=== PATIENT | female | born 1965 | race Caucasian/White ===

== ENCOUNTER 2016-09-25 20:58 | Inpatient (IN) | payer OTHER ==
[~2016-09-25] VITALS: Ht 162.6 cm; Wt 115.2 kg
[2016-09-25 22:25] VITALS: BP 201/87; PULSE 125; TEMP 36.8; O2SAT 96; BMI 48.1
[2016-09-25] MEDS ORDERED: ALUMINUM/MAGNESIUM/SIMETH (MAALOX MAX) 30 ML UDC PO PRN (23:30)
[2016-09-25] MEDS ORDERED: MAGNESIUM HYDROXIDE SUSP 30 ML UDC PO PRN (23:30)
[2016-09-25] MEDS ORDERED: POLYETHYLENE (MIRALAX) 17 GM PACK PO PRN (23:30)
[2016-09-25] MEDS ORDERED: MoRPHine SULFATE 2 MG/ML CARP IV PRN (23:30)
[2016-09-25] MEDS ORDERED: NITROGLYCERIN 0.4 MG SL PER TAB CHARGE SL PRN (23:30)
[2016-09-25 23:59] VITALS: O2SAT 95
[2016-09-26] VITALS (12 sets, daily range): BP systolic 145–183; BP diastolic 72–91; PULSE 67–111; TEMP 36.8–37.4; O2SAT 89–100
[2016-09-26] MEDS ORDERED: GLUCOSE 40% GEL 15 GM TUBE PO PRN (00:30)
[2016-09-26] MEDS ORDERED: DEXTROSE 50% 50 ML SYR IV PRN (00:30)
[2016-09-26] MEDS ORDERED: GLUCAGON FOR INJ 1 MG VIAL SQ PRN (00:30)
[2016-09-26] MEDS ORDERED: GLUCOSE 10 TABS/TUBE PO PRN (00:30)
[2016-09-26 00:46] LABS: ARTERIAL BLD GAS O2 SATURATION 90.1 % (90-95); ARTERIAL BLOOD GAS BASE EXCESS -8.6 mEq/L (-9-1.8); ARTERIAL BLOOD GAS HCO3 17 mmol/L (19-24); ARTERIAL BLOOD GAS PO2 68 mm/Hg (80-95); ARTERIAL BLOOD GAS pH 7.31 (7.35-7.45)
[2016-09-26 00:49] LABS: ALLEN TEST POS (POS); O2 ADMINISTRATION 9 L
--- NOTE | 2016-09-26 00:50 | History and Physical ---
History & Physical Date & Time of Service: Sep 26, 2016 at 00:23 Chief Complaint: Chf, Renal Failure Primary Care Physician: No Doctor, Assigned History of Present Illness Source: patient 51 y/o F Hx Morbid obesity, CVA, IDDM, CKD. Recently admitted to [facility] for Influ and PNM. She returned to [facility] today with moderate respiratory distress and received a preliminary diagnosis of CHF. She was noted in addition to have worsening renal function and an elevated K. The pt was therefore transferred to [facility] for further evaluation. At the time of arrival she describes SOB and was requiring an NRB to maintain an adequate saturation. She Denies CP, a productive cough, N/V, dysuria or fevers. 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 2) Type 2 DM 3) CKD - diagnosed 08/28 - does not know stage or baseline creatinine 4) Morbid obesity 5) States she likely has RENETTA but has not yet been evaluated Family History Both parents are alive - mother with HTN, DM - father healthy Social History Quit smoking 10 years prior Smoking Status: Former Smoker Allergies Coded Allergies: Latex1 -Allergic Contact Dermititis (Verified Adverse Reaction, Mild, RASH , 09/25/16) Review of Systems Constitutional: No chills, No fever, No sweats Eyes: No eye pain, No worsening of vision ENT: No hearing loss, No nasal symptoms, No unusual epistaxis Respiratory: + dyspnea at rest, + dyspnea on exertion, + shortness of breath, No cough, No sputum, No wheezing Cardiovascular: + orthopnea, No chest pain, No edema Abdomen: No nausea, No pain, No vomiting Musculoskeletal: No joint pain, No muscle pain Genitourinary - Female: No dysuria, No urinary frequency, No urinary urgency Neurologic: No memory loss, No paralysis, No weakness Psychiatric: No depression symptoms Endocrine: No fatigue Hematologic / Lymphatic: No abnormal bleeding/bruising Integumentary: No rash Allergic / Immunologic: No environmental allergies Physical Exam Vital Signs Date Time Temp Pulse Resp B/P Pulse Ox O2 Delivery O2 Flow Rate FiO2 09/25/16 22:25 36.8 125 25 201/87 96 Venturi Mask 14.0 55 General Appearance: + pertinent finding (PLeasent overweight middle aged female - breathing is clearly labored) Head: normocephalic, atraumatic Eyes: normal inspection, PERRL, EOMI ENT: normal ENT inspection, hearing grossly normal, + pertinent finding (Exam limited by habitus) Neck: supple, no adenopathy, thyroid normal, no JVD Respiratory/Chest: chest non-tender, + pertinent finding (No air entry at bases - possible crackles L - no wheezing) Cardiovascular: regular rate, rhythm, no edema, no gallop, + pertinent finding (faint heart sounds) Abdomen/GI: normal bowel sounds, non tender, soft Back: normal inspection, no CVA tenderness, no muscle spasm, normal range of motion Extremities/Musculoskelatal: normal inspection, no calf tenderness, normal capillary refill, no pedal edema, normal range of motion 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 Recently admitted to [facility] for Influ and PNM. She returned to [facility] today with moderate respiratory distress and received a preliminary diagnosis of CHF. She was noted in addition to have worsening renal function and an elevated K. The pt was therefore transferred to [facility] for further evaluation. At the time of arrival she describes SOB and was requiring an NRB to maintain an adequate saturation. She Denies CP, a productive cough, N/V, dysuria or fevers. 1) Respiratory distress - likely new onset CHF - awaiting CT result as her habitus precludes accurate volume assessment. She will receive BID Lasix - measure Is/Os - 02 protocol, echo and cardiology consult. R/O acute precipitating event with serial troponins. She receives a daily B jorge. 2) Acute on chronic RF - we will need a baseline from her PCP - cannot receive IVF due to likelihood of CHF. She has a high K and a low bicarb which will be trended - if function worsens nephrology should be involved. She does have a [employer]scre[employer] Worker in [place] presently. 3) DM - sliding scale provided 4) Hx TIA - cont Plavix and Lipitor. 5) HTN - Norvasc, Metoprolol, Lasix. 6) Hyperkalemia - treating with IV Lasix - will trend BMP Full code - Heparin prophylaxis Total time for this admit including review of labs, meds, EKG, CT - discussion with pt and ER attending at [facility] - 42 min Level of Care Telemetry Advanced Directives Existing Living Will: No Existing Power of Supervisor Delivery Department: No Resuscitation Status FULL RESUSCITATION VTE Prophylaxis VTE Risk Assessment Done? Y/N: Yes Risk Level: Moderate Given or contraindicated: Unfractionated heparin SQ
[2016-09-26 01:17] LABS: BUN/CREATININE RATIO 19.7 (10-20); CALCIUM 8.3 mg/dl (8.5-10.1); CREATININE 2.4 mg/dl (0.60-1.20); POTASSIUM 5.4 mmol/L (3.5-5.1)
[2016-09-26] MEDS: INSULIN ASPART 100 UNITS/ML 3 ML PEN SC SCH ×4 (01:35→16:09)
[2016-09-26] MEDS: NITROGLYCERIN OINT 2% 1GM PACKET EXT SCH ×4 (01:41→17:53)
[2016-09-26 03:46] LABS: HEMATOCRIT 26.1 % (37-47); MEAN CELL VOLUME 88.8 fL (80-100); MEAN CORPUSCULAR HEMOGLOBIN 29.3 pg (25-34); PLATELET COUNT 265 K/uL (130-400); RED BLOOD COUNT 2.94 M/uL (4.2-5.4); WHITE BLOOD COUNT 10.37 K/uL (4.8-10.8)
[2016-09-26] MEDS: HEPARIN 25,000 UNIT/500ML D5W 500 ML IV PRN ×2 (03:54→19:43)
[2016-09-26 03:56] LABS: PARTIAL THROMBOPLASTIN RATIO 1.1
[2016-09-26 04:12] LABS: BUN/CREATININE RATIO 21.1 (10-20); CALCIUM 8.1 mg/dl (8.5-10.1); CREATININE 2.3 mg/dl (0.60-1.20); MAGNESIUM 2.2 mg/dl (1.8-2.4); POTASSIUM 5.2 mmol/L (3.5-5.1)
[2016-09-26 04:18] LABS: PHOSPHORUS 4.4 mg/dl (2.5-4.9)
[2016-09-26] MEDS ORDERED: HEPARIN SOD 5000 UNIT/0.5 ML CARP SQ SCH (06:00)
--- NOTE | 2016-09-26 06:15 | DIAGNOSTIC IMAGING REPORT ---
CHEST CT WITHOUT CONTRAST CT DOSE: 1180.84 mGy.cm HISTORY: Dyspnea CHF vs PNM TECHNIQUE: Multiaxial CT images of the chest were performed without contrast. COMPARISON: None. FINDINGS: Bilateral pleural effusions. Components of congestive heart failure. Moderate cardiac enlargement. Patchy parenchymal slightly nodular-type upper lobe infiltrative change. Increased pulmonary vasculature. IMPRESSION: Congestive failure versus pulmonary edema. 2. Bilateral pleural effusions. 3. Patchy somewhat nodular upper lobe infiltrates bilaterally. Electronically signed by: Beto Evans M.D. 09/26/2016 6:14 AM Dictated Date/Time: 09/26/2016 6:13 AM
[2016-09-26] MEDS ORDERED: FUROSEMIDE 40 MG/4 ML VIAL ONE (08:22)
[2016-09-26] MEDS ORDERED: NURSING VERBAL MED ORDER ONE (08:30)
[2016-09-26] MEDS: METOPROLOL TARTRATE 25 MG TAB PO SCH ×2 (08:36→20:16)
[2016-09-26] MEDS: AMLODIPINE BESYLATE 5 MG TAB PO SCH (08:40)
[2016-09-26] MEDS: CITALOPRAM 20 MG TAB PO SCH (08:41)
[2016-09-26] MEDS: CLOPIDOGREL BISULFATE 75 MG TAB PO SCH (08:41)
[2016-09-26] MEDS ORDERED: ALBUTEROL 0.083% NEBU SOLN 3 ML VIAL INH PRN (08:45)
--- NOTE | 2016-09-26 08:46 | Progress Note ---
Subjective Date of Service: Sep 26, 2016. Subjective Pt evaluation today including: conversation w/ patient, physical exam, lab review, review of studies, review of inpatient medication list Called to bedside for worsening SOB. On arrival, patient was sitting up, almost at tripod positioning with NRB Given lasix 40mg this morning and another lasix 40mg IV given stat. Patient placed on bipap and given morphine 2mg with significant improvement She is now able to tolerate laying back and breathing is more comfortable with improvement in ability to converse. No chest pain, no abd pain. LE swelling has been ongoing for a few days now, both legs. Review of Systems All Other Systems: Reviewed and Negative Medications Acetaminophen (Tylenol Tab) 650 mg Q4H PRN PO; Start 09/25/16 at 23:30; Stop 10/25/16 at 23:29 Al Hydrox/Mg Hydrox/Simethicone (Maalox Max Susp) 15 ml Q4H PRN PO; Start 09/25 at 23:30; Stop 10/25/16 at 23:29 Albuterol Sulfate 2.5 mg 2.5 mg Q3H PRN INH; Start 09/26/16 at 08:45; Stop at 08:44 Albuterol/ Ipratropium (Duoneb) 3 ml QIDR INH; Start 09/26/16 at 12:00; Stop at 11:59 Amlodipine Besylate (Norvasc Tab) 10 mg QAM PO Last administered on 09/26/16t 08 :40; Admin Dose 10 MG; Start 09/26/16 at 09:00; Stop 10/26/16 at 08:59 Atorvastatin Calcium (Lipitor Tab) 40 mg HS PO; Start 09/26/16 at 21:00; Stop at 20:59 Bumetanide 2 mg/ Syringe 8 ml @ 4 mls/min BID@0800,1500 IV; Start 09/26/16 at 15 :00; Stop 10/26/16 at 14:59 Citalopram Hydrobromide (celeXA TAB) 20 mg QAM PO Last administered on t 08:41; Admin Dose 20 MG; Start 09/26/16 at 09:00; Stop 10/26/16 at 08:59 Clopidogrel Bisulfate (plAVix TAB) 75 mg QAM PO Last administered on 09/26/16 08:41; Admin Dose 75 MG; Start 09/26/16 at 09:00; Stop 10/26/16 at 08:59 Dextrose (Dextrose 50% 50ML Syringe) 25-50ML OF 50% DW IV FOR... UD PRN IV; Start 09/26/16 at 00:30; Stop 10/26/16 at 00:29 Glucagon 1 mg 1 mg UD PRN SQ; Start 09/26/16 at 00:30; Stop 10/26/16 at 00:29 Glucose (Glucose 40% Gel) 15-30 GRAMS 15 GRAMS... UD PRN PO; Start 09/26/16 at 00:30; Stop 10/26/16 at 00:29 Glucose (Glucose Chew Tab) 4-8 Tablets 4 Tabl... UD PRN PO; Start 09/26/16 at 00:30; Stop 10/26/16 at 00:29 Heparin Sodium/ Dextrose (Heparin 25,000 Unit/500ml D5W) 500 ml @ 30 mls/hr [id number] PRN IV Last administered on 09/26/16 03:54; Admin Dose 30 MLS/HR; Start 09/26/16 at 03:15; Stop 10/26/16 at 03:14 Insulin Aspart (novoLOG ASPART) SLIDING SCALE G... Q6 SC Last administered on 09/26/16 01:35; Admin Dose 1 UNITS; Start 09/26/16 at 00:45; Stop 10/26/16 at 00:44 Magnesium Hydroxide (Milk Of Magnesia Susp) 30 ml Q12H PRN PO; Start 09/25/16 at 23:30; Stop 10/25/16 at 23:29 Metoprolol Tartrate (Lopressor Tab) 25 mg BID PO Last administered on 09/26/16 08:36; Admin Dose 25 MG; Start 09/26/16 at 09:00; Stop 10/26/16 at 08:59 Morphine Sulfate (MoRPHine SULFATE INJ) 2 mg Q30M PRN IV Last administered on 08:34; Admin Dose 2 MG; Start 09/25/16 at 23:30; Stop 10/09/16 at 23:29 Nitroglycerin (Nitroglycerin 2% Oint) 1 inch Q6 EXT Last administered on t 06:14; Admin Dose 1 INCH; Start 09/26/16 at 00:45; Stop 10/26/16 at 00:44 Nitroglycerin (Nitrostat Tab) 0.4 mg UD PRN SL; Start 09/25/16 at 23:30; Stop 10/25/16 at 23:29 Ondansetron HCl (Zofran Inj) 4 mg Q6H PRN IV; Start 09/25/16 at 23:30; Stop at 23:29 Piperacillin Sod/ Tazobactam Sod 3.375 gm/Dextrose 115 ml @ 28.75 mls/ hr Q8H IV; Start 09/26/16 at 16:00; Stop 10/03/16 at 15:59 Piperacillin Sod/ Tazobactam Sod 1 ea 1 ea UD PRN N/A; Start 09/26/16 at 10:30 ; Stop 10/26/16 at 10:29 Piperacillin Sod/ Tazobactam Sod/ Dextrose (Zosyn Iv/D5 100ml) 120 ml @ 200 mls /hr 1030 ONCE IV; Start 09/26/16 at 10:30; Stop 09/26/16 at 11:05 Polyethylene (Miralax Powder Packet) 17 gm DAILY PRN PO; Start 09/25/16 at 23: 30; Stop 10/25/16 at 23:29 Tramadol HCl (Ultram Tab) 50 mg Q4H PRN PO; Start 09/25/16 at 23:30; Stop 10/25 at 23:29 Vancomycin HCl (Consult) 1 ea UD PRN N/A; Start 09/26/16 at 10:30; Stop at 10:29 Vancomycin HCl/ Sodium Chloride (Vancomycin Inj/ Nss 500ml) 556 ml @ 200 mls/ hr TODAY@1100 ONCE IV; Start 09/26/16 at 11:00; Stop 09/26/16 at 13:46 Objective Vital Signs Date Time Temp Pulse Resp B/P Pulse Ox O2 Delivery O2 Flow Rate FiO2 09/26/16 08:11 36.8 99 24 183/85 89 09/26/16 04:00 Venturi Mask 9.0 35 09/26/16 03:42 36.9 84 22 180/91 95 Mask 09/25/16 23:59 95 Venturi Mask 9.0 09/25/16 23:59 Venturi Mask 9.0 35 09/25/16 22:25 36.8 125 25 201/87 96 Venturi Mask 14.0 55 Physical Exam Comments: initially, she was in respiratory distress with increased WOB after the intervention above, she remains with increased work of breathing but improved since arrival, and she is now tolerating sitting back with bipap s1 s2 rrr, no murmurs appreciated coarse breath sound with rales and diminished lung sounds abd obese, soft nt +BS 2+ LE edema bilaterally AOx3 and is a good historian Laboratory Results Last 24 Hours Test 09/26/16 00:24 09/26/16 01:06 09/26/16 03:40 09/26/16 06:01 Sodium Level 145 mmol/L 145 mmol/L Potassium Level 5.4 mmol/L 5.2 mmol/L Chloride Level 118 mmol/L 117 mmol/L Carbon Dioxide Level 18 mmol/L 20 mmol/L Anion Gap 9.0 mmol/L 8.0 mmol/L Blood Urea Nitrogen 47 mg/dl 49 mg/dl Creatinine 2.40 mg/dl 2.30 mg/dl Est Creatinine Clear Calc Drug Dose 35.8 ml/min 37.3 ml/min Estimated GFR () 25.8 27.2 Estimated GFR (Non- 22.3 23.5 BUN/Creatinine Ratio 19.7 21.1 Random Glucose 201 mg/dl 167 mg/dl Calcium Level 8.3 mg/dl 8.1 mg/dl Troponin I 5.080 ng/ml 7.740 ng/ml Bedside Glucose 183 mg/dl 146 mg/dl White Blood Count 10.37 K/uL Red Blood Count 2.94 M/uL Hemoglobin 8.6 g/dL Hematocrit 26.1 % Mean Corpuscular Volume 88.8 fL Mean Corpuscular Hemoglobin 29.3 pg Mean Corpuscular Hemoglobin Concent 33.0 g/dl RDW Standard Deviation 46.2 fL RDW Coefficient of Variation 14.3 % Platelet Count 265 K/uL Mean Platelet Volume 10.0 fL Activated Partial Thromboplast Time 29.0 SECONDS Partial Thromboplastin Ratio 1.1 Phosphorus Level 4.4 mg/dl Magnesium Level 2.2 mg/dl Hepatitis C Antibody Screen NEG Interpretation Summary * Name: TONNY RODRIGUEZ Study Date: 09/26/2016 09:48 AM BP: 180/91 mmHg * [id number] HR: 84 * : 1965 (M/d/yyyy) Gender: Female Height: 64 in * Age: 51 yrs Ethnicity: [place] Weight: 279 lb * Ordering Physician: Kevon Rodriguez * Performed By: Bel Hayward * * Reason For Study: CHF * BSA: 2.3 m2 * -- Conclusions -- * 1. Normal LV size, moderate concentric LVH. * 2. Normal LV systolic function. LVEF 60-65%. Severe apical hypokinesis. * 3. RV not well visualized. Function grossly normal. * 4. Mild mitral regurgitation. * 5. Grade II diastolic dysfunction * 6. Elevated RA pressure (Est 15 mmHg). * 7. Moderate left pleural effusion. * 8. No prior studies for comparison. Procedure Details * A complete two-dimensional transthoracic echocardiogram was performed (2D, M-mode, Doppler and color flow Doppler). * The study was technically difficult. * There were technical limitations due to patient'spoor positioning * A contrast injection of Definity was performed to improve assessment of LV function. * Contrast was injected into an intravenous site in the left arm. * One vial of Definity ultrasound contrast was diluted in normal saline to a total volume of 10 ml. A total of '2' ml of solution was administered during imaging. * Lot # [id number] of Definity utilized for procedure. * Expiration date 07/29. * The attending nurse who injected the contrast agent was DOMI DEE RN. Left Ventricle * The left ventricle is grossly normal size. * There is moderate concentric left ventricular hypertrophy. * Ejection Fraction = 60-65%. * There is severe apical wall hypokinesis. Right Ventricle * The right ventricle is not well visualized. * The right ventricular systolic function is normal as assessed by tricuspid annular plane systolic excursion (TAPSE) (normal >1.5 cm). CHEST ONE VIEW PORTABLE CLINICAL HISTORY: reps distress dyspnea COMPARISON STUDY: CT chest dated 09/25/2016 FINDINGS: Findings of congestive failure versus mild pulmonary edema IMPRESSION: Congestive failure versus mild pulmonary edema. CHEST CT WITHOUT CONTRAST CT DOSE: 1180.84 mGy.cm HISTORY: Dyspnea CHF vs PNM TECHNIQUE: Multiaxial CT images of the chest were performed without contrast. COMPARISON: None. FINDINGS: Bilateral pleural effusions. Components of congestive heart failure. Moderate cardiac enlargement. Patchy parenchymal slightly nodular-type upper lobe infiltrative change. Increased pulmonary vasculature. IMPRESSION: Congestive failure versus pulmonary edema. 2. Bilateral pleural effusions. 3. Patchy somewhat nodular upper lobe infiltrates bilaterally. ABDOMEN AND PELVIS CT WITHOUT CONTRAST CT DOSE: 2126.92 mGy.cm HISTORY: Pain severe abd pain TECHNIQUE: Multiaxial CT images of the abdomen and pelvis were performed without contrast. COMPARISON STUDY: None. FINDINGS: Bilateral pleural effusions. Basilar atelectatic change. Configuration of the liver is unremarkable. Gallbladder is negative for distention. Bilateral nonobstructing nephrocalcinosis/renal vascular calcifications. Trace body wall anasarca. Nonobstructive bowel pattern. Normal appendix. Bladder is midline. No significant free fluid within the pelvic cul-de-sac. No significant abdominal pelvic or inguinal richard change. IMPRESSION: 1. No acute process of the abdomen or pelvis. Normal appendix 2. Bilateral pleural effusions with bibasilar atelectatic change. 3. Mild body wall anasarca. Assessment and Plan 1. Acute decompensated diastolic CHF - HFpEF of 60%, GII diastolic dysfunction - improved with increased dose of lasix, likely just not adequate dosage for eGFR - cont diuresing her and bipap with increase WOB - cardio consulted, appreciate recs - give her another dose of bumex 2mg in the afternoon and cont bumex 2mg IV BID - keep her 1-1.5L fluid negative as long as BP remains stable 2. NSTEMI - troponin consistent with NSTEMI, EKG without MAYTE - will trend troponin - cont heparin gtt - CT abd w/o con negative for e/o bleed, unable to obtain w/ IV contrast with her renal function - echo as above, cardio recs noted 3. BECKIE on CKD - unclear baseline and stage of renal disease - probably renal congestion with CHF with an element of cardiorenal - she has been off any RAAS blockade - obtain renal US to evaluate renal parenchyma - will require increased dose of diuretics for now - will cont to diurese her symptomatically regardless of renal function at this time - would avoid non-emergent contrast studies at this time unless LHC becomes urgent/emergent, then we'll have to weigh risks/benefits 4. Patchy upper lobe infiltrates - will cont on vanco/zosyn - recently finished azithro outpatient and recent hospitalization - cover for HCAP 5. Hyperkalemia - from renal failure - should improve with diuresis 6. HTN - elevated at the moment, likely stress and volume mediated - will cont to diurese for now and monitor - cont metoprolol 7. Back pain - CT negative for any pathologies - unable to obtain contrast study - will monitor
[2016-09-26] MEDS ORDERED: FUROSEMIDE INJ 40 MG in SYRINGE 0 ML IV SCH (09:00)
--- NOTE | 2016-09-26 09:30 | DIAGNOSTIC IMAGING REPORT ---
CHEST ONE VIEW PORTABLE CLINICAL HISTORY: reps distress dyspnea COMPARISON STUDY: CT chest dated 09/25/2016 FINDINGS: Findings of congestive failure versus mild pulmonary edema IMPRESSION: Congestive failure versus mild pulmonary edema. Electronically signed by: Beto Evans M.D. 09/26/2016 9:29 AM Dictated Date/Time: 09/26/2016 9:00 AM
[2016-09-26] MEDS ORDERED: VANCOMYCIN 1GM/270ML NSS IV STA (09:50)
[2016-09-26] MEDS ORDERED: PERFLUTREN LIPID MICROSPHERE (DEFINITY) IV ONE (10:12)
[2016-09-26] MEDS ORDERED: VANCOMYCIN CONSULT ACTIVE PRN (10:30)
[2016-09-26] MEDS ORDERED: PIPERACILL/TAZOBAC CONSULT ACTIVE PRN (10:30)
[2016-09-26] MEDS ORDERED: PIPERACILL/TAZOBAC IV 4.5 GM in DEXTROSE 5% 100ML 100 ML IV ONE (10:30)
[2016-09-26 10:56] LABS: PARTIAL THROMBOPLASTIN RATIO 1.4
[2016-09-26] MEDS ORDERED: VANCOMYCIN INJ 2,800 MG in SODIUM CHLORIDE 0.9% 500ML 500 ML IV ONE (11:00)
--- NOTE | 2016-09-26 11:00 | Pharmacy Progress Note ---
Pharmacy Antibiotic Consult Date of Service: Sep 26, 2016. Pharmacy Dosing Scope Pharmacy is consulted to initiate vancomycin IV dosing therapy, order appropriate labs and adjust drug dose/frequency. Subjective The patient is a 51 year old female admitted on Sep 25, 2016 at 22:34. Objective Height (Feet): 5 Height (Inches): 4.00 Weight (Kilograms): 126.600 Lab Results (24hrs): Laboratory Tests Test 09/26/16 00:24 09/26/16 03:40 BUN/Creatinine Ratio 19.7 21.1 Blood Urea Nitrogen 47 mg/dl 49 mg/dl Creatinine 2.40 mg/dl 2.30 mg/dl White Blood Count 10.37 K/uL Assessment & Plan Assessment * 51 yo F w ? HAP vs CHF. Recent hospitalization. On Zosyn, vancomycin. Ordered nasal MRSA - pending. Patient is tachycardic with O2 sat currently 89% on venturimask. WBC and temperature wnl. * Hx CKD w unknown baseline SCr - currently elevated to 2.3 mg/dL. Will add-on SCr with labs ordered this evening to help determine trend. * Will give vancomycin 22 mg/kg IV x1. This will be max dose - cannot give more 2nd obesity. * Will obtain random level this PM to determine if more vancomycin is needed. * May be able to discontinue vancomycin if MRSA nasal swab is negative. * Patient is at risk for further nephrotoxicity with vancomycin, especially in combination with Zosyn Plan * Vancomycin 2800 mg IV x1 @ 1100 * Random vancomycin level today @ 1900 * Nasal MRSA swab - suggest d/c vancomycin if negative Pharmacy will continue to follow and will adjust dose/frequency as necessary. Thank you
[2016-09-26] MEDS: ALBUT/IPRATROP 3MG/0.5MG NEB 3 ML VIAL INH SCH ×3 (11:08→19:15)
--- NOTE | 2016-09-26 11:26 | ECHOCARDIOGRAM REPORT ---
*NOTICE TO RECEIVING REPUBLICAN AGENCY This information is strictly Confidential and protected under [place] law. [place] law prohibits you from making any further disclosure of this information unless further disclosure is expressly permitted by the written consent of the person to whom it pertains or is authorized by law. A general authorization for the release of medical or other information is not sufficient for this purpose. Hospital accepts no responsibility if the information is made available to any other person, INCLUDING THE PATIENT. Interpretation Summary * Name: TONNY RODRIGUEZ Study Date: 09/26/2016 09:48 AM BP: 180/91 mmHg * Patient Location: C.2T\S\E222\S\1 HR: 84 * : 1965 (M/d/yyyy) Gender: Female Height: 64 in * Age: 51 yrs Ethnicity: CA Weight: 279 lb * Ordering Physician: Kevon Rodriguez * Performed By: Bel Hayward * * Reason For Study: CHF * BSA: 2.3 m2 * -- Conclusions -- * 1. Normal LV size, moderate concentric LVH. * 2. Normal LV systolic function. LVEF 60-65%. Severe apical hypokinesis. * 3. RV not well visualized. Function grossly normal. * 4. Mild mitral regurgitation. * 5. Grade II diastolic dysfunction * 6. Elevated RA pressure (Est 15 mmHg). * 7. Moderate left pleural effusion. * 8. No prior studies for comparison. Procedure Details * A complete two-dimensional transthoracic echocardiogram was performed (2D, M-mode, Doppler and color flow Doppler). * The study was technically difficult. * There were technical limitations due to patient'spoor positioning * A contrast injection of Definity was performed to improve assessment of LV function. * Contrast was injected into an intravenous site in the left arm. * One vial of Definity ultrasound contrast was diluted in normal saline to a total volume of 10 ml. A total of '2' ml of solution was administered during imaging. * Lot # [id number] of Definity utilized for procedure. * Expiration date 07/29. * The attending nurse who injected the contrast agent was DOMI DEE RN. Left Ventricle * The left ventricle is grossly normal size. * There is moderate concentric left ventricular hypertrophy. * Ejection Fraction = 60-65%. * There is severe apical wall hypokinesis. Right Ventricle * The right ventricle is not well visualized. * The right ventricular systolic function is normal as assessed by tricuspid annular plane systolic excursion (TAPSE) (normal >1.5 cm). Atria * The left atrium is moderately dilated. * Right atrium not well visualized. * No ASD detected; PFO is not assessed. Mitral Valve * The mitral valve is grossly normal. * No significant mitral valve stenosis. * There is mild mitral regurgitation. Tricuspid Valve * The tricuspid valve is not well visualized. * Significant tricuspid regurgitation is absent. Aortic Valve * The aortic valve opens well. * The aortic valve is trileaflet. * No hemodynamically significant valvular aortic stenosis. * There is no significant aortic regurgitation. Pulmonic Valve * The pulmonary valve is not well seen, but the Doppler examination is normal without significant regurgitation or stenosis. Great Vessels * The aortic root and proximal ascending aorta are normal sized. Pericardium/Pleural * There is no pericardial effusion. * Moderate size left pleural effusion. Great Vessels * Dilated inferior vena cava with reduced collapsability with sniff indicates an elevated right atrial pressure of 15 mmHg Left Ventricular Diastolic Function * Diastolic dysfunction, Grade II, consistent with elevated left atrial pressure. MMode 2D Measurements and Calculations IVSd 1.6 cm IVSs 1.9 cm LVIDd 4.9 cm LVIDs 3.1 cm LVPWd 1.4 cm LVPWs 2.1 cm IVS/LVPW 1.1 FS 37.1 % EDV(Teich) 114.2 ml ESV(Teich) 37.9 ml EF(Teich) 66.9 % EDV(cubed) 119.6 ml ESV(cubed) 29.7 ml EF(cubed) 75.1 % % IVS thick 23.9 % % LVPW thick 52.6 % LV mass(C)d 304.8 grams LV mass(C)dI 135.2 grams/m\S\2 LV mass(C)s 276.7 grams LV mass(C)sI 122.8 grams/m\S\2 SV(Teich) 76.4 ml SI(Teich) 33.9 ml/m\S\2 SV(cubed) 89.8 ml SI(cubed) 39.9 ml/m\S\2 ACS 1.2 cm asc Aorta Diam 2.7 cm LVOT diam 2.0 cm LVOT area 3.0 cm\S\2 LVAd ap4 42.8 cm\S\2 LVLd ap4 9.3 cm EDV(MOD-sp4) 159.7 ml EDV(sp4-el) 166.1 ml LVAs ap4 23.9 cm\S\2 LVLs ap4 8.9 cm ESV(MOD-sp4) 52.5 ml ESV(sp4-el) 54.4 ml EF(MOD-sp4) 67.1 % EF(sp4-el) 67.3 % LVAd ap2 39.3 cm\S\2 LVLd ap2 9.2 cm EDV(MOD-sp2) 137.5 ml EDV(sp2-el) 143.5 ml LVAs ap2 21.6 cm\S\2 LVLs ap2 8.1 cm ESV(MOD-sp2) 47.7 ml ESV(sp2-el) 48.8 ml EF(MOD-sp2) 65.3 % EF(sp2-el) 66.0 % LVLd %diff -1.98 % EDV(MOD-bp) 149.4 ml LVLs %diff -9.19 % ESV(MOD-bp) 51.7 ml EF(MOD-bp) 65.4 % SV(MOD-sp4) 107.2 ml SI(MOD-sp4) 47.6 ml/m\S\2 SV(MOD-sp2) 89.8 ml SI(MOD-sp2) 39.8 ml/m\S\2 SV(MOD-bp) 97.7 ml SI(MOD-bp) 43.3 ml/m\S\2 SV(sp4-el) 111.7 ml SI(sp4-el) 49.6 ml/m\S\2 SV(sp2-el) 94.7 ml SI(sp2-el) 42.0 ml/m\S\2 Doppler Measurements and Calculations MV E max brinda 140.9 cm/sec MV A max brinda 112.2 cm/sec MV E/A 1.3 MV P1/2t max brinda 151.8 cm/sec MV P1/2t 106.8 msec MVA(P1/2t) 2.1 cm\S\2 MV dec slope 416.5 cm/sec\S\2 MV dec time 0.22 sec Ao V2 max 152.1 cm/sec Ao max PG 9.2 mmHg Ao max PG (full) 6.3 mmHg EARNESTINE(V,A) 1.7 cm\S\2 EARNESTINE(V,D) 1.7 cm\S\2 LV V1 max PG 3.0 mmHg LV V1 max 86.1 cm/sec MR max brinda 423.2 cm/sec MR max PG 71.6 mmHg PA V2 max 109.5 cm/sec PA max PG 4.8 mmHg PI end-d brinda 91.8 cm/sec
[2016-09-26] MEDS ORDERED: HEPARIN IV BOLUS 7,000 UNIT in SYRINGE 0 ML IV ONE (12:00)
[2016-09-26 13:46] LABS: HEMATOCRIT 27.3 % (37-47)
--- NOTE | 2016-09-26 14:21 | CARDIOLOGY CONSULTATION ---
DATE OF CONSULTATION: 09/26/2016 DATE OF CONSULTATION: 09/26/2016. CONSULTATION REQUESTED BY: Dr. Rodriguez. REASON FOR CONSULTATION: Elevated troponin. HISTORY OF PRESENT ILLNESS: Ms. Gutierrez is a 51-year-old woman with a history of hypertension, type 2 diabetes on insulin, chronic renal insufficiency (stage III, baseline creatinine of approximately 2.0), prior right CVA, anemia who was admitted in the setting of progressive shortness of breath, with congestive heart failure, in the setting of elevated troponin. Cardiology consulted for further management. The patient with no real significant prior cardiac history. Denies any prior history of cardiac procedures or surgeries. 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 The patient states that approximately 1 month ago developed some shortness of breath which was attributed to a pneumonia. She was treated briefly with antibiotics with mild improvement; however, continued to have shortness of breath. Since that time symptoms have been gradually progressed and been associated with lower extremity edema, orthopnea. The day of presentation, the patient states that she went out for a large lunch with lots of salt, went to sleep and woke up acutely short of breath. She presented initially to [facility] where was hypoxic with mildly elevated troponin and was transferred to [facility] for further management. Upon presentation here, she was hypoxic initially requiring a Venturi mask and this morning had to be placed on BiPAP and given an extra dose of Lasix. Thus far, she is negative 700 mL of fluid out, and notes that her breathing is significantly improved. During all this she denies any chest pain. Denies any palpitations. Her initial EKG showed no ST changes. Her initial troponin was 5.1, which trended up to 7.7 this morning. She was also noted to have an elevated creatinine of approximately 2.4 and low hemoglobin of 8.6. She was started on heparin infusion, continued on Plavix and a nitropatch was added. PAST MEDICAL HISTORY: 1. Type 2 diabetes on insulin. 2. Chronic renal insufficiency, baseline creatinine around 2.0 to 2.2. 3. Anemia. Baseline last hemoglobin around 10. 4. Hyperlipidemia. 5. Prior CVA in 2014, right yoav acute infarct, no significant residual defects. 6. Hyperlipidemia. 7. Peripheral artery disease status post prior LEVELER HELPER with questionable stenting to her right leg somewhere. 8. Suspected obstructive sleep apnea. CURRENT MEDICATIONS: Include Tylenol, albuterol, ipratropium nebs, amlodipine 10, atorvastatin 40, citalopram, Plavix 75 mg, heparin infusion, insulin aspart, metoprolol 25 mg b.i.d., 1 inch nitro paste, Zofran, Zosyn and vancomycin. ALLERGIES: LATEX ALLERGY. FAMILY HISTORY: Mother had diabetes and cardiac disease in her 70s. No history of premature coronary artery disease. SOCIAL HISTORY: The patient smoked more than 10 years ago. Denies significant alcohol use. Denies illicit drug use. 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 REVIEW OF SYSTEMS: Unable to obtain due to respiratory distress. PHYSICAL EXAMINATION: VITAL SIGNS: Temperature 36.9, pulse 72, blood pressure 145/72. She is satting 95% on BiPAP with FIO2 of 30. GENERAL: The patient appears in mild distress, but appears comfortable. HEAD, EYES, EARS, NOSE, AND THROAT: Her sclerae are anicteric. Oropharynx is clear. Mucous membranes are moist. NECK: Supple. No lymphadenopathy. JVD is unable to be assessed. LUNGS: She has decreased breath sounds at her bases bilaterally, left greater than right. CARDIAC EXAMINATION: She is regular rate and rhythm with no appreciable murmurs, rubs or gallops. ABDOMEN: Soft, obese, but nontender. EXTREMITIES: Warm. She has 1+ lower extremity edema to her shins bilaterally. She has diminished distal pulses. She has a 2+ right radial pulse. SKIN: Shows no rashes or lesions. NEUROLOGIC: Grossly nonfocal. PSYCHIATRIC: She is alert and oriented x3. Mood and affect is appropriate. LABORATORY DATA: Sodium 145, potassium 5.4, BUN 47, creatinine of 2.4, bicarb 18. White blood cell count 10.4, hemoglobin 8.6, platelets of 265. Initial blood gas 7.31/36/68/17. INR was 1.1. EKG showed normal sinus rhythm and a ventricular rate of [address] scan of her chest showed pulmonary edema with bilateral pleural effusions. Telemetry reviewed showed sinus rhythm, sinus tachycardia with no complex arrhythmias. Echocardiogram completed today showed preserved LV function with an EF of approximately 60-65%. There was apical hypokinesis. No other regional wall motion abnormalities. She had moderate LVH, grade 2 diastolic dysfunction consistent with elevated left atrial pressure and an elevated estimated right atrial pressure. IMPRESSION AND PLAN: 1. Acute diastolic heart failure. 2. Qqt-KE-bslggps elevation myocardial infarction. 3. Acute on chronic renal failure. 4. Anemia. 5. Type 2 diabetes on insulin. 6. Hypertension. 7. Peripheral artery disease. 8. Hyperlipidemia. Patient here with progressive worsening shortness of breath requiring initial BiPAP therapy, found to be in acute heart failure, now improving with IV diuretics and topical nitrates. She continues to have significant congestion on exam. Going forward, I agree with continued IV diuresis. Would continue with 40 IV b.i.d. and continue topical nitrates. If blood pressure remains elevated, would consider adding IV nitroglycerin drip. In regards to NSTEMI, patient is chest pain free, has remained hemodyanmically and electrically stable with overall preserved LV function. In that setting with patient's chronic renal insufficiency would hold off on urgent cardiac catheterization at this time. Would continue heart failure management as above and will consider a cardiac cath at some point to further define anatomy and risk stratify. In the interim though would continue on heparin for 48 hours. Continue Plavix. Would add aspirin and continue on statin and beta jorge. If hemoglobin less than 8 would transfuse. Will continue to follow while patient is in the hospital. Thank you for allowing us to participate in the care of this patient. Please contact with any questions. AKASH
--- NOTE | 2016-09-26 14:36 | DIAGNOSTIC IMAGING REPORT ---
ABDOMEN AND PELVIS CT WITHOUT CONTRAST CT DOSE: 2126.92 mGy.cm HISTORY: Pain severe abd pain TECHNIQUE: Multiaxial CT images of the abdomen and pelvis were performed without contrast. COMPARISON STUDY: None. FINDINGS: Bilateral pleural effusions. Basilar atelectatic change. Configuration of the liver is unremarkable. Gallbladder is negative for distention. Bilateral nonobstructing nephrocalcinosis/renal vascular calcifications. Trace body wall anasarca. Nonobstructive bowel pattern. Normal appendix. Bladder is midline. No significant free fluid within the pelvic cul-de-sac. No significant abdominal pelvic or inguinal richard change. IMPRESSION: 1. No acute process of the abdomen or pelvis. Normal appendix 2. Bilateral pleural effusions with bibasilar atelectatic change. 3. Mild body wall anasarca. Electronically signed by: Beto Evans M.D. 09/26/2016 2:35 PM Dictated Date/Time: 09/26/2016 2:32 PM
[2016-09-26] MEDS: BUMETANIDE IV 2 MG in SYRINGE 0 ML IV SCH (15:57)
[2016-09-26] MEDS: PIPERACILL/TAZOBAC IV 3.375 GM in DEXTROSE 5% 100ML 100 ML IV SCH (16:03)
[2016-09-26] MEDS ORDERED: BUMETANIDE IV 2 MG in SYRINGE 0 ML IV ONE (17:00)
[2016-09-26 20:08] LABS: CREATININE 2.6 mg/dl (0.60-1.20)
[2016-09-26] MEDS: ATORVASTATIN 40 MG TAB PO SCH (20:15)
[2016-09-26 20:21] LABS: PARTIAL THROMBOPLASTIN RATIO 2.4
[2016-09-26 21:26] LABS: HEMATOCRIT 24.7 % (37-47)
[2016-09-27] VITALS (12 sets, daily range): BP systolic 154–179; BP diastolic 75–82; PULSE 67–88; TEMP 36.6–36.9; O2SAT 94–100
[2016-09-27] MEDS: NITROGLYCERIN OINT 2% 1GM PACKET EXT SCH ×5 (00:56→23:40)
[2016-09-27] MEDS: PIPERACILL/TAZOBAC IV 3.375 GM in DEXTROSE 5% 100ML 100 ML IV SCH ×4 (01:00→23:39)
[2016-09-27] MEDS: INSULIN ASPART 100 UNITS/ML 3 ML PEN SC SCH ×5 (05:58→20:36)
[2016-09-27] MEDS: ACETAMINOPHEN 325 MG TAB PO PRN (06:01)
--- NOTE | 2016-09-27 06:04 | DIAGNOSTIC IMAGING REPORT ---
BILATERAL LOWER EXTREMITY VENOUS DOPPLER HISTORY: Pain. Edema. eval for dv COMPARISON STUDY: None. FINDINGS: There is normal compressibility, flow, and augmentation within the bilateral lower extremity deep venous systems. IMPRESSION: No DVT within the right or left lower extremity. Electronically signed by: Beto Evans M.D. 09/27/2016 6:03 AM Dictated Date/Time: 09/27/2016 6:02 AM
--- NOTE | 2016-09-27 06:10 | DIAGNOSTIC IMAGING REPORT ---
RENAL ULTRASOUND HISTORY: Renal insufficiency eval for ck. COMPARISON: None. FINDINGS: Right kidney: Maximum dimension 11.7 cm. No evidence for hydronephrosis. Several nonobstructing calcifications. Normal corticomedullary differentiation and cortical thickness. Left kidney: Maximum dimension 11.2 cm. No evidence for hydronephrosis. Normal corticomedullary differentiation and cortical thickness. Bladder: No bladder wall thickening. The bilateral ureteral jets were identified. IMPRESSION: Several right renal nonobstructing calcifications. Otherwise negative study Electronically signed by: Beto Evans M.D. 09/27/2016 6:08 AM Dictated Date/Time: 09/27/2016 6:07 AM
[2016-09-27 06:54] LABS: BASO % 0.8 %; BASO ABS # 0.07 K/uL (0-0.2); EOS % 4.1 %; HEMATOCRIT 24.5 % (37-47); IG% 0.2 %; LYMPH % 20.4 %; LYMPH ABS # 1.75 K/uL (1.2-3.4); MEAN CELL VOLUME 88.1 fL (80-100); MEAN CORPUSCULAR HEMOGLOBIN 29.1 pg (25-34); MEAN CORPUSCULAR HGB CONC 33.1 g/dl (32-36); MEAN PLATELET VOLUME 10.7 fL (7.4-10.4); MONO % 9.2 %; NEUT % 65.3 %; PLATELET COUNT 231 K/uL (130-400); RED BLOOD COUNT 2.78 M/uL (4.2-5.4); WHITE BLOOD COUNT 8.59 K/uL (4.8-10.8)
[2016-09-27] MEDS: ALBUT/IPRATROP 3MG/0.5MG NEB 3 ML VIAL INH SCH ×4 (07:07→20:25)
[2016-09-27 07:11] LABS: PARTIAL THROMBOPLASTIN RATIO 2.6
[2016-09-27] MEDS ORDERED: NURSING VERBAL MED ORDER ONE ×2 (07:15→16:15)
[2016-09-27 07:26] LABS: CALCIUM 8.2 mg/dl (8.5-10.1); CREATININE 2.4 mg/dl (0.60-1.20); MAGNESIUM 1.8 mg/dl (1.8-2.4); POTASSIUM 4.7 mmol/L (3.5-5.1)
[2016-09-27 07:29] LABS: ALB/GLOB RATIO 0.7 (0.9-2)
[2016-09-27 07:47] LABS: COMPLETE YES; HYPERSEGMENTED POLYS 1+
[2016-09-27] MEDS: AMLODIPINE BESYLATE 5 MG TAB PO SCH (09:07)
[2016-09-27] MEDS: METOPROLOL TARTRATE 25 MG TAB PO SCH ×2 (09:07→20:46)
[2016-09-27] MEDS: CITALOPRAM 20 MG TAB PO SCH (09:07)
[2016-09-27] MEDS: CLOPIDOGREL BISULFATE 75 MG TAB PO SCH (09:07)
[2016-09-27] MEDS: BUMETANIDE IV 2 MG in SYRINGE 0 ML IV SCH ×2 (09:08→16:15)
--- NOTE | 2016-09-27 11:46 | Cardiology Follow-Up ---
Subjective Subjective Date of Service: Sep 27, 2016. Pt evaluation today including: conversation w/ patient, physical exam, chart review, lab review, review of studies, review of inpatient medication list Additional Details: Patient feeling better this AM. Denies chest pain. Breathing more comfortably. no events on telemetry Review of Systems Constitutional: No fever Respiratory: + shortness of breath, No cough Cardiac: No chest pain Abdomen: No nausea, No pain Heme: No abnormal bleeding/bruising Skin: No rash Objective Vital Signs Last Vital Signs Documentation Date Time Temp Pulse Resp B/P Pulse Ox O2 Delivery O2 Flow Rate FiO2 09/27/16 07:27 36.6 75 22 172/82 94 Nasal Cannula 3.0 09/26/16 15:31 30 Physical Exam: General Appearance: no apparent distress, + obese Respiratory/Chest: + decreased breath sounds (at bases bilaterally) Cardiovascular: regular rate, rhythm, + systolic murmur (2/6 systolic ejection murmur) Abdomen: non tender, soft Extremities: no calf tenderness, + pertinent finding (1+ Lower extremity edema to shins - improved from yesterday) Neurologic/Psychiatric: alert, normal mood/affect Skin: warm/dry, no rash Assessment and Plan 1. Acute diastolic heart failure -- well-perfused, diuresing well, improving congestion 2. NSTEMI - troponin peaked, chest pain free, preserved LV function with apical wall motion abnormality 3. Acute on CKD - SCr stable near recent baseline 4. Type 2 diabetes -- on insulin 5. Anemia -- gradually trending down 6. HTN -- BP still elevated on current regimen -- Continue IV Bumex 2 mg BID today -- Continue Plavix. Add aspirin 81 mg daily -- Increase metoprolol to 50 mg BID. Continue amlodipine, nitropatch. If BP still poorly controlled controlled consider switching metoprolol to carvedilol or adding additional agent (possibly hydralazine). -- Continue current statin -- No need for urgent cardiac catheterization. Plan for at some point when stable from a heart failure standpoint. Medications: Current Inpatient Medications Medications (Trade) Dose Ordered Sig/Elizabet Route Start Time Stop Time Status Last Admin Dose Admin Acetaminophen (Tylenol Tab) 650 mg Q4H PRN PO 09/25/16 23:30 10/25/16 23:29 09/27/16 06:01 650 MG Al Hydrox/Mg Hydrox/Simethicone (Maalox Max Susp) 15 ml Q4H PRN PO 09/25/16 23:30 10/25/16 23:29 Magnesium Hydroxide (Milk Of Magnesia Susp) 30 ml Q12H PRN PO 09/25/16 23:30 10/25/16 23:29 Ondansetron HCl (Zofran Inj) 4 mg Q6H PRN IV 09/25/16 23:30 10/25/16 23:29 Nitroglycerin (Nitrostat Tab) 0.4 mg UD PRN SL 09/25/16 23:30 10/25/16 23:29 Nitroglycerin (Nitroglycerin 2% Oint) 1 inch Q6 EXT 09/26/16 00:45 10/26/16 00:44 09/27/16 05:52 1 INCH Morphine Sulfate (MoRPHine SULFATE INJ) 2 mg Q30M PRN IV 09/25/16 23:30 10/09/16 23:29 09/26/16 08:34 2 MG Polyethylene (Miralax Powder Packet) 17 gm DAILY PRN PO 09/25/16 23:30 10/25/16 23:29 Citalopram Hydrobromide (celeXA TAB) 20 mg QAM PO 09/26/16 09:00 10/26/16 08:59 09/27/16 09:07 20 MG Metoprolol Tartrate (Lopressor Tab) 25 mg BID PO 09/26/16 09:00 10/26/16 08:59 09/27/16 09:07 25 MG Atorvastatin Calcium (Lipitor Tab) 40 mg HS PO 09/26/16 21:00 10/26/16 20:59 09/26/16 20:15 40 MG Clopidogrel Bisulfate (plAVix TAB) 75 mg QAM PO 09/26/16 09:00 10/26/16 08:59 09/27/16 09:07 75 MG Amlodipine Besylate (Norvasc Tab) 10 mg QAM PO 09/26/16 09:00 10/26/16 08:59 09/27/16 09:07 10 MG Insulin Aspart (novoLOG ASPART) SLIDING SCALE G... Q6 SC 09/26/16 00:45 10/26/16 00:44 09/27/16 05:58 1 UNITS Tramadol HCl (Ultram Tab) 50 mg Q4H PRN PO 09/25/16 23:30 10/25/16 23:29 Glucose (Glucose 40% Gel) 15-30 GRAMS 15 GRAMS... UD PRN PO 09/26/16 00:30 10/26/16 00:29 Glucose (Glucose Chew Tab) 4-8 Tablets 4 Tabl... UD PRN PO 09/26/16 00:30 10/26/16 00:29 Dextrose (Dextrose 50% 50ML Syringe) 25-50ML OF 50% DW IV FOR... UD PRN IV 09/26/16 00:30 10/26/16 00:29 Glucagon 1 mg 1 mg UD PRN SQ 09/26/16 00:30 10/26/16 00:29 Heparin Sodium/ Dextrose (Heparin 25,000 Unit/500ml D5W) 500 ml @ 37 mls/hr [id number] PRN IV 09/26/16 03:15 10/26/16 03:14 09/26/16 19:43 37 MLS/HR Albuterol/ Ipratropium (Duoneb) 3 ml QIDR INH 09/26/16 12:00 10/26/16 11:59 09/27/16 07:07 3 ML Albuterol Sulfate 2.5 mg 2.5 mg Q3H PRN INH 09/26/16 08:45 10/26/16 08:44 Bumetanide 2 mg/ Syringe 8 ml @ 4 mls/min BID@0800,1500 IV 09/26/16 15:00 10/26/16 14:59 09/27/16 09:08 4 MLS/MIN Piperacillin Sod/ Tazobactam Sod/ Dextrose (Zosyn Iv/D5 100ml) 115 ml @ 28.75 mls/ hr Q8H IV 09/26/16 16:00 10/03/16 15:59 09/27/16 09:11 28.75 MLS/HR Vancomycin HCl (Consult) 1 ea UD PRN N/A 09/26/16 10:30 10/26/16 10:29 Piperacillin Sod/ Tazobactam Sod (Consult) 1 ea UD PRN N/A 09/26/16 10:30 10/26/16 10:29 Lab Results: 09/27/16 06:32 Red Blood Count 2.78, Mean Corpuscular Volume 88.1, Mean Corpuscular Hemoglobin 29.1, Mean Corpuscular Hemoglobin Concent 33.1, Mean Platelet Volume 10.7, Neutrophils (%) (Auto) 65.3, Lymphocytes (%) (Auto) 20.4, Monocytes (%) (Auto) 9.2, Eosinophils (%) (Auto) 4.1, Basophils (%) (Auto) 0.8, Neutrophils # (Auto) 5.61, Lymphocytes # (Auto) 1.75, Monocytes # (Auto) 0.79, Eosinophils # (Auto) 0.35, Basophils # (Auto) 0.07 09/27/16 06:32 Test 09/26/16 23:00 09/27/16 05:53 09/27/16 06:32 Troponin I 3.800 ng/ml (0-0.045) Bedside Glucose 185 mg/dl (70-90) White Blood Count 8.59 K/uL (4.8-10.8) Red Blood Count 2.78 M/uL (4.2-5.4) Hemoglobin 8.1 g/dL (12.0-16.0) Hematocrit 24.5 % (37-47) Mean Corpuscular Volume 88.1 fL (80-100) Mean Corpuscular Hemoglobin 29.1 pg (25-34) Mean Corpuscular Hemoglobin Concent 33.1 g/dl (32-36) Platelet Count 231 K/uL (130-400) Mean Platelet Volume 10.7 fL (7.4-10.4) Neutrophils (%) (Auto) 65.3 % Lymphocytes (%) (Auto) 20.4 % Monocytes (%) (Auto) 9.2 % Eosinophils (%) (Auto) 4.1 % Basophils (%) (Auto) 0.8 % Neutrophils # (Auto) 5.61 K/uL (1.4-6.5) Lymphocytes # (Auto) 1.75 K/uL (1.2-3.4) Monocytes # (Auto) 0.79 K/uL (0.11-0.59) Eosinophils # (Auto) 0.35 K/uL (0-0.5) Basophils # (Auto) 0.07 K/uL (0-0.2) RDW Standard Deviation 46.0 fL (36.4-46.3) RDW Coefficient of Variation 14.3 % (11.5-14.5) Immature Granulocyte % (Auto) 0.2 % Immature Granulocyte # (Auto) 0.02 K/uL (0.00-0.02) Hypersegmented Polys 1+ Activated Partial Thromboplast Time 66.7 SECONDS (21.0-31.0) Partial Thromboplastin Ratio 2.6 Anion Gap 9.0 mmol/L (3-11) Est Creatinine Clear Calc Drug Dose 35.5 ml/min Estimated GFR () 25.8 Estimated GFR (Non- 22.3 BUN/Creatinine Ratio 17.0 (10-20) Calcium Level 8.2 mg/dl (8.5-10.1) Magnesium Level 1.8 mg/dl (1.8-2.4) Total Bilirubin 0.5 mg/dl (0.2-1) Aspartate Amino Transf (AST/SGOT) 18 U/L (15-37) Alanine Aminotransferase (ALT/SGPT) 21 U/L (12-78) Alkaline Phosphatase 69 U/L (45-117) Total Protein 6.0 gm/dl (6.4-8.2) Albumin 2.4 gm/dl (3.4-5.0) Globulin 3.6 gm/dl (2.5-4.0) Albumin/Globulin Ratio 0.7 (0.9-2) Random Vancomycin Level 21.9 mcg/ml Date/Time Source Procedure Growth Status 09/26/16 22:54 Nasal MRSA DNA Surveillance Screen - Final Specimen Positive for MRSA by DNA Probe Complete
[2016-09-27] MEDS: HEPARIN 25,000 UNIT/500ML D5W 500 ML IV PRN ×2 (12:00→22:47)
--- NOTE | 2016-09-27 12:48 | Progress Note ---
Subjective Date of Service: Sep 27, 2016. Subjective Pt evaluation today including: conversation w/ patient, physical exam, lab review, review of studies, review of inpatient medication list Feeling much better today. Has been off and tolerating being off bipap. Breathing more comfortable and Le swelling improved. TOlerating diet. No chest pain. No n/v/d/c, no urinary symptoms. Review of Systems All Other Systems: Reviewed and Negative Medications Acetaminophen (Tylenol Tab) 650 mg Q4H PRN PO Last administered on 09/27/16 06:01; Admin Dose 650 MG; Start 09/25/16 at 23:30; Stop 10/25/16 at 23:29 Al Hydrox/Mg Hydrox/Simethicone (Maalox Max Susp) 15 ml Q4H PRN PO; Start 09/25 at 23:30; Stop 10/25/16 at 23:29 Albuterol Sulfate 2.5 mg 2.5 mg Q3H PRN INH; Start 09/26/16 at 08:45; Stop at 08:44 Albuterol/ Ipratropium (Duoneb) 3 ml QIDR INH Last administered on 09/27/16 11: 07; Admin Dose 3 ML; Start 09/26/16 at 12:00; Stop 10/26/16 at 11:59 Amlodipine Besylate (Norvasc Tab) 10 mg QAM PO Last administered on 09/27/16 09 :07; Admin Dose 10 MG; Start 09/26/16 at 09:00; Stop 10/26/16 at 08:59 Atorvastatin Calcium (Lipitor Tab) 40 mg HS PO Last administered on 09/26/16 20 :15; Admin Dose 40 MG; Start 09/26/16 at 21:00; Stop 10/26/16 at 20:59 Bumetanide 2 mg/ Syringe 8 ml @ 4 mls/min BID@0800,1500 IV Last administered on 09/27/16 09:08; Admin Dose 4 MLS/MIN; Start 09/26/16 at 15:00; Stop 10/26/16 at 14:59 Citalopram Hydrobromide (celeXA TAB) 20 mg QAM PO Last administered on 09:07; Admin Dose 20 MG; Start 09/26/16 at 09:00; Stop 10/26/16 at 08:59 Clopidogrel Bisulfate (plAVix TAB) 75 mg QAM PO Last administered on 09/27/16 09:07; Admin Dose 75 MG; Start 09/26/16 at 09:00; Stop 10/26/16 at 08:59 Dextrose (Dextrose 50% 50ML Syringe) 25-50ML OF 50% DW IV FOR... UD PRN IV; Start 09/26/16 at 00:30; Stop 10/26/16 at 00:29 Glucagon 1 mg 1 mg UD PRN SQ; Start 09/26/16 at 00:30; Stop 10/26/16 at 00:29 Glucose (Glucose 40% Gel) 15-30 GRAMS 15 GRAMS... UD PRN PO; Start 09/26/16 at 00:30; Stop 10/26/16 at 00:29 Glucose (Glucose Chew Tab) 4-8 Tablets 4 Tabl... UD PRN PO; Start 09/26/16 at 00:30; Stop 10/26/16 at 00:29 Heparin Sodium/ Dextrose (Heparin 25,000 Unit/500ml D5W) 500 ml @ 37 mls/hr [id number] PRN IV Last administered on 09/27/16 12:00; Admin Dose 37 MLS/HR; Start 09/26/16 at 03:15; Stop 10/26/16 at 03:14 Insulin Aspart (novoLOG ASPART) SLIDING SCALE G... Q6 SC Last administered on 09/27/16 12:52; Admin Dose 3 UNITS; Start 09/26/16 at 00:45; Stop 10/26/16 at 00:44 Magnesium Hydroxide (Milk Of Magnesia Susp) 30 ml Q12H PRN PO; Start 09/25/16 at 23:30; Stop 10/25/16 at 23:29 Metoprolol Tartrate (Lopressor Tab) 25 mg BID PO Last administered on 09/27/16 09:07; Admin Dose 25 MG; Start 09/26/16 at 09:00; Stop 10/26/16 at 08:59 Morphine Sulfate (MoRPHine SULFATE INJ) 2 mg Q30M PRN IV Last administered on 08:34; Admin Dose 2 MG; Start 09/25/16 at 23:30; Stop 10/09/16 at 23:29 Nitroglycerin (Nitroglycerin 2% Oint) 1 inch Q6 EXT Last administered on 12:00; Admin Dose 1 INCH; Start 09/26/16 at 00:45; Stop 10/26/16 at 00:44 Nitroglycerin (Nitrostat Tab) 0.4 mg UD PRN SL; Start 09/25/16 at 23:30; Stop 10/25/16 at 23:29 Ondansetron HCl (Zofran Inj) 4 mg Q6H PRN IV; Start 09/25/16 at 23:30; Stop at 23:29 Piperacillin Sod/ Tazobactam Sod (Consult) 1 ea UD PRN N/A; Start 09/26/16 at 10:30; Stop 10/26/16 at 10:29 Piperacillin Sod/ Tazobactam Sod/ Dextrose (Zosyn Iv/D5 100ml) 115 ml @ 28.75 mls/ hr Q8H IV Last administered on 09/27/16 09:11; Admin Dose 28.75 MLS/HR; Start 09/26/16 at 16:00; Stop 10/03/16 at 15:59 Polyethylene (Miralax Powder Packet) 17 gm DAILY PRN PO; Start 09/25/16 at 23: 30; Stop 10/25/16 at 23:29 Tramadol HCl (Ultram Tab) 50 mg Q4H PRN PO; Start 09/25/16 at 23:30; Stop 10/25 at 23:29 Vancomycin HCl (Consult) 1 ea UD PRN N/A; Start 09/26/16 at 10:30; Stop at 10:29 Objective Vital Signs Date Time Temp Pulse Resp B/P Pulse Ox O2 Delivery O2 Flow Rate FiO2 09/27/16 12:05 36.8 79 20 171/75 99 Nasal Cannula 2.0 09/27/16 11:07 74 18 100 Nasal Cannula 3.0 09/27/16 07:27 36.6 75 22 172/82 94 Nasal Cannula 3.0 09/27/16 07:09 84 18 95 Nasal Cannula 3.0 09/27/16 04:01 36.8 79 22 154/78 96 Nasal Cannula 4.0 09/27/16 04:00 Nasal Cannula 3.0 09/27/16 00:00 36.9 70 22 174/78 96 Nasal Cannula 4.0 09/26/16 23:59 95 Nasal Cannula 3.0 09/26/16 23:59 Nasal Cannula 3.0 09/26/16 20:00 Nasal Cannula 3.0 09/26/16 19:15 86 18 98 Nasal Cannula 5.0 09/26/16 16:30 Nasal Cannula 4.0 09/26/16 15:31 81 95 30 09/26/16 15:28 81 22 95 BiPAP/CPAP 30 09/26/16 15:24 37.3 83 22 153/73 94 BiPAP 09/26/16 13:22 37.4 84 151/77 98 Physical Exam Comments: nad, aox3 eomi, perrl, anicteric s1 s2 rrr, no murmurs appreciated bibasilar crackles, no wheezing, no rhonchi abd soft nt/nd +BS 2+ LE edema Laboratory Results Last 24 Hours Test 09/26/16 13:42 09/26/16 16:03 09/26/16 16:45 09/26/16 19:10 Hemoglobin 8.9 g/dL Hematocrit 27.3 % Bedside Glucose 209 mg/dl Troponin I 5.530 ng/ml Activated Partial Thromboplast Time 63.6 SECONDS Partial Thromboplastin Ratio 2.4 Creatinine 2.60 mg/dl Est Creatinine Clear Calc Drug Dose 33.0 ml/min Estimated GFR () 23.5 Estimated GFR (Non- 20.2 Random Vancomycin Level 30.7 mcg/ml Test 09/26/16 20:07 09/26/16 21:00 09/26/16 23:00 09/27/16 01:00 Bedside Glucose 238 mg/dl 150 mg/dl Hemoglobin 8.1 g/dL Hematocrit 24.7 % Troponin I 3.800 ng/ml Test 09/27/16 05:53 09/27/16 06:32 09/27/16 11:33 Bedside Glucose 185 mg/dl 274 mg/dl White Blood Count 8.59 K/uL Red Blood Count 2.78 M/uL Hemoglobin 8.1 g/dL Hematocrit 24.5 % Mean Corpuscular Volume 88.1 fL Mean Corpuscular Hemoglobin 29.1 pg Mean Corpuscular Hemoglobin Concent 33.1 g/dl Platelet Count 231 K/uL Mean Platelet Volume 10.7 fL Neutrophils (%) (Auto) 65.3 % Lymphocytes (%) (Auto) 20.4 % Monocytes (%) (Auto) 9.2 % Eosinophils (%) (Auto) 4.1 % Basophils (%) (Auto) 0.8 % Neutrophils # (Auto) 5.61 K/uL Lymphocytes # (Auto) 1.75 K/uL Monocytes # (Auto) 0.79 K/uL Eosinophils # (Auto) 0.35 K/uL Basophils # (Auto) 0.07 K/uL RDW Standard Deviation 46.0 fL RDW Coefficient of Variation 14.3 % Immature Granulocyte % (Auto) 0.2 % Immature Granulocyte # (Auto) 0.02 K/uL Hypersegmented Polys 1+ Activated Partial Thromboplast Time 66.7 SECONDS Partial Thromboplastin Ratio 2.6 Sodium Level 141 mmol/L Potassium Level 4.7 mmol/L Chloride Level 111 mmol/L Carbon Dioxide Level 21 mmol/L Anion Gap 9.0 mmol/L Blood Urea Nitrogen 41 mg/dl Creatinine 2.40 mg/dl Est Creatinine Clear Calc Drug Dose 35.5 ml/min Estimated GFR () 25.8 Estimated GFR (Non- 22.3 BUN/Creatinine Ratio 17.0 Random Glucose 183 mg/dl Calcium Level 8.2 mg/dl Magnesium Level 1.8 mg/dl Total Bilirubin 0.5 mg/dl Aspartate Amino Transf (AST/SGOT) 18 U/L Alanine Aminotransferase (ALT/SGPT) 21 U/L Alkaline Phosphatase 69 U/L Total Protein 6.0 gm/dl Albumin 2.4 gm/dl Globulin 3.6 gm/dl Albumin/Globulin Ratio 0.7 Random Vancomycin Level 21.9 mcg/ml RENAL ULTRASOUND HISTORY: Renal insufficiency eval for ck. COMPARISON: None. FINDINGS: Right kidney: Maximum dimension 11.7 cm. No evidence for hydronephrosis. Several nonobstructing calcifications. Normal corticomedullary differentiation and cortical thickness. Left kidney: Maximum dimension 11.2 cm. No evidence for hydronephrosis. Normal corticomedullary differentiation and cortical thickness. Bladder: No bladder wall thickening. The bilateral ureteral jets were identified. IMPRESSION: Several right renal nonobstructing calcifications. Otherwise negative study Assessment and Plan 1. Acute decompensated diastolic CHF - HFpEF of 60%, GII diastolic dysfunction - improved with increased dose of lasix, likely just not adequate dosage for eGFR - cont diuresing her and bipap with increase WOB - cardio consulted, appreciate recs - cont bumex 2mg IV BID - keep her 1-1.5L fluid negative as long as BP remains stable 2. NSTEMI - troponin consistent with NSTEMI, EKG without MAYTE - troponins trending down - cont heparin gtt - CT abd w/o con negative for e/o bleed, unable to obtain w/ IV contrast with her renal function - will have to optimize her volume status if cath is warranted - with her underlying CKD, she is at increased risk of MARSHAL 3. BECKIE on CKD - unclear baseline and stage of renal disease - probably renal congestion with CHF with an element of cardiorenal - she has been off any RAAS blockade since her last admission at [facility] - renal US as above, though size appears normal, could be large due to diabetes nephropathy despite having underlying CKD - will require increased dose of diuretics for now - will cont to diurese her symptomatically regardless of renal function at this time - would avoid non-emergent contrast studies at this time unless LHC becomes urgent/emergent, then we'll have to weigh risks/benefits as she is at an increased risk for MARSHAL 4. Patchy upper lobe infiltrates - will cont on vanco/zosyn - recently finished azithro outpatient and recent hospitalization - cover for HCAP 5. Hyperkalemia - from renal failure - resolved with diuresis, will monitor especially with aggressive diuresis 6. HTN - elevated at the moment, likely stress and volume mediated - will cont to diurese for now and monitor - cont metoprolol 7. Back pain - CT negative for any pathologies - unable to obtain contrast study - will monitor
--- NOTE | 2016-09-27 15:41 | Pharmacy Progress Note ---
Pharmacy Antibiotic Prog Note Date of Service: Sep 27, 2016. Subjective: This patient currently received a one-time loading dose Vancomycin 2800 mg (~22 mg/kg) on 09/26 at noon. The patient is currently on day # 2 of Vancomycin/Zosyn IV therapy. Objective: Height (Feet): 5 Height (Inches): 4.00 Weight (Kilograms): 125.400 Levels: Item Value Date Time Random Vancomycin Level 21.9 mcg/ml 09/27/16 0632 Random Vancomycin Level 30.7 mcg/ml 09/26/16 1910 Lab Results (24hrs): Laboratory Tests Test 09/26/16 19:10 09/27/16 06:32 Creatinine 2.60 mg/dl 2.40 mg/dl BUN/Creatinine Ratio 17.0 Blood Urea Nitrogen 41 mg/dl White Blood Count 8.59 K/uL Red Blood Count 2.78 M/uL Hemoglobin 8.1 g/dL Hematocrit 24.5 % Mean Corpuscular Volume 88.1 fL Mean Corpuscular Hemoglobin 29.1 pg Mean Corpuscular Hemoglobin Concent 33.1 g/dl Platelet Count 231 K/uL Mean Platelet Volume 10.7 fL Neutrophils (%) (Auto) 65.3 % Lymphocytes (%) (Auto) 20.4 % Monocytes (%) (Auto) 9.2 % Eosinophils (%) (Auto) 4.1 % Basophils (%) (Auto) 0.8 % Neutrophils # (Auto) 5.61 K/uL Lymphocytes # (Auto) 1.75 K/uL Monocytes # (Auto) 0.79 K/uL Eosinophils # (Auto) 0.35 K/uL Basophils # (Auto) 0.07 K/uL Micro Results: Item Value Date Time MRSA DNA Surveillance Screen - Final Complete 09/26/16 2254 Nasal Specimen Positive for MRSA by DNA Probe Recent Pertinent Medications: Item Value Date Time Vancomycin HCl 556 ml @ 200 mls/hr 09/26/16 1100 2800 mg/Sodium TODAY@1100 ONCE/IV 09/26/16 1154 Chloride Piperacillin Sod/ 120 ml @ 200 mls/hr 09/26/16 1030 Tazobactam Sod 1030 ONCE/IV 09/26/16 1118 4.5 gm/Dextrose Piperacillin Sod/ 115 ml @ 28.75 mls/hr 09/26/16 1600 Tazobactam Sod Q8H/IV 09/27/16 0911 3.375 gm/Dextrose Assessment & Plan: [age] yo female patient empirically treated with IV Vancomycin/Zosyn for possible HCAP vs. CHF. Today, nasal swab positive for MRSA. Patient with history of CKD with uncertain baseline SCr. Patients concurrently receiving Zosyn/Vancomycin may be more susceptible to nephrotoxicity. Patient with morbid obesity thus will used a conservative maintenance dose of ~12 mg/kg, consistent with requirements for BMI > 35 kg/m2. This patient had two serial Vancomycin drugs levels following the initial loading dose on 09/26 at approximately noon. Calculated clearance using these two levels projects a Vancomycin half-life of 23 hours thus will use a widened dosing interval to minimize nephrotoxicity. Continue Vancomycin at 1600 mg IV (12.7 mg/kg) every 30 hours. Goal peak level estimate: between 30 - 40 mcg/mL. Goal trough level estimate: between 15 - 20 mcg/mL.(higher trough range to ensure pulmonary penetration) Vancomycin pre- steady-state trough level has been ordered for: 09/28/16 at 2330 hours just prior to the midnight dose to verify expected clearance. Pharmacy will continue to follow and will adjust dose/frequency as necessary. Thank you
[2016-09-27] MEDS ORDERED: VANCOMYCIN INJ 1,600 MG in SODIUM CHLORIDE 0.9% 500ML 500 ML IV SCH (18:00)
[2016-09-27] MEDS: ATORVASTATIN 40 MG TAB PO SCH (20:46)
[2016-09-28] VITALS (11 sets, daily range): BP systolic 152–193; BP diastolic 61–95; PULSE 76–106; TEMP 36.4–36.9; O2SAT 93–98
[2016-09-28] MEDS: NITROGLYCERIN OINT 2% 1GM PACKET EXT SCH (05:46)
[2016-09-28] MEDS: ALBUT/IPRATROP 3MG/0.5MG NEB 3 ML VIAL INH SCH ×5 (07:37→20:00)
[2016-09-28 07:52] LABS: BASO % 1.2 %; EOS % 5.5 %; HEMATOCRIT 26.8 % (37-47); IG% 0.1 %; LYMPH % 19.5 %; LYMPH ABS # 1.58 K/uL (1.2-3.4); MEAN CELL VOLUME 87.6 fL (80-100); MEAN CORPUSCULAR HEMOGLOBIN 28.8 pg (25-34); MEAN CORPUSCULAR HGB CONC 32.8 g/dl (32-36); MEAN PLATELET VOLUME 10.4 fL (7.4-10.4); MONO % 10.8 %; NEUT % 62.9 %; PLATELET COUNT 219 K/uL (130-400); RED BLOOD COUNT 3.06 M/uL (4.2-5.4); WHITE BLOOD COUNT 8.12 K/uL (4.8-10.8)
[2016-09-28 08:10] LABS: PARTIAL THROMBOPLASTIN RATIO 2.1
[2016-09-28 08:17] LABS: BUN/CREATININE RATIO 15.7 (10-20); CALCIUM 8.6 mg/dl (8.5-10.1); CREATININE 2.4 mg/dl (0.60-1.20); MAGNESIUM 1.9 mg/dl (1.8-2.4); POTASSIUM 4.6 mmol/L (3.5-5.1)
[2016-09-28] MEDS: BUMETANIDE IV 2 MG in SYRINGE 0 ML IV SCH ×2 (08:28→15:27)
[2016-09-28] MEDS: AMLODIPINE BESYLATE 5 MG TAB PO SCH (08:29)
[2016-09-28] MEDS: METOPROLOL TARTRATE 25 MG TAB PO SCH (08:29)
[2016-09-28] MEDS: CITALOPRAM 20 MG TAB PO SCH (08:29)
[2016-09-28] MEDS: CLOPIDOGREL BISULFATE 75 MG TAB PO SCH (08:30)
[2016-09-28] MEDS: INSULIN ASPART 100 UNITS/ML 3 ML PEN SC SCH ×4 (08:38→20:55)
[2016-09-28] MEDS: PIPERACILL/TAZOBAC IV 3.375 GM in DEXTROSE 5% 100ML 100 ML IV SCH ×2 (08:39→15:48)
[2016-09-28 10:26] LABS: COMPLETE YES
[2016-09-28] MEDS ORDERED: METOPROLOL TARTRATE 25 MG TAB PO ONE (11:10)
--- NOTE | 2016-09-28 16:09 | Progress Note ---
Subjective Date of Service: Sep 28, 2016. Subjective Pt feels fairly short of breath, no chest pain, non productive cough Review of Systems Constitutional: + fatigue, + weakness, No chills, No fever Respiratory: + cough, + dyspnea on exertion, + shortness of breath Cardiac: + edema, No chest pain Abdomen: No diarrhea, No nausea, No pain, No vomiting Female : No dysuria, No urinary frequency Psychiatric: No anhedonism, No depression symptoms Objective Vital Signs Date Time Temp Pulse Resp B/P Pulse Ox O2 Delivery O2 Flow Rate FiO2 09/28/16 07:37 90 14 98 Nasal Cannula 2.0 09/28/16 04:00 Nasal Cannula 2.0 09/28/16 04:00 36.5 76 20 156/76 94 Nasal Cannula 4.0 09/27/16 23:59 Nasal Cannula 2.0 09/27/16 23:45 36.9 67 19 179/77 97 Nasal Cannula 2.0 09/27/16 23:28 98 Nasal Cannula 2.0 09/27/16 20:25 88 18 98 Nasal Cannula 2.0 09/27/16 20:00 Nasal Cannula 2.0 09/27/16 19:29 36.8 77 18 160/79 95 Nasal Cannula 2.0 09/27/16 16:05 Nasal Cannula 3.0 09/27/16 15:48 76 18 97 Nasal Cannula 2.0 09/27/16 15:36 36.9 73 16 171/79 96 2.0 09/27/16 12:05 36.8 79 20 171/75 99 Nasal Cannula 2.0 09/27/16 12:05 Nasal Cannula 3.0 09/27/16 11:07 74 18 100 Nasal Cannula 3.0 09/27/16 08:30 Nasal Cannula 3.0 Physical Exam General Appearance: + moderate distress, + obese Neck: supple, trachea midline Respiratory/Chest: + decreased breath sounds, + accessory muscle use, + rhonchi Cardiovascular: regular rate, rhythm, + systolic murmur Abdomen: normal bowel sounds, non tender, soft Extremities: + pedal edema, + swelling Neurologic/Psychiatric: alert, oriented x 3 Laboratory Results Last 24 Hours Test 09/27/16 11:33 09/27/16 16:10 09/27/16 19:53 09/28/16 04:44 Bedside Glucose 274 mg/dl 251 mg/dl 227 mg/dl Test 09/28/16 06:51 Bedside Glucose 213 mg/dl Assessment and Plan Acute decompensated diastolic CHF, cont diuresing her and bipap - cardio consulted, bumex 2mg IV BID NSTEMI troponins trending down 48 hours of heparin gtt, no plans of intervention with renal failure, once stable may consider a stress given risk factors and apical changes seen on echo Acute respiratory failure, may also be at play, poor air movement on exam, escalate inhalers BECKIE on CKD element of cardiorenal renal US size appears normal, could be large due to diabetes nephropathy, will have renal eval given elevation of Cr Pneumonia, concern for gram negative or mrsa, Patchy upper lobe infiltrates zosyn recently finished azithro outpatient and recent hospitalization Hyperkalemia secondary renal failure HTN metoprolol Back pain CT negative for any pathologies
--- NOTE | 2016-09-28 17:07 | Nephrology Consultation ---
Nephrology Consultation Date & Providers Date of Consultation: Sep 28, 2016. Primary Care Provider: Haider Cochran M.D. Referring Provider: Reason for Consultation BECKIE/CKD History of Present Illness Ms. Tootie Gutierrez is a very pleasant 51-year-old female with obesity, hypertension, type II DM, history of CVA and CKD III. She was admitted to [facility] on September 26 with severe acute hypoxic respiratory failure attributed to acute on chronic diastolic CHF. Tootie was admitted to [facility] in August with pneumonia. This was complicated by acute on chronic renal failure. Dr. Rodriguez briefly discussed the potential need for renal replacement therapy during that admission. Tootie states that after stopping her GIOVANNI and providing supportive care, renal function did improve close to prior baseline. She was discharged home but dyspnea never dramatically improved. Activity tolerance remained limited. She experienced increasing shortness of breath. CXR consistent with acute pulmonary edema and pulmonary vascular congestion. Transthoracic echocardiogram notable for normal LV size and systolic function with type 2 diastolic dysfunction. There was no significant valvular heart disease. RAP elevated at 15. Tootie has responded well to diuretics. Renal ultrasound reveals normal sized kidneys. There is no evidence of hydronephrosis. Several non obstructing calcifications can be seen bilaterally. Past Medical/Surgical History Medical: 1. Type 2 diabetes mellitus. Diagnosis approximately 8 years ago. Associated neuropathy and retinopathy. On insulin. 2. Chronic renal insufficiency, baseline creatinine around 2.0 [address] Follows with Dr. Rodriguez in [place], [place]. 3. Anemia. 4. Hyperlipidemia. 5. Prior CVA in 2014, right yoav acute infarct, no significant residual defects. 6. Hyperlipidemia. 7. Peripheral artery disease status post prior [employer]IGNER with questionable stenting to her right leg somewhere. 8. Suspected obstructive sleep apnea. 9. Obesity. Allergies Coded Allergies: Latex1 -Allergic Contact Dermititis (Verified Adverse Reaction, Mild, RASH , 09/25/16) Inpatient Medications Current Inpatient Medications Medications (Trade) Dose Ordered Sig/Elizabet Route Start Time Stop Time Status Last Admin Dose Admin Acetaminophen (Tylenol Tab) 650 mg Q4H PRN PO 09/25/16 23:30 10/25/16 23:29 09/27/16 06:01 650 MG Al Hydrox/Mg Hydrox/Simethicone (Maalox Max Susp) 15 ml Q4H PRN PO 09/25/16 23:30 10/25/16 23:29 Magnesium Hydroxide (Milk Of Magnesia Susp) 30 ml Q12H PRN PO 09/25/16 23:30 10/25/16 23:29 Ondansetron HCl (Zofran Inj) 4 mg Q6H PRN IV 09/25/16 23:30 10/25/16 23:29 Nitroglycerin (Nitrostat Tab) 0.4 mg UD PRN SL 09/25/16 23:30 10/25/16 23:29 Morphine Sulfate (MoRPHine SULFATE INJ) 2 mg Q30M PRN IV 09/25/16 23:30 10/09/16 23:29 09/26/16 08:34 2 MG Polyethylene (Miralax Powder Packet) 17 gm DAILY PRN PO 09/25/16 23:30 10/25/16 23:29 Citalopram Hydrobromide (celeXA TAB) 20 mg QAM PO 09/26/16 09:00 10/26/16 08:59 09/28/16 08:29 20 MG Atorvastatin Calcium (Lipitor Tab) 40 mg HS PO 09/26/16 21:00 10/26/16 20:59 09/27/16 20:46 40 MG Clopidogrel Bisulfate (plAVix TAB) 75 mg QAM PO 09/26/16 09:00 10/26/16 08:59 09/28/16 08:30 75 MG Amlodipine Besylate (Norvasc Tab) 10 mg QAM PO 09/26/16 09:00 10/26/16 08:59 09/28/16 08:29 10 MG Tramadol HCl (Ultram Tab) 50 mg Q4H PRN PO 09/25/16 23:30 10/25/16 23:29 Glucose (Glucose 40% Gel) 15-30 GRAMS 15 GRAMS... UD PRN PO 09/26/16 00:30 10/26/16 00:29 Glucose (Glucose Chew Tab) 4-8 Tablets 4 Tabl... UD PRN PO 09/26/16 00:30 10/26/16 00:29 Dextrose (Dextrose 50% 50ML Syringe) 25-50ML OF 50% DW IV FOR... UD PRN IV 09/26/16 00:30 10/26/16 00:29 Glucagon 1 mg 1 mg UD PRN SQ 09/26/16 00:30 10/26/16 00:29 Bumetanide 2 mg/ Syringe 8 ml @ 4 mls/min BID@0800,1500 IV 09/26/16 15:00 10/26/16 14:59 09/28/16 15:27 4 MLS/MIN Piperacillin Sod/ Tazobactam Sod/ Dextrose (Zosyn Iv/D5 100ml) 115 ml @ 28.75 mls/ hr Q8H IV 09/26/16 16:00 10/03/16 15:59 09/28/16 15:48 28.75 MLS/HR Piperacillin Sod/ Tazobactam Sod (Consult) 1 ea UD PRN N/A 09/26/16 10:30 10/26/16 10:29 Insulin Aspart (novoLOG ASPART) SLIDING SCALE G... ACHS SC 09/27/16 17:00 10/27/16 16:59 09/28/16 12:10 4 UNITS Albuterol/ Ipratropium (Duoneb) 3 ml QIDR INH 09/28/16 12:00 10/28/16 11:59 09/28/16 15:22 3 ML Albuterol/ Ipratropium (Duoneb) 3 ml Q2H PRN INH 09/28/16 11:15 10/28/16 11:14 Metoprolol Tartrate (Lopressor Tab) 50 mg BID PO 09/28/16 21:00 10/28/16 20:59 Hydralazine HCl (HydrALAZINE INJ) 10 mg Q4H PRN IV 09/28/16 15:15 10/28/16 15:14 Arformoterol Tartrate (Brovana 15MCG/ 2ML Neb Soln) 15 mcg BIDR INH 09/28/16 20:00 10/28/16 19:59 Social History Smoking Status: Former Smoker Review of Systems A complete review of systems was performed. Pertinent positives are noted above. All other systems are negative. Physical Exam Date Time Temp Pulse Resp B/P Pulse Ox O2 Delivery O2 Flow Rate FiO2 09/28/16 15:51 36.9 106 18 152/61 98 09/28/16 15:22 85 14 94 Nasal Cannula 2.0 09/28/16 12:42 36.8 98 18 171/84 94 Room Air 09/28/16 12:00 Nasal Cannula 2.0 09/28/16 11:17 87 14 98 Nasal Cannula 2.0 09/28/16 10:00 177/90 193/95 09/28/16 08:00 Nasal Cannula 2.0 09/28/16 08:00 36.4 76 20 177/91 95 Room Air 09/28/16 07:37 90 14 98 Nasal Cannula 2.0 09/28/16 04:00 Nasal Cannula 2.0 09/28/16 04:00 36.5 76 20 156/76 94 Nasal Cannula 4.0 09/27/16 23:59 Nasal Cannula 2.0 09/27/16 23:45 36.9 67 19 179/77 97 Nasal Cannula 2.0 09/27/16 23:28 98 Nasal Cannula 2.0 09/27/16 20:25 88 18 98 Nasal Cannula 2.0 09/27/16 20:00 Nasal Cannula 2.0 09/27/16 19:29 36.8 77 18 160/79 95 Nasal Cannula 2.0 General Appearance: no apparent distress, + obese Head: normocephalic, atraumatic Eyes: normal inspection, sclerae normal ENT: normal ENT inspection, pharynx normal Neck: supple, + pertinent finding (thick, >10 cm JVP) Respiratory/Chest: + decreased breath sounds, + rales (bibasilar) Cardiovascular: regular rate, rhythm, no gallop, no murmur Abdomen/GI: non tender, soft Back: normal inspection, no CVA tenderness Extremities/Musculoskelatal: normal inspection, + pedal edema Neurologic/Psych: alert, oriented x 3 Skin: normal color Laboratory Results Last 24 Hours Test 09/27/16 19:53 09/28/16 06:51 09/28/16 07:42 09/28/16 12:03 Bedside Glucose 227 mg/dl 213 mg/dl 299 mg/dl White Blood Count 8.12 K/uL Red Blood Count 3.06 M/uL Hemoglobin 8.8 g/dL Hematocrit 26.8 % Mean Corpuscular Volume 87.6 fL Mean Corpuscular Hemoglobin 28.8 pg Mean Corpuscular Hemoglobin Concent 32.8 g/dl Platelet Count 219 K/uL Mean Platelet Volume 10.4 fL Neutrophils (%) (Auto) 62.9 % Lymphocytes (%) (Auto) 19.5 % Monocytes (%) (Auto) 10.8 % Eosinophils (%) (Auto) 5.5 % Basophils (%) (Auto) 1.2 % Neutrophils # (Auto) 5.10 K/uL Lymphocytes # (Auto) 1.58 K/uL Monocytes # (Auto) 0.88 K/uL Eosinophils # (Auto) 0.45 K/uL Basophils # (Auto) 0.10 K/uL RDW Standard Deviation 45.1 fL RDW Coefficient of Variation 14.2 % Immature Granulocyte % (Auto) 0.1 % Immature Granulocyte # (Auto) 0.01 K/uL Red Blood Cell Morphology Unremarkable Activated Partial Thromboplast Time 55.4 SECONDS Partial Thromboplastin Ratio 2.1 Sodium Level 140 mmol/L Potassium Level 4.6 mmol/L Chloride Level 110 mmol/L Carbon Dioxide Level 20 mmol/L Anion Gap 10.0 mmol/L Blood Urea Nitrogen 38 mg/dl Creatinine 2.40 mg/dl Est Creatinine Clear Calc Drug Dose 35.5 ml/min Estimated GFR () 25.8 Estimated GFR (Non- 22.3 BUN/Creatinine Ratio 15.7 Random Glucose 207 mg/dl Calcium Level 8.6 mg/dl Magnesium Level 1.9 mg/dl Test 09/28/16 16:06 09/28/16 16:08 Bedside Glucose 178 mg/dl Impression (1) Chronic kidney disease, stage III (moderate) (2) Acute on chronic diastolic CHF (congestive heart failure) Mrs. Tootie Gutierrez is a 51-year-old female with CKD III (baseline creatinine ~2.0 mg/dL) attributed to diabetic nephropathy, obesity and hypertensive nephrosclerosis. She was admitted with acute hypoxic respiratory failure in the setting of hypervolemia related to acute on chronic diastolic CHF. She was recently treated for pneumonia. Clinically, she has been improving. Overall, renal function stable. No acute findings on renal US. Creatinine now 2.4 mg/dL. Metabolic profile otherwise acceptable. Medications appropriately dosed for renal function. Records from primary public health engineer (Dr. Rodriguez) requested today. Recommendations 1. Urine studies ordered for today 2. Continue diuresis. Bumex 2 mg BID 3. Medications appropriate for renal function, continue to hold GIOVANNI/ARB. Avoid iodinated contrast at the present time. 4. Document I/O's 5. Repeat metabolic profile tomorrow AM 6. Sodium restrict diet to 2 grams daily and maintain 2 liter daily fluid restriction
[2016-09-28] MEDS: ARFORMOTEROL TART 15MCG/2ML VIAL INH SCH (20:09)
[2016-09-28] MEDS: METOPROLOL TARTRATE 50 MG TAB PO SCH (20:17)
[2016-09-28] MEDS: ATORVASTATIN 40 MG TAB PO SCH (20:17)
[2016-09-28] MEDS ORDERED: METOPROLOL TARTRATE 25 MG TAB PO SCH (21:00)
[2016-09-28 21:17] LABS: URINE APPEARANCE CLEAR (CLEAR); URINE BILIRUBIN NEG (NEG); URINE COLOR YELLOW; URINE NITRITE NEG (NEG); URINE SPECIFIC GRAVITY 1.015 (1.000-1.030); UROBILINOGEN NEG (NEG)
[2016-09-28 21:18] LABS: MANUAL MICROSCOPIC REQUIRED? NO; REVIEW REQ? NO
[2016-09-28 21:36] LABS: URINE PROTIEN/CREAT RATIO 7.5 (0-0.2); URINE TOTAL PROTEIN 403.6 mg/dl (0-11.9)
[2016-09-28] MEDS ORDERED: VANCOMYCIN TROUGH SCH (23:30)
[2016-09-29] VITALS (17 sets, daily range): BP systolic 164–181; BP diastolic 70–85; PULSE 62–88; TEMP 36.4–36.9; O2SAT 92–98
[2016-09-29] MEDS ORDERED: VANCOMYCIN INJ 1,600 MG in SODIUM CHLORIDE 0.9% 250ML 250 ML IV SCH ×2
[2016-09-29] MEDS: ALBUT/IPRATROP 3MG/0.5MG NEB 3 ML VIAL INH SCH ×4 (07:14→19:36)
[2016-09-29] MEDS: ARFORMOTEROL TART 15MCG/2ML VIAL INH SCH ×2 (07:17→19:36)
[2016-09-29 07:42] LABS: MEAN CELL VOLUME 87.7 fL (80-100); MEAN CORPUSCULAR HEMOGLOBIN 29.1 pg (25-34); MEAN CORPUSCULAR HGB CONC 33.2 g/dl (32-36); MEAN PLATELET VOLUME 10.1 fL (7.4-10.4); PLATELET COUNT 234 K/uL (130-400); RED BLOOD COUNT 2.85 M/uL (4.2-5.4); WHITE BLOOD COUNT 8.18 K/uL (4.8-10.8)
[2016-09-29 07:52] LABS: PARTIAL THROMBOPLASTIN RATIO 1.1
[2016-09-29] MEDS: PIPERACILL/TAZOBAC IV 3.375 GM in DEXTROSE 5% 100ML 100 ML IV SCH ×2 (08:00→08:32)
[2016-09-29 08:14] LABS: CREATININE 2.6 mg/dl (0.60-1.20)
[2016-09-29] MEDS: BUMETANIDE IV 2 MG in SYRINGE 0 ML IV SCH ×2 (08:49→15:21)
[2016-09-29] MEDS: CITALOPRAM 20 MG TAB PO SCH (08:50)
[2016-09-29] MEDS: CLOPIDOGREL BISULFATE 75 MG TAB PO SCH (08:50)
[2016-09-29] MEDS: METOPROLOL TARTRATE 50 MG TAB PO SCH ×2 (08:50→20:51)
[2016-09-29] MEDS: AMLODIPINE BESYLATE 5 MG TAB PO SCH (08:51)
[2016-09-29 08:55] LABS: BUN/CREATININE RATIO 15.5 (10-20); CALCIUM 8.3 mg/dl (8.5-10.1); CREATININE 2.6 mg/dl (0.60-1.20); POTASSIUM 4.8 mmol/L (3.5-5.1)
[2016-09-29] MEDS: INSULIN ASPART 100 UNITS/ML 3 ML PEN SC SCH ×4 (08:59→20:56)
[2016-09-29] MEDS ORDERED: METOPROLOL TARTRATE 50 MG TAB PO SCH (09:00)
--- NOTE | 2016-09-29 10:20 | Nephrology Progress Note ---
Nephrology Progress Note Date of Service Sep 29, 2016. Chief Complaint BECKIE/CKD Subjective No acute events overnight. Ambulating in room this morning. Edema improving. Reports some dyspnea and mild chest tightness last night. Symptoms started while patient was sitting in bed. She denied palpitations. Chest tightness lasted almost an hour. Dyspnea lasted slightly longer. She has had similar episodes in the past. She attributes these episodes to stress. Appetite is good. No fevers or chills. Denies headache. Review of Systems A complete review of systems was performed. Pertinent positives are noted above. All other systems are negative. Vital Signs Last 8 Hrs Date Time Temp Pulse Resp B/P Pulse Ox O2 Delivery O2 Flow Rate FiO2 09/29/16 08:00 94 Nasal Cannula 2.0 09/29/16 08:00 96 Nasal Cannula 2.0 09/29/16 07:17 88 16 96 Nasal Cannula 2.0 09/29/16 07:01 36.9 73 20 171/80 95 Nasal Cannula 2.0 Humidified Oxygen 09/29/16 04:02 36.8 71 20 168/82 95 Nasal Cannula 2.0 09/29/16 04:00 92 Nasal Cannula 2.0 I & O 24-Hour Column 09/29/16 07:59 Intake Total 1698 ml Output Total 3550 ml Balance -1852 ml Last Recorded Weight Weight (Kilograms): 124.600 Physical Exam General Appearance: WD/WN, no apparent distress Head: normocephalic, atraumatic Eyes: normal inspection, sclerae normal ENT: normal ENT inspection, pharynx normal Neck: supple Respiratory/Chest: lungs clear, no respiratory distress, no accessory muscle use, + decreased breath sounds Cardiovascular: regular rate, rhythm, no gallop, no murmur Back: no CVA tenderness Abdomen/GI: non tender, soft Extremities/Musculoskelatal: normal inspection, + pedal edema (generalized edema) Neurologic/Psych: alert, oriented x 3 Laboratory Results Past 24 Hours 09/29/16 07:25 09/29/16 07:25 Test 09/28/16 12:03 09/28/16 16:06 09/28/16 19:49 09/28/16 21:05 Bedside Glucose 299 mg/dl (70-90) 178 mg/dl (70-90) 204 mg/dl (70-90) Urine Color YELLOW Urine Appearance CLEAR (CLEAR) Urine pH 6.0 (4.5-7.5) Urine Specific [place] 1.015 (1.000-1.030) Urine Protein 3+ (NEG) Urine Glucose (UA) 2+ (NEG) Urine Ketones NEG (NEG) Urine Occult Blood 1+ (NEG) Urine Nitrite NEG (NEG) Urine Bilirubin NEG (NEG) Urine Urobilinogen NEG (NEG) Urine Leukocyte Esterase NEG (NEG) Urine WBC (Auto) 1-5 /hpf (0-5) Urine RBC (Auto) 0-4 /hpf (0-4) Urine Hyaline Casts (Auto) 1-5 /lpf (0-5) Urine Epithelial Cells (Auto) 10-20 /lpf (0-5) Urine Bacteria (Auto) NEG (NEG) Urine Random Creatinine 54.0 mg/dl Urine Random Total Protein 403.6 mg/dl (0-11.9) Urine Random Sodium 75 mEq/L Urine Protein/Creatinine Ratio 7.5 (0-0.2) Test 09/29/16 07:02 09/29/16 07:25 Bedside Glucose 204 mg/dl (70-90) Red Blood Count 2.85 M/uL (4.2-5.4) Mean Corpuscular Volume 87.7 fL (80-100) Mean Corpuscular Hemoglobin 29.1 pg (25-34) Mean Corpuscular Hemoglobin Concent 33.2 g/dl (32-36) RDW Standard Deviation 45.5 fL (36.4-46.3) RDW Coefficient of Variation 14.0 % (11.5-14.5) Mean Platelet Volume 10.1 fL (7.4-10.4) Activated Partial Thromboplast Time 29.1 SECONDS (21.0-31.0) Partial Thromboplastin Ratio 1.1 Anion Gap 9.0 mmol/L (3-11) Est Creatinine Clear Calc Drug Dose 32.7 ml/min Estimated GFR () 23.5 Estimated GFR (Non- 20.2 BUN/Creatinine Ratio 15.5 (10-20) Calcium Level 8.3 mg/dl (8.5-10.1) Allergies Coded Allergies: Latex1 -Allergic Contact Dermititis (Verified Adverse Reaction, Mild, RASH , 09/25/16) Medications Current Inpatient Medications Medications (Trade) Dose Ordered Sig/Elizabet Route Start Time Stop Time Status Last Admin Dose Admin Acetaminophen (Tylenol Tab) 650 mg Q4H PRN PO 09/25/16 23:30 10/25/16 23:29 09/27/16 06:01 650 MG Al Hydrox/Mg Hydrox/Simethicone (Maalox Max Susp) 15 ml Q4H PRN PO 09/25/16 23:30 10/25/16 23:29 Magnesium Hydroxide (Milk Of Magnesia Susp) 30 ml Q12H PRN PO 09/25/16 23:30 10/25/16 23:29 Ondansetron HCl (Zofran Inj) 4 mg Q6H PRN IV 09/25/16 23:30 10/25/16 23:29 Nitroglycerin (Nitrostat Tab) 0.4 mg UD PRN SL 09/25/16 23:30 10/25/16 23:29 Morphine Sulfate (MoRPHine SULFATE INJ) 2 mg Q30M PRN IV 09/25/16 23:30 10/09/16 23:29 09/26/16 08:34 2 MG Polyethylene (Miralax Powder Packet) 17 gm DAILY PRN PO 09/25/16 23:30 10/25/16 23:29 Citalopram Hydrobromide (celeXA TAB) 20 mg QAM PO 09/26/16 09:00 10/26/16 08:59 09/29/16 08:50 20 MG Atorvastatin Calcium (Lipitor Tab) 40 mg HS PO 09/26/16 21:00 10/26/16 20:59 09/28/16 20:17 40 MG Clopidogrel Bisulfate (plAVix TAB) 75 mg QAM PO 09/26/16 09:00 10/26/16 08:59 09/29/16 08:50 75 MG Amlodipine Besylate (Norvasc Tab) 10 mg QAM PO 09/26/16 09:00 10/26/16 08:59 09/29/16 08:51 10 MG Tramadol HCl (Ultram Tab) 50 mg Q4H PRN PO 09/25/16 23:30 10/25/16 23:29 Glucose (Glucose 40% Gel) 15-30 GRAMS 15 GRAMS... UD PRN PO 09/26/16 00:30 10/26/16 00:29 Glucose (Glucose Chew Tab) 4-8 Tablets 4 Tabl... UD PRN PO 09/26/16 00:30 10/26/16 00:29 Dextrose (Dextrose 50% 50ML Syringe) 25-50ML OF 50% DW IV FOR... UD PRN IV 09/26/16 00:30 10/26/16 00:29 Glucagon 1 mg 1 mg UD PRN SQ 09/26/16 00:30 10/26/16 00:29 Bumetanide 2 mg/ Syringe 8 ml @ 4 mls/min BID@0800,1500 IV 09/26/16 15:00 10/26/16 14:59 09/29/16 08:49 4 MLS/MIN Piperacillin Sod/ Tazobactam Sod/ Dextrose (Zosyn Iv/D5 100ml) 115 ml @ 28.75 mls/ hr Q8H IV 09/26/16 16:00 10/03/16 15:59 09/29/16 08:00 28.75 MLS/HR Piperacillin Sod/ Tazobactam Sod (Consult) 1 ea UD PRN N/A 09/26/16 10:30 10/26/16 10:29 Insulin Aspart (novoLOG ASPART) SLIDING SCALE G... ACHS SC 09/27/16 17:00 10/27/16 16:59 09/29/16 08:59 2 UNITS Albuterol/ Ipratropium (Duoneb) 3 ml QIDR INH 09/28/16 12:00 10/28/16 11:59 09/28/16 15:22 3 ML Albuterol/ Ipratropium (Duoneb) 3 ml Q2H PRN INH 09/28/16 11:15 10/28/16 11:14 Metoprolol Tartrate (Lopressor Tab) 50 mg BID PO 09/28/16 21:00 10/28/16 20:59 09/29/16 08:50 50 MG Hydralazine HCl (HydrALAZINE INJ) 10 mg Q4H PRN IV 09/28/16 15:15 10/28/16 15:14 Arformoterol Tartrate (Brovana 15MCG/ 2ML Neb Soln) 15 mcg BIDR INH 09/28/16 20:00 10/28/16 19:59 09/29/16 07:17 15 MCG Impression (1) Chronic kidney disease, stage III (moderate) (2) Acute on chronic diastolic CHF (congestive heart failure) Mrs. Tootie Gutierrez is a 51-year-old female with CKD III (baseline creatinine ~2.0 mg/dL) attributed to diabetic nephropathy, obesity and hypertensive nephrosclerosis. She has evidence of nephrosis with nephrotic range proteinuria on random sample collected during possible BECKIE (UPCR 7.5). She was admitted with acute hypoxic respiratory failure in the setting of hypervolemia related to acute on chronic diastolic CHF. She was recently treated for pneumonia. Clinically, she has been improving. Overall, renal function stable (Cr 2.4-2.6 mg/dL). No acute findings on renal US. Metabolic profile otherwise acceptable. Medications appropriately dosed for renal function. Records from primary knitting machine tender (Dr. Rodriguez) requested. Recommendations -- Continue Bumex 2 mg BID to encourage net negative fluid balance ~2 L/d -- Medications appropriate for renal function, continue to hold GIOVANNI/ARB. Avoid iodinated contrast at the present time. -- Document I/O's -- Repeat metabolic profile tomorrow AM -- Sodium restrict diet to 2 grams daily and maintain 2 liter daily fluid restriction -- For anemia check iron studies with AM labs -- For hypertension increase metoprolol to 75 mg twice daily. Alternative consideration would be switching to carvedilol 25 mg twice daily.
[2016-09-29] MEDS: HydrALAZINE HCL 20 MG/ML VIAL IV PRN (11:58)
--- NOTE | 2016-09-29 15:20 | Progress Note ---
Subjective Date of Service: Sep 29, 2016. Subjective this pt has marked dyspnea on exertion, concern that dyspnea is exertional angina. discussion of diagnostic LHC with cardiology and renal Review of Systems Constitutional: No chills, No fatigue, No fever, No weakness Respiratory: + dyspnea on exertion, + shortness of breath, No cough, No sputum Cardiac: + edema, No chest pain Abdomen: No diarrhea, No nausea, No pain, No vomiting Female : No dysuria, No urinary frequency Objective Vital Signs Date Time Temp Pulse Resp B/P Pulse Ox O2 Delivery O2 Flow Rate FiO2 09/29/16 07:17 88 16 96 Nasal Cannula 2.0 09/29/16 07:01 36.9 73 20 171/80 95 Nasal Cannula 2.0 Humidified Oxygen 09/29/16 04:02 36.8 71 20 168/82 95 Nasal Cannula 2.0 09/29/16 04:00 92 Nasal Cannula 2.0 09/29/16 00:00 94 Nasal Cannula 2.0 09/28/16 23:39 36.9 76 22 162/77 93 Nasal Cannula 2.0 09/28/16 20:18 88 16 94 Room Air 09/28/16 20:00 Room Air 09/28/16 19:26 36.6 79 18 160/79 94 09/28/16 16:00 Nasal Cannula 2.0 09/28/16 15:51 36.9 106 18 152/61 98 09/28/16 15:22 85 14 94 Nasal Cannula 2.0 09/28/16 12:42 36.8 98 18 171/84 94 Room Air 09/28/16 12:00 Nasal Cannula 2.0 09/28/16 11:17 87 14 98 Nasal Cannula 2.0 09/28/16 10:00 177/90 193/95 Physical Exam General Appearance: WD/WN, + mild distress Neck: supple, no JVD Respiratory/Chest: chest non-tender, + decreased breath sounds, + accessory muscle use Cardiovascular: regular rate, rhythm, no murmur Abdomen: normal bowel sounds, non tender, soft Extremities: no pedal edema, no calf tenderness Neurologic/Psychiatric: alert, oriented x 3 Laboratory Results Last 24 Hours Test 09/28/16 12:03 09/28/16 16:06 09/28/16 19:49 09/28/16 21:05 Bedside Glucose 299 mg/dl 178 mg/dl 204 mg/dl Urine Color YELLOW Urine Appearance CLEAR Urine pH 6.0 Urine Specific [place] 1.015 Urine Protein 3+ Urine Glucose (UA) 2+ Urine Ketones NEG Urine Occult Blood 1+ Urine Nitrite NEG Urine Bilirubin NEG Urine Urobilinogen NEG Urine Leukocyte Esterase NEG Urine WBC (Auto) 1-5 /hpf Urine RBC (Auto) 0-4 /hpf Urine Hyaline Casts (Auto) 1-5 /lpf Urine Epithelial Cells (Auto) 10-20 /lpf Urine Bacteria (Auto) NEG Urine Random Creatinine 54.0 mg/dl Urine Random Total Protein 403.6 mg/dl Urine Random Sodium 75 mEq/L Urine Protein/Creatinine Ratio 7.5 Test 09/29/16 07:02 09/29/16 07:25 09/29/16 07:57 Bedside Glucose 204 mg/dl White Blood Count 8.18 K/uL Red Blood Count 2.85 M/uL Hemoglobin 8.3 g/dL Hematocrit 25.0 % Mean Corpuscular Volume 87.7 fL Mean Corpuscular Hemoglobin 29.1 pg Mean Corpuscular Hemoglobin Concent 33.2 g/dl RDW Standard Deviation 45.5 fL RDW Coefficient of Variation 14.0 % Platelet Count 234 K/uL Mean Platelet Volume 10.1 fL Activated Partial Thromboplast Time 29.1 SECONDS Partial Thromboplastin Ratio 1.1 Creatinine 2.60 mg/dl Est Creatinine Clear Calc Drug Dose 32.7 ml/min Estimated GFR () 23.5 Estimated GFR (Non- 20.2 Assessment and Plan 51 F admitted with acute diastolic heart failure, element of acute respiratory failure with possibly and chronic component and renal failure looking to be chronc renal failure stage 4 Acute decompensated diastolic CHF, cont diuresing , bumex 2mg IV BID, pursue negative fluid balance, despite have good success, still fairly mayer NSTEMI, continues without chest pain even with exertion, 48 hours of heparin gtt , given risk factors and apical changes seen on echo may pursue diagnostic left heart cath this week Acute respiratory failure, perhaps undiagnosed chronic disease, improved air movement on exam with addition of long acting b agonist, still mayer BECKIE on CKD diabetes nephropathy, DR Pemberton is concerned this maybe her baseline from summation of pre existing renal disease risk factors Pneumonia, concern for gram negative or mrsa, Patchy upper lobe infiltrates zosyn concern for mrsa and gram negatives given recent hospitalizations Back pain CT negative for any pathologies
[2016-09-29] MEDS: PIPERACILL/TAZOBAC IV 4.5 GM in DEXTROSE 5% 100ML IV SCH (15:41)
--- NOTE | 2016-09-29 18:41 | Cardiology Follow-Up ---
Subjective Subjective Date of Service: Sep 29, 2016. Pt evaluation today including: conversation w/ patient, physical exam, chart review, lab review, review of studies, conversation w/ loan consultant, review of inpatient medication list Additional Details: Still with intermittent shortness of breath at night and with walking around her room. Denies any chest pain. No palpitations. No events on telemetry Review of Systems Constitutional: No chills, No fatigue, No fever, No weakness Respiratory: + dyspnea on exertion, + shortness of breath, No cough, No sputum Cardiac: + edema, No chest pain Abdomen: No diarrhea, No nausea, No pain, No vomiting Female : No dysuria, No urinary frequency Psychiatric: No anhedonism, No depression symptoms Heme: No abnormal bleeding/bruising Skin: No rash Objective Vital Signs Last Vital Signs Documentation Date Time Temp Pulse Resp B/P Pulse Ox O2 Delivery O2 Flow Rate FiO2 09/29/16 16:13 95 Nasal Cannula 2.0 09/29/16 15:50 36.8 85 22 181/70 09/26/16 15:31 30 Physical Exam: General Appearance: WD/WN, no apparent distress Neck: supple, + JVD (8-9) Respiratory/Chest: chest non-tender, + decreased breath sounds (at bases bilaterally), + accessory muscle use Cardiovascular: regular rate, rhythm, + systolic murmur (2/6 systolic ejection murmur) Abdomen: normal bowel sounds, non tender, soft Extremities: no pedal edema, no calf tenderness Neurologic/Psychiatric: alert, oriented x 3 Skin: warm/dry, no rash Assessment and Plan 1. Acute diastolic heart failure -- well-perfused, diuresing well, still with some residual congestion on exam 2. NSTEMI - troponin peaked, chest pain free, preserved LV function with apical wall motion abnormality 3. Acute on CKD - SCr near recent baseline, mildly up today 4. Type 2 diabetes -- on insulin 5. Anemia -- stable 6. HTN -- BP still elevated on current regimen Still with some congestion on exam today. Still with limiting dyspnea on exertion and occasional night time dyspnea - ? PND Recommend continued diuresis and improved blood pressure control -- Agree continued IV diuresis with Bumex 2mg BID -- Increase antihypertensive regimen -- agree with renal recommendation to switch to carvedilol 25mg BID -- Continue Plavix. Add aspirin 81 mg daily. Continue current statin -- Suspicion CAD in patient is high in the setting of significant risk factors, troponin elevation and wall motion abnormality on echo. In the setting of persistent dyspnea on exertion would favor cardiac cath for risk stratification over pharmacologic stress if possible from a kidney standpoint. Would plan for diagnostic cath only with limited contrast (goal < 40cc). If intervention were needed would plan to do at a later date in a staged fashion. Will discuss further with nephrology. Medications: Current Inpatient Medications Medications (Trade) Dose Ordered Sig/Elizabet Route Start Time Stop Time Status Last Admin Dose Admin Acetaminophen (Tylenol Tab) 650 mg Q4H PRN PO 09/25/16 23:30 10/25/16 23:29 09/27/16 06:01 650 MG Al Hydrox/Mg Hydrox/Simethicone (Maalox Max Susp) 15 ml Q4H PRN PO 09/25/16 23:30 10/25/16 23:29 Magnesium Hydroxide (Milk Of Magnesia Susp) 30 ml Q12H PRN PO 09/25/16 23:30 10/25/16 23:29 Ondansetron HCl (Zofran Inj) 4 mg Q6H PRN IV 09/25/16 23:30 10/25/16 23:29 Nitroglycerin (Nitrostat Tab) 0.4 mg UD PRN SL 09/25/16 23:30 10/25/16 23:29 Morphine Sulfate (MoRPHine SULFATE INJ) 2 mg Q30M PRN IV 09/25/16 23:30 10/09/16 23:29 09/26/16 08:34 2 MG Polyethylene (Miralax Powder Packet) 17 gm DAILY PRN PO 09/25/16 23:30 10/25/16 23:29 Citalopram Hydrobromide (celeXA TAB) 20 mg QAM PO 09/26/16 09:00 10/26/16 08:59 09/29/16 08:50 20 MG Atorvastatin Calcium (Lipitor Tab) 40 mg HS PO 09/26/16 21:00 10/26/16 20:59 09/28/16 20:17 40 MG Clopidogrel Bisulfate (plAVix TAB) 75 mg QAM PO 09/26/16 09:00 10/26/16 08:59 09/29/16 08:50 75 MG Amlodipine Besylate (Norvasc Tab) 10 mg QAM PO 09/26/16 09:00 10/26/16 08:59 09/29/16 08:51 10 MG Tramadol HCl (Ultram Tab) 50 mg Q4H PRN PO 09/25/16 23:30 10/25/16 23:29 Glucose (Glucose 40% Gel) 15-30 GRAMS 15 GRAMS... UD PRN PO 09/26/16 00:30 10/26/16 00:29 Glucose (Glucose Chew Tab) 4-8 Tablets 4 Tabl... UD PRN PO 09/26/16 00:30 10/26/16 00:29 Dextrose (Dextrose 50% 50ML Syringe) 25-50ML OF 50% DW IV FOR... UD PRN IV 09/26/16 00:30 10/26/16 00:29 Glucagon 1 mg 1 mg UD PRN SQ 09/26/16 00:30 10/26/16 00:29 Bumetanide/Syringe (Bumex IV/ Syringe) 8 ml @ 4 mls/min BID@0800,1500 IV 09/26/16 15:00 10/26/16 14:59 09/29/16 15:21 4 MLS/MIN Piperacillin Sod/ Tazobactam Sod (Consult) 1 ea UD PRN N/A 09/26/16 10:30 10/26/16 10:29 Insulin Aspart (novoLOG ASPART) SLIDING SCALE G... ACHS SC 09/27/16 17:00 10/27/16 16:59 09/29/16 12:32 2 UNITS Albuterol/ Ipratropium (Duoneb) 3 ml QIDR INH 09/28/16 12:00 10/28/16 11:59 09/29/16 15:43 3 ML Albuterol/ Ipratropium (Duoneb) 3 ml Q2H PRN INH 09/28/16 11:15 10/28/16 11:14 Metoprolol Tartrate (Lopressor Tab) 50 mg BID PO 09/28/16 21:00 10/28/16 20:59 09/29/16 08:50 50 MG Hydralazine HCl (HydrALAZINE INJ) 10 mg Q4H PRN IV 09/28/16 15:15 10/28/16 15:14 09/29/16 11:58 10 MG Arformoterol Tartrate 15 mcg 15 mcg BIDR INH 09/28/16 20:00 10/28/16 19:59 09/29/16 07:17 15 MCG Piperacillin Sod/ Tazobactam Sod/ Dextrose (Zosyn Iv/D5 100ml) 120 ml @ 30 mls/hr Q8H IV 09/29/16 16:00 10/03/16 15:59 09/29/16 15:41 30 MLS/HR Lab Results: 09/29/16 07:25 09/29/16 07:25 Test 09/28/16 21:05 09/29/16 07:25 09/29/16 16:03 Urine Color YELLOW Urine Appearance CLEAR (CLEAR) Urine pH 6.0 (4.5-7.5) Urine Specific [place] 1.015 (1.000-1.030) Urine Protein 3+ (NEG) Urine Glucose (UA) 2+ (NEG) Urine Ketones NEG (NEG) Urine Occult Blood 1+ (NEG) Urine Nitrite NEG (NEG) Urine Bilirubin NEG (NEG) Urine Urobilinogen NEG (NEG) Urine Leukocyte Esterase NEG (NEG) Urine WBC (Auto) 1-5 /hpf (0-5) Urine RBC (Auto) 0-4 /hpf (0-4) Urine Hyaline Casts (Auto) 1-5 /lpf (0-5) Urine Epithelial Cells (Auto) 10-20 /lpf (0-5) Urine Bacteria (Auto) NEG (NEG) Urine Random Creatinine 54.0 mg/dl Urine Random Total Protein 403.6 mg/dl (0-11.9) Urine Random Sodium 75 mEq/L Urine Protein/Creatinine Ratio 7.5 (0-0.2) Red Blood Count 2.85 M/uL (4.2-5.4) Mean Corpuscular Volume 87.7 fL (80-100) Mean Corpuscular Hemoglobin 29.1 pg (25-34) Mean Corpuscular Hemoglobin Concent 33.2 g/dl (32-36) RDW Standard Deviation 45.5 fL (36.4-46.3) RDW Coefficient of Variation 14.0 % (11.5-14.5) Mean Platelet Volume 10.1 fL (7.4-10.4) Activated Partial Thromboplast Time 29.1 SECONDS (21.0-31.0) Partial Thromboplastin Ratio 1.1 Anion Gap 9.0 mmol/L (3-11) Est Creatinine Clear Calc Drug Dose 32.7 ml/min Estimated GFR () 23.5 Estimated GFR (Non- 20.2 BUN/Creatinine Ratio 15.5 (10-20) Calcium Level 8.3 mg/dl (8.5-10.1) Bedside Glucose 230 mg/dl (70-90)
[2016-09-29] MEDS: ATORVASTATIN 40 MG TAB PO SCH (20:51)
[2016-09-30] VITALS (16 sets, daily range): BP systolic 153–186; BP diastolic 61–83; PULSE 65–81; TEMP 36.6–37; O2SAT 92–98
[2016-09-30] MEDS: PIPERACILL/TAZOBAC IV 4.5 GM in DEXTROSE 5% 100ML IV SCH ×3 (01:47→16:05)
[2016-09-30] MEDS: ARFORMOTEROL TART 15MCG/2ML VIAL INH SCH ×2 (06:47→20:27)
[2016-09-30 07:18] LABS: PARTIAL THROMBOPLASTIN RATIO 1.1
[2016-09-30 07:36] LABS: BUN/CREATININE RATIO 15.6 (10-20); CALCIUM 8.2 mg/dl (8.5-10.1); CREATININE 2.7 mg/dl (0.60-1.20); POTASSIUM 4.7 mmol/L (3.5-5.1)
[2016-09-30 07:37] LABS: PHOSPHORUS 4.9 mg/dl (2.5-4.9)
[2016-09-30] MEDS: ALBUT/IPRATROP 3MG/0.5MG NEB 3 ML VIAL INH SCH ×4 (07:49→20:00)
[2016-09-30 08:56] LABS: FERRITIN 58.8 ng/ml (8.0-388.0)
[2016-09-30] MEDS: CITALOPRAM 20 MG TAB PO SCH (09:56)
[2016-09-30] MEDS: CLOPIDOGREL BISULFATE 75 MG TAB PO SCH (09:57)
[2016-09-30] MEDS: AMLODIPINE BESYLATE 5 MG TAB PO SCH (09:57)
[2016-09-30] MEDS: METOPROLOL TARTRATE 50 MG TAB PO SCH (09:58)
[2016-09-30] MEDS: BUMETANIDE IV 2 MG in SYRINGE 0 ML IV SCH ×2 (10:03→15:59)
[2016-09-30] MEDS: INSULIN ASPART 100 UNITS/ML 3 ML PEN SC SCH ×4 (10:03→20:55)
--- NOTE | 2016-09-30 10:14 | Nephrology Progress Note ---
Nephrology Progress Note Date of Service Sep 30, 2016. Chief Complaint BECKIE/CKD Subjective No acute events overnight. Overall feels well this morning. Edema continues to improve. Activity tolerance improving. Appetite good. Voiding urine without difficulty. Review of Systems A complete review of systems was performed. Pertinent positives are noted above. All other systems are negative. Vital Signs Last 8 Hrs Date Time Temp Pulse Resp B/P Pulse Ox O2 Delivery O2 Flow Rate FiO2 09/30/16 09:22 72 157/61 09/30/16 08:00 36.7 72 22 154/75 98 Nasal Cannula 2.0 81 153/83 09/30/16 06:47 68 16 98 Nasal Cannula 2.0 09/30/16 04:00 92 Nasal Cannula 2.0 09/30/16 03:55 36.6 70 20 165/81 92 Nasal Cannula 2.0 I & O 24-Hour Column 09/30/16 08:00 Intake Total 1352 ml Output Total 2150 ml Balance -798 ml Last Recorded Weight Weight (Kilograms): 123.900 Physical Exam General Appearance: no apparent distress, + obese Head: normocephalic, atraumatic Eyes: normal inspection, sclerae normal ENT: normal ENT inspection, pharynx normal Neck: supple, no JVD, + pertinent finding (thick, unable to appreciate JVP) Respiratory/Chest: lungs clear, no respiratory distress, no accessory muscle use, + rales (few basilar rales) Cardiovascular: regular rate, rhythm, no gallop, no murmur Abdomen/GI: non tender, soft Extremities/Musculoskelatal: normal inspection, + pedal edema (generalized edema improving) Neurologic/Psych: alert, oriented x 3 Laboratory Results Past 24 Hours 09/30/16 06:42 Test 09/29/16 11:42 09/29/16 16:03 09/29/16 20:29 09/30/16 06:42 Bedside Glucose 235 mg/dl (70-90) 230 mg/dl (70-90) 223 mg/dl (70-90) Activated Partial Thromboplast Time 29.2 SECONDS (21.0-31.0) Partial Thromboplastin Ratio 1.1 Anion Gap 8.0 mmol/L (3-11) Est Creatinine Clear Calc Drug Dose 31.3 ml/min Estimated GFR () 22.4 Estimated GFR (Non- 19.3 BUN/Creatinine Ratio 15.6 (10-20) Calcium Level 8.2 mg/dl (8.5-10.1) Phosphorus Level 4.9 mg/dl (2.5-4.9) Iron Level 41 mcg/dl (35-150) Total Iron Binding Capacity 275 mcg/dl (250-450) Transferrin 215 mg/dl (200-360) Transferrin % Saturation 14 % (15-50) Ferritin 58.8 ng/ml (8.0-388.0) Albumin 2.5 gm/dl (3.4-5.0) Test 09/30/16 06:49 Bedside Glucose 213 mg/dl (70-90) Allergies Coded Allergies: Latex1 -Allergic Contact Dermititis (Verified Adverse Reaction, Mild, RASH , 09/25/16) Medications Current Inpatient Medications Medications (Trade) Dose Ordered Sig/Elizabet Route Start Time Stop Time Status Last Admin Dose Admin Acetaminophen (Tylenol Tab) 650 mg Q4H PRN PO 09/25/16 23:30 10/25/16 23:29 09/27/16 06:01 650 MG Al Hydrox/Mg Hydrox/Simethicone (Maalox Max Susp) 15 ml Q4H PRN PO 09/25/16 23:30 10/25/16 23:29 Magnesium Hydroxide (Milk Of Magnesia Susp) 30 ml Q12H PRN PO 09/25/16 23:30 10/25/16 23:29 Ondansetron HCl (Zofran Inj) 4 mg Q6H PRN IV 09/25/16 23:30 10/25/16 23:29 Nitroglycerin (Nitrostat Tab) 0.4 mg UD PRN SL 09/25/16 23:30 10/25/16 23:29 Morphine Sulfate (MoRPHine SULFATE INJ) 2 mg Q30M PRN IV 09/25/16 23:30 10/09/16 23:29 09/26/16 08:34 2 MG Polyethylene (Miralax Powder Packet) 17 gm DAILY PRN PO 09/25/16 23:30 10/25/16 23:29 Citalopram Hydrobromide (celeXA TAB) 20 mg QAM PO 09/26/16 09:00 10/26/16 08:59 09/30/16 09:56 20 MG Atorvastatin Calcium (Lipitor Tab) 40 mg HS PO 09/26/16 21:00 10/26/16 20:59 09/29/16 20:51 40 MG Clopidogrel Bisulfate (plAVix TAB) 75 mg QAM PO 09/26/16 09:00 10/26/16 08:59 09/30/16 09:57 75 MG Amlodipine Besylate (Norvasc Tab) 10 mg QAM PO 09/26/16 09:00 10/26/16 08:59 09/30/16 09:57 10 MG Tramadol HCl (Ultram Tab) 50 mg Q4H PRN PO 09/25/16 23:30 10/25/16 23:29 Glucose (Glucose 40% Gel) 15-30 GRAMS 15 GRAMS... UD PRN PO 09/26/16 00:30 10/26/16 00:29 Glucose (Glucose Chew Tab) 4-8 Tablets 4 Tabl... UD PRN PO 09/26/16 00:30 10/26/16 00:29 Dextrose (Dextrose 50% 50ML Syringe) 25-50ML OF 50% DW IV FOR... UD PRN IV 09/26/16 00:30 10/26/16 00:29 Glucagon 1 mg 1 mg UD PRN SQ 09/26/16 00:30 10/26/16 00:29 Bumetanide/Syringe (Bumex IV/ Syringe) 8 ml @ 4 mls/min BID@0800,1500 IV 09/26/16 15:00 10/26/16 14:59 09/30/16 10:03 4 MLS/MIN Piperacillin Sod/ Tazobactam Sod (Consult) 1 ea UD PRN N/A 09/26/16 10:30 10/26/16 10:29 Insulin Aspart (novoLOG ASPART) SLIDING SCALE G... ACHS SC 09/27/16 17:00 10/27/16 16:59 09/30/16 10:03 2 UNITS Albuterol/ Ipratropium (Duoneb) 3 ml QIDR INH 09/28/16 12:00 10/28/16 11:59 09/29/16 15:43 3 ML Albuterol/ Ipratropium (Duoneb) 3 ml Q2H PRN INH 09/28/16 11:15 10/28/16 11:14 Metoprolol Tartrate (Lopressor Tab) 50 mg BID PO 09/28/16 21:00 10/28/16 20:59 09/30/16 09:58 50 MG Hydralazine HCl (HydrALAZINE INJ) 10 mg Q4H PRN IV 09/28/16 15:15 10/28/16 15:14 09/29/16 11:58 10 MG Arformoterol Tartrate 15 mcg 15 mcg BIDR INH 09/28/16 20:00 10/28/16 19:59 09/30/16 06:47 15 MCG Piperacillin Sod/ Tazobactam Sod/ Dextrose (Zosyn Iv/D5 100ml) 120 ml @ 30 mls/hr Q8H IV 09/29/16 16:00 10/03/16 15:59 09/30/16 10:04 30 MLS/HR Impression (1) Chronic kidney disease, stage III (moderate) (2) Acute on chronic diastolic CHF (congestive heart failure) Mrs. Tootie Gutierrez is a 51-year-old female with CKD III (baseline creatinine ~2.0 mg/dL) attributed to diabetic nephropathy, obesity and hypertensive nephrosclerosis. She has evidence of nephrosis with nephrotic range proteinuria on random sample collected during possible BECKIE (UPCR 7.5). She was admitted with acute hypoxic respiratory failure in the setting of hypervolemia related to acute on chronic diastolic CHF. She was recently treated for pneumonia. Clinically, she has been improving. Overall, renal function stable (Cr 2.4-2.6 mg/dL). No acute findings on renal US. Metabolic profile otherwise acceptable. Medications appropriately dosed for renal function. Records from primary steam cleaning machine operator (Dr. Rodriguez) requested. Recommendations -- Continue Bumex to encourage net negative fluid balance goal ~ 1 L/d -- Medications appropriate for renal function, continue to hold GIOVANNI/ARB. Avoid iodinated contrast at the present time. Request that cardiac cath be delayed while creatinine rising. -- Document I/O's -- Repeat metabolic profile tomorrow AM -- Sodium restrict diet to 2 grams daily and maintain 2 liter daily fluid restriction -- For anemia, T sat 14 with ferritin 50 - will start IV iron -- Switch metoprolol to carvedilol today
[2016-09-30] MEDS ORDERED: IRON SUCROSE INJ 200 MG in SODIUM CHLORIDE 0.9% 100ML 100 ML IV SCH (11:00)
[2016-09-30] MEDS ORDERED: NURSING VERBAL MED ORDER ONE (12:15)
--- NOTE | 2016-09-30 18:38 | Progress Note ---
Subjective Date of Service: Sep 30, 2016. Subjective pt has good days and bad days, consideration for cardiac cath is delayed with rise in cr, otherwise no new issues but not improved [place] Review of Systems Constitutional: No chills, No fever Respiratory: + cough, + dyspnea on exertion, + shortness of breath Cardiac: + PND, + edema, No chest pain Abdomen: No diarrhea, No nausea, No pain, No vomiting Psychiatric: + depression symptoms, No anhedonism Objective Vital Signs Date Time Temp Pulse Resp B/P Pulse Ox O2 Delivery O2 Flow Rate FiO2 09/30/16 16:01 68 16 94 Room Air 09/30/16 15:34 36.9 65 18 174/73 93 Room Air 09/30/16 12:00 98 Nasal Cannula 2.0 09/30/16 11:25 68 16 98 Nasal Cannula 1.0 09/30/16 10:48 36.8 70 18 184/78 98 1.0 09/30/16 09:22 72 157/61 09/30/16 08:00 36.7 72 22 154/75 98 Nasal Cannula 2.0 81 153/83 09/30/16 08:00 98 Nasal Cannula 2.0 09/30/16 06:47 68 16 98 Nasal Cannula 2.0 09/30/16 04:00 92 Nasal Cannula 2.0 09/30/16 03:55 36.6 70 20 165/81 92 Nasal Cannula 2.0 09/30/16 00:00 98 Nasal Cannula 2.0 09/30/16 00:00 98 Nasal Cannula 2.0 09/29/16 23:59 36.8 72 20 176/81 98 Nasal Cannula 2.0 09/29/16 20:03 36.9 75 20 164/72 95 Nasal Cannula 2.0 09/29/16 20:00 95 Nasal Cannula 2.0 09/29/16 19:36 62 16 98 Nasal Cannula 2.0 Physical Exam General Appearance: + moderate distress, + obese Neck: supple, no JVD Respiratory/Chest: + respiratory distress, + decreased breath sounds, + accessory muscle use Cardiovascular: regular rate, rhythm, no murmur Abdomen: normal bowel sounds, non tender, soft Extremities: + pedal edema, + swelling Neurologic/Psychiatric: alert, oriented x 3 Laboratory Results Last 24 Hours Test 09/29/16 20:29 09/30/16 06:42 09/30/16 06:49 09/30/16 11:16 Bedside Glucose 223 mg/dl 213 mg/dl 279 mg/dl Activated Partial Thromboplast Time 29.2 SECONDS Partial Thromboplastin Ratio 1.1 Sodium Level 141 mmol/L Potassium Level 4.7 mmol/L Chloride Level 112 mmol/L Carbon Dioxide Level 21 mmol/L Anion Gap 8.0 mmol/L Blood Urea Nitrogen 42 mg/dl Creatinine 2.70 mg/dl Est Creatinine Clear Calc Drug Dose 31.3 ml/min Estimated GFR () 22.4 Estimated GFR (Non- 19.3 BUN/Creatinine Ratio 15.6 Random Glucose 205 mg/dl Calcium Level 8.2 mg/dl Phosphorus Level 4.9 mg/dl Iron Level 41 mcg/dl Total Iron Binding Capacity 275 mcg/dl Transferrin 215 mg/dl Transferrin % Saturation 14 % Ferritin 58.8 ng/ml Albumin 2.5 gm/dl Test 09/30/16 16:12 Bedside Glucose 267 mg/dl Assessment and Plan 51 F admitted with acute diastolic heart failure, element of acute respiratory failure with possibly and chronic component and renal failure looking to be chronic renal failure stage 4 Acute decompensated diastolic CHF, bumex , pursue negative fluid balance, despite have good success, still fairly [place], considering diagnostic cath but renal function is preventing NSTEMI, continues without chest pain but fairly dyspneic on exertion, which is not her norm, given risk factors and apical changes seen on echo may pursue diagnostic left heart cath this week if we can help renal function improve Acute respiratory failure, perhaps undiagnosed chronic disease, much better with treating like copd but still [place] BECKIE on CKD diabetes nephropathy, DR Pemberton is concerned this maybe her baseline from summation of pre existing renal disease risk factors Pneumonia, concern for gram negative or mrsa, Patchy upper lobe infiltrates zosyn concern for mrsa and gram negatives given recent hospitalizations, complete 10 [address] course Back pain [address] negative for any pathologies
[2016-09-30] MEDS: CARVEDILOL 25 MG TAB PO SCH (20:21)
[2016-09-30] MEDS: ATORVASTATIN 40 MG TAB PO SCH (20:21)
[2016-10-01] VITALS (12 sets, daily range): BP systolic 161–181; BP diastolic 76–93; PULSE 68–84; TEMP 36.4–37.1; O2SAT 93–98
[2016-10-01] MEDS: PIPERACILL/TAZOBAC IV 4.5 GM in DEXTROSE 5% 100ML IV SCH ×3 (00:25→17:27)
[2016-10-01] MEDS: ALBUT/IPRATROP 3MG/0.5MG NEB 3 ML VIAL INH PRN (03:26)
[2016-10-01 07:07] LABS: PARTIAL THROMBOPLASTIN RATIO 1.2
[2016-10-01] MEDS: ARFORMOTEROL TART 15MCG/2ML VIAL INH SCH ×2 (07:14→19:30)
[2016-10-01 07:28] LABS: BUN/CREATININE RATIO 15.5 (10-20); CALCIUM 8.3 mg/dl (8.5-10.1); CREATININE 2.7 mg/dl (0.60-1.20); PHOSPHORUS 4.5 mg/dl (2.5-4.9); POTASSIUM 4.5 mmol/L (3.5-5.1)
[2016-10-01] MEDS: ALBUT/IPRATROP 3MG/0.5MG NEB 3 ML VIAL INH SCH ×4 (07:57→19:30)
[2016-10-01] MEDS: INSULIN ASPART 100 UNITS/ML 3 ML PEN SC SCH ×4 (08:15→20:29)
[2016-10-01] MEDS: CITALOPRAM 20 MG TAB PO SCH (10:01)
[2016-10-01] MEDS: BUMETANIDE IV 2 MG in SYRINGE 0 ML IV SCH (10:01)
[2016-10-01] MEDS: CARVEDILOL 25 MG TAB PO SCH ×2 (10:02→20:49)
[2016-10-01] MEDS: CLOPIDOGREL BISULFATE 75 MG TAB PO SCH (10:02)
[2016-10-01] MEDS: AMLODIPINE BESYLATE 5 MG TAB PO SCH (10:02)
[2016-10-01] MEDS: ACETAMINOPHEN 325 MG TAB PO PRN (10:04)
[2016-10-01] MEDS ORDERED: REGADENOSON 0.4 MG/5 ML SYR ONE (10:40)
--- NOTE | 2016-10-01 10:44 | Nephrology Progress Note ---
Nephrology Progress Note Date of Service Oct 01, 2016. Chief Complaint BECKIE/CKD Subjective No acute events overnight. No complaints this morning. Denies shortness of breath. Appetite good. Edema continues to improve. Ambulating in room without difficulty. Plan of care discussed with Dr. Lee yesterday and Dr. Robbins this morning. Review of Systems A complete review of systems was performed. Pertinent positives are noted above. All other systems are negative. Vital Signs Last 8 Hrs Date Time Temp Pulse Resp B/P Pulse Ox O2 Delivery O2 Flow Rate FiO2 10/01/16 08:00 Nasal Cannula 10/01/16 07:25 36.4 68 20 162/82 98 Nasal Cannula 2.0 10/01/16 07:14 68 16 98 Nasal Cannula 2.0 10/01/16 04:08 36.7 74 21 161/78 96 Nasal Cannula 2.0 10/01/16 04:00 Room Air 10/01/16 03:26 73 20 93 Nasal Cannula 2.0 I & O 24-Hour Column 10/01/16 08:00 Intake Total 1763 ml Output Total 4700 ml Balance -2937 ml Last Recorded Weight Weight (Kilograms): 123.300 Physical Exam General Appearance: no apparent distress, + obese Head: normocephalic, atraumatic Eyes: normal inspection, sclerae normal ENT: normal ENT inspection, pharynx normal Neck: supple, no JVD Respiratory/Chest: lungs clear, no respiratory distress, no accessory muscle use Cardiovascular: regular rate, rhythm, no gallop, no murmur Abdomen/GI: non tender, soft Extremities/Musculoskelatal: normal inspection, + pedal edema (impoving edema) Neurologic/Psych: alert, oriented x 3 Laboratory Results Past 24 Hours 10/01/16 06:42 Test 09/30/16 11:16 09/30/16 16:12 09/30/16 20:06 10/01/16 06:29 Bedside Glucose 279 mg/dl (70-90) 267 mg/dl (70-90) 225 mg/dl (70-90) 229 mg/dl (70-90) Test 10/01/16 06:42 10/01/16 07:11 Activated Partial Thromboplast Time 30.3 SECONDS (21.0-31.0) Partial Thromboplastin Ratio 1.2 Anion Gap 11.0 mmol/L (3-11) Est Creatinine Clear Calc Drug Dose 31.3 ml/min Estimated GFR () 22.4 Estimated GFR (Non- 19.3 BUN/Creatinine Ratio 15.5 (10-20) Calcium Level 8.3 mg/dl (8.5-10.1) Phosphorus Level 4.5 mg/dl (2.5-4.9) Albumin 2.5 gm/dl (3.4-5.0) Bedside Glucose 215 mg/dl (70-90) Allergies Coded Allergies: Latex1 -Allergic Contact Dermititis (Verified Adverse Reaction, Mild, RASH , 09/25/16) Medications Current Inpatient Medications Medications (Trade) Dose Ordered Sig/Elizabet Route Start Time Stop Time Status Last Admin Dose Admin Acetaminophen (Tylenol Tab) 650 mg Q4H PRN PO 09/25/16 23:30 10/25/16 23:29 10/01/16 10:04 650 MG Al Hydrox/Mg Hydrox/Simethicone (Maalox Max Susp) 15 ml Q4H PRN PO 09/25/16 23:30 10/25/16 23:29 Magnesium Hydroxide (Milk Of Magnesia Susp) 30 ml Q12H PRN PO 09/25/16 23:30 10/25/16 23:29 Ondansetron HCl (Zofran Inj) 4 mg Q6H PRN IV 09/25/16 23:30 10/25/16 23:29 Nitroglycerin (Nitrostat Tab) 0.4 mg UD PRN SL 09/25/16 23:30 10/25/16 23:29 Morphine Sulfate (MoRPHine SULFATE INJ) 2 mg Q30M PRN IV 09/25/16 23:30 10/09/16 23:29 09/26/16 08:34 2 MG Polyethylene (Miralax Powder Packet) 17 gm DAILY PRN PO 09/25/16 23:30 10/25/16 23:29 Citalopram Hydrobromide (celeXA TAB) 20 mg QAM PO 09/26/16 09:00 10/26/16 08:59 10/01/16 10:01 20 MG Atorvastatin Calcium (Lipitor Tab) 40 mg HS PO 09/26/16 21:00 10/26/16 20:59 09/30/16 20:21 40 MG Clopidogrel Bisulfate (plAVix TAB) 75 mg QAM PO 09/26/16 09:00 10/26/16 08:59 10/01/16 10:02 75 MG Amlodipine Besylate (Norvasc Tab) 10 mg QAM PO 09/26/16 09:00 10/26/16 08:59 10/01/16 10:02 10 MG Tramadol HCl (Ultram Tab) 50 mg Q4H PRN PO 09/25/16 23:30 10/25/16 23:29 Glucose (Glucose 40% Gel) 15-30 GRAMS 15 GRAMS... UD PRN PO 09/26/16 00:30 10/26/16 00:29 Glucose (Glucose Chew Tab) 4-8 Tablets 4 Tabl... UD PRN PO 09/26/16 00:30 10/26/16 00:29 Dextrose (Dextrose 50% 50ML Syringe) 25-50ML OF 50% DW IV FOR... UD PRN IV 09/26/16 00:30 10/26/16 00:29 Glucagon (Glucagon Inj) 1 mg UD PRN SQ 09/26/16 00:30 10/26/16 00:29 Piperacillin Sod/ Tazobactam Sod (Consult) 1 ea UD PRN N/A 09/26/16 10:30 10/26/16 10:29 Insulin Aspart (novoLOG ASPART) SLIDING SCALE G... ACHS SC 09/27/16 17:00 10/27/16 16:59 10/01/16 08:15 2 UNITS Albuterol/ Ipratropium (Duoneb) 3 ml QIDR INH 09/28/16 12:00 10/28/16 11:59 09/30/16 16:01 3 ML Albuterol/ Ipratropium (Duoneb) 3 ml Q2H PRN INH 09/28/16 11:15 10/28/16 11:14 10/01/16 03:26 3 ML Hydralazine HCl (HydrALAZINE INJ) 10 mg Q4H PRN IV 09/28/16 15:15 10/28/16 15:14 09/29/16 11:58 10 MG Arformoterol Tartrate 15 mcg 15 mcg BIDR INH 09/28/16 20:00 10/28/16 19:59 10/01/16 07:14 15 MCG Piperacillin Sod/ Tazobactam Sod/ Dextrose (Zosyn Iv/D5 100ml) 120 ml @ 30 mls/hr Q8H IV 09/29/16 16:00 10/03/16 15:59 10/01/16 10:00 30 MLS/HR Carvedilol 25 mg 25 mg BID PO 09/30/16 21:00 10/30/16 20:59 10/01/16 10:02 25 MG Iron Sucrose 200 mg/Sodium Chloride 110 ml @ 420 mls/hr Q24H IV 10/01/16 14:30 10/04/16 14:46 Bumetanide/Syringe (Bumex IV/ Syringe) 8 ml @ 4 mls/min DAILY@0900 IV 10/01/16 09:00 10/31/16 08:59 10/01/16 10:01 4 MLS/MIN Impression (1) Chronic kidney disease, stage III (moderate) (2) Acute on chronic diastolic CHF (congestive heart failure) Mrs. Tootie Gutierrez is a 51-year-old female with CKD III (baseline creatinine ~2.0 mg/dL) attributed to diabetic nephropathy, obesity and hypertensive nephrosclerosis. She has evidence of nephrosis with nephrotic range proteinuria on random sample collected during possible BECKIE (UPCR 7.5). She was admitted with acute hypoxic respiratory failure in the setting of hypervolemia related to acute on chronic diastolic CHF. She was recently treated for pneumonia. Clinically, she has been improving. Overall, renal function stable (Cr 2.4-2.6 mg/dL). No acute findings on renal US. Metabolic profile otherwise acceptable. Medications appropriately dosed for renal function. Records from primary student teacher (Dr. Rodriguez) requested. Recommendations -- Continue Bumex (once daily). Goal to encourage net negative fluid balance goal ~ 1 L/d -- Medications appropriate for renal function, continue to hold GIOVANNI/ARB. Avoid iodinated contrast at the present time. -- Document I/O's -- Repeat metabolic profile tomorrow AM -- Sodium restrict diet to 2 grams daily and maintain 2 liter daily fluid restriction -- Venofer 200 mg daily x 5 days ordered -- Consider starting a standing dose of hydralazine pending cardiac work up for hypertension
--- NOTE | 2016-10-01 11:37 | Cardiology Follow-Up ---
Subjective Subjective Date of Service: Oct 01, 2016. Pt evaluation today including: conversation w/ patient, conversation w/ family , physical exam, chart review, lab review, review of studies, review of inpatient medication list Additional Details: Still with intermittent shortness of breath, hypoxia overnight. No chest pain. No palpitations. No events on telemetry Review of Systems Constitutional: No chills, No fever Respiratory: + dyspnea on exertion, + shortness of breath Cardiac: + PND, + edema, No chest pain Abdomen: No diarrhea, No nausea, No pain, No vomiting Female : No dysuria, No urinary frequency Psychiatric: No anhedonism Heme: No abnormal bleeding/bruising Skin: No rash Objective Vital Signs Last Vital Signs Documentation Date Time Temp Pulse Resp B/P Pulse Ox O2 Delivery O2 Flow Rate FiO2 10/01/16 08:00 Nasal Cannula 10/01/16 07:25 36.4 68 20 162/82 98 2.0 09/26/16 15:31 30 Physical Exam: General Appearance: + moderate distress, + obese Neck: supple, no JVD Respiratory/Chest: + decreased breath sounds, + crackles Cardiovascular: regular rate, rhythm, no murmur Abdomen: normal bowel sounds, non tender, soft Extremities: + pedal edema, + swelling Neurologic/Psychiatric: alert, oriented x 3 Skin: warm/dry, no rash Assessment and Plan 1. Acute diastolic heart failure -- well-perfused, continues to diurese; continues to have episodes of dyspnea. 2. NSTEMI - troponin peaked, chest pain free, preserved LV function with apical wall motion abnormality 3. Acute on CKD - SCr up mildly from recent baseline, stable 4. Type 2 diabetes -- on insulin 5. Anemia -- stable 6. HTN -- BP remains difficult to controll Discussed patient with Dr. Pemberton and due to tenuous renal function will attempt to avoid cardiac catheterization at this time. Will plan to further risk stratify CAD today with pharmacologic SPECT - stress images today --> rest images tomorrow. If no high risk findings will plan to defer cath Agree with continued IV diuresis, now daily Start hydralazine 25 mg TID. Continue coreg, amlodipine. Continue ASA/Plavix, statin. Medications: 10/01/16 06:42 Test 10/01/16 06:42 10/01/16 07:11 Activated Partial Thromboplast Time 30.3 SECONDS (21.0-31.0) Partial Thromboplastin Ratio 1.2 Anion Gap 11.0 mmol/L (3-11) Est Creatinine Clear Calc Drug Dose 31.3 ml/min Estimated GFR () 22.4 Estimated GFR (Non- 19.3 BUN/Creatinine Ratio 15.5 (10-20) Calcium Level 8.3 mg/dl (8.5-10.1) Phosphorus Level 4.5 mg/dl (2.5-4.9) Albumin 2.5 gm/dl (3.4-5.0) Bedside Glucose 215 mg/dl (70-90) Lab Results: Current Inpatient Medications Medications (Trade) Dose Ordered Sig/Elizabet Route Start Time Stop Time Status Last Admin Dose Admin Acetaminophen (Tylenol Tab) 650 mg Q4H PRN PO 09/25/16 23:30 10/25/16 23:29 10/01/16 10:04 650 MG Al Hydrox/Mg Hydrox/Simethicone (Maalox Max Susp) 15 ml Q4H PRN PO 09/25/16 23:30 10/25/16 23:29 Magnesium Hydroxide (Milk Of Magnesia Susp) 30 ml Q12H PRN PO 09/25/16 23:30 10/25/16 23:29 Ondansetron HCl (Zofran Inj) 4 mg Q6H PRN IV 09/25/16 23:30 10/25/16 23:29 Nitroglycerin (Nitrostat Tab) 0.4 mg UD PRN SL 09/25/16 23:30 10/25/16 23:29 Morphine Sulfate (MoRPHine SULFATE INJ) 2 mg Q30M PRN IV 09/25/16 23:30 10/09/16 23:29 09/26/16 08:34 2 MG Polyethylene (Miralax Powder Packet) 17 gm DAILY PRN PO 09/25/16 23:30 10/25/16 23:29 Citalopram Hydrobromide (celeXA TAB) 20 mg QAM PO 09/26/16 09:00 10/26/16 08:59 10/01/16 10:01 20 MG Atorvastatin Calcium (Lipitor Tab) 40 mg HS PO 09/26/16 21:00 10/26/16 20:59 09/30/16 20:21 40 MG Clopidogrel Bisulfate (plAVix TAB) 75 mg QAM PO 09/26/16 09:00 10/26/16 08:59 10/01/16 10:02 75 MG Amlodipine Besylate (Norvasc Tab) 10 mg QAM PO 09/26/16 09:00 10/26/16 08:59 10/01/16 10:02 10 MG Tramadol HCl (Ultram Tab) 50 mg Q4H PRN PO 09/25/16 23:30 10/25/16 23:29 Glucose (Glucose 40% Gel) 15-30 GRAMS 15 GRAMS... UD PRN PO 09/26/16 00:30 10/26/16 00:29 Glucose (Glucose Chew Tab) 4-8 Tablets 4 Tabl... UD PRN PO 09/26/16 00:30 10/26/16 00:29 Dextrose (Dextrose 50% 50ML Syringe) 25-50ML OF 50% DW IV FOR... UD PRN IV 09/26/16 00:30 10/26/16 00:29 Glucagon (Glucagon Inj) 1 mg UD PRN SQ 09/26/16 00:30 10/26/16 00:29 Piperacillin Sod/ Tazobactam Sod (Consult) 1 ea UD PRN N/A 09/26/16 10:30 10/26/16 10:29 Insulin Aspart (novoLOG ASPART) SLIDING SCALE G... ACHS SC 09/27/16 17:00 10/27/16 16:59 10/01/16 08:15 2 UNITS Albuterol/ Ipratropium (Duoneb) 3 ml QIDR INH 09/28/16 12:00 10/28/16 11:59 09/30/16 16:01 3 ML Albuterol/ Ipratropium (Duoneb) 3 ml Q2H PRN INH 09/28/16 11:15 10/28/16 11:14 10/01/16 03:26 3 ML Hydralazine HCl (HydrALAZINE INJ) 10 mg Q4H PRN IV 09/28/16 15:15 10/28/16 15:14 09/29/16 11:58 10 MG Arformoterol Tartrate 15 mcg 15 mcg BIDR INH 09/28/16 20:00 10/28/16 19:59 10/01/16 07:14 15 MCG Piperacillin Sod/ Tazobactam Sod/ Dextrose (Zosyn Iv/D5 100ml) 120 ml @ 30 mls/hr Q8H IV 09/29/16 16:00 10/03/16 15:59 10/01/16 10:00 30 MLS/HR Carvedilol 25 mg 25 mg BID PO 09/30/16 21:00 10/30/16 20:59 10/01/16 10:02 25 MG Iron Sucrose 200 mg/Sodium Chloride 110 ml @ 420 mls/hr Q24H IV 10/01/16 14:30 10/04/16 14:46 Bumetanide/Syringe (Bumex IV/ Syringe) 8 ml @ 4 mls/min DAILY@0900 IV 10/01/16 09:00 10/31/16 08:59 10/01/16 10:01 4 MLS/MIN
--- NOTE | 2016-10-01 16:25 | Progress Note ---
Subjective Date of Service: Oct 01, 2016. Subjective this pt is not feeling better today, did reduce diuretic in hopes of helping renal function, nephrology is concerned about cardiac cath and iv contrast causing more deleterious affect on renal function Review of Systems Constitutional: + fatigue, + weakness, No chills, No fever Respiratory: + cough, + dyspnea on exertion, + shortness of breath, No sputum Cardiac: + edema, No chest pain Abdomen: No diarrhea, No nausea, No pain, No vomiting Female : No dysuria, No urinary frequency Objective Vital Signs Date Time Temp Pulse Resp B/P Pulse Ox O2 Delivery O2 Flow Rate FiO2 10/01/16 15:44 36.7 73 20 170/92 95 Room Air 10/01/16 15:23 74 16 97 Room Air 10/01/16 13:33 Nasal Cannula 10/01/16 12:45 36.8 69 20 181/93 97 Room Air 10/01/16 08:00 Nasal Cannula 10/01/16 07:25 36.4 68 20 162/82 98 Nasal Cannula 2.0 10/01/16 07:14 68 16 98 Nasal Cannula 2.0 10/01/16 04:08 36.7 74 21 161/78 96 Nasal Cannula 2.0 10/01/16 04:00 Room Air 10/01/16 03:26 73 20 93 Nasal Cannula 2.0 09/30/16 23:59 Room Air 09/30/16 23:54 36.9 66 19 156/76 94 Room Air 09/30/16 20:28 74 18 93 Room Air 09/30/16 20:00 95 Room Air 09/30/16 19:52 37.0 73 18 186/79 94 Room Air 09/30/16 16:01 68 16 94 Room Air 09/30/16 16:00 94 Room Air Physical Exam General Appearance: WD/WN, + mild distress Neck: supple, no JVD Respiratory/Chest: + decreased breath sounds, + accessory muscle use, + rhonchi Cardiovascular: regular rate, rhythm, no murmur Abdomen: normal bowel sounds, non tender, soft Extremities: + pedal edema, + swelling Neurologic/Psychiatric: alert, oriented x 3 Laboratory Results Last 24 Hours Test 09/30/16 16:12 09/30/16 20:06 10/01/16 06:29 10/01/16 06:42 Bedside Glucose 267 mg/dl 225 mg/dl 229 mg/dl Activated Partial Thromboplast Time 30.3 SECONDS Partial Thromboplastin Ratio 1.2 Sodium Level 143 mmol/L Potassium Level 4.5 mmol/L Chloride Level 112 mmol/L Carbon Dioxide Level 20 mmol/L Anion Gap 11.0 mmol/L Blood Urea Nitrogen 42 mg/dl Creatinine 2.70 mg/dl Est Creatinine Clear Calc Drug Dose 31.3 ml/min Estimated GFR () 22.4 Estimated GFR (Non- 19.3 BUN/Creatinine Ratio 15.5 Random Glucose 209 mg/dl Calcium Level 8.3 mg/dl Phosphorus Level 4.5 mg/dl Albumin 2.5 gm/dl Test 10/01/16 07:11 10/01/16 12:25 10/01/16 15:42 Bedside Glucose 215 mg/dl 244 mg/dl 251 mg/dl Assessment and Plan 51 F admitted with acute diastolic heart failure, element of acute respiratory failure with possibly and chronic component and renal failure looking to be chronic renal failure stage 4 Acute decompensated diastolic CHF, bumex is reduced , , considering diagnostic cath but renal function is preventing will pursue nuclear imaging first to define NSTEMI, continues without chest pain but fairly dyspneic on exertion, which is not her norm, given risk factors nuclear stress will be performed Acute respiratory failure, perhaps undiagnosed chronic disease, much better with treating like copd BECKIE on CKD diabetes nephropathy, DR Pemberton is concerned this maybe her baseline from summation of pre existing renal disease risk factors, reduced diuretic but did not get to it soon enough 09/30 and she did get two doses, today only one Pneumonia, concern for gram negative or mrsa, Patchy upper lobe infiltrates zosyn concern for mrsa and gram negatives given recent hospitalizations, complete 10 day course Back pain CT negative for any pathologies
[2016-10-01] MEDS: IRON SUCROSE INJ 200 MG in SODIUM CHLORIDE 0.9% 100ML 100 ML IV SCH (16:42)
[2016-10-01] MEDS: ATORVASTATIN 40 MG TAB PO SCH (20:49)
[2016-10-02] VITALS (9 sets, daily range): BP systolic 159–195; BP diastolic 63–96; PULSE 75–94; TEMP 36.5–37.2; O2SAT 90–98
[2016-10-02] MEDS: PIPERACILL/TAZOBAC IV 4.5 GM in DEXTROSE 5% 100ML IV SCH ×4 (00:31→23:18)
[2016-10-02 06:56] LABS: HEMATOCRIT 26.8 % (37-47); MEAN CELL VOLUME 87.6 fL (80-100); MEAN CORPUSCULAR HEMOGLOBIN 29.1 pg (25-34); MEAN CORPUSCULAR HGB CONC 33.2 g/dl (32-36); MEAN PLATELET VOLUME 10.8 fL (7.4-10.4); PLATELET COUNT 261 K/uL (130-400); RED BLOOD COUNT 3.06 M/uL (4.2-5.4); WHITE BLOOD COUNT 8.32 K/uL (4.8-10.8)
[2016-10-02] MEDS: ALBUT/IPRATROP 3MG/0.5MG NEB 3 ML VIAL INH SCH ×4 (07:04→20:32)
[2016-10-02] MEDS: ARFORMOTEROL TART 15MCG/2ML VIAL INH SCH ×2 (07:04→20:35)
[2016-10-02 07:06] LABS: PARTIAL THROMBOPLASTIN RATIO 1.2
[2016-10-02 07:27] LABS: BUN/CREATININE RATIO 16.7 (10-20); CALCIUM 8.6 mg/dl (8.5-10.1); CREATININE 2.7 mg/dl (0.60-1.20); POTASSIUM 4.5 mmol/L (3.5-5.1)
[2016-10-02 07:28] LABS: PHOSPHORUS 4.6 mg/dl (2.5-4.9)
[2016-10-02] MEDS: CLOPIDOGREL BISULFATE 75 MG TAB PO SCH (08:06)
[2016-10-02] MEDS: AMLODIPINE BESYLATE 5 MG TAB PO SCH (08:06)
[2016-10-02] MEDS: CITALOPRAM 20 MG TAB PO SCH (08:06)
[2016-10-02] MEDS: CARVEDILOL 25 MG TAB PO SCH ×2 (08:06→19:53)
[2016-10-02] MEDS: BUMETANIDE IV 2 MG in SYRINGE 0 ML IV SCH ×2 (08:07→17:39)
[2016-10-02] MEDS: INSULIN ASPART 100 UNITS/ML 3 ML PEN SC SCH ×4 (08:14→20:46)
[2016-10-02] MEDS ORDERED: EPOETIN ALFA 10,000 UNITS/ML VIAL SQ ONE (10:00)
--- NOTE | 2016-10-02 10:03 | Nephrology Progress Note ---
Nephrology Progress Note Date of Service Oct 02, 2016. Chief Complaint BECKIE/CKD Subjective No acute events overnight. No complaints this morning. Edema significantly improved. No chest pain. No shortness of breath. Ambulating in room without difficulty. Voiding urine without difficulty. Review of Systems A complete review of systems was performed. Pertinent positives are noted above. All other systems are negative. Vital Signs Last 8 Hrs Date Time Temp Pulse Resp B/P Pulse Ox O2 Delivery O2 Flow Rate FiO2 10/02/16 07:36 36.7 76 16 161/63 95 10/02/16 07:05 92 20 90 Room Air 10/02/16 04:00 Nasal Cannula 2.0 10/02/16 03:30 36.5 77 20 162/73 90 Nasal Cannula 2.0 I & O 24-Hour Column 10/02/16 07:59 Intake Total 1050 ml Output Total 1450 ml Balance -400 ml Last Recorded Weight Weight (Kilograms): 123.000 Physical Exam General Appearance: no apparent distress, + obese Head: normocephalic, atraumatic Eyes: normal inspection, sclerae normal ENT: normal ENT inspection, pharynx normal Neck: supple, no JVD Respiratory/Chest: lungs clear, no respiratory distress, no accessory muscle use Cardiovascular: regular rate, rhythm, no gallop Abdomen/GI: non tender, soft Extremities/Musculoskelatal: normal inspection, + pedal edema (improving generalized edema) Neurologic/Psych: alert, oriented x 3 Laboratory Results Past 24 Hours 10/02/16 06:33 10/02/16 06:33 Test 10/01/16 12:25 10/01/16 15:42 10/01/16 20:15 10/02/16 06:33 Bedside Glucose 244 mg/dl (70-90) 251 mg/dl (70-90) 146 mg/dl (70-90) 170 mg/dl (70-90) Red Blood Count 3.06 M/uL (4.2-5.4) Mean Corpuscular Volume 87.6 fL (80-100) Mean Corpuscular Hemoglobin 29.1 pg (25-34) Mean Corpuscular Hemoglobin Concent 33.2 g/dl (32-36) RDW Standard Deviation 45.1 fL (36.4-46.3) RDW Coefficient of Variation 14.2 % (11.5-14.5) Mean Platelet Volume 10.8 fL (7.4-10.4) Activated Partial Thromboplast Time 32.0 SECONDS (21.0-31.0) Partial Thromboplastin Ratio 1.2 Anion Gap 9.0 mmol/L (3-11) Est Creatinine Clear Calc Drug Dose 31.2 ml/min Estimated GFR () 22.4 Estimated GFR (Non- 19.3 BUN/Creatinine Ratio 16.7 (10-20) Calcium Level 8.6 mg/dl (8.5-10.1) Phosphorus Level 4.6 mg/dl (2.5-4.9) Albumin 2.4 gm/dl (3.4-5.0) Allergies Coded Allergies: Latex1 -Allergic Contact Dermititis (Verified Adverse Reaction, Mild, RASH , 09/25/16) Medications Current Inpatient Medications Medications (Trade) Dose Ordered Sig/Elizabet Route Start Time Stop Time Status Last Admin Dose Admin Acetaminophen (Tylenol Tab) 650 mg Q4H PRN PO 09/25/16 23:30 10/25/16 23:29 10/01/16 10:04 650 MG Al Hydrox/Mg Hydrox/Simethicone (Maalox Max Susp) 15 ml Q4H PRN PO 09/25/16 23:30 10/25/16 23:29 Magnesium Hydroxide (Milk Of Magnesia Susp) 30 ml Q12H PRN PO 09/25/16 23:30 10/25/16 23:29 Ondansetron HCl (Zofran Inj) 4 mg Q6H PRN IV 09/25/16 23:30 10/25/16 23:29 Nitroglycerin (Nitrostat Tab) 0.4 mg UD PRN SL 09/25/16 23:30 10/25/16 23:29 Morphine Sulfate (MoRPHine SULFATE INJ) 2 mg Q30M PRN IV 09/25/16 23:30 10/09/16 23:29 09/26/16 08:34 2 MG Polyethylene (Miralax Powder Packet) 17 gm DAILY PRN PO 09/25/16 23:30 10/25/16 23:29 Citalopram Hydrobromide (celeXA TAB) 20 mg QAM PO 09/26/16 09:00 10/26/16 08:59 10/02/16 08:06 20 MG Atorvastatin Calcium (Lipitor Tab) 40 mg HS PO 09/26/16 21:00 10/26/16 20:59 10/01/16 20:49 40 MG Clopidogrel Bisulfate (plAVix TAB) 75 mg QAM PO 09/26/16 09:00 10/26/16 08:59 10/02/16 08:06 75 MG Amlodipine Besylate (Norvasc Tab) 10 mg QAM PO 09/26/16 09:00 10/26/16 08:59 10/02/16 08:06 10 MG Tramadol HCl (Ultram Tab) 50 mg Q4H PRN PO 09/25/16 23:30 10/25/16 23:29 Glucose (Glucose 40% Gel) 15-30 GRAMS 15 GRAMS... UD PRN PO 09/26/16 00:30 10/26/16 00:29 Glucose (Glucose Chew Tab) 4-8 Tablets 4 Tabl... UD PRN PO 09/26/16 00:30 10/26/16 00:29 Dextrose (Dextrose 50% 50ML Syringe) 25-50ML OF 50% DW IV FOR... UD PRN IV 09/26/16 00:30 10/26/16 00:29 Glucagon (Glucagon Inj) 1 mg UD PRN SQ 09/26/16 00:30 10/26/16 00:29 Piperacillin Sod/ Tazobactam Sod (Consult) 1 ea UD PRN N/A 09/26/16 10:30 10/26/16 10:29 Insulin Aspart (novoLOG ASPART) SLIDING SCALE G... ACHS SC 09/27/16 17:00 10/27/16 23:59 10/02/16 08:14 1 UNITS Albuterol/ Ipratropium (Duoneb) 3 ml QIDR INH 09/28/16 12:00 10/28/16 11:59 10/01/16 19:30 3 ML Albuterol/ Ipratropium (Duoneb) 3 ml Q2H PRN INH 09/28/16 11:15 10/28/16 11:14 10/01/16 03:26 3 ML Hydralazine HCl (HydrALAZINE INJ) 10 mg Q4H PRN IV 09/28/16 15:15 10/28/16 15:14 09/29/16 11:58 10 MG Arformoterol Tartrate 15 mcg 15 mcg BIDR INH 09/28/16 20:00 10/28/16 19:59 10/02/16 07:04 15 MCG Piperacillin Sod/ Tazobactam Sod/ Dextrose (Zosyn Iv/D5 100ml) 120 ml @ 30 mls/hr Q8H IV 09/29/16 16:00 10/03/16 15:59 10/02/16 08:14 30 MLS/HR Carvedilol 25 mg 25 mg BID PO 09/30/16 21:00 10/30/16 20:59 10/02/16 08:06 25 MG Iron Sucrose 200 mg/Sodium Chloride 110 ml @ 420 mls/hr Q24H IV 10/01/16 14:30 10/04/16 14:46 10/01/16 16:42 420 MLS/HR Bumetanide/Syringe (Bumex IV/ Syringe) 8 ml @ 4 mls/min DAILY@0900 IV 10/01/16 09:00 10/31/16 08:59 10/02/16 08:07 4 MLS/MIN Hydralazine HCl (Apresoline Tab) 25 mg BID PO 10/02/16 09:00 11/01/16 08:59 Epoetin Luis (Procrit Inj) 10,000 units 1000 ONCE SQ 10/02/16 10:00 10/02/16 10:01 Impression (1) Chronic kidney disease, stage III (moderate) (2) Acute on chronic diastolic CHF (congestive heart failure) Mrs. Tootie Gutierrez is a 51-year-old female with CKD III (baseline creatinine ~2.0 mg/dL) attributed to diabetic nephropathy, obesity and hypertensive nephrosclerosis. She has evidence of nephrosis with nephrotic range proteinuria. She has superimposed BECKIE. She was admitted with acute hypoxic respiratory failure in the setting of hypervolemia related to acute on chronic diastolic CHF. She was recently treated for pneumonia. Clinically, she has been improving. Overall, renal function stable (Cr 2.4-2.7 mg/dL). Creatinine stable at 2.7 mg/dL for 48 hours. No acute findings on renal US. Metabolic profile otherwise acceptable. Medications appropriately dosed for renal function. Recommendations -- Continue Bumex 2 mg daily. Goal to encourage net negative fluid balance goal ~ 1 L/d -- Medications appropriate for renal function, continue to hold GIOVANNI/ARB. Avoid iodinated contrast at the present time. -- Monitor metabolic profile daily while inpatient and repeat within one week of discharge -- Sodium restrict diet to 2 grams daily and maintain 2 liter daily fluid restriction -- Venofer 200 mg daily x 5 days ordered -- Procrit [id number] today for anemia -- Hydralazine added today for hypertension, low dose 25 mg BID
[2016-10-02] MEDS: IRON SUCROSE INJ 200 MG in SODIUM CHLORIDE 0.9% 100ML 100 ML IV SCH (14:43)
--- NOTE | 2016-10-02 16:05 | Progress Note ---
Subjective Date of Service: Oct 02, 2016. Subjective Pt continues to experience [place],. awaiting results of stress to determine if need to consider Left heart cath, vs medical management renal function remains poor Review of Systems Constitutional: No chills, No fever Respiratory: + cough, + dyspnea on exertion, + shortness of breath, + sputum Cardiac: + edema, No chest pain Abdomen: No diarrhea, No nausea, No pain, No vomiting Musculoskeletal: No joint pain, No muscle pain Psychiatric: + anxiety, + depression symptoms Objective Vital Signs Date Time Temp Pulse Resp B/P Pulse Ox O2 Delivery O2 Flow Rate FiO2 10/02/16 15:25 36.8 75 20 195/96 98 Room Air 10/02/16 15:20 88 20 94 Room Air 10/02/16 12:00 Nasal Cannula 10/02/16 11:35 92 20 92 Room Air 10/02/16 08:00 Nasal Cannula 10/02/16 07:36 36.7 76 16 161/63 95 10/02/16 07:05 92 20 90 Room Air 10/02/16 04:00 Nasal Cannula 2.0 10/02/16 03:30 36.5 77 20 162/73 90 Nasal Cannula 2.0 10/01/16 23:59 Nasal Cannula 2.0 10/01/16 23:20 37.1 72 18 167/82 94 Room Air 10/01/16 20:00 96 Room Air 10/01/16 19:31 37.0 74 18 167/76 96 10/01/16 19:30 84 18 95 Room Air Physical Exam General Appearance: WD/WN, + mild distress Neck: supple, no JVD Respiratory/Chest: no respiratory distress, + decreased breath sounds Cardiovascular: regular rate, rhythm, no murmur Abdomen: normal bowel sounds, non tender, soft Extremities: non-tender, + pedal edema (trace) Neurologic/Psychiatric: alert, oriented x 3 Laboratory Results Last 24 Hours Test 10/01/16 20:15 10/02/16 06:33 10/02/16 11:22 Bedside Glucose 146 mg/dl 170 mg/dl 258 mg/dl White Blood Count 8.32 K/uL Red Blood Count 3.06 M/uL Hemoglobin 8.9 g/dL Hematocrit 26.8 % Mean Corpuscular Volume 87.6 fL Mean Corpuscular Hemoglobin 29.1 pg Mean Corpuscular Hemoglobin Concent 33.2 g/dl RDW Standard Deviation 45.1 fL RDW Coefficient of Variation 14.2 % Platelet Count 261 K/uL Mean Platelet Volume 10.8 fL Activated Partial Thromboplast Time 32.0 SECONDS Partial Thromboplastin Ratio 1.2 Sodium Level 142 mmol/L Potassium Level 4.5 mmol/L Chloride Level 112 mmol/L Carbon Dioxide Level 21 mmol/L Anion Gap 9.0 mmol/L Blood Urea Nitrogen 45 mg/dl Creatinine 2.70 mg/dl Est Creatinine Clear Calc Drug Dose 31.2 ml/min Estimated GFR () 22.4 Estimated GFR (Non- 19.3 BUN/Creatinine Ratio 16.7 Random Glucose 165 mg/dl Calcium Level 8.6 mg/dl Phosphorus Level 4.6 mg/dl Albumin 2.4 gm/dl Assessment and Plan 51 F admitted with acute diastolic heart failure, element of acute respiratory failure with possibly and chronic component and renal failure looking to be chronic renal failure stage 4 Acute decompensated diastolic CHF, bumex is reduced , , considering diagnostic cath but renal function is preventing pending results nuclear stress completed NSTEMI, continues without chest pain but fairly dyspneic on exertion, trying to evaluate if cardiac (ischemic) or pulmonary Acute respiratory failure, perhaps undiagnosed chronic disease, treating like copd BECKIE on CKD diabetes nephropathy, DR Pemberton is concerned this maybe her baseline from summation of pre existing renal disease risk factors, reduced diuretic Cr has remained unchanged and higher than baseline Pneumonia, concern for gram negative or mrsa, Patchy upper lobe infiltrates zosyn concern for mrsa and gram negatives given recent hospitalizations, complete 10 day course Diabetes, have tightened ssi and follow Back pain CT negative for any pathologies
--- NOTE | 2016-10-02 17:11 | CARDIOLOGY PROGRESS NOTE ---
DATE: 10/02/2016 TIME: 1619 p.m. SUBJECTIVE: She denies any type of chest discomfort, syncope, near syncope, or palpitations. She has dyspnea with minimal exertion such as walking to the restroom and washing up. She continues to have edema but states that it has improved. OBJECTIVE: VITAL SIGNS: Temperature 36.8 degrees, heart rate 75 beats per minute, respiration rate 20, blood pressure 195/96 mmHg. She has been consistently hypertensive. Oxygen saturation 98% on room air. I's and O's negative 2.2 liters yesterday. Weight is 123 kg. GENERAL: No acute distress. She is alert. NECK: Thick, but it does appear to be mild JVD. CARDIAC EXAM: No ventricular heave, regular, normal S1, S2, no audible murmurs, rubs or gallops. LUNGS: Clear to auscultation bilaterally without wheezes, rales or rhonchi. ABDOMEN: Soft, nontender, nondistended. Normoactive bowel sounds. EXTREMITIES: 2+ tense bilateral lower extremity edema to the knees. She has 1+ edema above the knees. No cyanosis. PSYCHIATRIC: Affect appears appropriate. MEDICATIONS: Include Plavix 75 mg daily, carvedilol 25 mg p.o. b.i.d., amlodipine 10 mg daily, hydralazine initiated today 25 mg p.o. b.i.d., Zosyn 4.5 mg IV q. 8 hours, insulin sliding scale. Telemetry personally reviewed. No arrhythmia in the past 24 hours. LABORATORY DATA: Sodium 142, potassium 4.5, BUN 45, creatinine 2.7, albumin 2.4. White blood cell count is 8.3, hemoglobin 8.9, platelets 261. PTT is 32. Nuclear myocardial perfusion study was performed today. Images were reviewed. Study suggests multivessel CAD, more specifically LAD and RCA. There is also concern for transient ischemic dilation; however, risk ratio was unable to be calculated. Chart reviewed. Conversations were held with Dr. Pemberton of nephrology and Dr. Robbins of the hospitalist service. ASSESSMENT AND PLAN: 1. Acute diastolic congestive heart failure: She still appears hypervolemic. Agree with diuresis with a goal of at least 1 liter negative in 24 hours. Low sodium diet. Daily weights. Strict I's and O's. 2. Abnormal myocardial perfusion study: This suggests multivessel coronary artery disease. She did have a non-ST elevation myocardial infarction documented during this hospitalization as well as history of peripheral arterial disease. Continue antiplatelet therapy. Continue beta jorge. Optimize blood pressure and changes have been made today to help improve this with the addition of hydralazine. There has been discussion of cardiac catheterization. There are high risk findings on myocardial perfusion study. We had this discussion today and the plan tentatively is to optimize renal function as best as possible, however, she may be at her new baseline, and then consider once again coronary angiography when Dr. Lee returns next week. Certainly if she has angina over the weekend that is not resolved with medical therapy, urgent cardiac catheterization may be needed; however, there is no urgent indication at this time. 3. Non-ST elevation myocardial infarction: No angina. She does have dyspnea with exertion; however, is hypervolemic. Continue antiplatelet therapy and beta jorge. Continue high intensity statin therapy. Plan as above. 4. Chronic kidney disease: Discussed with Dr. Pemberton. It appears as though there is a high likelihood that she will require renal replacement therapy in the near future. Therefore, it may be reasonable to proceed with coronary angiography given her abnormal stress, and non-ST elevation myocardial infarction, and continuous exertional symptoms. She was made aware, however, that she could have worsening renal function with a coronary angiography which may necessitate renal replacement therapy sooner rather than later. Dr. Lee will monitor this upon his return to see the optimal time to perform coronary angiography. 5. Hypertension: Blood pressure not well controlled. Hydralazine was added today. Can titrate to optimize blood pressure as necessary. 6. Disposition: Highly complex medical issues and these were discussed with nephrology and hospitalist service as noted above. I will be away from the hospital for the next [address] Lee will return in 4 days. If there are any questions or concerns over the weekend, please do not hesitate to call the on-call skip hoist engineer from [facility] who can assist in her care. In the meantime, continue diuresis as tolerated and optimization of blood pressure management. On-call interventionalist will be made aware for abnormal stress test and history in case urgent coronary angiography is indicated.
--- NOTE | 2016-10-02 17:14 | MYOCARDIAL PERFUSION SCAN ---
TIME: 1638 p.m. ORDERING UPHOLSTERY MECHANIC: Dr. Aston Lee. PROCEDURES: 1. Myocardial perfusion study performed in multiple views/images. 2. Pharmacologic Lexiscan stress test. INDICATIONS: 1. Non-ST elevation myocardial infarction. 2. Acute diastolic congestive heart failure. 3. Dyspnea with exertion. CONSENT: Informed written consent was obtained. This is a 2-day study. Stress testing was performed on 10/01/2016. Resting images were performed on 10/02/2016. PROCEDURAL DETAILS: For the stress portion of the study, Lexiscan 0.4 mg was intravenously administered over 10-15 seconds, followed by saline flush. This was followed by 22.3 mCi of technetium-99m Cardiolite intravenously at 11:15 a.m. on 10/01/2016. Thirty minutes following the injection, imaging of the heart was performed in multiple projections. For the rest portion of the study, 23.9 mCi of technetium-99m Cardiolite was injected intravenously at 1300 p.m. on 10/02/2016. One hour following the injection, imaging of the heart was performed in the same projections. ELECTROCARDIOGRAM AND VITALS: Resting ECG demonstrated normal sinus rhythm at 73 beats per minute. Nonspecific ST/T wave abnormality. Lexiscan ECG demonstrated no significant ST changes. There was no arrhythmia or significant pause/high grade block. Maximum heart rate was 90 beats per minute. Blood pressure values are not available at the time of this dictation. FINDINGS: Rotating raw imaging demonstrated no significant motion artifact. There was no significant lung uptake. Heart size overall appeared to be normal. Myocardial perfusion demonstrated a moderate sized defect of moderately decreased uptake in the anterior and anterolateral wall from base to apex, which was reversible in rest imaging. There was another moderate sized defect of moderately reduced uptake involving the inferior wall and inferolateral wall from base to distal left ventricle, sparing the apex. This was reversible when compared to rest imaging. The inferoseptum from base to mid left ventricle also had moderately reduced uptake and was reversible in resting imaging. Wall motion was difficult to evaluate on the gated images available. There appeared to be hypokinesis in the anterior wall, anterolateral wall from base to apex as well as the inferior wall from base to distal left ventricle. Ejection fraction was calculated at 55%. Transient ischemic dilation ratio is not available; however, visually there did appear to be transient ischemic dilation. IMPRESSION: 1. Abnormal myocardial perfusion study, suggesting multivessel coronary artery disease with LAD and RCA ischemic territories as noted above. 2. There was no fixed defect to suggest prior infarct. 3. No arrhythmia. 4. Nondiagnostic Lexiscan ECG. 5. Ejection fraction calculated at 55%. 6. Wall motion was difficult to assess with available gated images. Possible hypokinesis involving the ischemic territories as listed above. MTDD
[2016-10-02] MEDS: ATORVASTATIN 40 MG TAB PO SCH (19:53)
[2016-10-02] MEDS: HydrALAZINE HCL 20 MG/ML VIAL IV PRN (23:18)
[2016-10-03] VITALS (8 sets, daily range): BP systolic 159–191; BP diastolic 76–83; PULSE 72–94; TEMP 36.6–37; O2SAT 91–97
[2016-10-03] MEDS: HydrALAZINE HCL 20 MG/ML VIAL IV PRN (03:09)
[2016-10-03 06:23] LABS: PARTIAL THROMBOPLASTIN RATIO 1.3
[2016-10-03 06:31] LABS: BUN/CREATININE RATIO 16.3 (10-20); CREATININE 2.8 mg/dl (0.60-1.20); PHOSPHORUS 4.6 mg/dl (2.5-4.9); POTASSIUM 4.5 mmol/L (3.5-5.1)
--- NOTE | 2016-10-03 07:23 | Progress Note ---
Subjective Date of Service: Oct 03, 2016. Subjective discussed results of stress with pt, understands cath next week, hydralazine added by Dr Pemberton Review of Systems Constitutional: + weakness, No chills, No fever Respiratory: + dyspnea on exertion, + shortness of breath, No cough Cardiac: + PND, No chest pain, No edema Abdomen: No diarrhea, No nausea, No pain, No vomiting Neurologic: + weakness, No balance problems, No memory loss Objective Vital Signs Date Time Temp Pulse Resp B/P Pulse Ox O2 Delivery O2 Flow Rate FiO2 10/03/16 04:00 Nasal Cannula 2.0 10/03/16 03:05 36.8 88 22 174/76 96 Nasal Cannula 2.0 10/03/16 00:01 Nasal Cannula 2.0 10/02/16 22:52 37.2 77 20 184/81 97 Nasal Cannula 2.0 10/02/16 20:35 94 20 95 Room Air 10/02/16 20:00 Nasal Cannula 2.0 10/02/16 19:07 36.8 81 22 159/80 93 Room Air 10/02/16 16:00 Nasal Cannula 10/02/16 15:25 36.8 75 20 195/96 98 Room Air 10/02/16 15:20 88 20 94 Room Air 10/02/16 12:00 Nasal Cannula 10/02/16 11:35 92 20 92 Room Air 10/02/16 08:00 Nasal Cannula 10/02/16 07:36 36.7 76 16 161/63 95 Physical Exam General Appearance: WD/WN, + mild distress Neck: supple, thyroid normal Respiratory/Chest: chest non-tender, lungs clear, normal breath sounds Cardiovascular: regular rate, rhythm, no murmur Abdomen: normal bowel sounds, non tender, soft Extremities: no pedal edema, no calf tenderness Laboratory Results Last 24 Hours Test 10/02/16 11:22 10/02/16 16:13 10/02/16 20:28 10/03/16 05:30 Bedside Glucose 258 mg/dl 222 mg/dl 232 mg/dl Activated Partial Thromboplast Time 32.5 SECONDS Partial Thromboplastin Ratio 1.3 Sodium Level 142 mmol/L Potassium Level 4.5 mmol/L Chloride Level 111 mmol/L Carbon Dioxide Level 21 mmol/L Anion Gap 10.0 mmol/L Blood Urea Nitrogen 46 mg/dl Creatinine 2.80 mg/dl Est Creatinine Clear Calc Drug Dose 30.1 ml/min Estimated GFR () 21.5 Estimated GFR (Non- 18.5 BUN/Creatinine Ratio 16.3 Random Glucose 184 mg/dl Calcium Level 8.0 mg/dl Phosphorus Level 4.6 mg/dl Albumin 2.4 gm/dl Test 10/03/16 06:32 Bedside Glucose 185 mg/dl Assessment and Plan 51 F admitted with acute diastolic heart failure, element of acute respiratory failure with possibly and chronic component and renal failure looking to be chronic renal failure stage 4 Acute decompensated diastolic CHF, bumex is reduced ,,will have diagnostic cath next week with nephrology oversight for potential post procedure renal failure, results of nuclear stress completed 10/02 ar concerning for multivessel cad that can be responsible for her TOLEDO NSTEMI, continues without chest pain but dyspneia on exertion is likely LV dysfunction with demand Acute respiratory failure, perhaps undiagnosed chronic disease, treating like copd, breathing at rest has improved BECKIE on CKD diabetes nephropathy, DR Pemberton is concerned this maybe her baseline from summation of pre existing renal disease risk factors, reduced diuretic Cr has remained higher than baseline Pneumonia, concern for gram negative or mrsa, Patchy upper lobe infiltrates zosyn concern for mrsa and gram negatives given recent hospitalizations, will stop as improved Diabetes, have tightened ssi and follow Back pain CT negative for any pathologies
[2016-10-03] MEDS: ALBUT/IPRATROP 3MG/0.5MG NEB 3 ML VIAL INH SCH ×3 (07:54→19:43)
[2016-10-03] MEDS: ARFORMOTEROL TART 15MCG/2ML VIAL INH SCH ×2 (07:54→19:43)
[2016-10-03] MEDS: CARVEDILOL 25 MG TAB PO SCH ×2 (08:50→20:09)
[2016-10-03] MEDS: CITALOPRAM 20 MG TAB PO SCH (08:50)
[2016-10-03] MEDS: CLOPIDOGREL BISULFATE 75 MG TAB PO SCH (08:50)
[2016-10-03] MEDS: AMLODIPINE BESYLATE 5 MG TAB PO SCH (08:51)
[2016-10-03] MEDS: BUMETANIDE IV 2 MG in SYRINGE 0 ML IV SCH ×2 (08:51→17:41)
[2016-10-03] MEDS: INSULIN ASPART 100 UNITS/ML 3 ML PEN SC SCH ×4 (08:55→21:52)
[2016-10-03] MEDS: PIPERACILL/TAZOBAC IV 4.5 GM in DEXTROSE 5% 100ML IV SCH (08:57)
--- NOTE | 2016-10-03 10:31 | Nephrology Progress Note ---
Nephrology Progress Note Date of Service Oct 03, 2016. Chief Complaint BECKIE/CKD Subjective No acute events overnight. No complaints this morning. Tootie and I had a long conversation this morning regarding the findings of her myocardial perfusion study. I spoke with Dr. Fallon. Tootie expressed understanding of the complicated nature of her kidney and cardiac conditions. Overall, she is pleased that her volume status is improving. She feels well and is ambulating in her room without difficulty. She has not had any chest pain. She expressed knowledge about the advanced nature of her kidney disease. Review of Systems A complete review of systems was performed. Pertinent positives are noted above. All other systems are negative. Vital Signs Last 8 Hrs Date Time Temp Pulse Resp B/P Pulse Ox O2 Delivery O2 Flow Rate FiO2 10/03/16 08:17 36.8 85 16 191/79 97 Nasal Cannula 10/03/16 07:54 88 18 94 Room Air 10/03/16 04:00 Nasal Cannula 2.0 10/03/16 03:05 36.8 88 22 174/76 96 Nasal Cannula 2.0 I & O 24-Hour Column 10/03/16 08:00 Intake Total 1748 ml Output Total 3650 ml Balance -1902 ml Last Recorded Weight Weight (Kilograms): 123.000 Physical Exam General Appearance: no apparent distress, + obese Head: normocephalic, atraumatic Eyes: normal inspection, sclerae normal ENT: normal ENT inspection, pharynx normal Neck: supple Respiratory/Chest: lungs clear, no respiratory distress, no accessory muscle use, + decreased breath sounds Cardiovascular: regular rate, rhythm, no gallop, no murmur Abdomen/GI: non tender, soft Extremities/Musculoskelatal: normal inspection, + pedal edema (improving edema) Neurologic/Psych: alert, oriented x 3 Laboratory Results Past 24 Hours 10/03/16 05:30 Test 10/02/16 11:22 10/02/16 16:13 10/02/16 20:28 10/03/16 05:30 Bedside Glucose 258 mg/dl (70-90) 222 mg/dl (70-90) 232 mg/dl (70-90) Activated Partial Thromboplast Time 32.5 SECONDS (21.0-31.0) Partial Thromboplastin Ratio 1.3 Anion Gap 10.0 mmol/L (3-11) Est Creatinine Clear Calc Drug Dose 30.1 ml/min Estimated GFR () 21.5 Estimated GFR (Non- 18.5 BUN/Creatinine Ratio 16.3 (10-20) Calcium Level 8.0 mg/dl (8.5-10.1) Phosphorus Level 4.6 mg/dl (2.5-4.9) Albumin 2.4 gm/dl (3.4-5.0) Test 10/03/16 06:32 Bedside Glucose 185 mg/dl (70-90) Allergies Coded Allergies: Latex1 -Allergic Contact Dermititis (Verified Adverse Reaction, Mild, RASH , 09/25/16) Medications Current Inpatient Medications Medications (Trade) Dose Ordered Sig/Elizabet Route Start Time Stop Time Status Last Admin Dose Admin Acetaminophen (Tylenol Tab) 650 mg Q4H PRN PO 09/25/16 23:30 10/25/16 23:29 10/01/16 10:04 650 MG Al Hydrox/Mg Hydrox/Simethicone (Maalox Max Susp) 15 ml Q4H PRN PO 09/25/16 23:30 10/25/16 23:29 Magnesium Hydroxide (Milk Of Magnesia Susp) 30 ml Q12H PRN PO 09/25/16 23:30 10/25/16 23:29 Ondansetron HCl (Zofran Inj) 4 mg Q6H PRN IV 09/25/16 23:30 10/25/16 23:29 Nitroglycerin (Nitrostat Tab) 0.4 mg UD PRN SL 09/25/16 23:30 10/25/16 23:29 Morphine Sulfate (MoRPHine SULFATE INJ) 2 mg Q30M PRN IV 09/25/16 23:30 10/09/16 23:29 09/26/16 08:34 2 MG Polyethylene (Miralax Powder Packet) 17 gm DAILY PRN PO 09/25/16 23:30 10/25/16 23:29 Citalopram Hydrobromide (celeXA TAB) 20 mg QAM PO 09/26/16 09:00 10/26/16 08:59 10/03/16 08:50 20 MG Atorvastatin Calcium (Lipitor Tab) 40 mg HS PO 09/26/16 21:00 10/26/16 20:59 10/02/16 19:53 40 MG Clopidogrel Bisulfate (plAVix TAB) 75 mg QAM PO 09/26/16 09:00 10/26/16 08:59 10/03/16 08:50 75 MG Amlodipine Besylate (Norvasc Tab) 10 mg QAM PO 09/26/16 09:00 10/26/16 08:59 10/03/16 08:51 10 MG Tramadol HCl (Ultram Tab) 50 mg Q4H PRN PO 09/25/16 23:30 10/25/16 23:29 Glucose (Glucose 40% Gel) 15-30 GRAMS 15 GRAMS... UD PRN PO 09/26/16 00:30 10/26/16 00:29 Glucose (Glucose Chew Tab) 4-8 Tablets 4 Tabl... UD PRN PO 09/26/16 00:30 10/26/16 00:29 Dextrose (Dextrose 50% 50ML Syringe) 25-50ML OF 50% DW IV FOR... UD PRN IV 09/26/16 00:30 10/26/16 00:29 Glucagon (Glucagon Inj) 1 mg UD PRN SQ 09/26/16 00:30 10/26/16 00:29 Piperacillin Sod/ Tazobactam Sod (Consult) 1 ea UD PRN N/A 09/26/16 10:30 10/26/16 10:29 Insulin Aspart (novoLOG ASPART) SLIDING SCALE G... ACHS SC 09/27/16 17:00 10/27/16 23:59 10/03/16 08:55 2 UNITS Albuterol/ Ipratropium (Duoneb) 3 ml QIDR INH 09/28/16 12:00 10/28/16 11:59 10/02/16 15:57 3 ML Albuterol/ Ipratropium (Duoneb) 3 ml Q2H PRN INH 09/28/16 11:15 10/28/16 11:14 10/01/16 03:26 3 ML Hydralazine HCl (HydrALAZINE INJ) 10 mg Q4H PRN IV 09/28/16 15:15 10/28/16 15:14 10/03/16 03:09 10 MG Arformoterol Tartrate 15 mcg 15 mcg BIDR INH 09/28/16 20:00 10/28/16 19:59 10/02/16 20:35 15 MCG Piperacillin Sod/ Tazobactam Sod/ Dextrose (Zosyn Iv/D5 100ml) 120 ml @ 30 mls/hr Q8H IV 09/29/16 16:00 10/05/16 23:59 10/03/16 08:57 30 MLS/HR Carvedilol 25 mg 25 mg BID PO 09/30/16 21:00 10/30/16 20:59 10/03/16 08:50 25 MG Iron Sucrose 200 mg/Sodium Chloride 110 ml @ 420 mls/hr Q24H IV 10/01/16 14:30 10/04/16 14:46 10/02/16 14:43 420 MLS/HR Bumetanide/Syringe (Bumex IV/ Syringe) 8 ml @ 4 mls/min BID17 IV 10/02/16 17:00 11/01/16 16:59 10/03/16 08:51 4 MLS/MIN Albuterol/ Ipratropium (Combivent Respimat Inh) 1 puffs QID INH 10/03/16 13:00 11/02/16 12:59 Hydralazine HCl (Apresoline Tab) 50 mg BID PO 10/03/16 09:00 11/02/16 08:59 10/03/16 09:52 50 MG Impression (1) Chronic kidney disease, stage III (moderate) (2) Acute on chronic diastolic CHF (congestive heart failure) (3) Acute renal insufficiency (4) Diabetic nephropathy (5) Nephrotic range proteinuria Mrs. Tootie Gutierrez is a 51-year-old female with CKD III (baseline creatinine ~2.0 mg/dL) attributed to diabetic nephropathy, obesity and hypertensive nephrosclerosis. She has evidence of nephrosis with nephrotic range proteinuria. She has superimposed BECKIE. She has a history of recurrent BECKIE. She was admitted with acute hypoxic respiratory failure in the setting of hypervolemia related to acute on chronic diastolic CHF. She has an abnormal myocardial perfusion study concerning for dynamic ischemic changes. She was recently treated for pneumonia. Renal function is unfortunately advanced. Tootie is aware of the advanced nature of her kidney disease. We discussed her cardiac and renal complications in detail today. Volume status is improving with diuretics. GIOVANNI/ARB held due to elevated creatinine. Risk of requiring renal replacement therapy in the next several months is high regardless of whether or not cardiac catheterization is performed. I will discuss with Dr. Rodriguez on Wednesday. No acute findings on renal US. Metabolic profile otherwise acceptable. Medications appropriately dosed for renal function. Recommendations -- Continue Bumex 2 mg daily. Goal to encourage net negative fluid balance goal ~ 1 L/d -- Medications appropriate for renal function, continue to hold GIOVANNI/ARB. -- Monitor metabolic profile daily. -- Sodium restrict diet to 2 grams daily and maintain 2 liter daily fluid restriction. -- Venofer 200 mg daily x 5 days ordered. -- Procrit [id number] 10/02/16 for anemia. -- Hydralazine increased to 50 mg BID this morning.
[2016-10-03] MEDS: IPRATROPIUM BROMIDE/ALBUTEROL respimat INH INH SCH ×3 (12:42→20:09)
[2016-10-03] MEDS: IRON SUCROSE INJ 200 MG in SODIUM CHLORIDE 0.9% 100ML 100 ML IV SCH (13:19)
[2016-10-03] MEDS: ATORVASTATIN 40 MG TAB PO SCH (20:09)
[2016-10-03] MEDS: TRAMADOL HCL 50 MG TAB PO PRN (23:42)
[2016-10-04] VITALS (7 sets, daily range): BP systolic 147–178; BP diastolic 65–84; PULSE 72–82; TEMP 36.6–37.1; O2SAT 92–98
[2016-10-04] MEDS: ARFORMOTEROL TART 15MCG/2ML VIAL INH SCH ×2 (07:01→19:07)
[2016-10-04] MEDS: ALBUT/IPRATROP 3MG/0.5MG NEB 3 ML VIAL INH SCH ×2 (07:01→19:07)
--- NOTE | 2016-10-04 07:25 | Progress Note ---
Subjective Date of Service: Oct 04, 2016. Subjective pt offers no complaints musculoskeletal pain in her right side has improved Review of Systems Constitutional: + fatigue, + weakness, No chills, No fever Respiratory: + dyspnea on exertion, No cough, No shortness of breath, No sputum , No wheezing Cardiac: + PND, No chest pain, No edema Abdomen: No nausea, No pain, No vomiting Psychiatric: + anxiety, + depression symptoms Objective Vital Signs Date Time Temp Pulse Resp B/P Pulse Ox O2 Delivery O2 Flow Rate FiO2 10/04/16 04:00 Room Air 10/04/16 03:08 36.9 79 18 147/72 97 Nasal Cannula 2.0 10/03/16 23:59 Room Air 10/03/16 23:31 36.9 75 20 160/83 96 Room Air 10/03/16 20:14 37.0 81 18 179/80 91 Room Air 10/03/16 20:00 Room Air 10/03/16 19:43 94 20 95 Room Air 10/03/16 16:00 Room Air 10/03/16 15:56 36.8 75 20 175/78 95 Room Air 10/03/16 12:20 36.6 72 18 159/80 97 10/03/16 12:00 Room Air 10/03/16 08:17 36.8 85 16 191/79 97 Nasal Cannula 10/03/16 08:00 Room Air 10/03/16 07:54 88 18 94 Room Air Physical Exam General Appearance: WD/WN, + mild distress Eyes: PERRL, EOMI Respiratory/Chest: chest non-tender, normal breath sounds, + decreased breath sounds Cardiovascular: regular rate, rhythm, no murmur Abdomen: normal bowel sounds, non tender, soft Neurologic/Psychiatric: alert, oriented x 3 Laboratory Results Last 24 Hours Test 10/03/16 11:40 10/03/16 16:18 10/03/16 20:24 10/04/16 06:41 Bedside Glucose 278 mg/dl 200 mg/dl 258 mg/dl 163 mg/dl Assessment and Plan 51 F admitted with acute diastolic heart failure, element of acute respiratory failure with possibly and chronic component and renal failure looking to be chronic renal failure stage 4, continued exertional dyspnea with concern for angina Acute decompensated diastolic CHF, bumex is reduced as Cr has risen 10/04 ,,will have diagnostic cath next week with nephrology oversight for potential post procedure renal failure, results of nuclear stress completed 10/02 ar concerning for multivessel cad that can be responsible for her TOLEDO NSTEMI, continues without chest pain but dyspneia on exertion is likely LV dysfunction with demand Acute respiratory failure, perhaps undiagnosed chronic disease, treating like copd, breathing at rest has improved BECKIE on CKD diabetes nephropathy, DR Pemberton is concerned this maybe her baseline from summation of pre existing renal disease risk factors, reduced diuretic Cr has remained higher than baseline Pneumonia, concern for gram negative or mrsa, Patchy upper lobe infiltrates zosyn concern for mrsa and gram negatives given recent hospitalizations, will stop as improved Diabetes, continues in poor control, will tighten ssi Back pain CT negative for any pathologies
[2016-10-04] MEDS: CARVEDILOL 25 MG TAB PO SCH ×2 (08:42→19:37)
[2016-10-04] MEDS: IPRATROPIUM BROMIDE/ALBUTEROL respimat INH INH SCH ×4 (08:42→19:38)
[2016-10-04] MEDS: BUMETANIDE IV 2 MG in SYRINGE 0 ML IV SCH (08:42)
[2016-10-04] MEDS: CLOPIDOGREL BISULFATE 75 MG TAB PO SCH (08:43)
[2016-10-04] MEDS: AMLODIPINE BESYLATE 5 MG TAB PO SCH (08:43)
[2016-10-04] MEDS: CITALOPRAM 20 MG TAB PO SCH (08:43)
[2016-10-04] MEDS: INSULIN ASPART 100 UNITS/ML 3 ML PEN SC SCH ×4 (08:46→21:11)
[2016-10-04 10:07] LABS: CALCIUM 8.2 mg/dl (8.5-10.1); PHOSPHORUS 5.3 mg/dl (2.5-4.9); POTASSIUM 4.3 mmol/L (3.5-5.1)
--- NOTE | 2016-10-04 10:40 | Nephrology Progress Note ---
Nephrology Progress Note Date of Service Oct 04, 2016. Chief Complaint BECKIE/CKD Subjective No acute events overnight. No complaints this morning. Denies chest pain or palpitations. No shortness of breath. Edema dramatically improved. Overall, Tootie states that she feels well. She expressed that she has come to terms with her cardiac and renal disease. She wishes to move forward with cardiac evaluation citing her desire to preserve her overall health. Review of Systems A complete review of systems was performed. Pertinent positives are noted above. All other systems are negative. Vital Signs Last 8 Hrs Date Time Temp Pulse Resp B/P Pulse Ox O2 Delivery O2 Flow Rate FiO2 10/04/16 08:17 36.6 72 16 178/84 97 Nasal Cannula 10/04/16 08:00 Room Air 10/04/16 04:00 Room Air 10/04/16 03:08 36.9 79 18 147/72 97 Nasal Cannula 2.0 I & O 24-Hour Column 10/04/16 07:59 Intake Total 1310 ml Output Total 1700 ml Balance -390 ml Last Recorded Weight Weight (Kilograms): 123.200 Physical Exam General Appearance: no apparent distress, + obese Head: normocephalic, atraumatic Eyes: normal inspection, sclerae normal ENT: normal ENT inspection, pharynx normal Neck: supple, no JVD Respiratory/Chest: lungs clear, no respiratory distress, no accessory muscle use Cardiovascular: regular rate, rhythm, no gallop, no murmur Abdomen/GI: non tender, soft Extremities/Musculoskelatal: normal inspection, + pedal edema (trace LE edema) Neurologic/Psych: alert, oriented x 3 Laboratory Results Past 24 Hours 10/04/16 09:31 Test 10/03/16 11:40 10/03/16 16:18 10/03/16 20:24 10/04/16 06:41 Bedside Glucose 278 mg/dl (70-90) 200 mg/dl (70-90) 258 mg/dl (70-90) 163 mg/dl (70-90) Test 10/04/16 09:31 Anion Gap 9.0 mmol/L (3-11) Est Creatinine Clear Calc Drug Dose 28.1 ml/min Estimated GFR () 19.7 Estimated GFR (Non- 17.0 BUN/Creatinine Ratio 16.0 (10-20) Calcium Level 8.2 mg/dl (8.5-10.1) Phosphorus Level 5.3 mg/dl (2.5-4.9) Albumin 2.3 gm/dl (3.4-5.0) Allergies Coded Allergies: Latex1 -Allergic Contact Dermititis (Verified Adverse Reaction, Mild, RASH , 09/25/16) Medications Current Inpatient Medications Medications (Trade) Dose Ordered Sig/Elizabet Route Start Time Stop Time Status Last Admin Dose Admin Acetaminophen (Tylenol Tab) 650 mg Q4H PRN PO 09/25/16 23:30 10/25/16 23:29 10/01/16 10:04 650 MG Al Hydrox/Mg Hydrox/Simethicone (Maalox Max Susp) 15 ml Q4H PRN PO 09/25/16 23:30 10/25/16 23:29 Magnesium Hydroxide (Milk Of Magnesia Susp) 30 ml Q12H PRN PO 09/25/16 23:30 10/25/16 23:29 Ondansetron HCl (Zofran Inj) 4 mg Q6H PRN IV 09/25/16 23:30 10/25/16 23:29 Nitroglycerin (Nitrostat Tab) 0.4 mg UD PRN SL 09/25/16 23:30 10/25/16 23:29 Morphine Sulfate (MoRPHine SULFATE INJ) 2 mg Q30M PRN IV 09/25/16 23:30 10/09/16 23:29 09/26/16 08:34 2 MG Polyethylene (Miralax Powder Packet) 17 gm DAILY PRN PO 09/25/16 23:30 10/25/16 23:29 Citalopram Hydrobromide (celeXA TAB) 20 mg QAM PO 09/26/16 09:00 10/26/16 08:59 10/04/16 08:43 20 MG Atorvastatin Calcium (Lipitor Tab) 40 mg HS PO 09/26/16 21:00 10/26/16 20:59 10/03/16 20:09 40 MG Clopidogrel Bisulfate (plAVix TAB) 75 mg QAM PO 09/26/16 09:00 10/26/16 08:59 10/04/16 08:43 75 MG Amlodipine Besylate (Norvasc Tab) 10 mg QAM PO 09/26/16 09:00 10/26/16 08:59 10/04/16 08:43 10 MG Tramadol HCl (Ultram Tab) 50 mg Q4H PRN PO 09/25/16 23:30 10/25/16 23:29 10/03/16 23:42 50 MG Glucose (Glucose 40% Gel) 15-30 GRAMS 15 GRAMS... UD PRN PO 09/26/16 00:30 10/26/16 00:29 Glucose (Glucose Chew Tab) 4-8 Tablets 4 Tabl... UD PRN PO 09/26/16 00:30 10/26/16 00:29 Dextrose (Dextrose 50% 50ML Syringe) 25-50ML OF 50% DW IV FOR... UD PRN IV 09/26/16 00:30 10/26/16 00:29 Glucagon (Glucagon Inj) 1 mg UD PRN SQ 09/26/16 00:30 10/26/16 00:29 Insulin Aspart (novoLOG ASPART) SLIDING SCALE G... ACHS SC 09/27/16 17:00 10/04/16 08:46 8 UNITS Albuterol/ Ipratropium (Duoneb) 3 ml QIDR INH 09/28/16 12:00 10/28/16 11:59 10/02/16 15:57 3 ML Albuterol/ Ipratropium (Duoneb) 3 ml Q2H PRN INH 09/28/16 11:15 10/28/16 11:14 10/01/16 03:26 3 ML Hydralazine HCl (HydrALAZINE INJ) 10 mg Q4H PRN IV 09/28/16 15:15 10/28/16 15:14 10/03/16 03:09 10 MG Arformoterol Tartrate (Brovana 15MCG/ 2ML Neb Soln) 15 mcg BIDR INH 09/28/16 20:00 10/28/16 19:59 10/04/16 07:01 15 MCG Carvedilol 25 mg 25 mg BID PO 09/30/16 21:00 10/30/16 20:59 10/04/16 08:42 25 MG Iron Sucrose 200 mg/Sodium Chloride 110 ml @ 420 mls/hr Q24H IV 10/01/16 14:30 10/04/16 14:46 10/03/16 13:19 420 MLS/HR Bumetanide/Syringe (Bumex IV/ Syringe) 8 ml @ 4 mls/min BID17 IV 10/02/16 17:00 11/01/16 16:59 10/04/16 08:42 4 MLS/MIN Albuterol/ Ipratropium (Combivent Respimat Inh) 1 puffs QID INH 10/03/16 13:00 11/02/16 12:59 10/04/16 08:42 1 PUFFS Hydralazine HCl (Apresoline Tab) 50 mg BID PO 10/03/16 09:00 11/02/16 08:59 10/04/16 08:42 50 MG Impression (1) Chronic kidney disease, stage III (moderate) (2) Acute on chronic diastolic CHF (congestive heart failure) (3) Acute renal insufficiency (4) Diabetic nephropathy (5) Nephrotic range proteinuria Mrs. Tootie Gutierrez is a 51-year-old female with CKD III (baseline creatinine ~2.0 mg/dL) attributed to diabetic nephropathy, obesity and hypertensive nephrosclerosis. She has evidence of nephrosis with nephrotic range proteinuria. She has superimposed BECKIE. She has a history of recurrent BECKIE. She was admitted with acute hypoxic respiratory failure in the setting of hypervolemia related to acute on chronic diastolic CHF and advanced renal disease. She has an abnormal myocardial perfusion study concerning for dynamic ischemic changes. Tootie recently treated for pneumonia. She developed acute renal failure in the setting of pneumonia. Dialysis was considered but fortunately not necessary at that time. She is aware of the advanced and complicated nature of her kidney and cardiac disease. Volume status improved with diuretics. GIOVANNI/ARB held due to elevated creatinine. Risk of requiring renal replacement therapy in the next several months is high regardless of whether or not cardiac catheterization is performed. Dr. Rodriguez in [facility] has been Tootie's primary count team clerk. He had discussed potential role of renal replacement therapy in the past. No acute findings on renal US. Metabolic profile otherwise acceptable. Medications appropriately dosed for renal function. Recommendations -- Hold daily Bumex for now -- Medications appropriate for renal function, continue to hold GIOVANNI/ARB. -- Monitor metabolic profile daily -- Sodium restrict diet to 2 grams daily and maintain 2 liter daily fluid restriction -- Venofer 200 mg daily x 5 days ordered for anemia. Procrit [id number] units given on 10/02/16 -- Hydralazine increased to 100 mg BID this morning
[2016-10-04] MEDS: IRON SUCROSE INJ 200 MG in SODIUM CHLORIDE 0.9% 100ML 100 ML IV SCH (14:38)
[2016-10-04] MEDS: ATORVASTATIN 40 MG TAB PO SCH (19:38)
[2016-10-05] VITALS (8 sets, daily range): BP systolic 148–177; BP diastolic 53–84; PULSE 73–85; TEMP 36.5–37.2; O2SAT 92–96
[2016-10-05] MEDS: ARFORMOTEROL TART 15MCG/2ML VIAL INH SCH ×2 (07:06→20:28)
[2016-10-05] MEDS: ALBUT/IPRATROP 3MG/0.5MG NEB 3 ML VIAL INH SCH (07:06)
[2016-10-05 07:09] LABS: HEMATOCRIT 25.6 % (37-47); MEAN CELL VOLUME 88.3 fL (80-100); MEAN CORPUSCULAR HGB CONC 32.8 g/dl (32-36); MEAN PLATELET VOLUME 10.3 fL (7.4-10.4); PLATELET COUNT 277 K/uL (130-400); WHITE BLOOD COUNT 8.57 K/uL (4.8-10.8)
[2016-10-05 07:44] LABS: BUN/CREATININE RATIO 17.1 (10-20); CALCIUM 8.6 mg/dl (8.5-10.1); POTASSIUM 4.3 mmol/L (3.5-5.1)
[2016-10-05] MEDS: IPRATROPIUM BROMIDE/ALBUTEROL respimat INH INH SCH ×4 (08:45→21:00)
[2016-10-05] MEDS: AMLODIPINE BESYLATE 5 MG TAB PO SCH (08:45)
[2016-10-05] MEDS: CLOPIDOGREL BISULFATE 75 MG TAB PO SCH (08:45)
[2016-10-05] MEDS: BUMETANIDE IV 1 MG in SYRINGE 0 ML IV SCH (08:45)
[2016-10-05] MEDS: CARVEDILOL 25 MG TAB PO SCH ×2 (08:45→19:18)
[2016-10-05] MEDS: CITALOPRAM 20 MG TAB PO SCH (08:45)
[2016-10-05] MEDS: INSULIN ASPART 100 UNITS/ML 3 ML PEN SC SCH ×4 (08:49→21:20)
--- NOTE | 2016-10-05 10:25 | CARDIOLOGY PROGRESS NOTE ---
DATE: 10/05/2016 TIME: 9:12 a.m. SUBJECTIVE: She denies chest pain but continues to have dyspnea with exertion with minimal activity. No significant orthopnea; however, she states that she does wear oxygen at night. She believes that her lower extremity edema has improved. Plan of care was discussed last week with Dr. Pemberton of nephrology. 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 OBJECTIVE: VITAL SIGNS: Temperature 36.7 degrees, heart rate 78 beats per minute, respiration rate 16, blood pressure 175/74 mmHg, blood pressure remains mostly moderately elevated. Oxygen saturation 92% on 4 liters per nasal cannula. I's and O's negative 195 mL yesterday, weight is 121.7 kg. GENERAL: No acute distress. She is alert. NECK: Thick, but no appreciable JVD. CARDIAC EXAM: No ventricular heave. Regular, normal S1, S2. No audible murmurs, rubs or gallops. LUNGS: Decreased breath sounds throughout, but otherwise clear. ABDOMEN: Soft, nontender, nondistended. Normoactive bowel sounds. EXTREMITIES: Trace to 1+ right lower extremity edema, 1+ left lower extremity. Edema has improved compared to 3 days ago. No cyanosis. PSYCHIATRIC: Affect appears appropriate. MEDICATIONS: Include Plavix 75 mg daily, carvedilol 25 mg p.o. b.i.d., Bumex 1 mg IV daily, Lipitor 40 mg at bedtime, amlodipine 10 mg daily, hydralazine 100 mg p.o. b.i.d. LABORATORY DATA: White blood cell count is 8.57, hemoglobin 8.4, platelets 277. Sodium 142, potassium 4.3, BUN 51, creatinine 3 stable from yesterday. Telemetry personally reviewed. No ventricular arrhythmia noted. ASSESSMENT AND PLAN: 1. Acute diastolic congestive heart failure: Volume status has improved. Diuretics have been adjusted over the weekend by nephrology. She still may be mildly hypervolemic, but overall much improved. Continue low sodium diet, daily weights and strict I's and O's. 2. Abnormal myocardial perfusion study: Stress test suggests multivessel coronary artery disease. There have been several discussions regarding coronary angiography timing given her renal issues. Given her high risk findings on stress test and significant symptoms with minimal exertion, coronary angiography may be performed as soon as tomorrow by Dr. Lee, who has been following here predominantly. Discussions are still pending with her outpatient medical device sales. The patient understands the higher potential for dialysis following the procedure. 3. Non-ST elevation myocardial infarction: No angina. Dyspnea with minimal exertion. Continue antiplatelet therapy, beta-jorge, and high intensity statin therapy. 4. Chronic kidney disease: It appears as though renal replacement therapy is likely to occur in the near future from conversations with nephrology. They plan for ongoing discussions with their outpatient medical device sales. 5. Hypertension: Blood pressure is being managed by nephrology. Hydralazine was titrated yesterday. Could also increase to 3 times daily dosing if no further improvement. 6. Disposition: Tentatively keep n.p.o. overnight except for medications for possible coronary angiography tomorrow with Dr. Lee after all involved parties are able to further discuss potential for dialysis and overall risks and benefits.
--- NOTE | 2016-10-05 11:17 | Progress Note ---
Subjective Date of Service: Oct 05, 2016. Subjective Pt evaluation today including: conversation w/ patient, conversation w/ family , physical exam, chart review, lab review, review of studies, conversation w/ actuarial consultant, review of inpatient medication list To the restroom, doing okay, no special complaint, left lower extremity mild swelling and more than right lower extremity which is not new Review of Systems Constitutional: + fatigue, + weakness, No chills, No fever, No problem reported , No sweats, No weight loss Eyes: No diplopia, No discharge, No eye pain, No redness, No worsening of vision ENT: No dental problems, No hearing loss, No nasal symptoms, No sore throat, No tinnitus, No trouble swallowing, No unusual epistaxis Respiratory: No cough, No dyspnea at rest, No dyspnea on exertion, No hemoptysis, No shortness of breath, No sputum, No wheezing Cardiac: + edema, No PND, No chest pain, No claudication, No orthopnea, No palpitations Abdomen: No constipation, No diarrhea, No nausea, No pain, No vomiting Musculoskeletal: No calf pain, No joint pain, No muscle pain, No swelling Female : No abnormal vaginal bleeding, No dysuria, No hematuria, No incontinence, No urinary frequency, No vaginal discharge Neurologic: No balance problems, No memory loss, No numbness/tingling, No paralysis, No vertigo, No weakness Psychiatric: No anhedonism, No anxiety, No depression symptoms, No insomnia, No substance abuse Heme: No abnormal bleeding/bruising, No clotting problems, No night sweats, No swollen lymph nodes Endo: No excessive thirst, No excessive urination, No fatigue Skin: No bleeding, No color change, No itch, No new/changing skin lesions, No rash Objective Vital Signs Date Time Temp Pulse Resp B/P Pulse Ox O2 Delivery O2 Flow Rate FiO2 10/05/16 08:03 36.7 78 16 175/74 92 Nasal Cannula 4.0 10/05/16 08:00 Room Air 10/05/16 07:06 79 20 94 Room Air 10/05/16 04:00 Room Air 10/05/16 03:51 36.9 85 18 148/73 94 Nasal Cannula 2.0 10/04/16 23:59 Room Air 10/04/16 23:15 36.8 72 19 165/84 92 Nasal Cannula 2.0 10/04/16 20:00 Room Air 10/04/16 19:09 78 18 93 Room Air 10/04/16 18:50 37.1 82 18 163/66 93 Room Air 10/04/16 16:00 Room Air 10/04/16 15:09 37.0 75 18 171/65 98 Nasal Cannula 2.0 10/04/16 12:09 36.6 74 18 157/76 96 Nasal Cannula 4.0 10/04/16 12:00 Room Air Physical Exam General Appearance: WD/WN, no apparent distress, + obese Eyes: normal inspection, PERRL, EOMI, sclerae normal ENT: normal ENT inspection, hearing grossly normal, pharynx normal Neck: supple, no adenopathy, thyroid normal, no JVD, no carotid bruits, trachea midline Respiratory/Chest: chest non-tender, normal breath sounds, no respiratory distress, no accessory muscle use, + decreased breath sounds Cardiovascular: regular rate, rhythm, no gallop, no JVD, no murmur, + pertinent finding (trace edema) Abdomen: normal bowel sounds, non tender, soft, no organomegaly, no pulsatile mass Extremities: normal range of motion, non-tender, normal inspection, no pedal edema, no calf tenderness, normal capillary refill, pelvis stable Neurologic/Psychiatric: spray maker II-XII nml as tested, no motor/sensory deficits, alert, normal mood/affect, oriented x 3 Skin: normal color, warm/dry, no rash Lymphatic: no adenopathy Laboratory Results Last 24 Hours Test 10/04/16 11:32 10/04/16 16:14 10/04/16 20:49 10/05/16 06:40 Bedside Glucose 215 mg/dl 175 mg/dl 177 mg/dl White Blood Count 8.57 K/uL Red Blood Count 2.90 M/uL Hemoglobin 8.4 g/dL Hematocrit 25.6 % Mean Corpuscular Volume 88.3 fL Mean Corpuscular Hemoglobin 29.0 pg Mean Corpuscular Hemoglobin Concent 32.8 g/dl RDW Standard Deviation 45.6 fL RDW Coefficient of Variation 14.2 % Platelet Count 277 K/uL Mean Platelet Volume 10.3 fL Sodium Level 142 mmol/L Potassium Level 4.3 mmol/L Chloride Level 111 mmol/L Carbon Dioxide Level 20 mmol/L Anion Gap 11.0 mmol/L Blood Urea Nitrogen 51 mg/dl Creatinine 3.00 mg/dl Est Creatinine Clear Calc Drug Dose 27.9 ml/min Estimated GFR () 19.7 Estimated GFR (Non- 17.0 BUN/Creatinine Ratio 17.1 Random Glucose 149 mg/dl Calcium Level 8.6 mg/dl Test 10/05/16 06:43 Bedside Glucose 156 mg/dl Assessment and Plan 51 F admitted admitted on 09/26/2016 because of acute diastolic heart failure, element of acute respiratory failure with possibly and chronic component and renal failure looking to be chronic renal failure stage 4, continued exertional dyspnea with concern for angina Acute decompensated diastolic CHF, bumex is reduced as Cr has risen 10/04 , has 11.5 L negative since admission which is associated with the 6 kg weight lost Plan to have diagnostic cath next week with nephrology oversight for potential post procedure renal failure, results of nuclear stress completed 10/02 ar concerning for multivessel cad that can be responsible for her [place] NSTEMI, continues without chest pain but dyspneia on exertion is likely LV dysfunction with demand, stable Acute respiratory failure, perhaps undiagnosed chronic disease, treating like copd, breathing at rest has improved, stable BECKIE on CKD diabetes nephropathy, Nephrology is concerned this maybe her baseline from summation of pre existing renal disease risk factors, Diuretic will be adjusted by senior operations analyst Pneumonia, concern for gram negative or mrsa, Patchy upper lobe infiltrates zosyn concern for mrsa and gram negatives given recent hospitalizations, has stop as improved Diabetes, continues in poor control, will tighten ssi Back pain CT negative for any pathologies Hypertension accelerated, recently increased to hydralazine to 100 twice a day, will follow-up GI and DVT prophylaxis ordered Continued [facility] stay due to: multiple IV medications needed Discharge planning: home
[2016-10-05 12:27] LABS: PARTIAL THROMBOPLASTIN RATIO 1.3; PROTHROMBIN TIME (PATIENT) 11.1 SECONDS (9.0-12.0)
--- NOTE | 2016-10-05 13:24 | Nephrology Progress Note ---
Nephrology Progress Note Date of Service Oct 05, 2016. Chief Complaint Follow up evaluation of acute on chronic kidney injury in this patient admitted w/ CHF Subjective Mrs. Gutierrez was seen & examined in the PCU this morning. She was admitted to the hospital w/ CHF. She has responded well to IV diuretic therapy. She has diuresed ~ 10 L since admission. Her weight has dropped from 127 to 121 kg. She is breathing comfortably on O2 at 4 L / min NC. She does become SOB with exertion. The patient was admitted w/ a NSTEMI. Echocardiogram shows diffuse WMA. The patient currently denies angina or palpitations. She reports that she may require cardiac catheterization tomorrow or Wednesday. Mrs. Gutierrez has CKD. Her baseline creatinine has been 2.0. Her renal impairment is due to diabetic nephropathy. Review of Systems Constitutional: No fever Cardiovascular: No chest pain Respiratory: No dyspnea at rest Abdomen: No nausea, No pain, No vomiting Extremities: No leg edema A complete review of systems was performed. Pertinent positives are noted above. All other systems are negative. Vital Signs Last 8 Hrs Date Time Temp Pulse Resp B/P Pulse Ox O2 Delivery O2 Flow Rate FiO2 10/05/16 12:00 Room Air 10/05/16 11:59 36.5 73 16 157/53 95 Nasal Cannula 4.0 10/05/16 08:03 36.7 78 16 175/74 92 Nasal Cannula 4.0 10/05/16 08:00 Room Air 10/05/16 07:06 79 20 94 Room Air I & O 24-Hour Column 10/05/16 08:00 Intake Total 1755 ml Output Total 2350 ml Balance -595 ml Last Recorded Weight Weight (Kilograms): 121.700 Physical Exam General Appearance: no apparent distress Head: normocephalic, atraumatic Eyes: PERRL, EOMI Neck: no adenopathy, no JVD Respiratory/Chest: lungs clear, no respiratory distress Cardiovascular: regular rate, rhythm Abdomen/GI: normal bowel sounds, non tender, soft Extremities/Musculoskelatal: no calf tenderness, no pedal edema Neurologic/Psych: alert, oriented x 3 Laboratory Results Past 24 Hours 10/05/16 06:40 10/05/16 06:40 Test 10/04/16 16:14 10/04/16 20:49 10/05/16 06:40 10/05/16 06:43 Bedside Glucose 175 mg/dl (70-90) 177 mg/dl (70-90) 156 mg/dl (70-90) Red Blood Count 2.90 M/uL (4.2-5.4) Mean Corpuscular Volume 88.3 fL (80-100) Mean Corpuscular Hemoglobin 29.0 pg (25-34) Mean Corpuscular Hemoglobin Concent 32.8 g/dl (32-36) RDW Standard Deviation 45.6 fL (36.4-46.3) RDW Coefficient of Variation 14.2 % (11.5-14.5) Mean Platelet Volume 10.3 fL (7.4-10.4) Anion Gap 11.0 mmol/L (3-11) Est Creatinine Clear Calc Drug Dose 27.9 ml/min Estimated GFR () 19.7 Estimated GFR (Non- 17.0 BUN/Creatinine Ratio 17.1 (10-20) Calcium Level 8.6 mg/dl (8.5-10.1) Test 10/05/16 11:40 10/05/16 12:00 Bedside Glucose 209 mg/dl (70-90) Prothrombin Time 11.1 SECONDS (9.0-12.0) Prothromb Time International Ratio 1.0 (0.9-1.1) Activated Partial Thromboplast Time 32.7 SECONDS (21.0-31.0) Partial Thromboplastin Ratio 1.3 Allergies Coded Allergies: Latex1 -Allergic Contact Dermititis (Verified Adverse Reaction, Mild, RASH , 09/25/16) Medications Current Inpatient Medications Medications (Trade) Dose Ordered Sig/Elizabet Route Start Time Stop Time Status Last Admin Dose Admin Acetaminophen (Tylenol Tab) 650 mg Q4H PRN PO 09/25/16 23:30 10/25/16 23:29 10/01/16 10:04 650 MG Al Hydrox/Mg Hydrox/Simethicone (Maalox Max Susp) 15 ml Q4H PRN PO 09/25/16 23:30 10/25/16 23:29 Magnesium Hydroxide (Milk Of Magnesia Susp) 30 ml Q12H PRN PO 09/25/16 23:30 10/25/16 23:29 Ondansetron HCl (Zofran Inj) 4 mg Q6H PRN IV 09/25/16 23:30 10/25/16 23:29 Nitroglycerin (Nitrostat Tab) 0.4 mg UD PRN SL 09/25/16 23:30 10/25/16 23:29 Morphine Sulfate (MoRPHine SULFATE INJ) 2 mg Q30M PRN IV 09/25/16 23:30 10/09/16 23:29 09/26/16 08:34 2 MG Polyethylene (Miralax Powder Packet) 17 gm DAILY PRN PO 09/25/16 23:30 10/25/16 23:29 Citalopram Hydrobromide (celeXA TAB) 20 mg QAM PO 09/26/16 09:00 10/26/16 08:59 10/05/16 08:45 20 MG Atorvastatin Calcium (Lipitor Tab) 40 mg HS PO 09/26/16 21:00 10/26/16 20:59 10/04/16 19:38 40 MG Clopidogrel Bisulfate (plAVix TAB) 75 mg QAM PO 09/26/16 09:00 10/26/16 08:59 10/05/16 08:45 75 MG Amlodipine Besylate (Norvasc Tab) 10 mg QAM PO 09/26/16 09:00 10/26/16 08:59 10/05/16 08:45 10 MG Tramadol HCl (Ultram Tab) 50 mg Q4H PRN PO 09/25/16 23:30 10/25/16 23:29 10/03/16 23:42 50 MG Glucose (Glucose 40% Gel) 15-30 GRAMS 15 GRAMS... UD PRN PO 09/26/16 00:30 10/26/16 00:29 Glucose (Glucose Chew Tab) 4-8 Tablets 4 Tabl... UD PRN PO 09/26/16 00:30 10/26/16 00:29 Dextrose (Dextrose 50% 50ML Syringe) 25-50ML OF 50% DW IV FOR... UD PRN IV 09/26/16 00:30 10/26/16 00:29 Glucagon (Glucagon Inj) 1 mg UD PRN SQ 09/26/16 00:30 10/26/16 00:29 Insulin Aspart (novoLOG ASPART) SLIDING SCALE G... ACHS SC 09/27/16 17:00 10/05/16 08:49 7 UNITS Albuterol/ Ipratropium (Duoneb) 3 ml QIDR INH 09/28/16 12:00 10/28/16 11:59 10/02/16 15:57 3 ML Albuterol/ Ipratropium (Duoneb) 3 ml Q2H PRN INH 09/28/16 11:15 10/28/16 11:14 10/01/16 03:26 3 ML Hydralazine HCl (HydrALAZINE INJ) 10 mg Q4H PRN IV 09/28/16 15:15 10/28/16 15:14 10/03/16 03:09 10 MG Arformoterol Tartrate (Brovana 15MCG/ 2ML Neb Soln) 15 mcg BIDR INH 09/28/16 20:00 10/28/16 19:59 10/05/16 07:06 15 MCG Carvedilol (Coreg Tab) 25 mg BID PO 09/30/16 21:00 10/30/16 20:59 10/05/16 08:45 25 MG Albuterol/ Ipratropium (Combivent Respimat Inh) 1 puffs QID INH 10/03/16 13:00 11/02/16 12:59 10/05/16 08:45 1 PUFFS Hydralazine HCl 100 mg 100 mg BID PO 10/04/16 21:00 11/03/16 20:59 10/05/16 09:37 100 MG Bumetanide/Syringe (Bumex IV/ Syringe) 4 ml @ 4 mls/min DAILY IV 10/05/16 09:00 11/04/16 08:59 10/05/16 08:45 4 MLS/MIN Heparin Sodium (Porcine) (Heparin Sq 5000 Unit/0.5ml) 5,000 unit Q12 SQ 10/05/16 21:00 11/04/16 20:59 Impression (1) Chronic kidney disease, stage III (moderate) (2) Acute on chronic diastolic CHF (congestive heart failure) (3) Acute renal insufficiency (4) Diabetic nephropathy (5) Nephrotic range proteinuria Mrs. Gutierrez is a 51-year-old female with CKD III (baseline creatinine ~2.0 mg/dL) attributed to diabetic nephropathy, obesity and hypertensive nephrosclerosis. She has evidence of nephrosis with nephrotic range proteinuria. She has superimposed BECKIE. She has a history of recurrent BECKIE. She was admitted with acute hypoxic respiratory failure in the setting of hypervolemia related to acute on chronic diastolic CHF and advanced renal disease. She has an abnormal myocardial perfusion study concerning for dynamic ischemic changes. Mrs. Gutierrez was recently treated for pneumonia. She developed acute renal failure in the setting of pneumonia. Dialysis was considered but fortunately not necessary at that time. She is aware of the advanced and complicated nature of her kidney and cardiac disease. Volume status improved with diuretics. GIOVANNI/ARB held due to elevated creatinine. Risk of requiring renal replacement therapy in the next several months is high regardless of whether or not cardiac catheterization is performed. Dr. Rodriguez in [facility] has been [facility]'s primary mastic floor layer. He had discussed potential role of renal replacement therapy in the past. Recommendations ACUTE KIDNEY INJURY: -- Renal US report from 09/26 reviewed. Kidneys 11.5 cm. No obstruction reported -- Hold daily Bumex for now -- Monitor serial PRP CHRONIC KIDNEY DISEASE: -- Likely related to diabetic nephropathy -- Baseline creatinine had been 2.0 -- Will check serum free light chains, SIEP/UIEP -- Protect left arm for possible dialysis access ANEMIA: -- Patient has completed a 1 g infusion of IV iron. Procrit [id number] units given on 10/02/16 CONGESTIVE HEART FAILURE: -- Hydralazine increased to 100 mg BID -- Cardiology notes reviewed. Patient has reversible ischemia on imaging studies. She will likely require heart catheterization. She has moderate to high risk for contrast induced nephropathy. Will need pre and post hydration with normal saline. Will need close monitoring of kidney function. Patient understands that HD may become necessary. Indications/benefits/risks and alternatives to HD discussed in detail with the patient today. She voiced understanding and is agreeable to starting HD if needed.
[2016-10-05] MEDS: ATORVASTATIN 40 MG TAB PO SCH (19:18)
[2016-10-05] MEDS: HEPARIN SOD 5000 UNIT/0.5 ML CARP SQ SCH (21:30)
[2016-10-06] VITALS (16 sets, daily range): BP systolic 133–175; BP diastolic 62–99; PULSE 75–88; TEMP 36.4–36.8; O2SAT 92–100
[2016-10-06] MEDS: ARFORMOTEROL TART 15MCG/2ML VIAL INH SCH ×2 (07:18→19:15)
[2016-10-06 07:54] LABS: BUN/CREATININE RATIO 17.3 (10-20); CALCIUM 8.7 mg/dl (8.5-10.1); POTASSIUM 4.3 mmol/L (3.5-5.1)
[2016-10-06] MEDS: IPRATROPIUM BROMIDE/ALBUTEROL respimat INH INH SCH ×4 (09:18→20:47)
[2016-10-06] MEDS: BUMETANIDE IV 1 MG in SYRINGE 0 ML IV SCH (09:19)
[2016-10-06] MEDS: CITALOPRAM 20 MG TAB PO SCH (09:20)
--- NOTE | 2016-10-06 09:20 | Nephrology Progress Note ---
Nephrology Progress Note Date of Service Oct 06, 2016. Chief Complaint Follow up evaluation of acute on chronic kidney injury in this patient admitted w/ CHF Subjective Mrs. Gutierrez was seen & examined in the PCU this morning. She was admitted to the hospital w/ CHF. She has responded well to IV diuretic therapy. She has diuresed ~ 11 L since admission. Her weight has dropped from 127 to 121 kg. She is breathing comfortably on O2 at 4 L / min NC. She does become SOB with exertion. The patient was admitted w/ a NSTEMI. Echocardiogram shows diffuse WMA. The patient currently denies angina or palpitations. She reports that she may require cardiac catheterization this afternoon. Mrs. Gutierrez has CKD. Her baseline creatinine has been 2.0. Her renal impairment is due to diabetic nephropathy. Review of Systems Constitutional: No fever Cardiovascular: No chest pain Respiratory: No dyspnea at rest Abdomen: No nausea, No pain, No vomiting Extremities: No leg edema A complete review of systems was performed. Pertinent positives are noted above. All other systems are negative. Vital Signs Last 8 Hrs Date Time Temp Pulse Resp B/P Pulse Ox O2 Delivery O2 Flow Rate FiO2 10/06/16 08:07 36.4 78 18 149/63 97 Nasal Cannula 2.0 10/06/16 08:05 36.6 79 18 149/83 98 Nasal Cannula 4.0 10/06/16 04:00 Room Air 10/06/16 02:55 36.7 87 18 175/77 92 Nasal Cannula 2.0 I & O 24-Hour Column 10/06/16 08:00 Intake Total 1355 ml Output Total 1700 ml Balance -345 ml Last Recorded Weight Weight (Kilograms): 121.700 Physical Exam General Appearance: no apparent distress Head: normocephalic, atraumatic Eyes: PERRL, EOMI Neck: no adenopathy Respiratory/Chest: lungs clear, no respiratory distress Cardiovascular: regular rate, rhythm, no murmur Abdomen/GI: normal bowel sounds, non tender, soft Extremities/Musculoskelatal: no calf tenderness, no pedal edema Neurologic/Psych: alert, oriented x 3 Laboratory Results Past 24 Hours 10/06/16 07:01 Test 10/05/16 11:40 10/05/16 12:00 10/05/16 16:26 10/05/16 20:08 Bedside Glucose 209 mg/dl (70-90) 193 mg/dl (70-90) 189 mg/dl (70-90) Prothrombin Time 11.1 SECONDS (9.0-12.0) Prothromb Time International Ratio 1.0 (0.9-1.1) Activated Partial Thromboplast Time 32.7 SECONDS (21.0-31.0) Partial Thromboplastin Ratio 1.3 Test 10/05/16 22:00 10/06/16 06:41 10/06/16 07:01 Bedside Glucose 168 mg/dl (70-90) Anion Gap 10.0 mmol/L (3-11) Est Creatinine Clear Calc Drug Dose 27.9 ml/min Estimated GFR () 19.7 Estimated GFR (Non- 17.0 BUN/Creatinine Ratio 17.3 (10-20) Calcium Level 8.7 mg/dl (8.5-10.1) Allergies Coded Allergies: Latex1 -Allergic Contact Dermititis (Verified Adverse Reaction, Mild, RASH , 09/25/16) Medications Current Inpatient Medications Medications (Trade) Dose Ordered Sig/Elizabet Route Start Time Stop Time Status Last Admin Dose Admin Acetaminophen (Tylenol Tab) 650 mg Q4H PRN PO 09/25/16 23:30 10/25/16 23:29 10/01/16 10:04 650 MG Al Hydrox/Mg Hydrox/Simethicone (Maalox Max Susp) 15 ml Q4H PRN PO 09/25/16 23:30 10/25/16 23:29 Magnesium Hydroxide (Milk Of Magnesia Susp) 30 ml Q12H PRN PO 09/25/16 23:30 10/25/16 23:29 Ondansetron HCl (Zofran Inj) 4 mg Q6H PRN IV 09/25/16 23:30 10/25/16 23:29 Nitroglycerin (Nitrostat Tab) 0.4 mg UD PRN SL 09/25/16 23:30 10/25/16 23:29 Morphine Sulfate (MoRPHine SULFATE INJ) 2 mg Q30M PRN IV 09/25/16 23:30 10/09/16 23:29 09/26/16 08:34 2 MG Polyethylene (Miralax Powder Packet) 17 gm DAILY PRN PO 09/25/16 23:30 10/25/16 23:29 Citalopram Hydrobromide (celeXA TAB) 20 mg QAM PO 09/26/16 09:00 10/26/16 08:59 10/05/16 08:45 20 MG Atorvastatin Calcium (Lipitor Tab) 40 mg HS PO 09/26/16 21:00 10/26/16 20:59 10/05/16 19:18 40 MG Clopidogrel Bisulfate (plAVix TAB) 75 mg QAM PO 09/26/16 09:00 10/26/16 08:59 10/05/16 08:45 75 MG Amlodipine Besylate (Norvasc Tab) 10 mg QAM PO 09/26/16 09:00 10/26/16 08:59 10/05/16 08:45 10 MG Tramadol HCl (Ultram Tab) 50 mg Q4H PRN PO 09/25/16 23:30 10/25/16 23:29 10/03/16 23:42 50 MG Glucose (Glucose 40% Gel) 15-30 GRAMS 15 GRAMS... UD PRN PO 09/26/16 00:30 10/26/16 00:29 Glucose (Glucose Chew Tab) 4-8 Tablets 4 Tabl... UD PRN PO 09/26/16 00:30 10/26/16 00:29 Dextrose (Dextrose 50% 50ML Syringe) 25-50ML OF 50% DW IV FOR... UD PRN IV 09/26/16 00:30 10/26/16 00:29 Glucagon (Glucagon Inj) 1 mg UD PRN SQ 09/26/16 00:30 10/26/16 00:29 Insulin Aspart (novoLOG ASPART) SLIDING SCALE G... ACHS SC 09/27/16 17:00 10/05/16 21:20 5 UNITS Albuterol/ Ipratropium (Duoneb) 3 ml QIDR INH 09/28/16 12:00 10/28/16 11:59 10/02/16 15:57 3 ML Albuterol/ Ipratropium (Duoneb) 3 ml Q2H PRN INH 09/28/16 11:15 10/28/16 11:14 10/01/16 03:26 3 ML Hydralazine HCl (HydrALAZINE INJ) 10 mg Q4H PRN IV 09/28/16 15:15 10/28/16 15:14 10/03/16 03:09 10 MG Arformoterol Tartrate (Brovana 15MCG/ 2ML Neb Soln) 15 mcg BIDR INH 09/28/16 20:00 10/28/16 19:59 10/05/16 20:28 15 MCG Carvedilol (Coreg Tab) 25 mg BID PO 09/30/16 21:00 10/30/16 20:59 10/05/16 19:18 25 MG Albuterol/ Ipratropium (Combivent Respimat Inh) 1 puffs QID INH 10/03/16 13:00 11/02/16 12:59 10/05/16 21:00 1 PUFFS Hydralazine HCl 100 mg 100 mg BID PO 10/04/16 21:00 11/03/16 20:59 10/05/16 19:17 100 MG Bumetanide/Syringe (Bumex IV/ Syringe) 4 ml @ 4 mls/min DAILY IV 10/05/16 09:00 11/04/16 08:59 10/05/16 08:45 4 MLS/MIN Heparin Sodium (Porcine) (Heparin Sq 5000 Unit/0.5ml) 5,000 unit Q12 SQ 10/05/16 21:00 11/04/16 20:59 10/05/16 21:30 5,000 UNIT Impression (1) Chronic kidney disease, stage III (moderate) (2) Acute on chronic diastolic CHF (congestive heart failure) (3) Acute renal insufficiency (4) Diabetic nephropathy (5) Nephrotic range proteinuria Mrs. Gutierrez is a 51-year-old female with stage III CKD (baseline creatinine ~2.0 mg/dL) attributed to diabetic nephropathy, obesity and hypertensive nephrosclerosis. She has evidence of nephrosis with nephrotic range proteinuria. She has superimposed BECKIE. She has a history of recurrent BECKIE. She was admitted with acute hypoxic respiratory failure in the setting of hypervolemia related to acute on chronic diastolic CHF and advanced renal disease. She has an abnormal myocardial perfusion study concerning for dynamic ischemic changes. Mrs. Gutierrez was recently treated for pneumonia. She developed acute renal failure in the setting of pneumonia. Dialysis was considered but fortunately not necessary at that time. She is aware of the advanced and complicated nature of her kidney and cardiac disease. Volume status improved with diuretics. GIOVANNI/ARB held due to elevated creatinine. Risk of requiring renal replacement therapy in the next several months is high regardless of whether or not cardiac catheterization is performed. Dr. Rodriguez in [facility] has been [facility]'s primary channel opener. He had discussed potential role of renal replacement therapy in the past. Recommendations ACUTE KIDNEY INJURY: -- Serum creatinine has plateaued at 3.0. Patient remains nonoliguric -- Monitor serial PRP CHRONIC KIDNEY DISEASE: -- Likely related to diabetic nephropathy -- Baseline creatinine had been 2.0 -- Will check serum free light chains, SIEP/UIEP -- Protect left arm for possible dialysis access ANEMIA: -- Patient has completed a 1 g infusion of IV iron. Procrit [id number] units given on 10/02/16 CONGESTIVE HEART FAILURE: -- Hydralazine increased to 100 mg BID -- Case discussed w/ Dr. Lee today. Patient has reversible ischemia on imaging studies. She will require heart catheterization. She is at moderate to high risk for contrast induced nephropathy. Recommendations provided for pre and post hydration with normal saline. Will need close monitoring of kidney function. Patient understands that HD may become necessary. Indications /benefits/risks and alternatives to HD were again reviewed with the patient today. She voiced understanding and is agreeable to starting HD if needed.
[2016-10-06] MEDS: CARVEDILOL 25 MG TAB PO SCH ×2 (09:21→20:48)
[2016-10-06] MEDS: AMLODIPINE BESYLATE 5 MG TAB PO SCH (09:22)
[2016-10-06] MEDS: CLOPIDOGREL BISULFATE 75 MG TAB PO SCH (09:23)
[2016-10-06] MEDS: HEPARIN SOD 5000 UNIT/0.5 ML CARP SQ SCH ×2 (09:24→21:15)
[2016-10-06] MEDS: INSULIN ASPART 100 UNITS/ML 3 ML PEN SC SCH ×4 (09:28→21:15)
--- NOTE | 2016-10-06 10:50 | Cardiology Follow-Up ---
Subjective Subjective Date of Service: Oct 06, 2016. Pt evaluation today including: conversation w/ patient, physical exam, chart review, lab review, review of studies, conversation w/ data warehouse consultant, review of inpatient medication list Additional Details: Patient feeling well. No chest pain, palpitations. Still with mild intermittent orthopnea. Tele reviewed -- occasional PVCs Review of Systems Constitutional: + fatigue, No fever Respiratory: + problem reported (orthopnea), + shortness of breath Cardiac: + orthopnea, No chest pain, No palpitations Abdomen: No nausea, No pain Heme: No abnormal bleeding/bruising Endo: + fatigue Skin: No rash Objective Vital Signs Last Vital Signs Documentation Date Time Temp Pulse Resp B/P Pulse Ox O2 Delivery O2 Flow Rate FiO2 10/06/16 10:29 Room Air 10/06/16 08:07 36.4 78 18 149/63 97 2.0 09/26/16 15:31 30 Physical Exam: General Appearance: no apparent distress, + obese Neck: no JVD Respiratory/Chest: chest non-tender, normal breath sounds, + decreased breath sounds Cardiovascular: regular rate, rhythm, no murmur, + pertinent finding (trace edema) Abdomen: non tender, soft Extremities: no calf tenderness, pelvis stable, + pedal edema Neurologic/Psychiatric: alert, normal mood/affect, oriented x 3 Skin: normal color, warm/dry, no rash Assessment and Plan 1. Acute diastolic heart failure -- well-perfused, continues to diureses; still with mild orthopnea 2. NSTEMI - troponin peaked, chest pain free. Stress test with high risk findings and suggestion of multivessel disease 3. Acute on CKD - SCr up from recent baseline, stable 4. Type 2 diabetes -- on insulin 5. Anemia -- stable 6. HTN -- some improvement with addition of hydralazine. Stress test reviewed - high risk findings suggestive of multivessel disease Agree with proceeding with cardiac cath -- plan for this afternoon. Discussed with Dr. Mishra from Nephrology. Will plan on prehydration/ posthydration with normal saline. Will minimize contrast load. If PCI options will consider staged procedure. In interim continue antiplatelet therapy, antihypertensives and statin. Continued [facility] stay due to: multiple IV medications needed Discharge planning: home Medications: Current Inpatient Medications Medications (Trade) Dose Ordered Sig/Elizabet Route Start Time Stop Time Status Last Admin Dose Admin Acetaminophen (Tylenol Tab) 650 mg Q4H PRN PO 09/25/16 23:30 10/25/16 23:29 10/01/16 10:04 650 MG Al Hydrox/Mg Hydrox/Simethicone (Maalox Max Susp) 15 ml Q4H PRN PO 09/25/16 23:30 10/25/16 23:29 Magnesium Hydroxide (Milk Of Magnesia Susp) 30 ml Q12H PRN PO 09/25/16 23:30 10/25/16 23:29 Ondansetron HCl (Zofran Inj) 4 mg Q6H PRN IV 09/25/16 23:30 10/25/16 23:29 Nitroglycerin (Nitrostat Tab) 0.4 mg UD PRN SL 09/25/16 23:30 10/25/16 23:29 Morphine Sulfate (MoRPHine SULFATE INJ) 2 mg Q30M PRN IV 09/25/16 23:30 10/09/16 23:29 09/26/16 08:34 2 MG Polyethylene (Miralax Powder Packet) 17 gm DAILY PRN PO 09/25/16 23:30 10/25/16 23:29 Citalopram Hydrobromide (celeXA TAB) 20 mg QAM PO 09/26/16 09:00 10/26/16 08:59 10/06/16 09:20 20 MG Atorvastatin Calcium (Lipitor Tab) 40 mg HS PO 09/26/16 21:00 10/26/16 20:59 10/05/16 19:18 40 MG Clopidogrel Bisulfate (plAVix TAB) 75 mg QAM PO 09/26/16 09:00 10/26/16 08:59 10/06/16 09:23 75 MG Amlodipine Besylate (Norvasc Tab) 10 mg QAM PO 09/26/16 09:00 10/26/16 08:59 10/06/16 09:22 10 MG Tramadol HCl (Ultram Tab) 50 mg Q4H PRN PO 09/25/16 23:30 10/25/16 23:29 10/03/16 23:42 50 MG Glucose (Glucose 40% Gel) 15-30 GRAMS 15 GRAMS... UD PRN PO 09/26/16 00:30 10/26/16 00:29 Glucose (Glucose Chew Tab) 4-8 Tablets 4 Tabl... UD PRN PO 09/26/16 00:30 10/26/16 00:29 Dextrose (Dextrose 50% 50ML Syringe) 25-50ML OF 50% DW IV FOR... UD PRN IV 09/26/16 00:30 10/26/16 00:29 Glucagon (Glucagon Inj) 1 mg UD PRN SQ 09/26/16 00:30 10/26/16 00:29 Insulin Aspart (novoLOG ASPART) SLIDING SCALE G... ACHS SC 09/27/16 17:00 10/06/16 09:28 1 UNITS Albuterol/ Ipratropium (Duoneb) 3 ml QIDR INH 09/28/16 12:00 10/28/16 11:59 10/02/16 15:57 3 ML Albuterol/ Ipratropium (Duoneb) 3 ml Q2H PRN INH 09/28/16 11:15 10/28/16 11:14 10/01/16 03:26 3 ML Hydralazine HCl (HydrALAZINE INJ) 10 mg Q4H PRN IV 09/28/16 15:15 10/28/16 15:14 10/03/16 03:09 10 MG Arformoterol Tartrate (Brovana 15MCG/ 2ML Neb Soln) 15 mcg BIDR INH 09/28/16 20:00 10/28/16 19:59 10/06/16 07:18 15 MCG Carvedilol (Coreg Tab) 25 mg BID PO 09/30/16 21:00 10/30/16 20:59 10/06/16 09:21 25 MG Albuterol/ Ipratropium (Combivent Respimat Inh) 1 puffs QID INH 10/03/16 13:00 11/02/16 12:59 10/06/16 09:18 1 PUFFS Hydralazine HCl 100 mg 100 mg BID PO 10/04/16 21:00 11/03/16 20:59 10/06/16 09:20 100 MG Bumetanide/Syringe (Bumex IV/ Syringe) 4 ml @ 4 mls/min DAILY IV 10/05/16 09:00 11/04/16 08:59 10/06/16 09:19 4 MLS/MIN Heparin Sodium (Porcine) (Heparin Sq 5000 Unit/0.5ml) 5,000 unit Q12 SQ 10/05/16 21:00 11/04/16 20:59 10/06/16 09:24 5,000 UNIT Lab Results: 10/06/16 07:01 Test 10/05/16 12:00 10/05/16 22:00 10/06/16 06:41 10/06/16 07:01 Prothrombin Time 11.1 SECONDS (9.0-12.0) Prothromb Time International Ratio 1.0 (0.9-1.1) Activated Partial Thromboplast Time 32.7 SECONDS (21.0-31.0) Partial Thromboplastin Ratio 1.3 Bedside Glucose 168 mg/dl (70-90) Anion Gap 10.0 mmol/L (3-11) Est Creatinine Clear Calc Drug Dose 27.9 ml/min Estimated GFR () 19.7 Estimated GFR (Non- 17.0 BUN/Creatinine Ratio 17.3 (10-20) Calcium Level 8.7 mg/dl (8.5-10.1)
[2016-10-06] MEDS ORDERED: SODIUM CHLORIDE 0.9% 1000ML 1,000 ML IV SCH ×2 (11:30→18:45)
--- NOTE | 2016-10-06 13:58 | Progress Note ---
Subjective Date of Service: Oct 06, 2016. Subjective Pt evaluation today including: conversation w/ patient, conversation w/ family , physical exam, chart review, lab review, review of studies, conversation w/ financial planning consultant, review of inpatient medication list Doing well, no complaining, Review of Systems Constitutional: No chills, No fatigue, No fever, No problem reported, No sweats , No weakness, No weight loss Eyes: No diplopia, No discharge, No eye pain, No redness, No worsening of vision ENT: No dental problems, No hearing loss, No nasal symptoms, No sore throat, No tinnitus, No trouble swallowing, No unusual epistaxis Respiratory: No cough, No dyspnea at rest, No dyspnea on exertion, No hemoptysis, No shortness of breath, No sputum, No wheezing Cardiac: No PND, No chest pain, No claudication, No edema, No orthopnea, No palpitations Abdomen: No constipation, No diarrhea, No nausea, No pain, No vomiting Musculoskeletal: No calf pain, No joint pain, No muscle pain, No swelling Female : No abnormal vaginal bleeding, No dysuria, No hematuria, No incontinence, No urinary frequency, No vaginal discharge Neurologic: No balance problems, No memory loss, No numbness/tingling, No paralysis, No vertigo, No weakness Psychiatric: No anhedonism, No anxiety, No depression symptoms, No insomnia, No substance abuse Heme: No abnormal bleeding/bruising, No clotting problems, No night sweats, No swollen lymph nodes Endo: No excessive thirst, No excessive urination, No fatigue Skin: No bleeding, No color change, No itch, No new/changing skin lesions, No rash Objective Vital Signs Date Time Temp Pulse Resp B/P Pulse Ox O2 Delivery O2 Flow Rate FiO2 10/06/16 12:23 36.8 78 18 138/72 92 Nasal Cannula 2.0 10/06/16 12:00 Room Air 10/06/16 11:50 36.6 76 16 144/62 92 Room Air 10/06/16 10:29 Room Air 10/06/16 08:07 36.4 78 18 149/63 97 Nasal Cannula 2.0 10/06/16 08:05 36.6 79 18 149/83 98 Nasal Cannula 4.0 10/06/16 08:00 Room Air 10/06/16 07:22 80 18 100 Nasal Cannula 2.0 10/06/16 04:00 Room Air 10/06/16 02:55 36.7 87 18 175/77 92 Nasal Cannula 2.0 10/05/16 23:59 Room Air 10/05/16 23:18 37.1 78 20 159/79 96 Nasal Cannula 2.0 10/05/16 20:00 Room Air 10/05/16 19:25 80 18 96 Room Air 10/05/16 19:13 37.2 76 18 177/84 94 Room Air 2.0 10/05/16 16:25 36.8 80 18 167/82 96 Room Air 10/05/16 16:00 Room Air Physical Exam General Appearance: WD/WN, no apparent distress, + obese Eyes: normal inspection, PERRL, EOMI, sclerae normal ENT: normal ENT inspection, hearing grossly normal, pharynx normal Neck: supple, no adenopathy, thyroid normal, no JVD, no carotid bruits, trachea midline Respiratory/Chest: chest non-tender, normal breath sounds, no respiratory distress, no accessory muscle use, + decreased breath sounds Cardiovascular: regular rate, rhythm, no edema, no gallop, no JVD, no murmur Abdomen: normal bowel sounds, non tender, soft, no organomegaly, no pulsatile mass Extremities: normal range of motion, non-tender, normal inspection, no pedal edema, no calf tenderness, normal capillary refill, pelvis stable, + swelling ( trace edema) Neurologic/Psychiatric: meal cook II-XII nml as tested, no motor/sensory deficits, alert, normal mood/affect, oriented x 3 Skin: normal color, warm/dry, no rash Lymphatic: no adenopathy Laboratory Results Last 24 Hours Test 10/05/16 16:26 10/05/16 20:08 10/05/16 22:00 10/06/16 06:41 Bedside Glucose 193 mg/dl 189 mg/dl 168 mg/dl Test 10/06/16 07:01 10/06/16 11:24 Sodium Level 141 mmol/L Potassium Level 4.3 mmol/L Chloride Level 111 mmol/L Carbon Dioxide Level 20 mmol/L Anion Gap 10.0 mmol/L Blood Urea Nitrogen 52 mg/dl Creatinine 3.00 mg/dl Est Creatinine Clear Calc Drug Dose 27.9 ml/min Estimated GFR () 19.7 Estimated GFR (Non- 17.0 BUN/Creatinine Ratio 17.3 Random Glucose 174 mg/dl Calcium Level 8.7 mg/dl Bedside Glucose 186 mg/dl Assessment and Plan 51 F admitted admitted on 09/26/2016 because of acute diastolic heart failure, element of acute respiratory failure with possibly and chronic component and renal failure looking to be chronic renal failure stage 4, continued exertional dyspnea with concern for angina Acute decompensated diastolic CHF, stable bumex is reduced as Cr has risen 10/04 , has 11.5 L negative since admission which is associated with the 6 kg weight lost Plan to have diagnostic cath next week with nephrology oversight for potential post procedure renal failure, results of nuclear stress completed 10/02 ar concerning for multivessel cad that can be responsible for her [place] In bedside, with present outpatient patient's parent, discussed the risk and benefits and the best interest of the procedure, patient showed weaning to take on the risk to have left heart cath. NSTEMI, continues without chest pain but dyspneia on exertion is likely LV dysfunction with demand, stable Acute respiratory failure, perhaps undiagnosed chronic disease, treating like copd, breathing at rest has improved, stable BECKIE on CKD and diabetes nephropathy, stable Nephrology is concerned this maybe her baseline from summation of pre existing renal disease risk factors, Diuretic will be adjusted by technical administrator Pneumonia, concern for gram negative or mrsa, Patchy upper lobe infiltrates zosyn concern for mrsa and gram negatives given recent hospitalizations, has stop as improved Diabetes, continues in poor control, will tighten ssi Back pain CT negative for any pathologies Hypertension accelerated, recently increased to hydralazine to 100 twice a day, will follow-up GI and DVT prophylaxis ordered Continued [facility] stay due to: multiple IV medications needed Discharge planning: home
[2016-10-06] MEDS ORDERED: HEPARIN SOD (PORCINE) 1000 UNIT/ML 10 ML VIAL ONE ×2 (14:09→15:57)
[2016-10-06] MEDS ORDERED: FENTANYL CITRATE INJ 50 MCG/1 ML 2 ML VIAL ONE ×3 (14:09→16:53)
[2016-10-06] MEDS ORDERED: NiCARDipine HCL INJ 2.5 MG/ML 10 ML AMP ONE (14:09)
[2016-10-06] MEDS ORDERED: MIDAZOLAM HCL 1 MG/ML 2ML VIAL ONE ×5 (14:09→17:53)
[2016-10-06] MEDS ORDERED: NITROGLYCERIN/D5W 100MCG/ML 20ML SYR ONE (14:10)
--- NOTE | 2016-10-06 14:18 | Procedure Note ---
Pre-Mod Sedation Assessment General Date of Moderate Sedation: Oct 06, 2016. Vital Signs: Vital Signs Past 12 Hours Date Time Temp Pulse Resp B/P Pulse Ox O2 Delivery O2 Flow Rate FiO2 10/06/16 12:23 36.8 78 18 138/72 92 Nasal Cannula 2.0 10/06/16 12:00 Room Air 10/06/16 11:50 36.6 76 16 144/62 92 Room Air 10/06/16 10:29 Room Air 10/06/16 08:07 36.4 78 18 149/63 97 Nasal Cannula 2.0 10/06/16 08:05 36.6 79 18 149/83 98 Nasal Cannula 4.0 10/06/16 08:00 Room Air 10/06/16 07:22 80 18 100 Nasal Cannula 2.0 10/06/16 04:00 Room Air 10/06/16 02:55 36.7 87 18 175/77 92 Nasal Cannula 2.0 Review Cardiovascular: regular rate, rhythm, no murmur Abdomen: normal bowel sounds, non tender, soft Lungs: lungs clear, no respiratory distress Pre-Sedation Airway Assessment Oral Cavity: WNL Able to Visualize Vocal Cords: No Short Thick Neck: Yes Hx of Sleep Apnea: Yes Smoking Status: Former Smoker Mallampati Classification: Class III ASA Classification: Class III Procedure Planning Contraindications-for Mod Sed: None Yes Notes The planned sedation has been discussed with the patient and consent obtained. I have identified the patient, determined the appropriateness of sedation and have assessed the patient immediately prior to the procedure. All medicine(s) and interventions are by my order.
[2016-10-06] MEDS ORDERED: ADENOSINE IV SOLN 3 MG/ML 20 ML VIAL ONE (15:35)
[2016-10-06] MEDS ORDERED: CLOPIDOGREL BISULFATE 300 MG TAB PO ONE (17:36)
[2016-10-06] MEDS ORDERED: ASPIRIN 81 MG CHEW ONE (17:37)
[2016-10-06] MEDS: ONDANSETRON INJ 2 MG/ML 2 ML VIAL IV PRN (17:43)
[2016-10-06] MEDS ORDERED: NITROGLYCERIN OINT 2% 1GM PACKET ONE (17:47)
[2016-10-06] MEDS: TRAMADOL HCL 50 MG TAB PO PRN (18:37)
[2016-10-06] MEDS ORDERED: ACETAMINOPHEN 325 MG TAB PO PRN (18:45)
[2016-10-06] MEDS ORDERED: EPTIFIBATIDE BOLUS / DRIP IV ONE (18:45)
[2016-10-06] MEDS ORDERED: NITROGLYCERIN 0.4 MG SL PER TAB CHARGE SL PRN (18:45)
--- NOTE | 2016-10-06 18:49 | Procedure Note ---
Post-Mod Sedation Assessment General Date of Moderate Sedation Oct 06, 2016. Vital Signs: Vital Signs Past 12 Hours Date Time Temp Pulse Resp B/P Pulse Ox O2 Delivery O2 Flow Rate FiO2 10/06/16 12:23 36.8 78 18 138/72 92 Nasal Cannula 2.0 10/06/16 12:00 Room Air 10/06/16 11:50 36.6 76 16 144/62 92 Room Air 10/06/16 10:29 Room Air 10/06/16 08:07 36.4 78 18 149/63 97 Nasal Cannula 2.0 10/06/16 08:05 36.6 79 18 149/83 98 Nasal Cannula 4.0 10/06/16 08:00 Room Air 10/06/16 07:22 80 18 100 Nasal Cannula 2.0 10/06/16 04:00 Room Air 10/06/16 02:55 36.7 87 18 175/77 92 Nasal Cannula 2.0 Review - Discharge Criteria Vital Signs Stable: Yes Alert/Oriented/Conversant: Yes Returned to Baseline Mental St: Yes Nausea Absent/Minimal: Yes Pain/Discomfort/Absent/Minimal: Yes Normal/Baseline Respirations: Yes Active Bleeding?: No Pt Received D/C Instructions: N/A Prescriptions Given: None Specific Proced. D/C Criteria Distal Pulses Present (Cardiac: Yes Groin site assessed-Card Cath: N/A Voided Prior To Discharge: N/A Discharged Patients Adult Escort/Transportation: Yes
[2016-10-06] MEDS: EPTIFIBATIDE INJ 75 MG PREMIXED IV SCH (19:15)
--- NOTE | 2016-10-06 19:31 | Cardiac Catheterization ---
Procedure Note Procedure Date Oct 06, 2016. Pre-Procedure Diagnosis Acute Coronary Syndrome, Positive Stress Test AUC Score 9 Post-Procedure Diagnosis Severe CAD, Successful PCI Procedure(s) Performed Coronary Angiography, Bare Metal Stent, IVUS, Fractional Flow [facility] Doctor Dr. Lee Qm Nurse(s) Edilberto Estimated Blood Loss 15 Medication(s) Aspirin, Clopidogrel, Fentanyl, Heparin, Integrilin, Nicardipine, Nitroglycerin , Versed, Lidocaine 1% Summary of Findings Indication: NSTEMI/High risk stress test (LAD, RCA distribution ischemia) Access: 6Fr Slender Right Radial Artery Catheters: Obed, 5Fr EBU 3.5 (unable to pass 6Fr EBU 3.5) Findings: LM - Angiographically normal LAD - Diffuse mild-moderate proximal disease, focal "napkin ring" calcified 70% early-mid segment stenosis, 50-60% focal early-distal segment stenosis, diffuse apical disease and wraps around apex. Circumflex - Tortuous proximally. Luminal irregularities. High 1st OM is a small caliber vessel with 80% proximal disease and diffuse distal disease. Distal OMs small with luminal irregularities. RCA - Dominant, small caliber vessel, 40% diffuse proximal to early-mid segment disease, 50-60% diffuse mid segment, 70-80% focal distal segment. Very small R- PDA with 60% focal mid segment disease. 80% ostial stenosis very small PLB IVUS -- LM without significant disease -- Proximal LAD with diffuse noncalcified plaque (up to 60% stenosis) -- Early-Mid LAD with focal heavily calcified stenosis ~70% stenosis iFR -- mid LAD - 0.75 -- High OM1 0.77 After iFR decision made to complete procedure and discuss revascularization options. Post iFR angiography showed early distal LAD complete occlusion (MIRIAM 0 flow) thought secondary to coronary dissection. Initially chest pain free, hemodynamically stable. Decision made to proceed with PCI to re-establish flow -- PCI -- Antithrombotic therapy: Heparin, Integrilin Procedure: Using 5Fr EBU 3.5 guide BMW wire able to be passed into distal vessel Intraluminal position confirmed with injection through OTW balloon. Dissection ballooned with prolonged 2.0 balloon inflations with re- establishment of TIMI1 flow Vessel spasm treated with IC vasodilators Dissection treated again with prolonged 2.5 mm balloon inflation with still MIRIAM 1-2 flow. 2.5 x 26 Integrity BMS stent placed across dissection with re-established TIMI3 flow. Stent post-dilated with 2.5 NC balloon. IC vasodilators administered for spasm 70% focal mid LAD lesion then pre-dilated with 2.5 compliant balloon. 3.0 x 15 Integrity BMS placed across lesion and post-dilated with 3.0 NC balloon Post procedure MIRIAM 3 flow, stents reasonably well expanded. Hazy opacity noted in distal stent thought likely thrombus. No evidence of edge dissection. Started on integrilin infusion. Arterial Closure: TR Band. Sheath removal complicated by severe radial spasm requiring versed, repeated IC nitroglycerin/nicardipine and placement of nitro- patch. Summary: 1. Moderate to severe multivessel coronary artery disease - Diffuse proximal LAD stenosis (up to 60% by IVUS) - 70% focal calcified early-mid LAD - 80% proximal small to moderate OM1 - Diffuse mid RCA (up to 60%), 70-80% distal RCA 2. Flow-limiting stenosis in mid LAD (iFR 0.75), proximal OM1 (iFR 0.77) 3. Distal LAD acute complete occlusion secondary to coronary dissection from iFR wire 4. Successful PCI of early-mid LAD and distal LAD with non-overlapping BMS (3.0 x 15, 2.5 x 26) Recommendations: Return to telemetry for continued monitoring Continue integrilin for 12 hours for residual intracoronary thrombus Loaded with 300 mg Clopidogrel, 324 ASA in laboratory chemist Continue dual-antiplatelet therapy with ASA/Clopidogrel for 1 year Normal saline 200 cc/hr for 2 hrs post procedure --> follow-up renal function to assess for MARSHAL Continue high-dose statins, antihypertensives Consult cardiac Rehab RCA and OM1 vessels are small and diffusely diseased. Will plan to medically manage. Hemodynamics Rest Ao: 141/56/89 Final Ao: 126/62/89 LV: -- Recommendations PCI without planned CABG Specimens None Radiation Exposure (mGy) 7334 (Patient counseled on high radiation exposure) Contrast (mls) 160 Visipaque Fluids (cc crystalloids) 360 NSS Drains None Anesthesia Moderate (start 14:23, End 17:50) Procedural Complication(s) Coronary artery dissection --> treated with BMS Disposition PCU ACC Data Cardiac Status Clinical evaluation leading to the procedure CAD Presntation: Non STEMI, Positive Stress Test Anginal Classification: CCS IV Heart Failure: No, NYHA Class: CCS I Cardiogenic Shock w/in 24Hrs: No Cardiac Arrest w/in 24Hrs: No Imaging studies past 6 months: Yes Stress studies past 6 months: Yes Standard Exercise Stress Test: No Stress Echocardiogram: No Stress Testing w/SPECT MPI: Yes - Positive, Risk/Extent of Ischemia (High) Coronary Anatomy Dominant: Right Left Main (% Stenosis): Normal LAD (% Stenosis): Proximal (60), Mid (70) OM1 (% Stenosis): Proximal (80) RCA (% Stenosis): Proximal (40), Mid (60), Distal (75) R PDA (% Stenosis): Mid (60) R PL2 (% Stenosis): Ostial (90) Diagnostic Physician's Name: Aston Lee MD Status: Elective Closure Device Percutaneous Entry Location: Radial Closure Device: Radial Band Recommendations: PCI without planned CABG Lesion Segment Name: Mid LAD Culprit Artery: Yes Stenosis Prior to Rx (%): 70 Chronic Total Occlusion: No IVUS: Yes FFR: Yes Ratio: less than or equal to 0.75% Pre-Procedure MIRIAM Flow: 3 Previously Treated Lesion: No Lesion Complexity: Non-High/Non-C Lesion Length (mm): 12 Thrombus Present: No Bifurcation Lesion: No Guidewire Across Lesion: Yes Guidewire: Stenosis Post-Procedure (%): 0 Post-Procedure MIRIAM Flow: 3 Device(s) Deployed: Yes Lesion #2 Segment Name: Distal LAD Culprit Artery: No Stenosis Prior to Rx (%): 100 Chronic Total Occlusion: No IVUS: No FFR: No Pre-Procedure MIRIAM Flow: 0 Previously Treated Lesion: No Lesion Complexity: High/C Thrombus Present: Yes Bifurcation Lesion: No Guidewire Across Lesion: Yes Intraprocedure Events Significant Dissection: Yes Perforation: No
[2016-10-06] MEDS: ATORVASTATIN 40 MG TAB PO SCH (20:48)
[2016-10-07] VITALS (11 sets, daily range): BP systolic 123–148; BP diastolic 53–80; PULSE 74–90; TEMP 36.8–37.2; O2SAT 90–95
[2016-10-07] MEDS: TRAMADOL HCL 50 MG TAB PO PRN ×3 (00:46→19:06)
[2016-10-07] MEDS: EPTIFIBATIDE INJ 75 MG PREMIXED IV SCH (01:28)
[2016-10-07] MEDS ORDERED: Integrelin infusion --> STOP ORDER ONE (07:00)
[2016-10-07] MEDS: ARFORMOTEROL TART 15MCG/2ML VIAL INH SCH ×2 (07:16→19:12)
[2016-10-07] MEDS: CITALOPRAM 20 MG TAB PO SCH (08:06)
[2016-10-07] MEDS: AMLODIPINE BESYLATE 5 MG TAB PO SCH (08:07)
[2016-10-07] MEDS: ASPIRIN 81 MG ECTAB PO SCH (08:08)
[2016-10-07] MEDS: CARVEDILOL 25 MG TAB PO SCH ×2 (08:08→20:39)
[2016-10-07] MEDS: IPRATROPIUM BROMIDE/ALBUTEROL respimat INH INH SCH ×4 (08:10→20:40)
[2016-10-07] MEDS: HEPARIN SOD 5000 UNIT/0.5 ML CARP SQ SCH ×2 (08:12→20:43)
[2016-10-07] MEDS: INSULIN ASPART 100 UNITS/ML 3 ML PEN SC SCH ×4 (08:14→20:43)
[2016-10-07] MEDS: BUMETANIDE IV 1 MG in SYRINGE 0 ML IV SCH (08:16)
[2016-10-07] MEDS: CLOPIDOGREL BISULFATE 75 MG TAB PO SCH (08:17)
[2016-10-07 08:42] LABS: BASO % 0.5 %; BASO ABS # 0.06 K/uL (0-0.2); EOS % 1.3 %; HEMATOCRIT 27.6 % (37-47); IG% 0.3 %; LYMPH % 9.2 %; LYMPH ABS # 1.07 K/uL (1.2-3.4); MEAN CELL VOLUME 91.4 fL (80-100); MEAN CORPUSCULAR HEMOGLOBIN 29.5 pg (25-34); MEAN CORPUSCULAR HGB CONC 32.2 g/dl (32-36); MEAN PLATELET VOLUME 10.8 fL (7.4-10.4); MONO % 8.1 %; NEUT % 80.6 %; PLATELET COUNT 340 K/uL (130-400); RED BLOOD COUNT 3.02 M/uL (4.2-5.4); WHITE BLOOD COUNT 11.61 K/uL (4.8-10.8)
[2016-10-07 09:19] LABS: COMPLETE YES
[2016-10-07 09:27] LABS: BUN/CREATININE RATIO 16.1 (10-20); CALCIUM 8.6 mg/dl (8.5-10.1); CREATININE 3.4 mg/dl (0.60-1.20)
--- NOTE | 2016-10-07 12:14 | Nephrology Progress Note ---
Nephrology Progress Note Date of Service Oct 07, 2016. Chief Complaint Follow up evaluation of acute on chronic kidney injury in this patient admitted w/ CHF Subjective Mrs. Gutierrez was seen & examined in the PCU this morning. She was admitted to the hospital w/ CHF. She has responded well to IV diuretic therapy. She has diuresed ~ 12 L since admission. Her weight has dropped from 127 to 121 kg. She is breathing comfortably on O2 at 3 L / min NC. She does become SOB with exertion. The patient was admitted w/ a NSTEMI. She underwent cardiac catheterization . She required PCI w/ BMS x 2. She currently denies angina. Mrs. Gutierrez has CKD. Her baseline creatinine has been 2.0. Her renal impairment is due to diabetic nephropathy. Review of Systems Constitutional: No fever Cardiovascular: No chest pain Respiratory: No dyspnea at rest Abdomen: No nausea, No pain, No vomiting Extremities: + leg edema A complete review of systems was performed. Pertinent positives are noted above. All other systems are negative. Vital Signs Last 8 Hrs Date Time Temp Pulse Resp B/P Pulse Ox O2 Delivery O2 Flow Rate FiO2 10/07/16 11:08 37.0 78 22 123/78 91 Nasal Cannula 3.0 Humidified Oxygen 10/07/16 08:00 93 Nasal Cannula 2.0 Humidified Oxygen 10/07/16 07:55 36.8 89 20 131/63 93 Nasal Cannula 3.0 Humidified Oxygen 10/07/16 07:16 74 18 94 Nasal Cannula 4.0 I & O 24-Hour Column 10/07/16 08:00 Intake Total 1371 ml Output Total 1950 ml Balance -579 ml Last Recorded Weight Weight (Kilograms): 122.100 Physical Exam General Appearance: no apparent distress Head: normocephalic, atraumatic Eyes: PERRL, EOMI Neck: no adenopathy Respiratory/Chest: lungs clear, no respiratory distress Cardiovascular: regular rate, rhythm Abdomen/GI: normal bowel sounds, non tender, soft Extremities/Musculoskelatal: no calf tenderness, + pertinent finding (trace pretibial edema) Neurologic/Psych: alert, oriented x 3 Laboratory Results Past 24 Hours 10/07/16 08:20 Red Blood Count 3.02, Mean Corpuscular Volume 91.4, Mean Corpuscular Hemoglobin 29.5, Mean Corpuscular Hemoglobin Concent 32.2, Mean Platelet Volume 10.8, Neutrophils (%) (Auto) 80.6, Lymphocytes (%) (Auto) 9.2, Monocytes (%) (Auto) 8.1, Eosinophils (%) (Auto) 1.3, Basophils (%) (Auto) 0.5, Neutrophils # (Auto) 9.36, Lymphocytes # (Auto) 1.07, Monocytes # (Auto) 0.94, Eosinophils # (Auto) 0.15, Basophils # (Auto) 0.06 10/07/16 08:20 Test 10/06/16 15:45 10/06/16 16:16 10/06/16 16:40 10/06/16 18:39 Kaolin Activated Coagulation Time 198 SECONDS (94-140) 214 SECONDS (94-140) 219 SECONDS (94-140) Bedside Glucose 189 mg/dl (70-90) Test 10/06/16 20:19 10/07/16 06:41 10/07/16 08:20 10/07/16 11:05 Bedside Glucose 219 mg/dl (70-90) 184 mg/dl (70-90) 273 mg/dl (70-90) White Blood Count 11.61 K/uL (4.8-10.8) Red Blood Count 3.02 M/uL (4.2-5.4) Hemoglobin 8.9 g/dL (12.0-16.0) Hematocrit 27.6 % (37-47) Mean Corpuscular Volume 91.4 fL (80-100) Mean Corpuscular Hemoglobin 29.5 pg (25-34) Mean Corpuscular Hemoglobin Concent 32.2 g/dl (32-36) Platelet Count 340 K/uL (130-400) Mean Platelet Volume 10.8 fL (7.4-10.4) Neutrophils (%) (Auto) 80.6 % Lymphocytes (%) (Auto) 9.2 % Monocytes (%) (Auto) 8.1 % Eosinophils (%) (Auto) 1.3 % Basophils (%) (Auto) 0.5 % Neutrophils # (Auto) 9.36 K/uL (1.4-6.5) Lymphocytes # (Auto) 1.07 K/uL (1.2-3.4) Monocytes # (Auto) 0.94 K/uL (0.11-0.59) Eosinophils # (Auto) 0.15 K/uL (0-0.5) Basophils # (Auto) 0.06 K/uL (0-0.2) RDW Standard Deviation 48.8 fL (36.4-46.3) RDW Coefficient of Variation 14.8 % (11.5-14.5) Immature Granulocyte % (Auto) 0.3 % Immature Granulocyte # (Auto) 0.03 K/uL (0.00-0.02) Red Blood Cell Morphology Unremarkable Anion Gap 12.0 mmol/L (3-11) Est Creatinine Clear Calc Drug Dose 24.7 ml/min Estimated GFR () 17.0 Estimated GFR (Non- 14.6 BUN/Creatinine Ratio 16.1 (10-20) Calcium Level 8.6 mg/dl (8.5-10.1) Magnesium Level 2.0 mg/dl (1.8-2.4) Allergies Coded Allergies: Latex1 -Allergic Contact Dermititis (Verified Adverse Reaction, Mild, RASH , 09/25/16) Medications Current Inpatient Medications Medications (Trade) Dose Ordered Sig/Elizabet Route Start Time Stop Time Status Last Admin Dose Admin Acetaminophen (Tylenol Tab) 650 mg Q4H PRN PO 09/25/16 23:30 10/25/16 23:29 10/01/16 10:04 650 MG Al Hydrox/Mg Hydrox/Simethicone (Maalox Max Susp) 15 ml Q4H PRN PO 09/25/16 23:30 10/25/16 23:29 Magnesium Hydroxide (Milk Of Magnesia Susp) 30 ml Q12H PRN PO 09/25/16 23:30 10/25/16 23:29 Ondansetron HCl (Zofran Inj) 4 mg Q6H PRN IV 09/25/16 23:30 10/25/16 23:29 10/06/16 17:43 4 MG Nitroglycerin (Nitrostat Tab) 0.4 mg UD PRN SL 09/25/16 23:30 10/25/16 23:29 Morphine Sulfate (MoRPHine SULFATE INJ) 2 mg Q30M PRN IV 09/25/16 23:30 10/09/16 23:29 09/26/16 08:34 2 MG Polyethylene (Miralax Powder Packet) 17 gm DAILY PRN PO 09/25/16 23:30 10/25/16 23:29 Citalopram Hydrobromide (celeXA TAB) 20 mg QAM PO 09/26/16 09:00 10/26/16 08:59 10/07/16 08:06 20 MG Atorvastatin Calcium (Lipitor Tab) 40 mg HS PO 09/26/16 21:00 10/26/16 20:59 10/06/16 20:48 40 MG Clopidogrel Bisulfate (plAVix TAB) 75 mg QAM PO 09/26/16 09:00 10/26/16 08:59 10/07/16 08:17 75 MG Amlodipine Besylate (Norvasc Tab) 10 mg QAM PO 09/26/16 09:00 10/26/16 08:59 10/07/16 08:07 10 MG Tramadol HCl (Ultram Tab) 50 mg Q4H PRN PO 09/25/16 23:30 10/25/16 23:29 10/07/16 06:42 50 MG Glucose (Glucose 40% Gel) 15-30 GRAMS 15 GRAMS... UD PRN PO 09/26/16 00:30 10/26/16 00:29 Glucose (Glucose Chew Tab) 4-8 Tablets 4 Tabl... UD PRN PO 09/26/16 00:30 10/26/16 00:29 Dextrose (Dextrose 50% 50ML Syringe) 25-50ML OF 50% DW IV FOR... UD PRN IV 09/26/16 00:30 10/26/16 00:29 Glucagon (Glucagon Inj) 1 mg UD PRN SQ 09/26/16 00:30 10/26/16 00:29 Insulin Aspart (novoLOG ASPART) SLIDING SCALE G... ACHS SC 09/27/16 17:00 10/27/16 16:59 10/07/16 11:59 11 UNITS Albuterol/ Ipratropium (Duoneb) 3 ml Q2H PRN INH 09/28/16 11:15 10/28/16 11:14 10/01/16 03:26 3 ML Hydralazine HCl (HydrALAZINE INJ) 10 mg Q4H PRN IV 09/28/16 15:15 10/28/16 15:14 10/03/16 03:09 10 MG Arformoterol Tartrate (Brovana 15MCG/ 2ML Neb Soln) 15 mcg BIDR INH 09/28/16 20:00 10/28/16 19:59 10/07/16 07:16 15 MCG Carvedilol (Coreg Tab) 25 mg BID PO 09/30/16 21:00 10/30/16 20:59 10/07/16 08:08 25 MG Albuterol/ Ipratropium (Combivent Respimat Inh) 1 puffs QID INH 10/03/16 13:00 11/02/16 12:59 10/07/16 12:03 1 PUFFS Hydralazine HCl 100 mg 100 mg BID PO 10/04/16 21:00 11/03/16 20:59 10/07/16 08:07 100 MG Bumetanide/Syringe (Bumex IV/ Syringe) 4 ml @ 4 mls/min DAILY IV 10/05/16 09:00 11/04/16 08:59 10/07/16 08:16 4 MLS/MIN Heparin Sodium (Porcine) (Heparin Sq 5000 Unit/0.5ml) 5,000 unit Q12 SQ 10/05/16 21:00 11/04/16 20:59 10/07/16 08:12 5,000 UNIT Aspirin (Ecotrin Tab) 81 mg QAM PO 10/07/16 09:00 11/06/16 08:59 10/07/16 08:08 81 MG Impression (1) Chronic kidney disease, stage III (moderate) (2) Acute on chronic diastolic CHF (congestive heart failure) (3) Acute renal insufficiency (4) Diabetic nephropathy (5) Nephrotic range proteinuria Mrs. Gutierrez is a 51-year-old female with stage III CKD (baseline creatinine ~2.0 mg/dL) attributed to diabetic nephropathy, obesity and hypertensive nephrosclerosis. She has evidence of nephrosis with nephrotic range proteinuria. She has superimposed BECKIE. She has a history of recurrent BECKIE. She was admitted with acute hypoxic respiratory failure in the setting of hypervolemia related to acute on chronic diastolic CHF and advanced renal disease. She suffered a NSTEMI. She required cardiac catheterization, PCI w/ BMS x 2 10/06/16. Mrs. Gutierrez was recently treated for pneumonia. She developed acute renal failure in the setting of pneumonia. Dialysis was considered but fortunately not necessary at that time. She is aware of the advanced and complicated nature of her kidney and cardiac disease. Volume status improved with diuretics. GIOVANNI/ARB held due to elevated creatinine. Risk of requiring renal replacement therapy in the next several months is high regardless of whether or not cardiac catheterization is performed. Dr. Rodriguez in [facility] has been [facility]'s primary sharepoint developer. He had discussed potential role of renal replacement therapy in the past. Recommendations ACUTE KIDNEY INJURY: -- Serum creatinine has risen to 3.5 this morning. Patient remains nonoliguric. 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 Procrit 33288 units given on 10/02/16 CONGESTIVE HEART FAILURE: -- Hydralazine increased to 100 mg BID -- Cardiac cath report from 10/06/16 reviewed today. Patient required PCI w/ BMX x 2.
[2016-10-07] MEDS ORDERED: SODIUM BICARBONATE 650 MG TAB PO ONE (12:15)
--- NOTE | 2016-10-07 13:08 | Cardiology Follow-Up ---
Subjective Subjective Date of Service: Oct 07, 2016. Pt evaluation today including: conversation w/ patient, physical exam, chart review, lab review, review of studies, review of inpatient medication list Additional Details: Patient feeling well today. No significant chest pain. Shortness of breath stable from last several days. Mild right upper extremity pain. No significant pain at right radial artery access site Telemetry reviewed--no significant events overnight Review of Systems Constitutional: No fever Respiratory: + shortness of breath, No wheezing Cardiac: + edema, No chest pain, No palpitations Abdomen: No nausea, No pain Neurologic: No numbness/tingling, No weakness Heme: No abnormal bleeding/bruising Endo: + fatigue Skin: + problem reported (Mild ecchymosis at proximal aspect of right upper extremity forearm) Objective Vital Signs Last Vital Signs Documentation Date Time Temp Pulse Resp B/P Pulse Ox O2 Delivery O2 Flow Rate FiO2 10/07/16 12:00 93 Nasal Cannula 2.0 Humidified Oxygen 10/07/16 11:08 37.0 78 22 123/78 09/26/16 15:31 30 Physical Exam: General Appearance: no apparent distress, + obese ENT: hearing grossly normal Neck: no JVD Respiratory/Chest: chest non-tender, normal breath sounds, no respiratory distress Cardiovascular: regular rate, rhythm, no murmur, + pertinent finding (Trace pedal edema bilaterally) Abdomen: normal bowel sounds, non tender, soft Extremities: no pedal edema, no calf tenderness, normal capillary refill, + swelling (trace edema), + pertinent finding (No hematoma at right radial access site. Distal sensation, cap refill, radial pulse is intact) Neurologic/Psychiatric: alert, normal mood/affect, oriented x 3 Skin: normal color, warm/dry, no rash Assessment and Plan 1. Acute diastolic heart failure -- well-perfused, volume status improved from admission; continue diuretics per renal 2. NSTEMI/coronary artery disease - postprocedure day 1 status post PCI with bare metal stent x2 to mid and distal LAD; diffuse RCA, OM 1 residual disease 3. Acute on CKD - SCr up to 3.4 today; non oliguric; being followed closely by Nephrology 4. Type 2 diabetes -- on insulin 5. Anemia -- stable 6. HTN -- improved blood pressure control today Overall from a cardiac standpoint patient doing reasonably well following procedure yesterday. No access site complications. Continue dual antiplatelet therapy for at least a year No change to current antihypertensives or statin therapy No plans for additional coronary interventions Diuretics per Nephrology Continued [facility] stay due to: multiple IV medications needed Discharge planning: home Medications: Current Inpatient Medications Medications (Trade) Dose Ordered Sig/Elizabet Route Start Time Stop Time Status Last Admin Dose Admin Acetaminophen (Tylenol Tab) 650 mg Q4H PRN PO 09/25/16 23:30 10/25/16 23:29 10/01/16 10:04 650 MG Al Hydrox/Mg Hydrox/Simethicone (Maalox Max Susp) 15 ml Q4H PRN PO 09/25/16 23:30 10/25/16 23:29 Magnesium Hydroxide (Milk Of Magnesia Susp) 30 ml Q12H PRN PO 09/25/16 23:30 10/25/16 23:29 Ondansetron HCl (Zofran Inj) 4 mg Q6H PRN IV 09/25/16 23:30 10/25/16 23:29 10/06/16 17:43 4 MG Nitroglycerin (Nitrostat Tab) 0.4 mg UD PRN SL 09/25/16 23:30 10/25/16 23:29 Morphine Sulfate (MoRPHine SULFATE INJ) 2 mg Q30M PRN IV 09/25/16 23:30 10/09/16 23:29 09/26/16 08:34 2 MG Polyethylene (Miralax Powder Packet) 17 gm DAILY PRN PO 09/25/16 23:30 10/25/16 23:29 Citalopram Hydrobromide (celeXA TAB) 20 mg QAM PO 09/26/16 09:00 10/26/16 08:59 10/07/16 08:06 20 MG Atorvastatin Calcium (Lipitor Tab) 40 mg HS PO 09/26/16 21:00 10/26/16 20:59 10/06/16 20:48 40 MG Clopidogrel Bisulfate (plAVix TAB) 75 mg QAM PO 09/26/16 09:00 10/26/16 08:59 10/07/16 08:17 75 MG Amlodipine Besylate (Norvasc Tab) 10 mg QAM PO 09/26/16 09:00 10/26/16 08:59 10/07/16 08:07 10 MG Tramadol HCl (Ultram Tab) 50 mg Q4H PRN PO 09/25/16 23:30 10/25/16 23:29 10/07/16 06:42 50 MG Glucose (Glucose 40% Gel) 15-30 GRAMS 15 GRAMS... UD PRN PO 09/26/16 00:30 10/26/16 00:29 Glucose (Glucose Chew Tab) 4-8 Tablets 4 Tabl... UD PRN PO 09/26/16 00:30 10/26/16 00:29 Dextrose (Dextrose 50% 50ML Syringe) 25-50ML OF 50% DW IV FOR... UD PRN IV 09/26/16 00:30 10/26/16 00:29 Glucagon (Glucagon Inj) 1 mg UD PRN SQ 09/26/16 00:30 10/26/16 00:29 Insulin Aspart (novoLOG ASPART) SLIDING SCALE G... ACHS SC 09/27/16 17:00 10/27/16 16:59 10/07/16 11:59 11 UNITS Albuterol/ Ipratropium (Duoneb) 3 ml Q2H PRN INH 09/28/16 11:15 10/28/16 11:14 10/01/16 03:26 3 ML Hydralazine HCl (HydrALAZINE INJ) 10 mg Q4H PRN IV 09/28/16 15:15 10/28/16 15:14 10/03/16 03:09 10 MG Arformoterol Tartrate (Brovana 15MCG/ 2ML Neb Soln) 15 mcg BIDR INH 09/28/16 20:00 10/28/16 19:59 10/07/16 07:16 15 MCG Carvedilol (Coreg Tab) 25 mg BID PO 09/30/16 21:00 10/30/16 20:59 10/07/16 08:08 25 MG Albuterol/ Ipratropium (Combivent Respimat Inh) 1 puffs QID INH 10/03/16 13:00 11/02/16 12:59 10/07/16 12:03 1 PUFFS Hydralazine HCl 100 mg 100 mg BID PO 10/04/16 21:00 11/03/16 20:59 10/07/16 08:07 100 MG Bumetanide/Syringe (Bumex IV/ Syringe) 4 ml @ 4 mls/min DAILY IV 10/05/16 09:00 11/04/16 08:59 10/07/16 08:16 4 MLS/MIN Heparin Sodium (Porcine) (Heparin Sq 5000 Unit/0.5ml) 5,000 unit Q12 SQ 10/05/16 21:00 11/04/16 20:59 10/07/16 08:12 5,000 UNIT Aspirin (Ecotrin Tab) 81 mg QAM PO 10/07/16 09:00 11/06/16 08:59 10/07/16 08:08 81 MG Sodium Bicarbonate (Sodium Bicarbonate Tab) 650 mg NOW PO 10/07/16 12:15 11/06/16 12:14 UNV Lab Results: 10/07/16 08:20 Red Blood Count 3.02, Mean Corpuscular Volume 91.4, Mean Corpuscular Hemoglobin 29.5, Mean Corpuscular Hemoglobin Concent 32.2, Mean Platelet Volume 10.8, Neutrophils (%) (Auto) 80.6, Lymphocytes (%) (Auto) 9.2, Monocytes (%) (Auto) 8.1, Eosinophils (%) (Auto) 1.3, Basophils (%) (Auto) 0.5, Neutrophils # (Auto) 9.36, Lymphocytes # (Auto) 1.07, Monocytes # (Auto) 0.94, Eosinophils # (Auto) 0.15, Basophils # (Auto) 0.06 10/07/16 08:20 Test 10/06/16 16:40 10/07/16 08:20 10/07/16 11:05 Kaolin Activated Coagulation Time 219 SECONDS (94-140) White Blood Count 11.61 K/uL (4.8-10.8) Red Blood Count 3.02 M/uL (4.2-5.4) Hemoglobin 8.9 g/dL (12.0-16.0) Hematocrit 27.6 % (37-47) Mean Corpuscular Volume 91.4 fL (80-100) Mean Corpuscular Hemoglobin 29.5 pg (25-34) Mean Corpuscular Hemoglobin Concent 32.2 g/dl (32-36) Platelet Count 340 K/uL (130-400) Mean Platelet Volume 10.8 fL (7.4-10.4) Neutrophils (%) (Auto) 80.6 % Lymphocytes (%) (Auto) 9.2 % Monocytes (%) (Auto) 8.1 % Eosinophils (%) (Auto) 1.3 % Basophils (%) (Auto) 0.5 % Neutrophils # (Auto) 9.36 K/uL (1.4-6.5) Lymphocytes # (Auto) 1.07 K/uL (1.2-3.4) Monocytes # (Auto) 0.94 K/uL (0.11-0.59) Eosinophils # (Auto) 0.15 K/uL (0-0.5) Basophils # (Auto) 0.06 K/uL (0-0.2) RDW Standard Deviation 48.8 fL (36.4-46.3) RDW Coefficient of Variation 14.8 % (11.5-14.5) Immature Granulocyte % (Auto) 0.3 % Immature Granulocyte # (Auto) 0.03 K/uL (0.00-0.02) Red Blood Cell Morphology Unremarkable Anion Gap 12.0 mmol/L (3-11) Est Creatinine Clear Calc Drug Dose 24.7 ml/min Estimated GFR () 17.0 Estimated GFR (Non- 14.6 BUN/Creatinine Ratio 16.1 (10-20) Calcium Level 8.6 mg/dl (8.5-10.1) Magnesium Level 2.0 mg/dl (1.8-2.4) Bedside Glucose 273 mg/dl (70-90)
[2016-10-07 15:44] LABS: FREE KAPPA 82.8 MG/L (3.3-19.4); FREE LAMBDA 63.6 MG/L (5.7-26.3)
--- NOTE | 2016-10-07 15:45 | Progress Note ---
Subjective Date of Service: Oct 07, 2016. Objective Vital Signs Date Time Temp Pulse Resp B/P Pulse Ox O2 Delivery O2 Flow Rate FiO2 10/07/16 12:00 93 Nasal Cannula 2.0 Humidified Oxygen 10/07/16 11:08 37.0 78 22 123/78 91 Nasal Cannula 3.0 Humidified Oxygen 10/07/16 08:00 93 Nasal Cannula 2.0 Humidified Oxygen 10/07/16 07:55 36.8 89 20 131/63 93 Nasal Cannula 3.0 Humidified Oxygen 10/07/16 07:16 74 18 94 Nasal Cannula 4.0 10/07/16 04:00 Nasal Cannula 2.0 10/07/16 03:57 36.9 77 18 126/77 95 Room Air 10/07/16 00:00 36.9 78 20 147/80 95 Nasal Cannula 4.0 10/06/16 23:59 Nasal Cannula 2.0 10/06/16 20:45 36.7 75 147/85 96 Nasal Cannula 2.0 10/06/16 20:30 75 18 149/82 97 Nasal Cannula 2.0 10/06/16 20:15 76 18 155/84 97 Room Air 10/06/16 20:00 Nasal Cannula 2.0 10/06/16 20:00 86 18 144/80 97 Nasal Cannula 2.0 10/06/16 19:45 36.6 75 18 133/73 96 Nasal Cannula 2.0 10/06/16 19:22 36.5 76 18 167/93 98 Nasal Cannula 4.0 10/06/16 19:15 78 175/98 97 Nasal Cannula 2.0 10/06/16 19:15 79 18 97 Nasal Cannula 4.0 10/06/16 19:00 36.8 80 19 175/99 96 Nasal Cannula 4.0 10/06/16 18:45 85 19 162/79 97 Nasal Cannula 4.0 10/06/16 18:25 88 17 150/86 94 Nasal Cannula 4.0 10/06/16 18:15 Nasal Cannula 4.0 10/06/16 18:05 78 16 140/65 98 Room Air 10/06/16 18:00 80 16 145/70 98 Room Air 10/06/16 17:55 82 16 146/66 98 Room Air 10/06/16 17:50 86 16 156/68 98 Room Air Laboratory Results Last 24 Hours Test 10/06/16 15:45 10/06/16 16:16 10/06/16 16:40 10/06/16 18:39 Kaolin Activated Coagulation Time 198 SECONDS 214 SECONDS 219 SECONDS Bedside Glucose 189 mg/dl Test 10/06/16 20:19 10/07/16 06:41 10/07/16 08:20 10/07/16 11:05 Bedside Glucose 219 mg/dl 184 mg/dl 273 mg/dl White Blood Count 11.61 K/uL Red Blood Count 3.02 M/uL Hemoglobin 8.9 g/dL Hematocrit 27.6 % Mean Corpuscular Volume 91.4 fL Mean Corpuscular Hemoglobin 29.5 pg Mean Corpuscular Hemoglobin Concent 32.2 g/dl Platelet Count 340 K/uL Mean Platelet Volume 10.8 fL Neutrophils (%) (Auto) 80.6 % Lymphocytes (%) (Auto) 9.2 % Monocytes (%) (Auto) 8.1 % Eosinophils (%) (Auto) 1.3 % Basophils (%) (Auto) 0.5 % Neutrophils # (Auto) 9.36 K/uL Lymphocytes # (Auto) 1.07 K/uL Monocytes # (Auto) 0.94 K/uL Eosinophils # (Auto) 0.15 K/uL Basophils # (Auto) 0.06 K/uL RDW Standard Deviation 48.8 fL RDW Coefficient of Variation 14.8 % Immature Granulocyte % (Auto) 0.3 % Immature Granulocyte # (Auto) 0.03 K/uL Red Blood Cell Morphology Unremarkable Sodium Level 138 mmol/L Potassium Level 5.0 mmol/L Chloride Level 108 mmol/L Carbon Dioxide Level 18 mmol/L Anion Gap 12.0 mmol/L Blood Urea Nitrogen 55 mg/dl Creatinine 3.40 mg/dl Est Creatinine Clear Calc Drug Dose 24.7 ml/min Estimated GFR () 17.0 Estimated GFR (Non- 14.6 BUN/Creatinine Ratio 16.1 Random Glucose 207 mg/dl Calcium Level 8.6 mg/dl Magnesium Level 2.0 mg/dl Test 10/07/16 15:15 Assessment and Plan 51 F admitted admitted on 09/26/2016 because of acute diastolic heart failure, and renal failure after recent pneumonia , suffered a NSTEMI. She required cardiac catheterization, PCI w/ BMS x 2 10/06/16. NSTEMI/coronary artery disease - postprocedure day 1 status post PCI with bare metal stent x2 to mid and distal LAD; diffuse RCA, OM 1 residual disease Acute decompensated diastolic CHF, stable Acute respiratory failure, perhaps undiagnosed chronic disease, treating like copd, breathing at rest has improved, stable BECKIE on CKD and diabetes nephropathy, creatinine getting worse after cardiac cath , Nephrology on the case, will continue IV fluid with bicarbonate, monitor renal function Resent Pneumonia, as complete IV antibiotic treatment Diabetes, continues in poor control, continue insulin sliding scale Hypertension accelerated, recently increased to hydralazine to 100 twice a day, will follow-up Discussed with the cardiology nephrology, Continue dual antiplatelet therapy for at least a year No change to current antihypertensives or statin therapy No plans for additional coronary interventions Diuretics per Nephrology Possible home soon if kidney condition stable and outpatient follow-up with cardiology and nephrology, Need to have cardiac rehabilitation, his cousin is with the patient, she reported PCP is Dr. Isauro perdomo, encourage her to follow-up with Dr. perdomo to arrange for the cardiac rehabilitation as outpatient Patient agreed Possible has RENETTA but has not yet been evaluated I encouraged her to follow-up with PCP GI and DVT prophylaxis ordered Continued [facility] stay due to: multiple IV medications needed Discharge planning: home
[2016-10-07] MEDS ORDERED: EPTIFIBATIDE 2 MG/ML 10 ML VIAL IV ONE (16:04)
[2016-10-07] MEDS ORDERED: EPTIFIBATIDE 0.75 MG/ML 75MG VIAL IV ONE (16:04)
[2016-10-07 16:11] LABS: BUN/CREATININE RATIO 14.3 (10-20); CALCIUM 8.3 mg/dl (8.5-10.1); CREATININE 4.1 mg/dl (0.60-1.20); POTASSIUM 4.9 mmol/L (3.5-5.1)
[2016-10-07] MEDS: ATORVASTATIN 40 MG TAB PO SCH (20:39)
[2016-10-07] MEDS: ONDANSETRON INJ 2 MG/ML 2 ML VIAL IV PRN (21:18)
[2016-10-08] VITALS (13 sets, daily range): BP systolic 125–157; BP diastolic 67–93; PULSE 78–96; TEMP 36.6–37.1; O2SAT 91–95; BMI 46.3
[2016-10-08] MEDS: ALBUT/IPRATROP 3MG/0.5MG NEB 3 ML VIAL INH PRN (05:34)
[2016-10-08 06:47] LABS: ALBUMIN % 61.48 %; ALPHA-2-GLOBULIN % 8.92 %; BETA GLOBULIN % 11.98 %; CREATININE UR 129 MG/DL (20-320); GAMMA GLOBULIN % 12.59 %
[2016-10-08] MEDS: IPRATROPIUM BROMIDE/ALBUTEROL respimat INH INH SCH ×4 (07:07→21:07)
[2016-10-08] MEDS: CARVEDILOL 25 MG TAB PO SCH ×2 (07:08→21:09)
[2016-10-08] MEDS: ASPIRIN 81 MG ECTAB PO SCH (07:09)
[2016-10-08] MEDS: CLOPIDOGREL BISULFATE 75 MG TAB PO SCH (07:09)
[2016-10-08] MEDS: CITALOPRAM 20 MG TAB PO SCH (07:09)
[2016-10-08] MEDS: AMLODIPINE BESYLATE 5 MG TAB PO SCH (07:09)
[2016-10-08] MEDS: HEPARIN SOD 5000 UNIT/0.5 ML CARP SQ SCH ×2 (07:13→21:16)
[2016-10-08] MEDS: BUMETANIDE IV 1 MG in SYRINGE 0 ML IV SCH (07:14)
[2016-10-08 07:30] LABS: BASO % 0.3 %; BASO ABS # 0.04 K/uL (0-0.2); EOS % 0.4 %; HEMATOCRIT 26.3 % (37-47); IG% 0.3 %; LYMPH % 6.1 %; LYMPH ABS # 0.81 K/uL (1.2-3.4); MEAN CELL VOLUME 89.8 fL (80-100); MEAN CORPUSCULAR HGB CONC 32.3 g/dl (32-36); MEAN PLATELET VOLUME 10.4 fL (7.4-10.4); MONO % 9.6 %; NEUT % 83.3 %; PLATELET COUNT 291 K/uL (130-400); RED BLOOD COUNT 2.93 M/uL (4.2-5.4); WHITE BLOOD COUNT 13.18 K/uL (4.8-10.8)
[2016-10-08] MEDS: ACETAMINOPHEN 325 MG TAB PO PRN (07:54)
[2016-10-08 08:22] LABS: BUN/CREATININE RATIO 12.1 (10-20); CALCIUM 8.6 mg/dl (8.5-10.1); CREATININE 5.1 mg/dl (0.60-1.20); POTASSIUM 5.3 mmol/L (3.5-5.1)
[2016-10-08] MEDS: ARFORMOTEROL TART 15MCG/2ML VIAL INH SCH ×2 (08:27→19:41)
[2016-10-08] MEDS: INSULIN ASPART 100 UNITS/ML 3 ML PEN SC SCH ×4 (08:27→22:08)
[2016-10-08 08:55] LABS: COMPLETE YES; POLYCHROMASIA 1+
[2016-10-08 09:34] LABS: ESTIMATED AVERAGE GLUCOSE 154 mg/dl; HA1C FLAG Normal (Normal)
[2016-10-08] MEDS ORDERED: SODIUM BICARBONATE 650 MG TAB PO ONE (09:45)
--- NOTE | 2016-10-08 10:40 | DIAGNOSTIC IMAGING REPORT ---
SINGLE VIEW CHEST CLINICAL HISTORY: CHF. FINDINGS: An AP, portable, upright chest radiograph is compared to study dated 09/26/2016 and correlated with chest CT dated 09/25/2016. The examination is degraded by portable technique, large body habitus, and patient rotation. The heart is enlarged. There is pulmonary vascular congestion, similar appearance to 09/26/2016. There are layering pleural effusions and bibasilar consolidation. No pneumothorax is seen. The skeletal structures are osteopenic. The bony thorax is grossly intact. Degenerative change and scoliosis are noted throughout the thoracic spine. IMPRESSION: 1. Cardiomegaly with evidence of congestive failure. 2. There are layering pleural effusions with bibasilar consolidation. This likely represents atelectasis. Clinical correlation will be required. Electronically signed by: Marv Cole M.D. 10/08/2016 10:38 AM Dictated Date/Time: 10/08/2016 10:37 AM
[2016-10-08] MEDS ORDERED: NURSING VERBAL MED ORDER ONE (10:45)
[2016-10-08] MEDS: LORAZEPAM 0.5 MG TAB PO PRN (11:04)
[2016-10-08] MEDS ORDERED: BUMETANIDE IV 1 MG in SYRINGE 0 ML IV ONE (11:15)
--- NOTE | 2016-10-08 14:48 | Surgery Consultation ---
Consultation Date of Service Oct 08, 2016. Chief Complaint ESRD, need permcath History of Present Illness The patient is a 51 year old female with HTN, CAD, admitted with ESRD, seen in consultation today for placement of permcath for HD. Pt admits fatigue, TOLEDO. Denies SHARIF, fever, chills, chest pain, abd pain, N/V, rest pain, claudication, other complaints. Vitals Vital Signs Past 12 Hours Date Time Temp Pulse Resp B/P Pulse Ox O2 Delivery O2 Flow Rate FiO2 10/08/16 12:40 36.6 78 18 136/73 93 Room Air 10/08/16 12:00 93 Nasal Cannula 5.0 Humidified Oxygen 10/08/16 08:28 86 12 94 Nasal Cannula 5.0 10/08/16 08:00 93 Nasal Cannula 5.0 Humidified Oxygen 10/08/16 07:59 36.7 88 18 132/79 94 Room Air 10/08/16 05:34 86 16 94 Nasal Cannula 5.0 10/08/16 04:00 Nasal Cannula Humidified Oxygen 10/08/16 03:59 36.9 88 24 125/75 92 Nasal Cannula 5.0 Allergies Coded Allergies: Latex1 -Allergic Contact Dermititis (Verified Adverse Reaction, Mild, RASH , 09/25/16) Problem List Medical Problems: (1) Acute on chronic diastolic CHF (congestive heart failure) (2) Acute renal insufficiency (3) CHF (congestive heart failure) (4) Chronic kidney disease, stage III (moderate) (5) Diabetic nephropathy (6) Nephrotic range proteinuria (7) Respiratory distress Surgical / Medical History Past Medical/Surgical History: Heart Disease, High Cholesterol, Hypertension, Kidney Disease Family History + HTN Social History Smoking Status: Former Smoker Hx Alcohol Use - Type & Amnt: No Review of Systems Constitutional: + malaise, No chills, No fever Skin: No change in color Eyes: No visual changes ENMT: No sore throat Respiratory: + TOLEDO, + orthopnea, + short of breath, No cough, No hemoptysis Cardiovascular: + edema, No chest pain, No intermittent claudication, No palpitations, No syncope Gastrointestinal: No abdominal pain, No nausea, No vomiting Genitourinary - Female: No dysuria, No hematuria Neurologic: + weakness, No dizziness, No headache, No lethargy Physical Exam Constitutional: General Apperance: well-nourished, well-developed, obese Level of Distress: NAD, acutely ill, chronically ill Psychiatric: Mental Status: active & alert, normal mood, normal affect Orientation: oriented except where noted, to time, to place, to person Memory: recent memory normal, remote memory normal Head: normocephalic, atraumatic Eyes: EOM: dysconjugated ENMT: normal ENT inspection, hearing grossly normal Neck: supple, trachea midline Lungs: Respiratory effort: dyspneic Auscultation: no rhonchi, deminished air movement, decreased breath sounds, wet rales/crackles Cardiovascular: Apical Impulse: not displaced Heart Auscultation: RRR, no rubs, no gallops Peripheral Pulses: Pulses: full and equal, in all extremities except if noted Bruits: none appreciated Carotid Pulse: normal on the left, normal on the right Brachial Pulses: normal on the left, normal on the right Radial Pulse: normal on the left, normal on the right Femoral Pulse: normal on the left, normal on the right Posterior Tibialis Pulse: decreased on the left, decreased on the right Dorsalis Pedis Pulse: decreased on the left, decreased on the right Abdomen: Bowel Sounds: normal Inspection & Palpation: soft, non-distended, no tenderness, guarding & rebound Musculoskeletal: normal strength (5/5 throughout), normal tone Extremities: Upper Right: no cyanosis, no varicosities, edema Upper Left: no cyanosis, no varicosities, no palpable cord, edema Lower Right: no cyanosis, no varicosities, no palpable cord, edema Lower Left: no cyanosis, no varicosities, no palpable cord, edema Neurologic: Cranial Nerves: grossly intact Sensation: grossly intact Assessment and Plan ASSESSMENT and PLAN: ESRD, need permcath for HD Pt for permcath insertion tomorrow AM. procedure, risks, benefits, and alternatives discussed with pt, she expresses understanding and agreement.
--- NOTE | 2016-10-08 15:58 | Progress Note ---
Subjective Date of Service: Oct 08, 2016. Subjective Pt evaluation today including: conversation w/ patient, conversation w/ family , physical exam, chart review, lab review, review of studies, conversation w/ events solutions consultant, review of inpatient medication list Report feeling tired, some wheezing, and difficulty breathing which is improved after breathing treatment Review of Systems Constitutional: + fatigue, No chills, No fever, No problem reported, No sweats , No weakness, No weight loss Eyes: No diplopia, No discharge, No eye pain, No redness, No worsening of vision ENT: No dental problems, No hearing loss, No nasal symptoms, No sore throat, No tinnitus, No trouble swallowing, No unusual epistaxis Respiratory: + cough, + shortness of breath, No dyspnea at rest, No dyspnea on exertion, No hemoptysis, No sputum, No wheezing Cardiac: + edema, No PND, No chest pain, No claudication, No orthopnea, No palpitations Abdomen: No constipation, No diarrhea, No nausea, No pain, No vomiting Musculoskeletal: + swelling, No calf pain, No joint pain, No muscle pain Female : No abnormal vaginal bleeding, No dysuria, No hematuria, No incontinence, No urinary frequency, No vaginal discharge Neurologic: No balance problems, No memory loss, No numbness/tingling, No paralysis, No vertigo, No weakness Psychiatric: No anhedonism, No anxiety, No depression symptoms, No insomnia, No substance abuse Heme: No abnormal bleeding/bruising, No clotting problems, No night sweats, No swollen lymph nodes Endo: + fatigue, No excessive thirst, No excessive urination Skin: No bleeding, No color change, No itch, No new/changing skin lesions, No rash Objective Vital Signs Date Time Temp Pulse Resp B/P Pulse Ox O2 Delivery O2 Flow Rate FiO2 10/08/16 15:04 37.1 83 20 144/67 92 Nasal Cannula 6.0 Humidified Oxygen 10/08/16 12:40 36.6 78 18 136/73 93 Room Air 10/08/16 12:00 93 Nasal Cannula 5.0 Humidified Oxygen 10/08/16 08:28 86 12 94 Nasal Cannula 5.0 10/08/16 08:00 93 Nasal Cannula 5.0 Humidified Oxygen 10/08/16 07:59 36.7 88 18 132/79 94 Room Air 10/08/16 05:34 86 16 94 Nasal Cannula 5.0 10/08/16 04:00 Nasal Cannula Humidified Oxygen 10/08/16 03:59 36.9 88 24 125/75 92 Nasal Cannula 5.0 10/08/16 00:01 Nasal Cannula Humidified Oxygen 10/08/16 00:00 36.9 96 24 157/93 91 Nasal Cannula 5.0 10/07/16 20:00 Nasal Cannula 5.0 Humidified Oxygen 10/07/16 19:12 90 18 92 Nasal Cannula 5.0 10/07/16 18:58 37.2 90 22 148/60 93 Nasal Cannula 5.0 Humidified Oxygen 10/07/16 16:00 90 Nasal Cannula 4.0 Humidified Oxygen 10/07/16 15:48 37.2 90 18 124/53 90 Nasal Cannula 4.0 Humidified Oxygen Physical Exam General Appearance: WD/WN, no apparent distress, + obese Eyes: normal inspection, PERRL, EOMI, sclerae normal ENT: normal ENT inspection, hearing grossly normal, pharynx normal Neck: supple, no adenopathy, thyroid normal, no JVD, no carotid bruits, trachea midline Respiratory/Chest: chest non-tender, normal breath sounds, no respiratory distress, no accessory muscle use, + decreased breath sounds Cardiovascular: regular rate, rhythm, no edema, no gallop, no JVD, no murmur Abdomen: normal bowel sounds, non tender, soft, no organomegaly, no pulsatile mass Extremities: normal range of motion, non-tender, normal inspection, no pedal edema, no calf tenderness, normal capillary refill, pelvis stable Neurologic/Psychiatric: qa architect II-XII nml as tested, no motor/sensory deficits, alert, normal mood/affect, oriented x 3 Skin: normal color, warm/dry, no rash Lymphatic: no adenopathy Laboratory Results Last 24 Hours Test 10/07/16 16:10 10/07/16 19:58 10/08/16 06:46 10/08/16 07:18 Bedside Glucose 227 mg/dl 217 mg/dl 239 mg/dl White Blood Count 13.18 K/uL Red Blood Count 2.93 M/uL Hemoglobin 8.5 g/dL Hematocrit 26.3 % Mean Corpuscular Volume 89.8 fL Mean Corpuscular Hemoglobin 29.0 pg Mean Corpuscular Hemoglobin Concent 32.3 g/dl Platelet Count 291 K/uL Mean Platelet Volume 10.4 fL Neutrophils (%) (Auto) 83.3 % Lymphocytes (%) (Auto) 6.1 % Monocytes (%) (Auto) 9.6 % Eosinophils (%) (Auto) 0.4 % Basophils (%) (Auto) 0.3 % Neutrophils # (Auto) 10.98 K/uL Lymphocytes # (Auto) 0.81 K/uL Monocytes # (Auto) 1.26 K/uL Eosinophils # (Auto) 0.05 K/uL Basophils # (Auto) 0.04 K/uL RDW Standard Deviation 47.9 fL RDW Coefficient of Variation 14.6 % Immature Granulocyte % (Auto) 0.3 % Immature Granulocyte # (Auto) 0.04 K/uL Nucleated RBC Absolute Count (auto) 0.02 K/uL Nucleated Red Blood Cells % 0.1 % Polychromasia 1+ Sodium Level 135 mmol/L Potassium Level 5.3 mmol/L Chloride Level 105 mmol/L Carbon Dioxide Level 18 mmol/L Anion Gap 12.0 mmol/L Blood Urea Nitrogen 63 mg/dl Creatinine 5.10 mg/dl Est Creatinine Clear Calc Drug Dose 16.5 ml/min Estimated GFR () 10.4 Estimated GFR (Non- 9.0 BUN/Creatinine Ratio 12.1 Random Glucose 229 mg/dl Estimated Average Glucose 154 mg/dl Hemoglobin A1c 7.0 % Calcium Level 8.6 mg/dl Magnesium Level 2.0 mg/dl Test 10/08/16 11:18 Bedside Glucose 247 mg/dl Assessment and Plan 51 F admitted admitted on 09/26/2016 because of acute diastolic heart failure, and renal failure after recent pneumonia , suffered a NSTEMI. She required cardiac catheterization, PCI w/ BMS x 2 10/06/16, now development acute on chronic kidney failure possible need to dialysis NSTEMI/coronary artery disease postprocedure day 2 status post PCI with bare metal stent x2 to mid and distal LAD; diffuse RCA, OM 1 residual disease Continue treatment with statin, diabetic control and blood pressure control Acute decompensated diastolic CHF, plus possible fluid overload after cardiac cath want to avoid worsening renal function with IV fluid however if fluid retention become an issue affect resp function, may need to be on dialysis sooner Acute respiratory failure, improved after treating like copd, no possible has combined with fluid overload and diastolic CHf, please the above BECKIE on CKD and diabetes nephropathy, creatinine continue getting worse after cardiac cath, Nephrology on the case, continue Bumex, Resent Pneumonia, as complete IV antibiotic treatment Diabetes, continues in poor control, continue insulin sliding scale, A1c around 7 Was on oral diabetic medication at home, for now renal function is unstable, possible need for dialysis, I would start Lantus for now, has an range of diabetic education Hypertension accelerated, recently increased to hydralazine to 100 twice a day, plus amlodipine Discussed with the cardiology nephrology, Continue dual antiplatelet therapy for at least a year No change to current antihypertensives or statin therapy No plans for additional coronary interventions Discussed with nephrology with worsening renal function today, plan to place of dialysis catheter Need to have cardiac rehabilitation, his cousin is with the patient, she reported PCP is Dr. Isauro perdomo, encourage her to follow-up with Dr. perdomo to arrange for the cardiac rehabilitation as outpatient Patient agreed Possible has RENETTA but has not yet been evaluated I encouraged her to follow-up with PCP GI and DVT prophylaxis ordered Continued [facility] stay due to: multiple IV medications needed Discharge planning: home
--- NOTE | 2016-10-08 16:43 | Nephrology Progress Note ---
Nephrology Progress Note Date of Service Oct 08, 2016. Chief Complaint Follow up evaluation of acute on chronic kidney injury in this patient admitted w/ CHF Subjective Mrs. Gutierrez was seen & examined in the PCU this morning. She was admitted w/ a NSTEMI. She underwent cardiac catheterization 10/06/16. She required PCI w/ BMS x 2. She currently denies angina. The patient has CKD. Her baseline creatinine has been 2.0. Her renal impairment is due to diabetic nephropathy. Kidney function has been declining since IV contrast administration. Patient c/ o dyspnea this morning. Review of Systems Constitutional: No fever Cardiovascular: No chest pain Respiratory: + dyspnea at rest Abdomen: No nausea, No pain, No vomiting Extremities: + leg edema A complete review of systems was performed. Pertinent positives are noted above. All other systems are negative. Vital Signs Last 8 Hrs Date Time Temp Pulse Resp B/P Pulse Ox O2 Delivery O2 Flow Rate FiO2 10/08/16 15:04 37.1 83 20 144/67 92 Nasal Cannula 6.0 Humidified Oxygen 10/08/16 12:40 36.6 78 18 136/73 93 Room Air 10/08/16 12:00 93 Nasal Cannula 5.0 Humidified Oxygen I & O 24-Hour Column 10/08/16 08:00 Intake Total 1110 ml Output Total 1075 ml Balance 35 ml Last Recorded Weight Weight (Kilograms): 122.400 Physical Exam General Appearance: no apparent distress Head: atraumatic Eyes: PERRL, EOMI Neck: no adenopathy Respiratory/Chest: + crackles Cardiovascular: regular rate, rhythm Abdomen/GI: normal bowel sounds, non tender, soft Extremities/Musculoskelatal: + pertinent finding (1+ pretibial pitting edema) Neurologic/Psych: alert, oriented x 3 Laboratory Results Past 24 Hours 10/08/16 07:18 Red Blood Count 2.93, Mean Corpuscular Volume 89.8, Mean Corpuscular Hemoglobin 29.0, Mean Corpuscular Hemoglobin Concent 32.3, Mean Platelet Volume 10.4, Neutrophils (%) (Auto) 83.3, Lymphocytes (%) (Auto) 6.1, Monocytes (%) (Auto) 9.6, Eosinophils (%) (Auto) 0.4, Basophils (%) (Auto) 0.3, Neutrophils # (Auto) 10.98, Lymphocytes # (Auto) 0.81, Monocytes # (Auto) 1.26, Eosinophils # (Auto) 0.05, Basophils # (Auto) 0.04 10/08/16 07:18 Test 10/07/16 19:58 10/08/16 06:46 10/08/16 07:18 10/08/16 11:18 Bedside Glucose 217 mg/dl (70-90) 239 mg/dl (70-90) 247 mg/dl (70-90) White Blood Count 13.18 K/uL (4.8-10.8) Red Blood Count 2.93 M/uL (4.2-5.4) Hemoglobin 8.5 g/dL (12.0-16.0) Hematocrit 26.3 % (37-47) Mean Corpuscular Volume 89.8 fL (80-100) Mean Corpuscular Hemoglobin 29.0 pg (25-34) Mean Corpuscular Hemoglobin Concent 32.3 g/dl (32-36) Platelet Count 291 K/uL (130-400) Mean Platelet Volume 10.4 fL (7.4-10.4) Neutrophils (%) (Auto) 83.3 % Lymphocytes (%) (Auto) 6.1 % Monocytes (%) (Auto) 9.6 % Eosinophils (%) (Auto) 0.4 % Basophils (%) (Auto) 0.3 % Neutrophils # (Auto) 10.98 K/uL (1.4-6.5) Lymphocytes # (Auto) 0.81 K/uL (1.2-3.4) Monocytes # (Auto) 1.26 K/uL (0.11-0.59) Eosinophils # (Auto) 0.05 K/uL (0-0.5) Basophils # (Auto) 0.04 K/uL (0-0.2) RDW Standard Deviation 47.9 fL (36.4-46.3) RDW Coefficient of Variation 14.6 % (11.5-14.5) Immature Granulocyte % (Auto) 0.3 % Immature Granulocyte # (Auto) 0.04 K/uL (0.00-0.02) Nucleated RBC Absolute Count (auto) 0.02 K/uL (0-0) Nucleated Red Blood Cells % 0.1 % Polychromasia 1+ Anion Gap 12.0 mmol/L (3-11) Est Creatinine Clear Calc Drug Dose 16.5 ml/min Estimated GFR () 10.4 Estimated GFR (Non- 9.0 BUN/Creatinine Ratio 12.1 (10-20) Estimated Average Glucose 154 mg/dl Hemoglobin A1c 7.0 % (4.5-5.6) Calcium Level 8.6 mg/dl (8.5-10.1) Magnesium Level 2.0 mg/dl (1.8-2.4) Test 10/08/16 16:01 Bedside Glucose 206 mg/dl (70-90) Allergies Coded Allergies: Latex1 -Allergic Contact Dermititis (Verified Adverse Reaction, Mild, RASH , 09/25/16) Medications Current Inpatient Medications Medications (Trade) Dose Ordered Sig/Elizabet Route Start Time Stop Time Status Last Admin Dose Admin Acetaminophen (Tylenol Tab) 650 mg Q4H PRN PO 09/25/16 23:30 10/25/16 23:29 10/08/16 07:54 650 MG Al Hydrox/Mg Hydrox/Simethicone (Maalox Max Susp) 15 ml Q4H PRN PO 09/25/16 23:30 10/25/16 23:29 Magnesium Hydroxide (Milk Of Magnesia Susp) 30 ml Q12H PRN PO 09/25/16 23:30 10/25/16 23:29 Ondansetron HCl (Zofran Inj) 4 mg Q6H PRN IV 09/25/16 23:30 10/25/16 23:29 10/07/16 21:18 4 MG Nitroglycerin (Nitrostat Tab) 0.4 mg UD PRN SL 09/25/16 23:30 10/25/16 23:29 Morphine Sulfate (MoRPHine SULFATE INJ) 2 mg Q30M PRN IV 09/25/16 23:30 10/09/16 23:29 09/26/16 08:34 2 MG Polyethylene (Miralax Powder Packet) 17 gm DAILY PRN PO 09/25/16 23:30 10/25/16 23:29 Citalopram Hydrobromide (celeXA TAB) 20 mg QAM PO 09/26/16 09:00 10/26/16 08:59 10/08/16 07:09 20 MG Atorvastatin Calcium (Lipitor Tab) 40 mg HS PO 09/26/16 21:00 10/26/16 20:59 10/07/16 20:39 40 MG Clopidogrel Bisulfate (plAVix TAB) 75 mg QAM PO 09/26/16 09:00 10/26/16 08:59 10/08/16 07:09 75 MG Amlodipine Besylate (Norvasc Tab) 10 mg QAM PO 09/26/16 09:00 10/26/16 08:59 10/08/16 07:09 10 MG Tramadol HCl (Ultram Tab) 50 mg Q4H PRN PO 09/25/16 23:30 10/25/16 23:29 10/07/16 19:06 50 MG Glucose (Glucose 40% Gel) 15-30 GRAMS 15 GRAMS... UD PRN PO 09/26/16 00:30 10/26/16 00:29 Glucose (Glucose Chew Tab) 4-8 Tablets 4 Tabl... UD PRN PO 09/26/16 00:30 10/26/16 00:29 Dextrose (Dextrose 50% 50ML Syringe) 25-50ML OF 50% DW IV FOR... UD PRN IV 09/26/16 00:30 10/26/16 00:29 Glucagon (Glucagon Inj) 1 mg UD PRN SQ 09/26/16 00:30 10/26/16 00:29 Insulin Aspart (novoLOG ASPART) SLIDING SCALE G... ACHS SC 09/27/16 17:00 10/27/16 16:59 10/08/16 12:41 4 UNITS Albuterol/ Ipratropium (Duoneb) 3 ml Q2H PRN INH 09/28/16 11:15 10/28/16 11:14 10/08/16 05:34 3 ML Hydralazine HCl (HydrALAZINE INJ) 10 mg Q4H PRN IV 09/28/16 15:15 10/28/16 15:14 10/03/16 03:09 10 MG Arformoterol Tartrate (Brovana 15MCG/ 2ML Neb Soln) 15 mcg BIDR INH 09/28/16 20:00 10/28/16 19:59 10/08/16 08:27 15 MCG Carvedilol (Coreg Tab) 25 mg BID PO 09/30/16 21:00 10/30/16 20:59 10/08/16 07:08 25 MG Albuterol/ Ipratropium (Combivent Respimat Inh) 1 puffs QID INH 10/03/16 13:00 11/02/16 12:59 10/08/16 13:21 1 PUFFS Hydralazine HCl (Apresoline Tab) 100 mg BID PO 10/04/16 21:00 11/03/16 20:59 10/08/16 07:08 100 MG Heparin Sodium (Porcine) (Heparin Sq 5000 Unit/0.5ml) 5,000 unit Q12 SQ 10/05/16 21:00 11/04/16 20:59 10/08/16 07:13 5,000 UNIT Aspirin 81 mg 81 mg QAM PO 10/07/16 09:00 11/06/16 08:59 10/08/16 07:09 81 MG Bumetanide 2 mg/ Syringe 8 ml @ 4 mls/min BID17 IV 10/08/16 17:00 11/07/16 16:59 Cefazolin Sodium (Ancef 3000 Mg/ 65 ml D5W) 65 ml @ 100 mls/hr PREOP IV 10/09/16 06:00 10/09/16 23:59 Lorazepam (Ativan Tab) 0.5 mg Q8H PRN PO 10/08/16 11:00 11/07/16 10:59 10/08/16 11:04 0.5 MG Impression (1) Contrast dye induced nephropathy (2) Chronic kidney disease, stage III (moderate) (3) Acute on chronic diastolic CHF (congestive heart failure) (4) Acute renal insufficiency (5) Diabetic nephropathy (6) Nephrotic range proteinuria Mrs. Gutierrez is a 51-year-old female with stage III CKD (baseline creatinine ~2.0 mg/dL) attributed to diabetic nephropathy, obesity and hypertensive nephrosclerosis. She has evidence of nephrosis with nephrotic range proteinuria. She was admitted with acute hypoxic respiratory failure in the setting of hypervolemia related to acute on chronic diastolic CHF and advanced renal disease. She suffered a NSTEMI. She required cardiac catheterization, PCI w/ BMS x 2 10/06/16. She has developed contrast induced nephropathy Dr. Rodriguez in [facility] has been [facility]'s primary medication reconciliation technician. He had discussed potential role of renal replacement therapy in the past. Recommendations ACUTE KIDNEY INJURY: -- Serum creatinine has risen to 5.1 this morning. Patient is developing volume overload -- Will increase Bumetanide to 2 mg IV BID and provide one dose of Metolazone 5 mg -- Monitor serial PRP -- Indications/Benefits/Risks and Alternatives to [employer] discussed w/ patient today. She voiced understanding. She is agreeable to starting HD -- Will consult Dr. Encinas for IJ THC and AVF placement -- Will request that [facility] set up outpatient HD in [place], [place] CHRONIC KIDNEY DISEASE: -- Likely related to diabetic nephropathy -- Baseline creatinine had been 2.0 -- Immunofixation studies negative for monoclonal protein -- Protect left arm for possible dialysis access ANEMIA: -- Patient has completed a 1 g infusion of IV iron. Procrit 17099 units given on 10/02/16 CONGESTIVE HEART FAILURE: -- Hydralazine increased to 100 mg BID -- Cardiac cath report from 10/06/16 reviewed today. Patient required PCI w/ BMX x 2.
[2016-10-08] MEDS: BUMETANIDE IV 2 MG in SYRINGE 0 ML IV SCH (16:51)
[2016-10-08] MEDS ORDERED: METOLAZONE 5 MG TAB PO ONE (17:00)
[2016-10-08] MEDS: ATORVASTATIN 40 MG TAB PO SCH (21:09)
[2016-10-09] VITALS (23 sets, daily range): BP systolic 120–149; BP diastolic 65–82; PULSE 76–90; TEMP 36.6–37.3; O2SAT 90–96; BMI 46.3
[2016-10-09] MEDS: ONDANSETRON INJ 2 MG/ML 2 ML VIAL IV PRN (00:26)
[2016-10-09] MEDS: ALBUT/IPRATROP 3MG/0.5MG NEB 3 ML VIAL INH PRN (05:25)
[2016-10-09] MEDS ORDERED: CEFAZOLIN 3000 MG/65 ML D5W 65 ML IV SCH (06:00)
[2016-10-09] MEDS: ARFORMOTEROL TART 15MCG/2ML VIAL INH SCH ×2 (06:49→07:30)
[2016-10-09 07:00] LABS: BASO % 0.4 %; BASO ABS # 0.04 K/uL (0-0.2); EOS % 0.4 %; HEMATOCRIT 24.1 % (37-47); IG% 0.4 %; LYMPH % 7.4 %; LYMPH ABS # 0.81 K/uL (1.2-3.4); MEAN CELL VOLUME 90.3 fL (80-100); MEAN CORPUSCULAR HEMOGLOBIN 29.6 pg (25-34); MEAN CORPUSCULAR HGB CONC 32.8 g/dl (32-36); MEAN PLATELET VOLUME 10.8 fL (7.4-10.4); NEUT % 82.4 %; PLATELET COUNT 293 K/uL (130-400); RED BLOOD COUNT 2.67 M/uL (4.2-5.4); WHITE BLOOD COUNT 11.01 K/uL (4.8-10.8)
[2016-10-09] MEDS: IPRATROPIUM BROMIDE/ALBUTEROL respimat INH INH SCH ×4 (07:39→20:37)
[2016-10-09] MEDS: CARVEDILOL 25 MG TAB PO SCH ×2 (07:41→20:39)
[2016-10-09] MEDS: AMLODIPINE BESYLATE 5 MG TAB PO SCH (07:42)
[2016-10-09] MEDS: ASPIRIN 81 MG ECTAB PO SCH (07:43)
[2016-10-09] MEDS: CLOPIDOGREL BISULFATE 75 MG TAB PO SCH (07:43)
[2016-10-09] MEDS: CITALOPRAM 20 MG TAB PO SCH (07:43)
[2016-10-09 07:57] LABS: BUN/CREATININE RATIO 11.9 (10-20); CALCIUM 8.3 mg/dl (8.5-10.1); CREATININE 6.8 mg/dl (0.60-1.20); MAGNESIUM 2.1 mg/dl (1.8-2.4); POTASSIUM 5.4 mmol/L (3.5-5.1)
[2016-10-09 08:00] LABS: COMPLETE YES
[2016-10-09] MEDS: INSULIN ASPART 100 UNITS/ML 3 ML PEN SC SCH ×4 (08:00→20:42)
[2016-10-09] MEDS: BUMETANIDE IV 2 MG in SYRINGE 0 ML IV SCH ×2 (08:08→18:07)
--- NOTE | 2016-10-09 08:31 | Progress Note ---
Progress Note Date of Service Oct 09, 2016. Progress Note Patient for permcath insertion today. I have discussed the risks options and benefits of the procedure with the patient. The patient understands the risks options and benefits and agrees to the procedure. I have examined the patient, reviewed the History & Physical and in the interval since the performance of the History & Physical I have noted the following changes of clinical significance: No changes noted
--- NOTE | 2016-10-09 08:32 | Procedure Note ---
Pre-Mod Sedation Assessment General Date of Moderate Sedation: Oct 09, 2016. Vital Signs: Vital Signs Past 12 Hours Date Time Temp Pulse Resp B/P Pulse Ox O2 Delivery O2 Flow Rate FiO2 10/09/16 07:54 36.6 18 132/82 93 Nasal Cannula 6.0 10/09/16 07:51 37.1 90 20 127/77 94 Nasal Cannula 6.0 10/09/16 06:49 88 20 92 Nasal Cannula 6.0 10/09/16 05:26 79 20 95 Nasal Cannula 6.0 10/09/16 04:20 37.3 88 20 132/82 91 10/09/16 04:00 Nasal Cannula Humidified Oxygen 10/09/16 00:01 Nasal Cannula Humidified Oxygen 10/09/16 00:01 37.0 88 18 136/80 90 Review Cardiovascular: regular rate, rhythm Abdomen: normal bowel sounds, non tender, soft Lungs: + crackles Pre-Sedation Airway Assessment Oral Cavity: WNL Able to Visualize Vocal Cords: No Short Thick Neck: No Hx of Sleep Apnea: No Smoking Status: Former Smoker Mallampati Classification: Class I ASA Classification: Class II Notes The planned sedation has been discussed with the patient and consent obtained. I have identified the patient, determined the appropriateness of sedation and have assessed the patient immediately prior to the procedure. All medicine(s) and interventions are by my order.
[2016-10-09] MEDS ORDERED: HEPARIN SOD (PORCINE) 5000 UNIT/ML 1 ML VIAL ONE (08:46)
[2016-10-09] MEDS ORDERED: MIDAZOLAM HCL 1 MG/ML 2ML VIAL ONE (08:47)
[2016-10-09] MEDS ORDERED: FENTANYL CITRATE INJ 50 MCG/1 ML 2 ML VIAL ONE (08:47)
[2016-10-09 08:50] LABS: HEPATITIS B AB NEG
[2016-10-09] MEDS: HEPARIN SOD 5000 UNIT/0.5 ML CARP SQ SCH ×2 (09:00→20:42)
[2016-10-09] MEDS ORDERED: LIDOCAINE HCL 1% 20 ML VIAL INJ ONE (09:17)
[2016-10-09] MEDS ORDERED: MIDAZOLAM HCL 1 MG/ML 2ML VIAL IV ONE (09:17)
[2016-10-09] MEDS ORDERED: FENTANYL CITRATE INJ 50 MCG/1 ML 2 ML VIAL IV ONE (09:17)
[2016-10-09] MEDS ORDERED: HEPARIN SOD (PORCINE) 5000 UNIT/ML 1 ML VIAL IV ONE (09:28)
--- NOTE | 2016-10-09 09:36 | Procedure Note ---
Post-Moderate Sedation Plan General Date of Moderate Sedation Oct 09, 2016. Vital Signs: Vital Signs Past 12 Hours Date Time Temp Pulse Resp B/P Pulse Ox O2 Delivery O2 Flow Rate FiO2 10/09/16 08:45 37.2 89 22 134/70 91 Nasal Cannula 5 10/09/16 07:54 36.6 18 132/82 93 Nasal Cannula 6.0 10/09/16 07:51 37.1 90 20 127/77 94 Nasal Cannula 6.0 10/09/16 06:49 88 20 92 Nasal Cannula 6.0 10/09/16 05:26 79 20 95 Nasal Cannula 6.0 10/09/16 04:20 37.3 88 20 132/82 91 10/09/16 04:00 Nasal Cannula Humidified Oxygen 10/09/16 00:01 Nasal Cannula Humidified Oxygen 10/09/16 00:01 37.0 88 18 136/80 90 Review - Discharge Plan Post Moderate Sedation Plan: On clinical assessment, the patient appears to have tolerated the conscious sedation without complications. Patient is recovering as anticipated. Patient will continue to be monitored by nursing and may be discharged when conscious sedation discharge criteria are met.
--- NOTE | 2016-10-09 09:37 | [facility] Post Operative Brief Note ---
Immediate Operative Summary Operative Date Oct 09, 2016. Pre-Operative Diagnosis acute renal failure Post-Operative Diagnosis same Procedure(s) Performed Insertion Of Perm Catheter, Right Internal Jugular Approach, Ultrasound Localization Of Right Internal Jugular Vein, Fluoroscopy For Positioning, Moderate Concious Sedation [address] Encinas Disaster Recovery Specialist Surgeon(s) none Estimated Blood Loss 5 ml Findings tip in distal SVC Specimens none Anesthesia Local with conscious sedation Complication(s) None Disposition
[2016-10-09] MEDS ORDERED: EPOETIN ALFA 10,000 UNITS/ML VIAL IV. SCH (10:30)
--- NOTE | 2016-10-09 16:47 | Nephrology Progress Note ---
Nephrology Progress Note Date of Service Oct 09, 2016. Chief Complaint Follow up evaluation of acute on chronic kidney injury in this patient admitted w/ CHF Subjective Late entry: Mrs. Gutierrez was seen & examined in the PCU this morning. She was admitted w/ a NSTEMI. She underwent cardiac catheterization 10/06/16. She required PCI w/ BMS x 2. She currently denies angina. The patient has CKD. Her baseline creatinine has been 2.0. Her renal impairment is due to diabetic nephropathy. Kidney function has been declining since IV contrast administration. Patient c/ o dyspnea this morning. She is scheduled to IJ THC placement and 1st run HD later today Review of Systems Constitutional: No fever Cardiovascular: No chest pain Respiratory: No dyspnea at rest Abdomen: No nausea, No pain, No vomiting Extremities: + leg edema A complete review of systems was performed. Pertinent positives are noted above. All other systems are negative. Vital Signs Last 8 Hrs Date Time Temp Pulse Resp B/P Pulse Ox O2 Delivery O2 Flow Rate FiO2 10/09/16 16:15 80 130/69 10/09/16 16:00 81 128/72 10/09/16 15:45 82 135/71 10/09/16 15:30 78 133/71 10/09/16 15:15 78 134/71 10/09/16 15:00 76 130/72 10/09/16 14:57 77 120/66 10/09/16 14:41 78 124/71 10/09/16 12:16 36.7 89 20 138/80 91 Nasal Cannula 6.0 10/09/16 12:00 Nasal Cannula Humidified Oxygen 10/09/16 08:45 37.2 89 22 134/70 91 Nasal Cannula 5 I & O 24-Hour Column 10/09/16 08:00 Intake Total 550 ml Output Total 675 ml Balance -125 ml Last Recorded Weight Weight (Kilograms): 122.400 Physical Exam General Appearance: + mild distress Head: normocephalic, atraumatic Eyes: PERRL Neck: no adenopathy Respiratory/Chest: + rales (bilaterally) Cardiovascular: regular rate, rhythm Abdomen/GI: normal bowel sounds, non tender, soft Extremities/Musculoskelatal: + swelling (1+ pretibial pitting edema) Neurologic/Psych: alert, oriented x 3 Laboratory Results Past 24 Hours 10/09/16 06:44 Red Blood Count 2.67, Mean Corpuscular Volume 90.3, Mean Corpuscular Hemoglobin 29.6, Mean Corpuscular Hemoglobin Concent 32.8, Mean Platelet Volume 10.8, Neutrophils (%) (Auto) 82.4, Lymphocytes (%) (Auto) 7.4, Monocytes (%) (Auto) 9.0, Eosinophils (%) (Auto) 0.4, Basophils (%) (Auto) 0.4, Neutrophils # (Auto) 9.09, Lymphocytes # (Auto) 0.81, Monocytes # (Auto) 0.99, Eosinophils # (Auto) 0.04, Basophils # (Auto) 0.04 10/09/16 06:44 Test 10/08/16 20:10 10/09/16 06:44 10/09/16 06:47 10/09/16 11:34 Bedside Glucose 231 mg/dl (70-90) 223 mg/dl (70-90) 238 mg/dl (70-90) White Blood Count 11.01 K/uL (4.8-10.8) Red Blood Count 2.67 M/uL (4.2-5.4) Hemoglobin 7.9 g/dL (12.0-16.0) Hematocrit 24.1 % (37-47) Mean Corpuscular Volume 90.3 fL (80-100) Mean Corpuscular Hemoglobin 29.6 pg (25-34) Mean Corpuscular Hemoglobin Concent 32.8 g/dl (32-36) Platelet Count 293 K/uL (130-400) Mean Platelet Volume 10.8 fL (7.4-10.4) Neutrophils (%) (Auto) 82.4 % Lymphocytes (%) (Auto) 7.4 % Monocytes (%) (Auto) 9.0 % Eosinophils (%) (Auto) 0.4 % Basophils (%) (Auto) 0.4 % Neutrophils # (Auto) 9.09 K/uL (1.4-6.5) Lymphocytes # (Auto) 0.81 K/uL (1.2-3.4) Monocytes # (Auto) 0.99 K/uL (0.11-0.59) Eosinophils # (Auto) 0.04 K/uL (0-0.5) Basophils # (Auto) 0.04 K/uL (0-0.2) RDW Standard Deviation 48.9 fL (36.4-46.3) RDW Coefficient of Variation 14.9 % (11.5-14.5) Immature Granulocyte % (Auto) 0.4 % Immature Granulocyte # (Auto) 0.04 K/uL (0.00-0.02) Nucleated RBC Absolute Count (auto) 0.04 K/uL (0-0) Nucleated Red Blood Cells % 0.4 % Red Blood Cell Morphology Unremarkable Anion Gap 13.0 mmol/L (3-11) Est Creatinine Clear Calc Drug Dose 12.4 ml/min Estimated GFR () 7.3 Estimated GFR (Non- 6.3 BUN/Creatinine Ratio 11.9 (10-20) Calcium Level 8.3 mg/dl (8.5-10.1) Magnesium Level 2.1 mg/dl (1.8-2.4) Hepatitis B Surface Antigen NEG (NEG) Hepatitis B Surface Antibody NEG Test 10/09/16 16:21 Bedside Glucose 160 mg/dl (70-90) Allergies Coded Allergies: Latex1 -Allergic Contact Dermititis (Verified Adverse Reaction, Mild, RASH , 09/25/16) Medications Current Inpatient Medications Medications (Trade) Dose Ordered Sig/Elizabet Route Start Time Stop Time Status Last Admin Dose Admin Acetaminophen (Tylenol Tab) 650 mg Q4H PRN PO 09/25/16 23:30 10/25/16 23:29 10/08/16 07:54 650 MG Al Hydrox/Mg Hydrox/Simethicone (Maalox Max Susp) 15 ml Q4H PRN PO 09/25/16 23:30 10/25/16 23:29 10/09/16 07:52 15 ML Magnesium Hydroxide (Milk Of Magnesia Susp) 30 ml Q12H PRN PO 09/25/16 23:30 10/25/16 23:29 Ondansetron HCl (Zofran Inj) 4 mg Q6H PRN IV 09/25/16 23:30 10/25/16 23:29 10/09/16 00:26 4 MG Nitroglycerin (Nitrostat Tab) 0.4 mg UD PRN SL 09/25/16 23:30 10/25/16 23:29 Morphine Sulfate (MoRPHine SULFATE INJ) 2 mg Q30M PRN IV 09/25/16 23:30 10/09/16 23:29 09/26/16 08:34 2 MG Polyethylene (Miralax Powder Packet) 17 gm DAILY PRN PO 09/25/16 23:30 10/25/16 23:29 Citalopram Hydrobromide (celeXA TAB) 20 mg QAM PO 09/26/16 09:00 10/26/16 08:59 10/09/16 07:43 20 MG Atorvastatin Calcium (Lipitor Tab) 40 mg HS PO 09/26/16 21:00 10/26/16 20:59 10/08/16 21:09 40 MG Clopidogrel Bisulfate (plAVix TAB) 75 mg QAM PO 09/26/16 09:00 10/26/16 08:59 10/09/16 07:43 75 MG Amlodipine Besylate (Norvasc Tab) 10 mg QAM PO 09/26/16 09:00 10/26/16 08:59 10/09/16 07:42 10 MG Tramadol HCl (Ultram Tab) 50 mg Q4H PRN PO 09/25/16 23:30 10/25/16 23:29 10/07/16 19:06 50 MG Glucose (Glucose 40% Gel) 15-30 GRAMS 15 GRAMS... UD PRN PO 09/26/16 00:30 10/26/16 00:29 Glucose (Glucose Chew Tab) 4-8 Tablets 4 Tabl... UD PRN PO 09/26/16 00:30 10/26/16 00:29 Dextrose (Dextrose 50% 50ML Syringe) 25-50ML OF 50% DW IV FOR... UD PRN IV 09/26/16 00:30 10/26/16 00:29 Glucagon (Glucagon Inj) 1 mg UD PRN SQ 09/26/16 00:30 10/26/16 00:29 Insulin Aspart (novoLOG ASPART) SLIDING SCALE G... ACHS SC 09/27/16 17:00 10/27/16 16:59 10/09/16 12:00 3 UNITS Albuterol/ Ipratropium (Duoneb) 3 ml Q2H PRN INH 09/28/16 11:15 10/28/16 11:14 10/09/16 05:25 3 ML Hydralazine HCl (HydrALAZINE INJ) 10 mg Q4H PRN IV 09/28/16 15:15 10/28/16 15:14 10/03/16 03:09 10 MG Arformoterol Tartrate (Brovana 15MCG/ 2ML Neb Soln) 15 mcg BIDR INH 09/28/16 20:00 10/28/16 19:59 10/09/16 06:49 15 MCG Carvedilol (Coreg Tab) 25 mg BID PO 09/30/16 21:00 10/30/16 20:59 10/09/16 07:41 25 MG Albuterol/ Ipratropium (Combivent Respimat Inh) 1 puffs QID INH 10/03/16 13:00 11/02/16 12:59 10/09/16 13:00 1 PUFFS Hydralazine HCl (Apresoline Tab) 100 mg BID PO 10/04/16 21:00 11/03/16 20:59 10/09/16 07:42 100 MG Heparin Sodium (Porcine) (Heparin Sq 5000 Unit/0.5ml) 5,000 unit Q12 SQ 10/05/16 21:00 11/04/16 20:59 10/09/16 09:00 5,000 UNIT Aspirin 81 mg 81 mg QAM PO 10/07/16 09:00 11/06/16 08:59 10/09/16 07:43 81 MG Bumetanide 2 mg/ Syringe 8 ml @ 4 mls/min BID17 IV 10/08/16 17:00 11/07/16 16:59 10/09/16 08:08 4 MLS/MIN Cefazolin Sodium (Ancef 3000 Mg/ 65 ml D5W) 65 ml @ 100 mls/hr PREOP IV 10/09/16 06:00 10/09/16 23:59 Lorazepam (Ativan Tab) 0.5 mg Q8H PRN PO 10/08/16 11:00 11/07/16 10:59 10/08/16 11:04 0.5 MG Impression (1) Contrast dye induced nephropathy (2) Chronic kidney disease, stage III (moderate) (3) Acute on chronic diastolic CHF (congestive heart failure) (4) Acute renal insufficiency (5) Diabetic nephropathy (6) Nephrotic range proteinuria Mrs. Gutierrez is a 51-year-old female with stage III CKD (baseline creatinine ~2.0 mg/dL) attributed to diabetic nephropathy, obesity and hypertensive nephrosclerosis. She has evidence of nephrosis with nephrotic range proteinuria. She was admitted with acute hypoxic respiratory failure in the setting of hypervolemia related to acute on chronic diastolic CHF and advanced renal disease. She suffered a NSTEMI. She required cardiac catheterization, PCI w/ BMS x 2 10/06/16. She has developed contrast induced nephropathy Dr. Rodriguez in [facility] has been [facility] primary edger runner. He had discussed potential role of renal replacement therapy in the past. Recommendations ACUTE KIDNEY INJURY: -- Serum creatinine has risen to 6.8 this morning. Patient has developed volume overload. She is scheduled for IJ THC insertion and 1st run HD today -- Monitor serial PRP. Reassess need for additional UF in am -- Will request that [facility] set up outpatient HD in [place], [place]. Attending edger runner = Dr. Barrera CHRONIC KIDNEY DISEASE: -- Likely related to diabetic nephropathy -- Baseline creatinine had been 2.0 -- Immunofixation studies negative for monoclonal protein -- Protect left arm for possible dialysis access ANEMIA: -- Patient has completed a 1 g infusion of IV iron. Procrit 07872 units given on 10/02/16 CONGESTIVE HEART FAILURE: -- Hydralazine increased to 100 mg BID -- Cardiac cath report from 10/06/16 reviewed today. Patient required PCI w/ BMX x 2.
--- NOTE | 2016-10-09 16:53 | Progress Note ---
Subjective Date of Service: Oct 09, 2016. Subjective Pt evaluation today including: conversation w/ patient, conversation w/ family , physical exam, chart review, lab review, review of studies, conversation w/ neuropsychology medical consultant, review of inpatient medication list This morning has perm cath procedure done, has started dialysis, patient mild pale looks tired, no other complaint Review of Systems Constitutional: + fatigue, + weakness, No chills, No fever, No problem reported , No sweats, No weight loss Eyes: No diplopia, No discharge, No eye pain, No redness, No worsening of vision ENT: No dental problems, No hearing loss, No nasal symptoms, No sore throat, No tinnitus, No trouble swallowing, No unusual epistaxis Respiratory: + shortness of breath, No cough, No dyspnea at rest, No dyspnea on exertion, No hemoptysis, No sputum, No wheezing Cardiac: + edema (1-2+), No PND, No chest pain, No claudication, No orthopnea, No palpitations Abdomen: No constipation, No diarrhea, No nausea, No pain, No vomiting Musculoskeletal: No calf pain, No joint pain, No muscle pain, No swelling Female : No abnormal vaginal bleeding, No dysuria, No hematuria, No incontinence, No urinary frequency, No vaginal discharge Neurologic: No balance problems, No memory loss, No numbness/tingling, No paralysis, No vertigo, No weakness Psychiatric: No anhedonism, No anxiety, No depression symptoms, No insomnia, No substance abuse Heme: No abnormal bleeding/bruising, No clotting problems, No night sweats, No swollen lymph nodes Endo: No excessive thirst, No excessive urination, No fatigue Skin: No bleeding, No color change, No itch, No new/changing skin lesions, No rash Objective Vital Signs Date Time Temp Pulse Resp B/P Pulse Ox O2 Delivery O2 Flow Rate FiO2 10/09/16 16:30 80 136/72 10/09/16 16:15 80 130/69 10/09/16 16:00 81 128/72 10/09/16 15:45 82 135/71 10/09/16 15:30 78 133/71 10/09/16 15:15 78 134/71 10/09/16 15:00 76 130/72 10/09/16 14:57 77 120/66 10/09/16 14:41 78 124/71 10/09/16 12:16 36.7 89 20 138/80 91 Nasal Cannula 6.0 10/09/16 12:00 Nasal Cannula Humidified Oxygen 10/09/16 08:45 37.2 89 22 134/70 91 Nasal Cannula 5 10/09/16 08:00 Nasal Cannula Humidified Oxygen 10/09/16 07:54 36.6 18 132/82 93 Nasal Cannula 6.0 10/09/16 07:51 37.1 90 20 127/77 94 Nasal Cannula 6.0 10/09/16 06:49 88 20 92 Nasal Cannula 6.0 10/09/16 05:26 79 20 95 Nasal Cannula 6.0 10/09/16 04:20 37.3 88 20 132/82 91 10/09/16 04:00 Nasal Cannula Humidified Oxygen 10/09/16 00:01 Nasal Cannula Humidified Oxygen 10/09/16 00:01 37.0 88 18 136/80 90 10/08/16 20:00 93 Nasal Cannula 6.0 Humidified Oxygen 10/08/16 19:44 94 16 95 Nasal Cannula 6.0 10/08/16 18:59 36.9 91 22 153/69 92 Nasal Cannula 6.0 Humidified Oxygen Physical Exam General Appearance: WD/WN, no apparent distress, + obese, + pertinent finding ( mild pale) Eyes: normal inspection, PERRL, EOMI, sclerae normal ENT: normal ENT inspection, hearing grossly normal, pharynx normal Neck: supple, no adenopathy, thyroid normal, no JVD, no carotid bruits, trachea midline Respiratory/Chest: chest non-tender, lungs clear, normal breath sounds, no respiratory distress, no accessory muscle use Cardiovascular: regular rate, rhythm, no edema, no gallop, no JVD, no murmur Abdomen: normal bowel sounds, non tender, soft, no organomegaly, no pulsatile mass Extremities: normal range of motion, non-tender, normal inspection, no pedal edema, no calf tenderness, normal capillary refill, pelvis stable Neurologic/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: 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 tested, no motor/sensory deficits, alert, normal mood/affect, oriented x 3 Skin: normal color, warm/dry, no rash Lymphatic: no adenopathy Laboratory Results Last 24 Hours Test 10/08/16 20:10 10/09/16 06:44 3/31/17 06:47 10/09/16 11:34 Bedside Glucose 231 mg/dl 223 mg/dl 238 mg/dl White Blood Count 11.01 K/uL Red Blood Count 2.67 M/uL Hemoglobin 7.9 g/dL Hematocrit 24.1 % Mean Corpuscular Volume 90.3 fL Mean Corpuscular Hemoglobin 29.6 pg Mean Corpuscular Hemoglobin Concent 32.8 g/dl Platelet Count 293 K/uL Mean Platelet Volume 10.8 fL Neutrophils (%) (Auto) 82.4 % Lymphocytes (%) (Auto) 7.4 % Monocytes (%) (Auto) 9.0 % Eosinophils (%) (Auto) 0.4 % Basophils (%) (Auto) 0.4 % Neutrophils # (Auto) 9.09 K/uL Lymphocytes # (Auto) 0.81 K/uL Monocytes # (Auto) 0.99 K/uL Eosinophils # (Auto) 0.04 K/uL Basophils # (Auto) 0.04 K/uL RDW Standard Deviation 48.9 fL RDW Coefficient of Variation 14.9 % Immature Granulocyte % (Auto) 0.4 % Immature Granulocyte # (Auto) 0.04 K/uL Nucleated RBC Absolute Count (auto) 0.04 K/uL Nucleated Red Blood Cells % 0.4 % Red Blood Cell Morphology Unremarkable Sodium Level 134 mmol/L Potassium Level 5.4 mmol/L Chloride Level 104 mmol/L Carbon Dioxide Level 17 mmol/L Anion Gap 13.0 mmol/L Blood Urea Nitrogen 81 mg/dl Creatinine 6.80 mg/dl Est Creatinine Clear Calc Drug Dose 12.4 ml/min Estimated GFR () 7.3 Estimated GFR (Non- 6.3 BUN/Creatinine Ratio 11.9 Random Glucose 199 mg/dl Calcium Level 8.3 mg/dl Magnesium Level 2.1 mg/dl Hepatitis B Surface Antigen NEG Hepatitis B Surface Antibody NEG Test 10/09/16 16:21 Bedside Glucose 160 mg/dl Assessment and Plan 51 F admitted admitted on 09/26/2016 because of acute diastolic heart failure, and renal failure after recent pneumonia , suffered a NSTEMI. She required cardiac catheterization, PCI w/ BMS x 2 10/06/16, now development acute on chronic kidney failure possible need to dialysis, PermCath was placed on 2016 NSTEMI/coronary artery disease, stable postprocedure day 2 status post PCI with bare metal stent x2 to mid and distal LAD; diffuse RCA, OM 1 residual disease Continue treatment with statin, diabetic control and blood pressure control Acute decompensated diastolic CHF, plus possible fluid overload after cardiac cath want to avoid worsening renal function with IV fluid however if fluid retention become an issue affect resp function, need to be on dialysis now Acute respiratory failure, improved after treating like copd, stable BECKIE on CKD and diabetes nephropathy, creatinine continue getting worse after cardiac cath, Nephrology on the case, has been on Bumex, Patient for permcath insertion today. Started dialysis per order from nephrology Resent Pneumonia, as complete IV antibiotic treatment Diabetes, continues in poor control, continue insulin sliding scale, A1c around 7 Was on oral diabetic medication at home, for now renal function is unstable, possible need for dialysis, continue Lantus Patient was on NPH at home, which was recently discontinued , we'll talk to the patient more about this Hypertension accelerated, recently increased to hydralazine to 100 twice a day, plus amlodipine Continue dual antiplatelet therapy for at least a year No change to current antihypertensives or statin therapy No plans for additional coronary interventions Need to have cardiac rehabilitation, PCP is Dr. Isauro perdomo, encourage her to follow-up with Dr. perdomo to arrange for the cardiac rehabilitation as outpatient Patient agreed Possible has RENETTA but has not yet been evaluated I encouraged her to follow-up with PCP GI and DVT prophylaxis ordered Continued [facility] stay due to: multiple IV medications needed Discharge planning: home
[2016-10-09] MEDS: ATORVASTATIN 40 MG TAB PO SCH (20:38)
[2016-10-10] VITALS (22 sets, daily range): BP systolic 126–157; BP diastolic 68–85; PULSE 75–88; TEMP 36.8–37.1; O2SAT 94–97
[2016-10-10 06:31] LABS: HEMATOCRIT 29.6 % (37-47); MEAN CELL VOLUME 88.6 fL (80-100); MEAN CORPUSCULAR HEMOGLOBIN 29.6 pg (25-34); MEAN CORPUSCULAR HGB CONC 33.4 g/dl (32-36); PLATELET COUNT 290 K/uL (130-400); RED BLOOD COUNT 3.34 M/uL (4.2-5.4); WHITE BLOOD COUNT 11.47 K/uL (4.8-10.8)
[2016-10-10 07:13] LABS: BUN/CREATININE RATIO 9.1 (10-20); CALCIUM 8.4 mg/dl (8.5-10.1); CREATININE 6.5 mg/dl (0.60-1.20); POTASSIUM 4.9 mmol/L (3.5-5.1)
[2016-10-10] MEDS: ARFORMOTEROL TART 15MCG/2ML VIAL INH SCH ×2 (08:00→19:51)
[2016-10-10] MEDS: IPRATROPIUM BROMIDE/ALBUTEROL respimat INH INH SCH ×4 (08:06→20:13)
[2016-10-10] MEDS: CARVEDILOL 25 MG TAB PO SCH ×2 (08:06→20:14)
[2016-10-10] MEDS: AMLODIPINE BESYLATE 5 MG TAB PO SCH (08:06)
[2016-10-10] MEDS: ASPIRIN 81 MG ECTAB PO SCH (08:06)
[2016-10-10] MEDS: CITALOPRAM 20 MG TAB PO SCH (08:06)
[2016-10-10] MEDS: CLOPIDOGREL BISULFATE 75 MG TAB PO SCH (08:06)
[2016-10-10] MEDS: BUMETANIDE IV 2 MG in SYRINGE 0 ML IV SCH ×2 (08:11→17:52)
[2016-10-10] MEDS: INSULIN ASPART 100 UNITS/ML 3 ML PEN SC SCH ×4 (08:11→20:19)
[2016-10-10] MEDS: HEPARIN SOD 5000 UNIT/0.5 ML CARP SQ SCH ×2 (08:12→20:18)
--- NOTE | 2016-10-10 11:33 | Cardiology Follow-Up ---
Subjective Subjective Date of Service: Oct 10, 2016. Pt evaluation today including: conversation w/ patient, conversation w/ family , physical exam, chart review, lab review, review of studies, review of inpatient medication list Additional Details: Sleepy this AM. No chest pain. Still intermittently short of breath, somewhat improved from yesterday. telemetry -- no events overnight. Review of Systems Constitutional: + fatigue, + weakness, No chills, No fever Respiratory: + shortness of breath Cardiac: + edema (1+ to shins, improved from yesterday), No chest pain Abdomen: No pain, No vomiting Neurologic: No numbness/tingling, No weakness Heme: No abnormal bleeding/bruising Endo: No fatigue Skin: No rash Objective Vital Signs Last Vital Signs Documentation Date Time Temp Pulse Resp B/P Pulse Ox O2 Delivery O2 Flow Rate FiO2 10/10/16 08:00 88 20 95 Nasal Cannula 6.0 10/10/16 08:00 36.9 157/84 09/26/16 15:31 30 Physical Exam: General Appearance: no apparent distress, + obese ENT: hearing grossly normal, pharynx normal Neck: no JVD Respiratory/Chest: lungs clear, no accessory muscle use, + decreased breath sounds (at bases bilaterally) Cardiovascular: regular rate, rhythm, no murmur Abdomen: normal bowel sounds, non tender, soft Extremities: no pedal edema, no calf tenderness Neurologic/Psychiatric: alert, normal mood/affect, oriented x 3 Skin: normal color, warm/dry Lymphatic: no adenopathy Assessment and Plan 1. Acute on CKD/MARSHAL - dialysis initiated yesterday. respiratory status somewhat improved today. 2. NSTEMI/coronary artery disease - Status post PCI with bare metal stent x2 to mid and distal LAD; diffuse RCA/OM 1 residual disease-medically managed 3. Acute diastolic heart failure -- well-perfused, volume management per renal, HD 4. Type 2 diabetes -- on insulin 5. Anemia -- appropriate response to transfusion yesterday 6. HTN -- reasonably controlled on current regimen Stable from a cardiac standpoint. Now on HD for acute renal failure. No change to current DAPT, statin therapy, beta-jorge No plans for additional coronary interventions Continued [facility] stay due to: multiple IV medications needed Discharge planning: home Medications: Current Inpatient Medications Medications (Trade) Dose Ordered Sig/Elizabet Route Start Time Stop Time Status Last Admin Dose Admin Acetaminophen (Tylenol Tab) 650 mg Q4H PRN PO 09/25/16 23:30 10/25/16 23:29 10/08/16 07:54 650 MG Al Hydrox/Mg Hydrox/Simethicone (Maalox Max Susp) 15 ml Q4H PRN PO 09/25/16 23:30 10/25/16 23:29 10/09/16 07:52 15 ML Magnesium Hydroxide (Milk Of Magnesia Susp) 30 ml Q12H PRN PO 09/25/16 23:30 10/25/16 23:29 Ondansetron HCl (Zofran Inj) 4 mg Q6H PRN IV 09/25/16 23:30 10/25/16 23:29 10/09/16 00:26 4 MG Nitroglycerin (Nitrostat Tab) 0.4 mg UD PRN SL 09/25/16 23:30 10/25/16 23:29 Polyethylene (Miralax Powder Packet) 17 gm DAILY PRN PO 09/25/16 23:30 10/25/16 23:29 Citalopram Hydrobromide (celeXA TAB) 20 mg QAM PO 09/26/16 09:00 10/26/16 08:59 10/10/16 08:06 20 MG Atorvastatin Calcium (Lipitor Tab) 40 mg HS PO 09/26/16 21:00 10/26/16 20:59 10/09/16 20:38 40 MG Clopidogrel Bisulfate (plAVix TAB) 75 mg QAM PO 09/26/16 09:00 10/26/16 08:59 10/10/16 08:06 75 MG Amlodipine Besylate (Norvasc Tab) 10 mg QAM PO 09/26/16 09:00 10/26/16 08:59 10/10/16 08:06 10 MG Tramadol HCl (Ultram Tab) 50 mg Q4H PRN PO 09/25/16 23:30 10/25/16 23:29 10/07/16 19:06 50 MG Glucose (Glucose 40% Gel) 15-30 GRAMS 15 GRAMS... UD PRN PO 09/26/16 00:30 10/26/16 00:29 Glucose (Glucose Chew Tab) 4-8 Tablets 4 Tabl... UD PRN PO 09/26/16 00:30 10/26/16 00:29 Dextrose (Dextrose 50% 50ML Syringe) 25-50ML OF 50% DW IV FOR... UD PRN IV 09/26/16 00:30 10/26/16 00:29 Glucagon (Glucagon Inj) 1 mg UD PRN SQ 09/26/16 00:30 10/26/16 00:29 Insulin Aspart (novoLOG ASPART) SLIDING SCALE G... ACHS SC 09/27/16 17:00 10/27/16 16:59 10/10/16 08:11 5 UNITS Albuterol/ Ipratropium (Duoneb) 3 ml Q2H PRN INH 09/28/16 11:15 10/28/16 11:14 10/09/16 05:25 3 ML Hydralazine HCl (HydrALAZINE INJ) 10 mg Q4H PRN IV 09/28/16 15:15 10/28/16 15:14 10/03/16 03:09 10 MG Arformoterol Tartrate (Brovana 15MCG/ 2ML Neb Soln) 15 mcg BIDR INH 09/28/16 20:00 10/28/16 19:59 10/10/16 08:00 15 MCG Carvedilol (Coreg Tab) 25 mg BID PO 09/30/16 21:00 10/30/16 20:59 10/10/16 08:06 25 MG Albuterol/ Ipratropium (Combivent Respimat Inh) 1 puffs QID INH 10/03/16 13:00 11/02/16 12:59 10/10/16 08:06 1 PUFFS Hydralazine HCl (Apresoline Tab) 100 mg BID PO 10/04/16 21:00 11/03/16 20:59 10/10/16 08:07 100 MG Heparin Sodium (Porcine) (Heparin Sq 5000 Unit/0.5ml) 5,000 unit Q12 SQ 10/05/16 21:00 11/04/16 20:59 10/10/16 08:12 5,000 UNIT Aspirin 81 mg 81 mg QAM PO 10/07/16 09:00 11/06/16 08:59 10/10/16 08:06 81 MG Bumetanide/Syringe (Bumex IV/ Syringe) 8 ml @ 4 mls/min BID17 IV 10/08/16 17:00 11/07/16 16:59 10/10/16 08:11 4 MLS/MIN Lorazepam (Ativan Tab) 0.5 mg Q8H PRN PO 10/08/16 11:00 11/07/16 10:59 10/08/16 11:04 0.5 MG Lab Results: 10/10/16 06:05 10/10/16 06:05 Test 10/10/16 06:05 10/10/16 06:38 Red Blood Count 3.34 M/uL (4.2-5.4) Mean Corpuscular Volume 88.6 fL (80-100) Mean Corpuscular Hemoglobin 29.6 pg (25-34) Mean Corpuscular Hemoglobin Concent 33.4 g/dl (32-36) RDW Standard Deviation 48.9 fL (36.4-46.3) RDW Coefficient of Variation 15.1 % (11.5-14.5) Mean Platelet Volume 11.0 fL (7.4-10.4) Anion Gap 12.0 mmol/L (3-11) Est Creatinine Clear Calc Drug Dose 13.0 ml/min Estimated GFR () 7.7 Estimated GFR (Non- 6.7 BUN/Creatinine Ratio 9.1 (10-20) Calcium Level 8.4 mg/dl (8.5-10.1) Bedside Glucose 192 mg/dl (70-90)
[2016-10-10] MEDS: ONDANSETRON INJ 2 MG/ML 2 ML VIAL IV PRN (12:11)
[2016-10-10] MEDS: TRAMADOL HCL 50 MG TAB PO PRN ×2 (12:12→20:18)
--- NOTE | 2016-10-10 12:29 | Progress Note ---
Subjective Date of Service: Oct 10, 2016. Subjective Pt evaluation today including: conversation w/ patient, conversation w/ family , physical exam, chart review, lab review, review of studies, conversation w/ managing consultant clinical professor, review of inpatient medication list Voiding: no voiding problems Problem List Doing better, sitting up in chair for lunch Review of Systems Constitutional: + fatigue, + weakness, No chills, No fever, No problem reported , No sweats, No weight loss Eyes: No diplopia, No discharge, No eye pain, No redness, No worsening of vision ENT: No dental problems, No hearing loss, No nasal symptoms, No sore throat, No tinnitus, No trouble swallowing, No unusual epistaxis Respiratory: No cough, No dyspnea at rest, No dyspnea on exertion, No hemoptysis, No shortness of breath, No sputum, No wheezing Cardiac: + edema, No PND, No chest pain, No claudication, No orthopnea, No palpitations Abdomen: No constipation, No diarrhea, No nausea, No pain, No vomiting Musculoskeletal: No calf pain, No joint pain, No muscle pain, No swelling Female : No abnormal vaginal bleeding, No dysuria, No hematuria, No incontinence, No urinary frequency, No vaginal discharge Neurologic: No balance problems, No memory loss, No numbness/tingling, No paralysis, No vertigo, No weakness Psychiatric: No anhedonism, No anxiety, No depression symptoms, No insomnia, No substance abuse Heme: No abnormal bleeding/bruising, No clotting problems, No night sweats, No swollen lymph nodes Endo: No excessive thirst, No excessive urination, No fatigue Skin: No bleeding, No color change, No itch, No new/changing skin lesions, No rash Objective Vital Signs Date Time Temp Pulse Resp B/P Pulse Ox O2 Delivery O2 Flow Rate FiO2 10/10/16 12:00 36.8 78 22 154/76 96 Nasal Cannula 2.0 10/10/16 08:00 88 20 95 Nasal Cannula 6.0 10/10/16 08:00 36.9 88 20 157/84 97 Nasal Cannula 5.0 10/10/16 08:00 Nasal Cannula 5.0 Humidified Oxygen 10/10/16 04:23 37.1 83 18 126/79 95 6.0 10/10/16 04:00 Nasal Cannula Humidified Oxygen 10/10/16 00:45 37.1 85 20 134/83 95 6.0 10/10/16 00:01 Nasal Cannula Humidified Oxygen 10/09/16 20:00 Nasal Cannula Humidified Oxygen 10/09/16 19:35 37.2 88 25 139/65 96 Nasal Cannula 7.0 Humidified Oxygen 10/09/16 18:05 36.9 85 149/73 10/09/16 17:30 84 147/74 10/09/16 17:15 81 142/69 10/09/16 17:00 82 143/75 10/09/16 16:45 80 137/79 10/09/16 16:30 80 136/72 10/09/16 16:15 80 130/69 10/09/16 16:00 Nasal Cannula Humidified Oxygen 10/09/16 16:00 81 128/72 10/09/16 15:45 82 135/71 10/09/16 15:30 78 133/71 10/09/16 15:15 78 134/71 10/09/16 15:00 76 130/72 10/09/16 14:57 77 120/66 10/09/16 14:41 78 124/71 10/09/16 14:30 37.2 79 122/65 Physical Exam General Appearance: WD/WN, no apparent distress, + obese, + pertinent finding ( tired looking, color look pink) Eyes: normal inspection, PERRL, EOMI, sclerae normal ENT: normal ENT inspection, hearing grossly normal, pharynx normal Neck: supple, no adenopathy, thyroid normal, no JVD, no carotid bruits, trachea midline Respiratory/Chest: chest non-tender, lungs clear, normal breath sounds, no respiratory distress, no accessory muscle use Cardiovascular: regular rate, rhythm, no edema, no gallop, no JVD, no murmur Abdomen: normal bowel sounds, non tender, soft, no organomegaly, no pulsatile mass Extremities: normal range of motion, non-tender, normal inspection, no pedal edema, no calf tenderness, normal capillary refill, pelvis stable, + swelling (1 + bilateral lower extrimity) Neurologic/Psychiatric: 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 tested, no motor/sensory deficits, alert, normal mood/affect, oriented x 3 Skin: normal color, warm/dry, no rash Lymphatic: no adenopathy Laboratory Results Last 24 Hours Test 10/09/16 16:21 10/09/16 20:20 10/10/16 06:05 10/10/16 06:38 Bedside Glucose 160 mg/dl 162 mg/dl 192 mg/dl White Blood Count 11.47 K/uL Red Blood Count 3.34 M/uL Hemoglobin 9.9 g/dL Hematocrit 29.6 % Mean Corpuscular Volume 88.6 fL Mean Corpuscular Hemoglobin 29.6 pg Mean Corpuscular Hemoglobin Concent 33.4 g/dl RDW Standard Deviation 48.9 fL RDW Coefficient of Variation 15.1 % Platelet Count 290 K/uL Mean Platelet Volume 11.0 fL Sodium Level 135 mmol/L Potassium Level 4.9 mmol/L Chloride Level 103 mmol/L Carbon Dioxide Level 20 mmol/L Anion Gap 12.0 mmol/L Blood Urea Nitrogen 59 mg/dl Creatinine 6.50 mg/dl Est Creatinine Clear Calc Drug Dose 13.0 ml/min Estimated GFR () 7.7 Estimated GFR (Non- 6.7 BUN/Creatinine Ratio 9.1 Random Glucose 177 mg/dl Calcium Level 8.4 mg/dl Test 10/10/16 11:42 Bedside Glucose 201 mg/dl Assessment and Plan 51 F admitted admitted on 09/26/2016 because of acute diastolic heart failure, and renal failure after recent pneumonia , suffered a NSTEMI. She required cardiac catheterization, PCI w/ BMS x 2 10/06/16, now development acute on chronic kidney failure possible need to dialysis, PermCath was placed on 2016 and dialysis has been started NSTEMI/coronary artery disease, stable postprocedure day 2 status post PCI with bare metal stent x2 to mid and distal LAD; diffuse RCA, OM 1 residual disease Continue treatment with statin, diabetic control and blood pressure control , and cont DAPT, Acute decompensated diastolic CHF, plus possible fluid overload after cardiac cath want to avoid worsening renal function with IV fluid Acute respiratory failure, improved after treating like copd, stable BECKIE on CKD and diabetes nephropathy, Nephrology on the case, has been on Bumex, Patient for permcath insertion Started dialysis per order from nephrology from 10/09/2016 Nephrology continue follow-up Will discontinue Joe catheter Resent Pneumonia, as complete IV antibiotic treatment Diabetes, continues in poor control, continue insulin sliding scale, A1c around 7 Was on oral diabetic medication at home, for now renal function is unstable, possible need for dialysis, Patient was on NPH at home, which was recently discontinued , will start NPH Hypertension accelerated, recently increased to hydralazine to 100 twice a day, plus amlodipine Continue dual antiplatelet therapy for at least a year No change to current antihypertensives or statin therapy No plans for additional coronary interventions Need to have cardiac rehabilitation, PCP is Dr. Isauro perdomo, encourage her to follow-up with Dr. perdomo to arrange for the cardiac rehabilitation as outpatient Patient agreed Possible has RENETTA but has not yet been evaluated I encouraged her to follow-up with PCP GI and DVT prophylaxis ordered Continued [facility] stay due to: multiple IV medications needed Discharge planning: home
--- NOTE | 2016-10-10 13:07 | Nephrology Progress Note ---
Nephrology Progress Note Date of Service Oct 10, 2016. Chief Complaint Follow-up for acute kidney injury Subjective Tootie was seen and examined in her room this morning. She has been complaining of some pain in her lower back. Denies shortness of breath or chest pain. Electrolyte, blood pressure and volume status stable. She is due for her 2nd dialysis treatment today, had 1st treatment yesterday, tolerated well. Review of Systems A complete review of systems was performed. Pertinent positives are noted above. All other systems are negative. Vital Signs Last 8 Hrs Date Time Temp Pulse Resp B/P Pulse Ox O2 Delivery O2 Flow Rate FiO2 10/10/16 12:00 36.8 78 22 154/76 96 Nasal Cannula 2.0 10/10/16 12:00 Nasal Cannula 5.0 Humidified Oxygen 10/10/16 08:00 88 20 95 Nasal Cannula 6.0 10/10/16 08:00 36.9 88 20 157/84 97 Nasal Cannula 5.0 10/10/16 08:00 Nasal Cannula 5.0 Humidified Oxygen I & O 24-Hour Column 10/10/16 08:00 Intake Total 1040 ml Output Total 4651 ml Balance -3611 ml Last Recorded Weight Weight (Kilograms): 124.000 Physical Exam GENERAL: Middle-aged female, AAA x 3, pleasant, healthy-appearing, not in any distress. NECK: Supple, no JVD. RESPIRATORY: Normal breathing efforts, no accessory muscle use, bibasilar rales , no wheezes CARDIOVASCULAR: S1, S2 normal, rate rhythm regular. EXTREMITY: No lower extremity edema NEURO: speech fluent. PSYCHIATRY: Normal mood and judgment Laboratory Results Past 24 Hours 10/10/16 06:05 10/10/16 06:05 Test 10/09/16 16:21 10/09/16 20:20 10/10/16 06:05 10/10/16 06:38 Bedside Glucose 160 mg/dl (70-90) 162 mg/dl (70-90) 192 mg/dl (70-90) Red Blood Count 3.34 M/uL (4.2-5.4) Mean Corpuscular Volume 88.6 fL (80-100) Mean Corpuscular Hemoglobin 29.6 pg (25-34) Mean Corpuscular Hemoglobin Concent 33.4 g/dl (32-36) RDW Standard Deviation 48.9 fL (36.4-46.3) RDW Coefficient of Variation 15.1 % (11.5-14.5) Mean Platelet Volume 11.0 fL (7.4-10.4) Anion Gap 12.0 mmol/L (3-11) Est Creatinine Clear Calc Drug Dose 13.0 ml/min Estimated GFR () 7.7 Estimated GFR (Non- 6.7 BUN/Creatinine Ratio 9.1 (10-20) Calcium Level 8.4 mg/dl (8.5-10.1) Test 10/10/16 11:42 Bedside Glucose 201 mg/dl (70-90) Allergies Coded Allergies: Latex1 -Allergic Contact Dermititis (Verified Adverse Reaction, Mild, RASH , 09/25/16) Medications Current Inpatient Medications Medications (Trade) Dose Ordered Sig/Elizabet Route Start Time Stop Time Status Last Admin Dose Admin Acetaminophen (Tylenol Tab) 650 mg Q4H PRN PO 09/25/16 23:30 10/25/16 23:29 10/08/16 07:54 650 MG Al Hydrox/Mg Hydrox/Simethicone (Maalox Max Susp) 15 ml Q4H PRN PO 09/25/16 23:30 10/25/16 23:29 10/09/16 07:52 15 ML Magnesium Hydroxide (Milk Of Magnesia Susp) 30 ml Q12H PRN PO 09/25/16 23:30 10/25/16 23:29 Ondansetron HCl (Zofran Inj) 4 mg Q6H PRN IV 09/25/16 23:30 10/25/16 23:29 10/10/16 12:11 4 MG Nitroglycerin (Nitrostat Tab) 0.4 mg UD PRN SL 09/25/16 23:30 10/25/16 23:29 Polyethylene (Miralax Powder Packet) 17 gm DAILY PRN PO 09/25/16 23:30 10/25/16 23:29 Citalopram Hydrobromide (celeXA TAB) 20 mg QAM PO 09/26/16 09:00 10/26/16 08:59 10/10/16 08:06 20 MG Atorvastatin Calcium (Lipitor Tab) 40 mg HS PO 09/26/16 21:00 10/26/16 20:59 10/09/16 20:38 40 MG Clopidogrel Bisulfate (plAVix TAB) 75 mg QAM PO 09/26/16 09:00 10/26/16 08:59 10/10/16 08:06 75 MG Amlodipine Besylate (Norvasc Tab) 10 mg QAM PO 09/26/16 09:00 10/26/16 08:59 10/10/16 08:06 10 MG Tramadol HCl (Ultram Tab) 50 mg Q4H PRN PO 09/25/16 23:30 10/25/16 23:29 10/10/16 12:12 50 MG Glucose (Glucose 40% Gel) 15-30 GRAMS 15 GRAMS... UD PRN PO 09/26/16 00:30 10/26/16 00:29 Glucose (Glucose Chew Tab) 4-8 Tablets 4 Tabl... UD PRN PO 09/26/16 00:30 10/26/16 00:29 Dextrose (Dextrose 50% 50ML Syringe) 25-50ML OF 50% DW IV FOR... UD PRN IV 09/26/16 00:30 10/26/16 00:29 Glucagon (Glucagon Inj) 1 mg UD PRN SQ 09/26/16 00:30 10/26/16 00:29 Insulin Aspart (novoLOG ASPART) SLIDING SCALE G... ACHS SC 09/27/16 17:00 10/27/16 16:59 10/10/16 12:14 3 UNITS Albuterol/ Ipratropium (Duoneb) 3 ml Q2H PRN INH 09/28/16 11:15 10/28/16 11:14 10/09/16 05:25 3 ML Hydralazine HCl (HydrALAZINE INJ) 10 mg Q4H PRN IV 09/28/16 15:15 10/28/16 15:14 10/03/16 03:09 10 MG Arformoterol Tartrate (Brovana 15MCG/ 2ML Neb Soln) 15 mcg BIDR INH 09/28/16 20:00 10/28/16 19:59 10/10/16 08:00 15 MCG Carvedilol (Coreg Tab) 25 mg BID PO 09/30/16 21:00 10/30/16 20:59 10/10/16 08:06 25 MG Albuterol/ Ipratropium (Combivent Respimat Inh) 1 puffs QID INH 10/03/16 13:00 11/02/16 12:59 10/10/16 12:14 1 PUFFS Hydralazine HCl (Apresoline Tab) 100 mg BID PO 10/04/16 21:00 11/03/16 20:59 10/10/16 08:07 100 MG Heparin Sodium (Porcine) (Heparin Sq 5000 Unit/0.5ml) 5,000 unit Q12 SQ 10/05/16 21:00 11/04/16 20:59 10/10/16 08:12 5,000 UNIT Aspirin 81 mg 81 mg QAM PO 10/07/16 09:00 11/06/16 08:59 10/10/16 08:06 81 MG Bumetanide/Syringe (Bumex IV/ Syringe) 8 ml @ 4 mls/min BID17 IV 10/08/16 17:00 11/07/16 16:59 10/10/16 08:11 4 MLS/MIN Lorazepam (Ativan Tab) 0.5 mg Q8H PRN PO 10/08/16 11:00 11/07/16 10:59 10/08/16 11:04 0.5 MG Insulin Human Isoph/Insulin Regular (novoLIN 70/30 REGULAR) 4 units BIDM SC 10/10/16 16:45 11/09/16 16:44 Impression (1) Contrast dye induced nephropathy (2) Chronic kidney disease, stage III (moderate) (3) Acute on chronic diastolic CHF (congestive heart failure) (4) Acute renal insufficiency (5) Diabetic nephropathy (6) Nephrotic range proteinuria Mrs. Gutierrez is a 51-year-old female with stage III CKD (baseline creatinine ~2.0 mg/dL) attributed to diabetic nephropathy, obesity and hypertensive nephrosclerosis. She has evidence of nephrosis with nephrotic range proteinuria. She was admitted with acute hypoxic respiratory failure in the setting of hypervolemia related to acute on chronic diastolic CHF and advanced renal disease. She suffered a NSTEMI. She required cardiac catheterization, PCI w/ BMS x 2 10/06/16. She has developed contrast induced nephropathy Dr. Rodriguez in [facility] has been [facility]'s primary family medicine physician. He had discussed potential role of renal replacement therapy in the past. Recommendations ACUTE KIDNEY INJURY: --require dialysis for electrolyte abnormality, and worsening kidney function, 1st treatment was yesterday. -- will schedule for 3 hours treatment today, and then over the weekend will monitor and reassess Wednesday morning before going next dialysis. -- continue to monitor for renal recovery -- Will request that [facility] [employer] set up outpatient HD in [place], [place]. Attending family medicine physician = Dr. Barrera CHRONIC KIDNEY DISEASE: -- Likely related to diabetic nephropathy -- Baseline creatinine had been 2.0 -- Protect left arm for possible dialysis access ANEMIA: -- Patient has completed a 1 g infusion of IV iron. Procrit [id number] units given on 10/02/16 CONGESTIVE HEART FAILURE: -- Hydralazine increased to 100 mg BID -- Cardiac cath report from 10/06/16 reviewed today. Patient required PCI w/ BMX x 2.
[2016-10-10] MEDS: INSULIN HUMAN 70% NPH/30% REGULAR SC SCH (17:52)
[2016-10-10] MEDS: ATORVASTATIN 40 MG TAB PO SCH (20:14)
[2016-10-11] VITALS (9 sets, daily range): BP systolic 124–147; BP diastolic 67–86; PULSE 74–83; TEMP 36.7–37.3; O2SAT 91–96
[2016-10-11] MEDS: ARFORMOTEROL TART 15MCG/2ML VIAL INH SCH ×2 (06:55→19:35)
[2016-10-11] MEDS: AMLODIPINE BESYLATE 5 MG TAB PO SCH (07:54)
[2016-10-11] MEDS: CARVEDILOL 25 MG TAB PO SCH ×2 (07:54→21:02)
[2016-10-11] MEDS: CITALOPRAM 20 MG TAB PO SCH (07:54)
[2016-10-11] MEDS: ASPIRIN 81 MG ECTAB PO SCH (07:54)
[2016-10-11] MEDS: IPRATROPIUM BROMIDE/ALBUTEROL respimat INH INH SCH ×4 (07:55→21:00)
[2016-10-11] MEDS: CLOPIDOGREL BISULFATE 75 MG TAB PO SCH (07:56)
[2016-10-11] MEDS: INSULIN HUMAN 70% NPH/30% REGULAR SC SCH ×2 (08:03→17:12)
[2016-10-11] MEDS: INSULIN ASPART 100 UNITS/ML 3 ML PEN SC SCH ×4 (08:03→21:06)
[2016-10-11] MEDS: HEPARIN SOD 5000 UNIT/0.5 ML CARP SQ SCH ×2 (08:04→21:07)
[2016-10-11 08:07] LABS: BUN/CREATININE RATIO 8.5 (10-20); CALCIUM 7.9 mg/dl (8.5-10.1); CREATININE 5.1 mg/dl (0.60-1.20)
[2016-10-11] MEDS: BUMETANIDE IV 2 MG in SYRINGE 0 ML IV SCH ×2 (08:21→17:49)
[2016-10-11] MEDS: TRAMADOL HCL 50 MG TAB PO PRN ×2 (08:21→21:07)
--- NOTE | 2016-10-11 11:34 | Progress Note ---
Subjective Date of Service: Oct 11, 2016. Subjective Pt evaluation today including: conversation w/ patient, physical exam, chart review, lab review, review of studies, conversation w/ computing consultant, review of inpatient medication list Voiding: no voiding problems Feeling tired, no appetite, otherwise doing okay, up and walk with therapist, denied chest pain palpitation, Review of Systems Constitutional: + weakness, No chills, No fatigue, No fever, No problem reported, No sweats, No weight loss Eyes: No diplopia, No discharge, No eye pain, No redness, No worsening of vision ENT: No dental problems, No hearing loss, No nasal symptoms, No sore throat, No tinnitus, No trouble swallowing, No unusual epistaxis Respiratory: No cough, No dyspnea at rest, No dyspnea on exertion, No hemoptysis, No shortness of breath, No sputum, No wheezing Cardiac: No PND, No chest pain, No claudication, No edema, No orthopnea, No palpitations Abdomen: No constipation, No diarrhea, No nausea, No pain, No vomiting Musculoskeletal: No calf pain, No joint pain, No muscle pain, No swelling Female : No abnormal vaginal bleeding, No dysuria, No hematuria, No incontinence, No urinary frequency, No vaginal discharge Neurologic: No balance problems, No memory loss, No numbness/tingling, No paralysis, No vertigo, No weakness Psychiatric: No anhedonism, No anxiety, No depression symptoms, No insomnia, No substance abuse Heme: No abnormal bleeding/bruising, No clotting problems, No night sweats, No swollen lymph nodes Endo: No excessive thirst, No excessive urination, No fatigue Skin: No bleeding, No color change, No itch, No new/changing skin lesions, No rash Objective Vital Signs Date Time Temp Pulse Resp B/P Pulse Ox O2 Delivery O2 Flow Rate FiO2 10/11/16 08:00 Nasal Cannula 2.0 10/11/16 07:42 37.1 80 18 147/81 94 Nasal Cannula 2.0 10/11/16 06:58 77 18 96 Nasal Cannula 2.0 10/11/16 04:38 37.3 80 16 125/72 91 10/11/16 04:00 Nasal Cannula Humidified Oxygen 10/11/16 00:05 37.2 83 16 124/74 92 10/11/16 00:01 Nasal Cannula Humidified Oxygen 10/10/16 20:10 37.0 88 18 151/71 97 Nasal Cannula 5.0 10/10/16 20:00 Nasal Cannula Humidified Oxygen 10/10/16 19:30 82 18 95 Nasal Cannula 6.0 10/10/16 17:59 37.0 84 18 157/74 94 Nasal Cannula 5.0 10/10/16 17:57 37.0 77 152/84 10/10/16 17:57 Nasal Cannula 5.0 Humidified Oxygen 10/10/16 17:30 80 149/77 10/10/16 17:15 84 148/76 10/10/16 17:00 79 147/68 10/10/16 16:45 83 150/73 10/10/16 16:30 81 143/71 10/10/16 16:15 75 140/74 10/10/16 16:00 81 144/85 10/10/16 15:45 80 147/82 10/10/16 15:30 79 138/69 10/10/16 15:15 77 132/68 10/10/16 15:00 79 138/72 10/10/16 14:45 80 143/77 10/10/16 14:30 81 138/72 10/10/16 14:15 37.1 81 142/71 10/10/16 12:00 36.8 78 22 154/76 96 Nasal Cannula 2.0 10/10/16 12:00 Nasal Cannula 5.0 Humidified Oxygen Physical Exam General Appearance: WD/WN, no apparent distress, + obese, + pertinent finding ( pleasant, conversational) Eyes: normal inspection, PERRL, EOMI, sclerae normal ENT: normal ENT inspection, hearing grossly normal, pharynx normal Neck: supple, no adenopathy, thyroid normal, no JVD, no carotid bruits, trachea midline Respiratory/Chest: chest non-tender, normal breath sounds, no respiratory distress, no accessory muscle use, + decreased breath sounds Cardiovascular: regular rate, rhythm, no edema, no gallop, no JVD, no murmur Abdomen: normal bowel sounds, non tender, soft, no organomegaly, no pulsatile mass Extremities: normal range of motion, non-tender, normal inspection, no pedal edema, no calf tenderness, normal capillary refill, pelvis stable 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, no motor/sensory deficits, alert, normal mood/affect, oriented x 3 Skin: normal color, warm/dry, no rash Lymphatic: no adenopathy Laboratory Results Last 24 Hours Test 10/10/16 11:42 10/10/16 17:52 10/10/16 20:07 10/11/16 06:15 Bedside Glucose 201 mg/dl 128 mg/dl 185 mg/dl Sodium Level 135 mmol/L Potassium Level 4.0 mmol/L Chloride Level 101 mmol/L Carbon Dioxide Level 22 mmol/L Anion Gap 12.0 mmol/L Blood Urea Nitrogen 43 mg/dl Creatinine 5.10 mg/dl Est Creatinine Clear Calc Drug Dose 16.4 ml/min Estimated GFR () 10.4 Estimated GFR (Non- 9.0 BUN/Creatinine Ratio 8.5 Random Glucose 150 mg/dl Calcium Level 7.9 mg/dl Test 10/11/16 06:21 Bedside Glucose 175 mg/dl Assessment and Plan 51 F admitted admitted on 09/26/2016 because of acute diastolic heart failure, and renal failure after recent pneumonia , suffered a NSTEMI, which required cardiac catheterization, PCI w/ BMS x 2 , now development acute on chronic kidney failure , PermCath was placed on 2016 and dialysis has had 2 time dialysis yesterday and the day before NSTEMI/coronary artery disease, stable status post PCI with bare metal stent x2 to mid and distal LAD; diffuse RCA, OM 1 residual disease Continue treatment with statin, diabetic control and blood pressure control , and cont DAPT, Acute decompensated diastolic CHF, on Bumex and on dialysis Acute respiratory failure, improved after treating like copd, stable BECKIE on CKD and diabetes nephropathy, Nephrology on the case, has been on Bumex, Patient for permcath insertion Started dialysis per order from nephrology from 10/09/2016 Nephrology continue follow-up Patient still making urine Resent Pneumonia, as complete IV antibiotic treatment Diabetes, continues in poor control, continue insulin sliding scale, A1c around 7 Was on oral diabetic medication at home, for now renal function is unstable, possible need for dialysis, Patient was on NPH at home, which was recently discontinued , started NPH, plus insulin sliding scale Hypertension, stable Need to have cardiac rehabilitation, PCP is Dr. Isauro perdomo, encourage her to follow-up with Dr. perdomo to arrange for the cardiac rehabilitation as outpatient Patient agreed Possible has RENETTA but has not yet been evaluated I encouraged her to follow-up with PCP GI and DVT prophylaxis ordered Continued [facility] stay due to: multiple IV medications needed Discharge planning: home
[2016-10-11] MEDS: DOCUSATE SODIUM 100 MG CAP PO SCH (21:01)
[2016-10-11] MEDS: ATORVASTATIN 40 MG TAB PO SCH (21:02)
[2016-10-11] MEDS: LORAZEPAM 0.5 MG TAB PO PRN (22:46)
[2016-10-12] VITALS (27 sets, daily range): BP systolic 129–168; BP diastolic 64–92; PULSE 75–96; TEMP 36.7–37; O2SAT 92–98; BMI 45.8
[2016-10-12] MEDS ORDERED: NURSING VERBAL MED ORDER ONE ×2 (01:15→10:45)
[2016-10-12] MEDS: OXYCODONE/ACETAMINOPHEN 5-325 TAB PO PRN ×3 (01:25→17:39)
[2016-10-12] MEDS: ARFORMOTEROL TART 15MCG/2ML VIAL INH SCH (07:22)
[2016-10-12 08:15] LABS: CALCIUM 8.2 mg/dl (8.5-10.1); CREATININE 5.8 mg/dl (0.60-1.20); MAGNESIUM 2.4 mg/dl (1.8-2.4)
--- NOTE | 2016-10-12 08:36 | Progress Note ---
Subjective Date of Service: Oct 12, 2016. Subjective Pt evaluation today including: conversation w/ patient, conversation w/ family , physical exam, chart review, lab review, review of studies, review of inpatient medication list Complaining about chest pain from midnight across the middle chest, associated with shallow breathing, this is new for her, she need oxygen, narcotic dependent medicine only minimal help, when I walk in, she still complaining about chest pain 6 out of 10, she looked tired and uncomfortable, Review of Systems Constitutional: No chills, No fatigue, No fever, No problem reported, No sweats , No weakness, No weight loss Eyes: No diplopia, No discharge, No eye pain, No redness, No worsening of vision ENT: No dental problems, No hearing loss, No nasal symptoms, No sore throat, No tinnitus, No trouble swallowing, No unusual epistaxis Respiratory: No cough, No dyspnea at rest, No dyspnea on exertion, No hemoptysis, No shortness of breath, No sputum, No wheezing Cardiac: + chest pain, No PND, No claudication, No edema, No orthopnea, No palpitations Abdomen: No constipation, No diarrhea, No nausea, No pain, No vomiting Musculoskeletal: No calf pain, No joint pain, No muscle pain, No swelling Female : No abnormal vaginal bleeding, No dysuria, No hematuria, No incontinence, No urinary frequency, No vaginal discharge Neurologic: No balance problems, No memory loss, No numbness/tingling, No paralysis, No vertigo, No weakness Psychiatric: No anhedonism, No anxiety, No depression symptoms, No insomnia, No substance abuse Heme: No abnormal bleeding/bruising, No clotting problems, No night sweats, No swollen lymph nodes Endo: No excessive thirst, No excessive urination, No fatigue Skin: No bleeding, No color change, No itch, No new/changing skin lesions, No rash Objective Vital Signs Date Time Temp Pulse Resp B/P Pulse Ox O2 Delivery O2 Flow Rate FiO2 10/12/16 07:58 36.7 87 18 168/92 94 Nasal Cannula 2.0 10/12/16 04:00 Nasal Cannula Humidified Oxygen 10/12/16 03:42 36.8 75 18 129/80 94 Nasal Cannula 2.0 10/12/16 00:01 Nasal Cannula Humidified Oxygen 10/11/16 23:56 36.8 74 18 132/67 94 Nasal Cannula 2.0 10/11/16 20:00 Nasal Cannula Humidified Oxygen 10/11/16 19:35 77 18 96 Nasal Cannula 2.0 10/11/16 19:25 36.8 75 20 140/86 96 Nasal Cannula 2.0 10/11/16 16:00 Nasal Cannula 2.0 10/11/16 15:25 37.1 74 20 139/84 91 Nasal Cannula 2.0 10/11/16 12:00 Nasal Cannula 2.0 10/11/16 11:42 36.7 75 16 129/73 94 2.0 Physical Exam General Appearance: WD/WN, no apparent distress, + obese Eyes: normal inspection, PERRL, EOMI, sclerae normal ENT: normal ENT inspection, hearing grossly normal, pharynx normal Neck: supple, no adenopathy, thyroid normal, no JVD, no carotid bruits, trachea midline Respiratory/Chest: chest non-tender, normal breath sounds, no respiratory distress, no accessory muscle use, + decreased breath sounds, + pertinent finding (right anterior chest wall has dialysis catheter in place,) Cardiovascular: regular rate, rhythm, no edema, no gallop, no JVD, no murmur Abdomen: normal bowel sounds, non tender, soft, no organomegaly, no pulsatile mass Extremities: normal range of motion, non-tender, normal inspection, no pedal edema, no calf tenderness, normal capillary refill, pelvis stable Neurologic/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: 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, no motor/sensory deficits, alert, normal mood/affect, oriented x 3 Skin: normal color, warm/dry, no rash Lymphatic: no adenopathy Laboratory Results Last 24 Hours Test 10/11/16 11:26 10/11/16 16:21 10/11/16 20:42 10/12/16 06:41 Bedside Glucose 195 mg/dl 226 mg/dl 190 mg/dl 184 mg/dl Test 10/12/16 07:17 10/12/16 08:26 Sodium Level 134 mmol/L Potassium Level 4.0 mmol/L Chloride Level 99 mmol/L Carbon Dioxide Level 21 mmol/L Anion Gap 14.0 mmol/L Blood Urea Nitrogen 52 mg/dl Creatinine 5.80 mg/dl Est Creatinine Clear Calc Drug Dose 14.4 ml/min Estimated GFR () 8.9 Estimated GFR (Non- 7.7 BUN/Creatinine Ratio 9.0 Random Glucose 191 mg/dl Calcium Level 8.2 mg/dl Magnesium Level 2.4 mg/dl Assessment and Plan 51 F admitted admitted on 09/26/2016 because of acute diastolic heart failure, and renal failure after recent pneumonia , suffered a NSTEMI, which required cardiac catheterization, PCI w/ BMS x 2 , now development acute on chronic kidney failure , PermCath was placed on 2016 and dialysis has had 2 time dialysis y new chest pain overnight, need to rule out DVT or PE chest pain overnight Differential diagnosis include acute PE, ACS, chest wall pain, GERD, some pain from the new dialysis catheter Because patient has significant risk factors for acute DVT and PE, with morbid obesity, associated with the shadow to breathing, requiring oxygen, this is new for her in recent 2 days after she has left heart cath procedure. Discussed with patient about the need to rule out acute PE of CT chest with contrast, which will cause her worsening renal function, and make her renal function recovery be very less likely, however acute PE may be a life threatening disease, we need to make diagnosis right away, I discussed other options of the diagnosis and treatment such as VQ scan and checking d-dimer, however I feel to the later 2 options were not able to give us appropriate answer, patient understand and agreed, willing to take all the risk, discussed case with english as a second language instructor, she will be supportive for the event and patient will get dialysis today. NSTEMI/coronary artery disease, with new chest pain, cardiac enzyme troponin were ordered, EKG was reviewed no obvious ST-T phase change status post PCI with bare metal stent x2 to mid and distal LAD; diffuse RCA, OM 1 residual disease Continue treatment with statin, diabetic control and blood pressure control , and cont DAPT, Acute decompensated diastolic CHF, on Bumex and on dialysis Acute respiratory failure, improved after treating like copd, stable BECKIE on CKD and diabetes nephropathy, see above Nephrology on the case, has been on Bumex, Patient for permcath insertion Started dialysis per order from nephrology from 10/09/2016 Nephrology continue follow-up Patient still making urine Resent Pneumonia, as complete IV antibiotic treatment Diabetes, continues in poor control, continue insulin sliding scale, A1c around 7 Was on oral diabetic medication at home, for now renal function is unstable, possible need for dialysis, Patient was on NPH at home, which was recently discontinued , started NPH, plus insulin sliding scale Hypertension, stable Need to have cardiac rehabilitation, PCP is Dr. Isauro perdomo, encourage her to follow-up with Dr. perdomo to arrange for the cardiac rehabilitation as outpatient Patient agreed Possible has RENETTA but has not yet been evaluated I encouraged her to follow-up with PCP GI and DVT prophylaxis ordered Continued [facility] stay due to: multiple IV medications needed Discharge planning: home
[2016-10-12] MEDS: CARVEDILOL 25 MG TAB PO SCH ×2 (09:00→19:55)
[2016-10-12] MEDS: AMLODIPINE BESYLATE 5 MG TAB PO SCH (09:00)
[2016-10-12] MEDS: INSULIN ASPART 100 UNITS/ML 3 ML PEN SC SCH ×4 (09:02→21:00)
--- NOTE | 2016-10-12 09:02 | Cardiology Follow-Up ---
Subjective Subjective Date of Service: Oct 12, 2016. Pt evaluation today including: conversation w/ patient, physical exam, chart review, lab review, review of studies, review of inpatient medication list Additional Details: Patient with intermittent pleuritic chest pain overnight into this AM More short of breath today than yesterday. No other new symptoms. ECG reviewed - sinus rhythm, subtle lateral ST abnormality improved from prior ECGs post PCI Tele - no events overnight Review of Systems Constitutional: No fever Respiratory: + shortness of breath, No cough Cardiac: + chest pain Abdomen: No nausea, No pain Neurologic: No numbness/tingling Heme: No abnormal bleeding/bruising Endo: + fatigue Skin: No rash Objective Vital Signs Last Vital Signs Documentation Date Time Temp Pulse Resp B/P Pulse Ox O2 Delivery O2 Flow Rate FiO2 10/12/16 07:58 36.7 87 18 168/92 94 Nasal Cannula 2.0 Physical Exam: General Appearance: no apparent distress, + obese, + pertinent finding ( appears more fatigued, ill today) ENT: pharynx normal Respiratory/Chest: chest non-tender, no respiratory distress, + decreased breath sounds, + pertinent finding (right anterior chest wall has dialysis catheter in place, no surround erythema. minimal tenderness) Cardiovascular: regular rate, rhythm, no murmur Abdomen: non tender, soft Extremities: no calf tenderness, + pertinent finding (1+ edema to shins) Neurologic/Psychiatric: alert, normal mood/affect, oriented x 3, + pertinent finding (appears more fatigued) Skin: normal color, warm/dry, no rash Assessment and Plan 51 F h/o type 2 DM, HTN, PAD and CKD admitted with NSTEMI, acute diastolic heart failure. Hospital course complicated by progressive renal failure and eventual MARSHAL requiring HD following PCI to mid to distal LAD. New pleuritic chest pain this AM -- ECG/telemetry unremarkable --> at this point low suspicion for acute stent thrombosis but will continue to monitor. -- agree with serial cardiac enzymes. Repeat ECG if change in symptoms -- CTA for PE pending -- continue DAPT, statin and beta-jorge -- volume management per renal Continued [facility] stay due to: multiple IV medications needed Discharge planning: home Medications: Current Inpatient Medications Medications (Trade) Dose Ordered Sig/Elizabet Route Start Time Stop Time Status Last Admin Dose Admin Acetaminophen (Tylenol Tab) 650 mg Q4H PRN PO 09/25/16 23:30 10/25/16 23:29 10/08/16 07:54 650 MG Al Hydrox/Mg Hydrox/Simethicone (Maalox Max Susp) 15 ml Q4H PRN PO 09/25/16 23:30 10/25/16 23:29 10/09/16 07:52 15 ML Magnesium Hydroxide (Milk Of Magnesia Susp) 30 ml Q12H PRN PO 09/25/16 23:30 10/25/16 23:29 Ondansetron HCl (Zofran Inj) 4 mg Q6H PRN IV 09/25/16 23:30 10/25/16 23:29 10/10/16 12:11 4 MG Nitroglycerin (Nitrostat Tab) 0.4 mg UD PRN SL 09/25/16 23:30 10/25/16 23:29 Polyethylene (Miralax Powder Packet) 17 gm DAILY PRN PO 09/25/16 23:30 10/25/16 23:29 Citalopram Hydrobromide (celeXA TAB) 20 mg QAM PO 09/26/16 09:00 10/26/16 08:59 10/11/16 07:54 20 MG Atorvastatin Calcium (Lipitor Tab) 40 mg HS PO 09/26/16 21:00 10/26/16 20:59 10/11/16 21:02 40 MG Clopidogrel Bisulfate (plAVix TAB) 75 mg QAM PO 09/26/16 09:00 10/26/16 08:59 10/11/16 07:56 75 MG Amlodipine Besylate (Norvasc Tab) 10 mg QAM PO 09/26/16 09:00 10/26/16 08:59 10/11/16 07:54 10 MG Tramadol HCl (Ultram Tab) 50 mg Q4H PRN PO 09/25/16 23:30 10/25/16 23:29 10/11/16 21:07 50 MG Glucose (Glucose 40% Gel) 15-30 GRAMS 15 GRAMS... UD PRN PO 09/26/16 00:30 10/26/16 00:29 Glucose (Glucose Chew Tab) 4-8 Tablets 4 Tabl... UD PRN PO 09/26/16 00:30 10/26/16 00:29 Dextrose (Dextrose 50% 50ML Syringe) 25-50ML OF 50% DW IV FOR... UD PRN IV 09/26/16 00:30 10/26/16 00:29 Glucagon (Glucagon Inj) 1 mg UD PRN SQ 09/26/16 00:30 10/26/16 00:29 Insulin Aspart (novoLOG ASPART) SLIDING SCALE G... ACHS SC 09/27/16 17:00 10/27/16 16:59 10/11/16 21:06 2 UNITS Albuterol/ Ipratropium (Duoneb) 3 ml Q2H PRN INH 09/28/16 11:15 10/28/16 11:14 10/09/16 05:25 3 ML Hydralazine HCl (HydrALAZINE INJ) 10 mg Q4H PRN IV 09/28/16 15:15 10/28/16 15:14 10/03/16 03:09 10 MG Arformoterol Tartrate (Brovana 15MCG/ 2ML Neb Soln) 15 mcg BIDR INH 09/28/16 20:00 10/28/16 19:59 10/12/16 07:22 15 MCG Carvedilol (Coreg Tab) 25 mg BID PO 09/30/16 21:00 10/30/16 20:59 10/11/16 21:02 25 MG Albuterol/ Ipratropium (Combivent Respimat Inh) 1 puffs QID INH 10/03/16 13:00 11/02/16 12:59 10/11/16 21:00 1 PUFFS Hydralazine HCl (Apresoline Tab) 100 mg BID PO 10/04/16 21:00 11/03/16 20:59 10/11/16 21:01 100 MG Heparin Sodium (Porcine) (Heparin Sq 5000 Unit/0.5ml) 5,000 unit Q12 SQ 10/05/16 21:00 11/04/16 20:59 10/11/16 21:07 5,000 UNIT Aspirin 81 mg 81 mg QAM PO 10/07/16 09:00 11/06/16 08:59 10/11/16 07:54 81 MG Bumetanide/Syringe (Bumex IV/ Syringe) 8 ml @ 4 mls/min BID17 IV 10/08/16 17:00 11/07/16 16:59 10/11/16 17:49 4 MLS/MIN Lorazepam (Ativan Tab) 0.5 mg Q8H PRN PO 10/08/16 11:00 11/07/16 10:59 10/11/16 22:46 0.5 MG Insulin Human Isoph/Insulin Regular (novoLIN 70/30 REGULAR) 4 units BIDM SC 10/10/16 16:45 11/09/16 16:44 10/11/16 17:12 4 UNITS Docusate Sodium (coLACE CAP) 100 mg BID PO 10/11/16 21:00 11/10/16 20:59 10/11/16 21:01 100 MG Oxycodone/ Acetaminophen (Percocet 5-325mg Tab) 1 tab Q4H PRN PO 10/12/16 01:30 10/26/16 01:29 10/12/16 07:20 1 TAB Lab Results: 10/12/16 07:17 Test 10/12/16 06:41 10/12/16 07:17 10/12/16 08:26 10/12/16 08:46 Bedside Glucose 184 mg/dl (70-90) Anion Gap 14.0 mmol/L (3-11) Est Creatinine Clear Calc Drug Dose 14.4 ml/min Estimated GFR () 8.9 Estimated GFR (Non- 7.7 BUN/Creatinine Ratio 9.0 (10-20) Calcium Level 8.2 mg/dl (8.5-10.1) Magnesium Level 2.4 mg/dl (1.8-2.4) Creatine Kinase MB Ratio (0-3.0)
[2016-10-12] MEDS: HEPARIN SOD 5000 UNIT/0.5 ML CARP SQ SCH ×2 (09:03→21:00)
[2016-10-12] MEDS: INSULIN HUMAN 70% NPH/30% REGULAR SC SCH ×2 (09:03→20:00)
[2016-10-12] MEDS: IPRATROPIUM BROMIDE/ALBUTEROL respimat INH INH SCH ×4 (09:04→20:58)
[2016-10-12] MEDS: ASPIRIN 81 MG ECTAB PO SCH (09:06)
[2016-10-12] MEDS: CLOPIDOGREL BISULFATE 75 MG TAB PO SCH (09:06)
[2016-10-12] MEDS: DOCUSATE SODIUM 100 MG CAP PO SCH ×2 (09:06→19:55)
[2016-10-12] MEDS: BUMETANIDE IV 2 MG in SYRINGE 0 ML IV SCH ×2 (09:06→19:54)
[2016-10-12] MEDS: CITALOPRAM 20 MG TAB PO SCH (09:06)
[2016-10-12] MEDS ORDERED: OPTIRAY 320 IV PRN (09:45)
--- NOTE | 2016-10-12 09:46 | DIAGNOSTIC IMAGING REPORT ---
CHEST CTA for PULMONARY ARTERIES CT DOSE: 710.83 mGy.cm HISTORY: Short of breath. TECHNIQUE: Multiaxial CT images of the chest were performed following the intravenous administration of contrast to evaluate the pulmonary arteries. Maximal intensity projection images were also obtained. COMPARISON STUDY: Chest CT 09/25/2016. FINDINGS: Normal caliber thoracic aorta with no evidence for dissection. The heart is mildly enlarged. Moderate to large right and small left pleural effusions have increased in size. The main pulmonary artery is dilated up to 3.8 cm. This is consistent with pulmonary arterial hypertension. The majority of the subsegmental pulmonary arteries are nondiagnostic due to the motion artifact. Otherwise, no filling defects within the remaining pulmonary arteries to suggest pulmonary embolus. Right jugular dual-lumen catheter is noted. No significant mediastinal or hilar lymphadenopathy. The visualized liver and spleen are unremarkable. Near complete consolidation of the right lower lobe with smaller areas of consolidation within the right middle lobe and left lower lobe favor compressive atelectasis from the pleural effusions. No pneumothorax. The central airways are patent. Groundglass densities and interlobular septal thickening have improved. IMPRESSION: 1. No evidence for pulmonary embolus with limitations as described above. 2. Groundglass densities and mild interstitial thickening has improved. This favors improvement in the pulmonary edema. 3. However, the bilateral pleural effusions have increased in size. 4. Additional findings as described above Electronically signed by: Best Saenz M.D. 10/12/2016 9:45 AM Dictated Date/Time: 10/12/2016 9:38 AM
--- NOTE | 2016-10-12 10:29 | DIAGNOSTIC IMAGING REPORT ---
BILATERAL LOWER EXTREMITY VENOUS DOPPLER HISTORY: Leg swelling. to rule out dvt COMPARISON STUDY: None. FINDINGS: There is normal compressibility, flow, and augmentation within the bilateral lower extremity deep venous systems. IMPRESSION: No DVT within the right or left lower extremity. Electronically signed by: Best Saenz M.D. 10/12/2016 10:28 AM Dictated Date/Time: 10/12/2016 10:27 AM
[2016-10-12] MEDS ORDERED: MoRPHine SULFATE 4 MG/ML 1 ML CARP\\VIAL ONE (10:30)
--- NOTE | 2016-10-12 10:32 | Nephrology Progress Note ---
Nephrology Progress Note Date of Service Oct 11, 2016. Chief Complaint Follow-up for acute kidney injury Eliceo Sommers was seen and examined in her room this morning. She has been having shortness of breath and chest tightness since last night. This morning she had a CT chest with IV contrast for evaluation for PE which was negative for PE but has B/L increase size in pleural effusion. She has been oliguric. Last dialysis was on Wednesday but no clear sign of renal recovery yet. Blood pressure stable. Review of Systems A complete review of systems was performed. Pertinent positives are noted above. All other systems are negative. Vital Signs Last 8 Hrs Date Time Temp Pulse Resp B/P Pulse Ox O2 Delivery O2 Flow Rate FiO2 10/11/16 11:42 36.7 75 16 129/73 94 2.0 10/11/16 08:00 Nasal Cannula 2.0 10/11/16 07:42 37.1 80 18 147/81 94 Nasal Cannula 2.0 10/11/16 06:58 77 18 96 Nasal Cannula 2.0 10/11/16 04:38 37.3 80 16 125/72 91 I & O 24-Hour Column 10/11/16 08:00 Intake Total 575 ml Output Total 1500 ml Balance -925 ml Last Recorded Weight Weight (Kilograms): 121.500 Physical Exam GENERAL: Middle-aged female, AAA x 3, pleasant, healthy-appearing, not in any distress. NECK: Supple, no JVD. RESPIRATORY: Normal breathing efforts, no accessory muscle use, bibasilar rales , no wheezes CARDIOVASCULAR: S1, S2 normal, rate rhythm regular. EXTREMITY: Trace bilateral lower extremity edema NEURO: speech fluent. PSYCHIATRY: Normal mood and judgment Laboratory Results Past 24 Hours 10/11/16 06:15 Test 10/10/16 17:52 10/10/16 20:07 10/11/16 06:15 10/11/16 06:21 Bedside Glucose 128 mg/dl (70-90) 185 mg/dl (70-90) 175 mg/dl (70-90) Anion Gap 12.0 mmol/L (3-11) Est Creatinine Clear Calc Drug Dose 16.4 ml/min Estimated GFR () 10.4 Estimated GFR (Non- 9.0 BUN/Creatinine Ratio 8.5 (10-20) Calcium Level 7.9 mg/dl (8.5-10.1) Test 10/11/16 11:26 Bedside Glucose 195 mg/dl (70-90) Allergies Coded Allergies: Latex1 -Allergic Contact Dermititis (Verified Adverse Reaction, Mild, RASH , 09/25/16) Medications Current Inpatient Medications Medications (Trade) Dose Ordered Sig/Elizabet Route Start Time Stop Time Status Last Admin Dose Admin Acetaminophen (Tylenol Tab) 650 mg Q4H PRN PO 09/25/16 23:30 10/25/16 23:29 10/08/16 07:54 650 MG Al Hydrox/Mg Hydrox/Simethicone (Maalox Max Susp) 15 ml Q4H PRN PO 09/25/16 23:30 10/25/16 23:29 10/09/16 07:52 15 ML Magnesium Hydroxide (Milk Of Magnesia Susp) 30 ml Q12H PRN PO 09/25/16 23:30 10/25/16 23:29 Ondansetron HCl (Zofran Inj) 4 mg Q6H PRN IV 09/25/16 23:30 10/25/16 23:29 10/10/16 12:11 4 MG Nitroglycerin (Nitrostat Tab) 0.4 mg UD PRN SL 09/25/16 23:30 10/25/16 23:29 Polyethylene (Miralax Powder Packet) 17 gm DAILY PRN PO 09/25/16 23:30 10/25/16 23:29 Citalopram Hydrobromide (celeXA TAB) 20 mg QAM PO 09/26/16 09:00 10/26/16 08:59 10/11/16 07:54 20 MG Atorvastatin Calcium (Lipitor Tab) 40 mg HS PO 09/26/16 21:00 10/26/16 20:59 10/10/16 20:14 40 MG Clopidogrel Bisulfate (plAVix TAB) 75 mg QAM PO 09/26/16 09:00 10/26/16 08:59 10/11/16 07:56 75 MG Amlodipine Besylate (Norvasc Tab) 10 mg QAM PO 09/26/16 09:00 10/26/16 08:59 10/11/16 07:54 10 MG Tramadol HCl (Ultram Tab) 50 mg Q4H PRN PO 09/25/16 23:30 10/25/16 23:29 10/11/16 08:21 50 MG Glucose (Glucose 40% Gel) 15-30 GRAMS 15 GRAMS... UD PRN PO 09/26/16 00:30 10/26/16 00:29 Glucose (Glucose Chew Tab) 4-8 Tablets 4 Tabl... UD PRN PO 09/26/16 00:30 10/26/16 00:29 Dextrose (Dextrose 50% 50ML Syringe) 25-50ML OF 50% DW IV FOR... UD PRN IV 09/26/16 00:30 10/26/16 00:29 Glucagon (Glucagon Inj) 1 mg UD PRN SQ 09/26/16 00:30 10/26/16 00:29 Insulin Aspart (novoLOG ASPART) SLIDING SCALE G... ACHS SC 09/27/16 17:00 10/27/16 16:59 10/11/16 12:09 5 UNITS Albuterol/ Ipratropium (Duoneb) 3 ml Q2H PRN INH 09/28/16 11:15 10/28/16 11:14 10/09/16 05:25 3 ML Hydralazine HCl (HydrALAZINE INJ) 10 mg Q4H PRN IV 09/28/16 15:15 10/28/16 15:14 10/03/16 03:09 10 MG Arformoterol Tartrate (Brovana 15MCG/ 2ML Neb Soln) 15 mcg BIDR INH 09/28/16 20:00 10/28/16 19:59 10/11/16 06:55 15 MCG Carvedilol (Coreg Tab) 25 mg BID PO 09/30/16 21:00 10/30/16 20:59 10/11/16 07:54 25 MG Albuterol/ Ipratropium (Combivent Respimat Inh) 1 puffs QID INH 10/03/16 13:00 11/02/16 12:59 10/11/16 12:06 1 PUFFS Hydralazine HCl (Apresoline Tab) 100 mg BID PO 10/04/16 21:00 11/03/16 20:59 10/11/16 07:54 100 MG Heparin Sodium (Porcine) (Heparin Sq 5000 Unit/0.5ml) 5,000 unit Q12 SQ 10/05/16 21:00 11/04/16 20:59 10/11/16 08:04 5,000 UNIT Aspirin 81 mg 81 mg QAM PO 10/07/16 09:00 11/06/16 08:59 10/11/16 07:54 81 MG Bumetanide/Syringe (Bumex IV/ Syringe) 8 ml @ 4 mls/min BID17 IV 10/08/16 17:00 11/07/16 16:59 10/11/16 08:21 4 MLS/MIN Lorazepam (Ativan Tab) 0.5 mg Q8H PRN PO 10/08/16 11:00 11/07/16 10:59 10/08/16 11:04 0.5 MG Insulin Human Isoph/Insulin Regular (novoLIN 70/30 REGULAR) 4 units BIDM SC 10/10/16 16:45 11/09/16 16:44 10/11/16 08:03 4 UNITS Docusate Sodium (coLACE CAP) 100 mg BID PO 10/11/16 21:00 11/10/16 20:59 Impression (1) Contrast dye induced nephropathy (2) Chronic kidney disease, stage III (moderate) (3) Acute on chronic diastolic CHF (congestive heart failure) (4) Acute renal insufficiency (5) Diabetic nephropathy (6) Nephrotic range proteinuria Mrs. Gutierrez is a 51-year-old female with stage III CKD (baseline creatinine ~2.0 mg/dL) attributed to diabetic nephropathy, obesity and hypertensive nephrosclerosis. She has evidence of nephrosis with nephrotic range proteinuria. She was admitted with acute hypoxic respiratory failure in the setting of hypervolemia related to acute on chronic diastolic CHF and advanced renal disease. She suffered a NSTEMI. She required cardiac catheterization, PCI w/ BMS x 2 10/06/16. She has developed contrast induced nephropathy Dr. 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 He had discussed potential role of renal replacement therapy in the past. Recommendations ACUTE KIDNEY INJURY: --require dialysis for electrolyte abnormality, and worsening kidney function, had 2nd treatment for 3 hours yesterday tolerated well. -- So far no sign of renal recovery off of dialysis on Wednesday -- will schedule for 4 hours dialysis this afternoon -- continue to monitor for renal recovery however with repeat IV contrast exposure this morning chances for renal recovery is becoming slim. Discussed in detail with pt before CT scan and she verbalized understanding and decided to have the CT with IV contrast -- Social Service to set up outpatient HD in [place]. Attending mixed livestock farm worker = Dr. Barrera CHRONIC KIDNEY DISEASE: -- Likely related to diabetic nephropathy -- Baseline creatinine had been 2.0 -- Protect left arm for possible dialysis access ANEMIA: -- Patient has completed a 1 g infusion of IV iron. Continue on JESU CAD: -- Had Cardiac cath on 10/06/16, required PCI w/ BMX x 2.
[2016-10-12] MEDS ORDERED: MoRPHine SULFATE 4 MG/ML 1 ML CARP\\VIAL IV ONE (10:45)
[2016-10-12] MEDS: MoRPHine SULFATE 4 MG/ML 1 ML CARP\\VIAL IV PRN ×2 (14:57→21:26)
[2016-10-12] MEDS: ATORVASTATIN 40 MG TAB PO SCH (19:55)
[2016-10-13] VITALS (7 sets, daily range): BP systolic 116–155; BP diastolic 73–83; PULSE 73–91; TEMP 36.9–37.1; O2SAT 91–97
[2016-10-13] MEDS: MoRPHine SULFATE 4 MG/ML 1 ML CARP\\VIAL IV PRN (01:12)
[2016-10-13 06:26] LABS: HEMATOCRIT 28.5 % (37-47); MEAN CELL VOLUME 88.8 fL (80-100); MEAN CORPUSCULAR HEMOGLOBIN 28.7 pg (25-34); MEAN CORPUSCULAR HGB CONC 32.3 g/dl (32-36); MEAN PLATELET VOLUME 10.3 fL (7.4-10.4); PLATELET COUNT 292 K/uL (130-400); RED BLOOD COUNT 3.21 M/uL (4.2-5.4); WHITE BLOOD COUNT 9.74 K/uL (4.8-10.8)
[2016-10-13 07:04] LABS: BUN/CREATININE RATIO 6.6 (10-20); CALCIUM 8.2 mg/dl (8.5-10.1); CREATININE 3.5 mg/dl (0.60-1.20); POTASSIUM 3.9 mmol/L (3.5-5.1)
[2016-10-13] MEDS: ARFORMOTEROL TART 15MCG/2ML VIAL INH SCH ×2 (07:10→19:44)
[2016-10-13] MEDS: OXYCODONE/ACETAMINOPHEN 5-325 TAB PO PRN (07:53)
[2016-10-13] MEDS: INSULIN ASPART 100 UNITS/ML 3 ML PEN SC SCH ×4 (07:54→20:23)
[2016-10-13] MEDS: INSULIN HUMAN 70% NPH/30% REGULAR SC SCH ×2 (07:55→17:03)
[2016-10-13] MEDS: HEPARIN SOD 5000 UNIT/0.5 ML CARP SQ SCH ×2 (07:56→20:24)
[2016-10-13] MEDS: IPRATROPIUM BROMIDE/ALBUTEROL respimat INH INH SCH ×4 (07:57→19:49)
[2016-10-13] MEDS: BUMETANIDE IV 2 MG in SYRINGE 0 ML IV SCH ×2 (07:57→17:00)
[2016-10-13] MEDS: AMLODIPINE BESYLATE 5 MG TAB PO SCH (07:58)
[2016-10-13] MEDS: CITALOPRAM 20 MG TAB PO SCH (07:58)
[2016-10-13] MEDS: CLOPIDOGREL BISULFATE 75 MG TAB PO SCH (07:58)
[2016-10-13] MEDS: DOCUSATE SODIUM 100 MG CAP PO SCH ×2 (07:58→19:47)
[2016-10-13] MEDS: ASPIRIN 81 MG ECTAB PO SCH (07:59)
[2016-10-13] MEDS: CARVEDILOL 25 MG TAB PO SCH ×2 (07:59→19:48)
--- NOTE | 2016-10-13 12:01 | Nephrology Progress Note ---
Nephrology Progress Note Date of Service Oct 13, 2016. Chief Complaint Follow-up for acute kidney injury Subjective Tootie was seen and examined in her room this morning. She mentioned that her shortness of breath improved however still occasionally gets short of breath when she takes really deep breath. Yesterday CTA and lower extremity Doppler was negative. She has been making urine minimally, blood pressure stable. Had dialysis yesterday afternoon, currently electrolyte and volume status stable. Review of Systems A complete review of systems was performed. Pertinent positives are noted above. All other systems are negative. Vital Signs Last 8 Hrs Date Time Temp Pulse Resp B/P Pulse Ox O2 Delivery O2 Flow Rate FiO2 10/13/16 11:40 37.1 78 16 133/83 91 Nasal Cannula 10/13/16 08:02 36.9 88 18 155/82 94 Nasal Cannula 10/13/16 08:00 Nasal Cannula 2.0 10/13/16 07:11 91 20 94 Nasal Cannula 2.0 10/13/16 04:00 Nasal Cannula 2.0 I & O 24-Hour Column 10/13/16 07:59 Intake Total 1030 ml Output Total 3200 ml Balance -2170 ml Last Recorded Weight Weight (Kilograms): 120.200 Physical Exam GENERAL: Middle-aged female, AAA x 3, pleasant, healthy-appearing, not in any distress. NECK: Supple, no JVD. RESPIRATORY: Normal breathing efforts, no accessory muscle use, bibasilar rales , no wheezes CARDIOVASCULAR: S1, S2 normal, rate rhythm regular. EXTREMITY: Trace bilateral lower extremity edema NEURO: speech fluent. PSYCHIATRY: Normal mood and judgment Laboratory Results Past 24 Hours 10/13/16 06:12 10/13/16 06:12 Test 10/12/16 14:53 10/12/16 16:35 10/12/16 20:31 10/12/16 20:50 Troponin I 6.780 ng/ml (0-0.045) 6.520 ng/ml (0-0.045) Bedside Glucose 147 mg/dl (70-90) 160 mg/dl (70-90) Test 10/13/16 06:12 10/13/16 06:19 10/13/16 10:51 Red Blood Count 3.21 M/uL (4.2-5.4) Mean Corpuscular Volume 88.8 fL (80-100) Mean Corpuscular Hemoglobin 28.7 pg (25-34) Mean Corpuscular Hemoglobin Concent 32.3 g/dl (32-36) RDW Standard Deviation 46.9 fL (36.4-46.3) RDW Coefficient of Variation 14.4 % (11.5-14.5) Mean Platelet Volume 10.3 fL (7.4-10.4) Anion Gap 11.0 mmol/L (3-11) Est Creatinine Clear Calc Drug Dose 23.8 ml/min Estimated GFR () 16.4 Estimated GFR (Non- 14.1 BUN/Creatinine Ratio 6.6 (10-20) Calcium Level 8.2 mg/dl (8.5-10.1) Bedside Glucose 150 mg/dl (70-90) 196 mg/dl (70-90) Allergies Coded Allergies: Latex1 -Allergic Contact Dermititis (Verified Adverse Reaction, Mild, RASH , 09/25/16) Medications Current Inpatient Medications Medications (Trade) Dose Ordered Sig/Elizabet Route Start Time Stop Time Status Last Admin Dose Admin Acetaminophen (Tylenol Tab) 650 mg Q4H PRN PO 09/25/16 23:30 10/25/16 23:29 10/08/16 07:54 650 MG Al Hydrox/Mg Hydrox/Simethicone (Maalox Max Susp) 15 ml Q4H PRN PO 09/25/16 23:30 10/25/16 23:29 10/09/16 07:52 15 ML Magnesium Hydroxide (Milk Of Magnesia Susp) 30 ml Q12H PRN PO 09/25/16 23:30 10/25/16 23:29 Ondansetron HCl (Zofran Inj) 4 mg Q6H PRN IV 09/25/16 23:30 10/25/16 23:29 10/10/16 12:11 4 MG Nitroglycerin (Nitrostat Tab) 0.4 mg UD PRN SL 09/25/16 23:30 10/25/16 23:29 10/12/16 11:00 0.4 MG Polyethylene (Miralax Powder Packet) 17 gm DAILY PRN PO 09/25/16 23:30 10/25/16 23:29 Citalopram Hydrobromide (celeXA TAB) 20 mg QAM PO 09/26/16 09:00 10/26/16 08:59 10/13/16 07:58 20 MG Atorvastatin Calcium (Lipitor Tab) 40 mg HS PO 09/26/16 21:00 10/26/16 20:59 10/12/16 19:55 40 MG Clopidogrel Bisulfate (plAVix TAB) 75 mg QAM PO 09/26/16 09:00 10/26/16 08:59 10/13/16 07:58 75 MG Amlodipine Besylate (Norvasc Tab) 10 mg QAM PO 09/26/16 09:00 10/26/16 08:59 10/13/16 07:58 10 MG Tramadol HCl (Ultram Tab) 50 mg Q4H PRN PO 09/25/16 23:30 10/25/16 23:29 10/11/16 21:07 50 MG Glucose (Glucose 40% Gel) 15-30 GRAMS 15 GRAMS... UD PRN PO 09/26/16 00:30 10/26/16 00:29 Glucose (Glucose Chew Tab) 4-8 Tablets 4 Tabl... UD PRN PO 09/26/16 00:30 10/26/16 00:29 Dextrose (Dextrose 50% 50ML Syringe) 25-50ML OF 50% DW IV FOR... UD PRN IV 09/26/16 00:30 10/26/16 00:29 Glucagon (Glucagon Inj) 1 mg UD PRN SQ 09/26/16 00:30 10/26/16 00:29 Insulin Aspart (novoLOG ASPART) SLIDING SCALE G... ACHS SC 09/27/16 17:00 10/27/16 16:59 10/13/16 07:54 4 UNITS Albuterol/ Ipratropium (Duoneb) 3 ml Q2H PRN INH 09/28/16 11:15 10/28/16 11:14 10/09/16 05:25 3 ML Hydralazine HCl (HydrALAZINE INJ) 10 mg Q4H PRN IV 09/28/16 15:15 10/28/16 15:14 10/03/16 03:09 10 MG Arformoterol Tartrate (Brovana 15MCG/ 2ML Neb Soln) 15 mcg BIDR INH 09/28/16 20:00 10/28/16 19:59 10/13/16 07:10 15 MCG Carvedilol (Coreg Tab) 25 mg BID PO 09/30/16 21:00 10/30/16 20:59 10/13/16 07:59 25 MG Albuterol/ Ipratropium (Combivent Respimat Inh) 1 puffs QID INH 10/03/16 13:00 11/02/16 12:59 10/13/16 07:57 1 PUFFS Hydralazine HCl (Apresoline Tab) 100 mg BID PO 10/04/16 21:00 11/03/16 20:59 10/13/16 07:58 100 MG Heparin Sodium (Porcine) (Heparin Sq 5000 Unit/0.5ml) 5,000 unit Q12 SQ 10/05/16 21:00 11/04/16 20:59 10/13/16 07:56 5,000 UNIT Aspirin 81 mg 81 mg QAM PO 10/07/16 09:00 11/06/16 08:59 10/13/16 07:59 81 MG Bumetanide/Syringe (Bumex IV/ Syringe) 8 ml @ 4 mls/min BID17 IV 10/08/16 17:00 11/07/16 16:59 10/13/16 07:57 4 MLS/MIN Lorazepam (Ativan Tab) 0.5 mg Q8H PRN PO 10/08/16 11:00 11/07/16 10:59 10/11/16 22:46 0.5 MG Insulin Human Isoph/Insulin Regular (novoLIN 70/30 REGULAR) 4 units BIDM SC 10/10/16 16:45 11/09/16 16:44 10/13/16 07:55 4 UNITS Docusate Sodium (coLACE CAP) 100 mg BID PO 10/11/16 21:00 11/10/16 20:59 10/13/16 07:58 100 MG Oxycodone/ Acetaminophen (Percocet 5-325mg Tab) 1 tab Q4H PRN PO 10/12/16 01:30 10/26/16 01:29 10/13/16 07:53 1 TAB Ioversol (Optiray 320) 125 ml UD PRN IV 10/12/16 09:45 10/16/16 09:44 Morphine Sulfate (MoRPHine SULFATE INJ) 4 mg Q2H PRN IV 10/12/16 10:45 10/26/16 10:44 10/13/16 01:12 4 MG Impression (1) Contrast dye induced nephropathy (2) Chronic kidney disease, stage III (moderate) (3) Acute on chronic diastolic CHF (congestive heart failure) (4) Acute renal insufficiency (5) Diabetic nephropathy (6) Nephrotic range proteinuria Mrs. Gutierrez is a 51-year-old female with stage III CKD (baseline creatinine ~2.0 mg/dL) attributed to diabetic nephropathy, obesity and hypertensive nephrosclerosis. She has evidence of nephrosis with nephrotic range proteinuria. She was admitted with acute hypoxic respiratory failure in the setting of hypervolemia related to acute on chronic diastolic CHF and advanced renal disease. She suffered a NSTEMI. She required cardiac catheterization, PCI w/ BMS x 2 10/06/16. She has developed contrast induced nephropathy Dr. Rodriguez in [facility] has been [facility]'s primary dog beautician. He had discussed potential role of renal replacement therapy in the past. Recommendations ACUTE KIDNEY INJURY: --require dialysis for electrolyte abnormality, and worsening kidney function. continue on intermittent dialysis and watch for recovery for kidney function, plan for dialysis tomorrow for 4 hours. -- So far no sign of renal recovery -- continue to monitor for renal recovery however with repeat IV contrast exposure this morning chances for renal recovery is becoming slim. -- Social Service to set up outpatient HD in [place], [place]. Attending dog beautician = Dr. Barrera CHRONIC KIDNEY DISEASE: -- Likely related to diabetic nephropathy -- Baseline creatinine had been 2.0 -- Protect left arm for possible dialysis access ANEMIA: -- Patient has completed a 1 g infusion of IV iron. Continue on JESU CAD: -- Had Cardiac cath on 10/06/16, required PCI w/ BMX x 2.
--- NOTE | 2016-10-13 16:40 | Progress Note ---
Subjective Date of Service: Oct 13, 2016. Subjective Pt evaluation today including: conversation w/ patient, conversation w/ family , physical exam, chart review, lab review, review of studies, review of inpatient medication list Objective Vital Signs Date Time Temp Pulse Resp B/P Pulse Ox O2 Delivery O2 Flow Rate FiO2 10/13/16 16:00 Nasal Cannula 2.0 10/13/16 15:37 37.0 73 18 131/80 97 Nasal Cannula 3.0 10/13/16 12:00 Nasal Cannula 2.0 10/13/16 11:40 37.1 78 16 133/83 91 Nasal Cannula 10/13/16 08:02 36.9 88 18 155/82 94 Nasal Cannula 10/13/16 08:00 Nasal Cannula 2.0 10/13/16 07:11 91 20 94 Nasal Cannula 2.0 10/13/16 04:00 Nasal Cannula 2.0 10/13/16 00:01 Nasal Cannula 2.0 10/13/16 00:00 36.9 81 18 140/83 94 Nasal Cannula 2.0 10/12/16 20:00 Nasal Cannula 6.0 10/12/16 19:30 36.7 81 146/85 10/12/16 19:00 80 146/64 10/12/16 18:45 81 152/80 10/12/16 18:40 36.9 86 20 143/77 98 Nasal Cannula 5.5 10/12/16 18:30 86 143/77 10/12/16 18:15 86 156/75 10/12/16 18:00 85 156/88 10/12/16 17:45 88 159/87 10/12/16 17:30 87 154/80 10/12/16 17:15 87 165/92 10/12/16 17:00 87 159/83 10/12/16 16:45 86 161/88 Laboratory Results Last 24 Hours Test 10/12/16 20:31 10/12/16 20:50 10/13/16 06:12 10/13/16 06:19 Bedside Glucose 160 mg/dl 150 mg/dl Troponin I 6.520 ng/ml White Blood Count 9.74 K/uL Red Blood Count 3.21 M/uL Hemoglobin 9.2 g/dL Hematocrit 28.5 % Mean Corpuscular Volume 88.8 fL Mean Corpuscular Hemoglobin 28.7 pg Mean Corpuscular Hemoglobin Concent 32.3 g/dl RDW Standard Deviation 46.9 fL RDW Coefficient of Variation 14.4 % Platelet Count 292 K/uL Mean Platelet Volume 10.3 fL Sodium Level 138 mmol/L Potassium Level 3.9 mmol/L Chloride Level 104 mmol/L Carbon Dioxide Level 23 mmol/L Anion Gap 11.0 mmol/L Blood Urea Nitrogen 23 mg/dl Creatinine 3.50 mg/dl Est Creatinine Clear Calc Drug Dose 23.8 ml/min Estimated GFR () 16.4 Estimated GFR (Non- 14.1 BUN/Creatinine Ratio 6.6 Random Glucose 145 mg/dl Calcium Level 8.2 mg/dl Test 10/13/16 10:51 10/13/16 16:20 Bedside Glucose 196 mg/dl 198 mg/dl Assessment and Plan 51 F admitted admitted on 09/26/2016 because of acute diastolic heart failure, and renal failure after recent pneumonia , suffered a NSTEMI, which required cardiac catheterization, PCI w/ BMS x 2 , now development acute on chronic kidney failure , PermCath was placed on 2016 and dialysis has had 2 time dialysis y new chest pain overnight, need to rule out DVT or PE chest pain overnight Differential diagnosis include acute PE, ACS, chest wall pain, GERD, some pain from the new dialysis catheter Because patient has significant risk factors for acute DVT and PE, with morbid obesity, associated with the shadow to breathing, requiring oxygen, this is new for her in recent 2 days after she has left heart cath procedure. Discussed with patient about the need to rule out acute PE of CT chest with contrast, which will cause her worsening renal function, and make her renal function recovery be very less likely, however acute PE may be a life threatening disease, we need to make diagnosis right away, I discussed other options of the diagnosis and treatment such as VQ scan and checking d-dimer, however I feel to the later 2 options were not able to give us appropriate answer, patient understand and agreed, willing to take all the risk, discussed case with porter baggage, she will be supportive for the event and patient will get dialysis today. NSTEMI/coronary artery disease, with new chest pain, cardiac enzyme troponin were ordered, EKG was reviewed no obvious ST-T phase change status post PCI with bare metal stent x2 to mid and distal LAD; diffuse RCA, OM 1 residual disease Continue treatment with statin, diabetic control and blood pressure control , and cont DAPT, Acute decompensated diastolic CHF, on Bumex and on dialysis Acute respiratory failure, improved after treating like copd, stable BECKIE on CKD and diabetes nephropathy, see above Nephrology on the case, has been on Bumex, Patient for permcath insertion Started dialysis per order from nephrology from 10/09/2016 Nephrology continue follow-up Patient still making urine Resent Pneumonia, as complete IV antibiotic treatment Diabetes, continues in poor control, continue insulin sliding scale, A1c around 7 Was on oral diabetic medication at home, for now renal function is unstable, possible need for dialysis, Patient was on NPH at home, which was recently discontinued , started NPH, plus insulin sliding scale Hypertension, stable Need to have cardiac rehabilitation, PCP is Dr. Isauro perdomo, encourage her to follow-up with Dr. perdomo to arrange for the cardiac rehabilitation as outpatient Patient agreed Possible has RENETTA but has not yet been evaluated I encouraged her to follow-up with PCP GI and DVT prophylaxis ordered Continued [facility] stay due to: multiple IV medications needed Discharge planning: home
--- NOTE | 2016-10-13 16:54 | Progress Note ---
Subjective Date of Service: Oct 13, 2016. Subjective Pt evaluation today including: conversation w/ patient, conversation w/ family , physical exam, chart review, lab review, review of studies, conversation w/ service loss control consultant, review of inpatient medication list Feeling tired, not able to out of bed, sitting up in a chair, chest pain but is much better than yesterday, reported no appetite not eating well Review of Systems Constitutional: + fatigue, + weakness, No chills, No fever, No problem reported , No sweats, No weight loss Eyes: No diplopia, No discharge, No eye pain, No redness, No worsening of vision ENT: No dental problems, No hearing loss, No nasal symptoms, No sore throat, No tinnitus, No trouble swallowing, No unusual epistaxis Respiratory: No cough, No dyspnea at rest, No dyspnea on exertion, No hemoptysis, No shortness of breath, No sputum, No wheezing Cardiac: + see HPI, No PND, No chest pain, No claudication, No edema, No orthopnea, No palpitations Abdomen: No constipation, No diarrhea, No nausea, No pain, No vomiting Musculoskeletal: No calf pain, No joint pain, No muscle pain, No swelling Female : No abnormal vaginal bleeding, No dysuria, No hematuria, No incontinence, No urinary frequency, No vaginal discharge Neurologic: No balance problems, No memory loss, No numbness/tingling, No paralysis, No vertigo, No weakness Psychiatric: No anhedonism, No anxiety, No depression symptoms, No insomnia, No substance abuse Heme: No abnormal bleeding/bruising, No clotting problems, No night sweats, No swollen lymph nodes Endo: No excessive thirst, No excessive urination, No fatigue Skin: No bleeding, No color change, No itch, No new/changing skin lesions, No rash Objective Vital Signs Date Time Temp Pulse Resp B/P Pulse Ox O2 Delivery O2 Flow Rate FiO2 10/13/16 16:00 Nasal Cannula 2.0 10/13/16 15:37 37.0 73 18 131/80 97 Nasal Cannula 3.0 10/13/16 12:00 Nasal Cannula 2.0 10/13/16 11:40 37.1 78 16 133/83 91 Nasal Cannula 10/13/16 08:02 36.9 88 18 155/82 94 Nasal Cannula 10/13/16 08:00 Nasal Cannula 2.0 10/13/16 07:11 91 20 94 Nasal Cannula 2.0 10/13/16 04:00 Nasal Cannula 2.0 10/13/16 00:01 Nasal Cannula 2.0 10/13/16 00:00 36.9 81 18 140/83 94 Nasal Cannula 2.0 10/12/16 20:00 Nasal Cannula 6.0 10/12/16 19:30 36.7 81 146/85 10/12/16 19:00 80 146/64 10/12/16 18:45 81 152/80 10/12/16 18:40 36.9 86 20 143/77 98 Nasal Cannula 5.5 10/12/16 18:30 86 143/77 10/12/16 18:15 86 156/75 10/12/16 18:00 85 156/88 10/12/16 17:45 88 159/87 10/12/16 17:30 87 154/80 10/12/16 17:15 87 165/92 10/12/16 17:00 87 159/83 Physical Exam General Appearance: WD/WN, no apparent distress, + obese Eyes: normal inspection, PERRL, EOMI, sclerae normal ENT: normal ENT inspection, hearing grossly normal, pharynx normal Neck: supple, no adenopathy, thyroid normal, no JVD, no carotid bruits, trachea midline Respiratory/Chest: chest non-tender, normal breath sounds, no respiratory distress, no accessory muscle use, + decreased breath sounds Cardiovascular: regular rate, rhythm, no edema, no gallop, no JVD, no murmur Abdomen: normal bowel sounds, non tender, soft, no organomegaly, no pulsatile mass Extremities: normal range of motion, non-tender, normal inspection, no pedal edema, no calf tenderness, normal capillary refill, pelvis stable Neurologic/Psychiatric: sharemilker II-XII nml as tested, no motor/sensory deficits, alert, normal mood/affect, oriented x 3 Skin: normal color, warm/dry, no rash Lymphatic: no adenopathy Laboratory Results Last 24 Hours Test 10/12/16 20:31 10/12/16 20:50 10/13/16 06:12 10/13/16 06:19 Bedside Glucose 160 mg/dl 150 mg/dl Troponin I 6.520 ng/ml White Blood Count 9.74 K/uL Red Blood Count 3.21 M/uL Hemoglobin 9.2 g/dL Hematocrit 28.5 % Mean Corpuscular Volume 88.8 fL Mean Corpuscular Hemoglobin 28.7 pg Mean Corpuscular Hemoglobin Concent 32.3 g/dl RDW Standard Deviation 46.9 fL RDW Coefficient of Variation 14.4 % Platelet Count 292 K/uL Mean Platelet Volume 10.3 fL Sodium Level 138 mmol/L Potassium Level 3.9 mmol/L Chloride Level 104 mmol/L Carbon Dioxide Level 23 mmol/L Anion Gap 11.0 mmol/L Blood Urea Nitrogen 23 mg/dl Creatinine 3.50 mg/dl Est Creatinine Clear Calc Drug Dose 23.8 ml/min Estimated GFR () 16.4 Estimated GFR (Non- 14.1 BUN/Creatinine Ratio 6.6 Random Glucose 145 mg/dl Calcium Level 8.2 mg/dl Test 10/13/16 10:51 10/13/16 16:20 Bedside Glucose 196 mg/dl 198 mg/dl Assessment and Plan 51 F admitted admitted on 09/26/2016 because of acute diastolic heart failure, and renal failure after recent pneumonia , suffered a NSTEMI, which required cardiac catheterization, PCI w/ BMS x 2 , development acute on chronic kidney failure , PermCath was placed on 10/09/2016 and dialysis has had 2 time dialysis new chest pain the night before and yesterday ,has rule out DVT and PE chest pain yesterday and the night before Differential diagnosis include acute PE, ACS, chest wall pain, GERD, some pain from the new dialysis catheter, has rule out DVT and PE Yesterday troponin returned at 7.9. His trends down today, cardiology on the case , feel that troponin most likely represents residual elevation following LAD dissection/complicated other differential diagnosis could be sub-acute stent thrombosis, seem less likely but remains possible, cardiology on the case , repeat cardiac cath if needed NSTEMI/coronary artery disease upon admission status post PCI with bare metal stent x2 to mid and distal LAD; diffuse RCA, OM 1 residual disease Continue treatment with statin, diabetic control and blood pressure control , and cont DAPT, Acute respiratory failure, improved after treating like copd, stable BECKIE on CKD and diabetes nephropathy, now on dialysis has been on Bumex, Patient for permcath insertion Started dialysis per order from nephrology from 10/09/2016 Nephrology continue follow-up Patient still making urine Resent Pneumonia, as complete IV antibiotic treatment Diabetes, continues in poor control, continue insulin sliding scale, A1c around 7 Was on oral diabetic medication at home, for now renal function is unstable, possible need for dialysis, Patient was on NPH at home, which was recently discontinued , started NPH, plus insulin sliding scale Hypertension, stable Need to have cardiac rehabilitation, PCP is Dr. Isauro perdomo, encourage her to follow-up with Dr. perdmoo to arrange for the cardiac rehabilitation as outpatient Patient agreed Possible has RENETTA but has not yet been evaluated I encouraged her to follow-up with PCP PT OT clear patient to go home, I'm taper off oxygen, send her home with oxygen if not able to taper off, possible discharge day 1 or 2 Continued [facility] stay due to: multiple IV medications needed Discharge planning: home
--- NOTE | 2016-10-13 18:11 | Cardiology Follow-Up ---
Subjective Subjective Date of Service: Oct 13, 2016. Pt evaluation today including: conversation w/ patient, physical exam, chart review, lab review, review of studies, review of inpatient medication list Additional Details: Minimal residual chest pain. Pleuritic in nature. Breathing easier today after HD yesterday. No other new complaints. No event on telemetry. Review of Systems Constitutional: + fatigue, + weakness, No fever Eyes: No worsening of vision ENT: No hearing loss Respiratory: + shortness of breath, No cough Cardiac: + chest pain, + edema Abdomen: No nausea, No pain Neurologic: No memory loss Heme: No abnormal bleeding/bruising, No clotting problems, No night sweats, No swollen lymph nodes Endo: No excessive thirst, No excessive urination, No fatigue Skin: No rash Objective Vital Signs Last Vital Signs Documentation Date Time Temp Pulse Resp B/P Pulse Ox O2 Delivery O2 Flow Rate FiO2 10/13/16 16:00 Nasal Cannula 2.0 10/13/16 15:37 37.0 73 18 131/80 97 Physical Exam: General Appearance: no apparent distress, + obese Respiratory/Chest: chest non-tender, normal breath sounds, no respiratory distress, no accessory muscle use, + decreased breath sounds (improved at the base from yesterday) Cardiovascular: regular rate, rhythm, no murmur Abdomen: soft Extremities: no calf tenderness, normal capillary refill, + pedal edema Neurologic/Psychiatric: alert, normal mood/affect, oriented x 3 Skin: normal color, warm/dry, no rash Lymphatic: no adenopathy Assessment and Plan 51 F h/o type 2 DM, HTN, PAD and CKD admitted with NSTEMI, acute diastolic heart failure. Hospital course complicated by progressive renal failure and eventual MARSHAL requiring HD following PCI to mid to distal LAD. Pleuritic chest pain improving today. ECG/telemetry remains unremarkable. Troponin trending down. Still feel recent chest pain unlikely to represent new coronary event and no plans for repeat cath at this time. If mild pain persists tomorrow will consider repeat limited TTE. Continue DAPT, statin, beta-jorge. Continued [facility] stay due to: multiple IV medications needed Discharge planning: home Medications: 10/13/16 06:12 10/13/16 06:12 Test 10/12/16 20:50 10/13/16 06:12 10/13/16 16:20 Troponin I 6.520 ng/ml (0-0.045) Red Blood Count 3.21 M/uL (4.2-5.4) Mean Corpuscular Volume 88.8 fL (80-100) Mean Corpuscular Hemoglobin 28.7 pg (25-34) Mean Corpuscular Hemoglobin Concent 32.3 g/dl (32-36) RDW Standard Deviation 46.9 fL (36.4-46.3) RDW Coefficient of Variation 14.4 % (11.5-14.5) Mean Platelet Volume 10.3 fL (7.4-10.4) Anion Gap 11.0 mmol/L (3-11) Est Creatinine Clear Calc Drug Dose 23.8 ml/min Estimated GFR () 16.4 Estimated GFR (Non- 14.1 BUN/Creatinine Ratio 6.6 (10-20) Calcium Level 8.2 mg/dl (8.5-10.1) Bedside Glucose 198 mg/dl (70-90) Lab Results: Current Inpatient Medications Medications (Trade) Dose Ordered Sig/Elizabet Route Start Time Stop Time Status Last Admin Dose Admin Acetaminophen (Tylenol Tab) 650 mg Q4H PRN PO 09/25/16 23:30 10/25/16 23:29 10/08/16 07:54 650 MG Al Hydrox/Mg Hydrox/Simethicone (Maalox Max Susp) 15 ml Q4H PRN PO 09/25/16 23:30 10/25/16 23:29 10/09/16 07:52 15 ML Magnesium Hydroxide (Milk Of Magnesia Susp) 30 ml Q12H PRN PO 09/25/16 23:30 10/25/16 23:29 Ondansetron HCl (Zofran Inj) 4 mg Q6H PRN IV 09/25/16 23:30 10/25/16 23:29 10/10/16 12:11 4 MG Nitroglycerin (Nitrostat Tab) 0.4 mg UD PRN SL 09/25/16 23:30 10/25/16 23:29 10/12/16 11:00 0.4 MG Polyethylene (Miralax Powder Packet) 17 gm DAILY PRN PO 09/25/16 23:30 10/25/16 23:29 Citalopram Hydrobromide (celeXA TAB) 20 mg QAM PO 09/26/16 09:00 10/26/16 08:59 10/13/16 07:58 20 MG Atorvastatin Calcium (Lipitor Tab) 40 mg HS PO 09/26/16 21:00 10/26/16 20:59 10/12/16 19:55 40 MG Clopidogrel Bisulfate (plAVix TAB) 75 mg QAM PO 09/26/16 09:00 10/26/16 08:59 10/13/16 07:58 75 MG Amlodipine Besylate (Norvasc Tab) 10 mg QAM PO 09/26/16 09:00 10/26/16 08:59 10/13/16 07:58 10 MG Tramadol HCl (Ultram Tab) 50 mg Q4H PRN PO 09/25/16 23:30 10/25/16 23:29 10/11/16 21:07 50 MG Glucose (Glucose 40% Gel) 15-30 GRAMS 15 GRAMS... UD PRN PO 09/26/16 00:30 10/26/16 00:29 Glucose (Glucose Chew Tab) 4-8 Tablets 4 Tabl... UD PRN PO 09/26/16 00:30 10/26/16 00:29 Dextrose (Dextrose 50% 50ML Syringe) 25-50ML OF 50% DW IV FOR... UD PRN IV 09/26/16 00:30 10/26/16 00:29 Glucagon (Glucagon Inj) 1 mg UD PRN SQ 09/26/16 00:30 10/26/16 00:29 Insulin Aspart (novoLOG ASPART) SLIDING SCALE G... ACHS SC 09/27/16 17:00 10/27/16 16:59 10/13/16 17:02 6 UNITS Albuterol/ Ipratropium (Duoneb) 3 ml Q2H PRN INH 09/28/16 11:15 10/28/16 11:14 10/09/16 05:25 3 ML Hydralazine HCl (HydrALAZINE INJ) 10 mg Q4H PRN IV 09/28/16 15:15 10/28/16 15:14 10/03/16 03:09 10 MG Arformoterol Tartrate (Brovana 15MCG/ 2ML Neb Soln) 15 mcg BIDR INH 09/28/16 20:00 10/28/16 19:59 10/13/16 07:10 15 MCG Carvedilol (Coreg Tab) 25 mg BID PO 09/30/16 21:00 10/30/16 20:59 10/13/16 07:59 25 MG Albuterol/ Ipratropium (Combivent Respimat Inh) 1 puffs QID INH 10/03/16 13:00 11/02/16 12:59 10/13/16 17:00 1 PUFFS Hydralazine HCl (Apresoline Tab) 100 mg BID PO 10/04/16 21:00 11/03/16 20:59 10/13/16 07:58 100 MG Heparin Sodium (Porcine) (Heparin Sq 5000 Unit/0.5ml) 5,000 unit Q12 SQ 10/05/16 21:00 11/04/16 20:59 10/13/16 07:56 5,000 UNIT Aspirin 81 mg 81 mg QAM PO 10/07/16 09:00 11/06/16 08:59 10/13/16 07:59 81 MG Bumetanide/Syringe (Bumex IV/ Syringe) 8 ml @ 4 mls/min BID17 IV 10/08/16 17:00 11/07/16 16:59 10/13/16 17:00 4 MLS/MIN Lorazepam (Ativan Tab) 0.5 mg Q8H PRN PO 10/08/16 11:00 11/07/16 10:59 10/11/16 22:46 0.5 MG Insulin Human Isoph/Insulin Regular (novoLIN 70/30 REGULAR) 4 units BIDM SC 10/10/16 16:45 11/09/16 16:44 10/13/16 17:03 4 UNITS Docusate Sodium (coLACE CAP) 100 mg BID PO 10/11/16 21:00 11/10/16 20:59 10/13/16 07:58 100 MG Oxycodone/ Acetaminophen (Percocet 5-325mg Tab) 1 tab Q4H PRN PO 10/12/16 01:30 10/26/16 01:29 10/13/16 07:53 1 TAB Ioversol (Optiray 320) 125 ml UD PRN IV 10/12/16 09:45 10/16/16 09:44 Morphine Sulfate (MoRPHine SULFATE INJ) 4 mg Q2H PRN IV 10/12/16 10:45 10/26/16 10:44 10/13/16 01:12 4 MG
[2016-10-13] MEDS: ATORVASTATIN 40 MG TAB PO SCH (19:47)
[2016-10-13] MEDS: ONDANSETRON INJ 2 MG/ML 2 ML VIAL IV PRN (22:04)
[2016-10-14] VITALS (27 sets, daily range): BP systolic 119–175; BP diastolic 68–87; PULSE 73–93; TEMP 36.6–37.2; O2SAT 94–96; Ht 162.6 cm; Wt 115.2 kg
[2016-10-14 06:14] LABS: BUN/CREATININE RATIO 6.3 (10-20); CALCIUM 8.1 mg/dl (8.5-10.1); CREATININE 4.7 mg/dl (0.60-1.20); PHOSPHORUS 5.3 mg/dl (2.5-4.9); POTASSIUM 3.9 mmol/L (3.5-5.1)
[2016-10-14] MEDS: ARFORMOTEROL TART 15MCG/2ML VIAL INH SCH (07:33)
--- NOTE | 2016-10-14 08:09 | Progress Note ---
Subjective Date of Service: Oct 14, 2016. Subjective Pt evaluation today including: conversation w/ patient, physical exam, chart review Still remains on oxygen. Likely will need home oxygen. No CP or SOB at rest. HD per Renal. Review of Systems Constitutional: + fatigue Respiratory: + dyspnea on exertion Cardiac: No PND, No chest pain, No claudication, No edema, No orthopnea, No palpitations, No problem reported, No see HPI Abdomen: No GI bleeding, No constipation, No diarrhea, No nausea, No pain, No problem reported, No see HPI, No vomiting Objective Vital Signs Date Time Temp Pulse Resp B/P Pulse Ox O2 Delivery O2 Flow Rate FiO2 10/14/16 04:00 Room Air 10/14/16 03:50 36.8 73 16 131/79 96 Nasal Cannula 2.0 10/14/16 00:08 36.8 75 18 119/76 94 Nasal Cannula 2.0 10/14/16 00:01 Room Air 10/13/16 20:00 Room Air 10/13/16 19:47 90 18 96 Nasal Cannula 2.0 10/13/16 18:45 37.0 80 19 116/73 91 Nasal Cannula 2.0 10/13/16 16:00 Nasal Cannula 2.0 10/13/16 15:37 37.0 73 18 131/80 97 Nasal Cannula 3.0 10/13/16 12:00 Nasal Cannula 2.0 10/13/16 11:40 37.1 78 16 133/83 91 Nasal Cannula 10/13/16 08:02 36.9 88 18 155/82 94 Nasal Cannula 10/13/16 08:00 Nasal Cannula 2.0 Physical Exam General Appearance: WD/WN Eyes: normal inspection ENT: normal ENT inspection Neck: supple, no adenopathy, no JVD Respiratory/Chest: chest non-tender, + decreased breath sounds Cardiovascular: regular rate, rhythm, no JVD, no murmur, + pertinent finding ( Trace edema) Abdomen: normal bowel sounds Extremities: + pertinent finding (right chest wall HD catheter) 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, no motor/sensory deficits, oriented x 3 Skin: normal color Laboratory Results Last 24 Hours Test 10/13/16 10:51 10/13/16 16:20 10/13/16 20:01 10/13/16 21:51 Bedside Glucose 196 mg/dl 198 mg/dl 196 mg/dl 173 mg/dl Test 10/14/16 04:43 10/14/16 06:45 Sodium Level 136 mmol/L Potassium Level 3.9 mmol/L Chloride Level 103 mmol/L Carbon Dioxide Level 25 mmol/L Anion Gap 8.0 mmol/L Blood Urea Nitrogen 30 mg/dl Creatinine 4.70 mg/dl Est Creatinine Clear Calc Drug Dose 17.7 ml/min Estimated GFR () 11.5 Estimated GFR (Non- 9.9 BUN/Creatinine Ratio 6.3 Random Glucose 161 mg/dl Calcium Level 8.1 mg/dl Phosphorus Level 5.3 mg/dl Albumin 2.2 gm/dl Bedside Glucose 172 mg/dl Assessment and Plan 51 F admitted admitted on 09/26/2016 because of acute diastolic heart failure, and renal failure after recent pneumonia , suffered a NSTEMI, which required cardiac catheterization, PCI w/ BMS x 2 , development acute on chronic kidney failure , PermCath was placed on 10/09/2016 and dialysis has had 2 time dialysis new chest pain the night before and yesterday ,has rule out DVT and PE chest pain yesterday and the night before Differential diagnosis include acute PE, ACS, chest wall pain, GERD, some pain from the new dialysis catheter, has rule out DVT and PE Yesterday troponin returned at 7.9. His trends down today, cardiology on the case , feel that troponin most likely represents residual elevation following LAD dissection/complicated other differential diagnosis could be sub-acute stent thrombosis, seem less likely but remains possible, cardiology on the case , repeat cardiac cath if needed NSTEMI/coronary artery disease upon admission status post PCI with bare metal stent x2 to mid and distal LAD; diffuse RCA, OM 1 residual disease Continue treatment with statin, diabetic control and blood pressure control , and cont DAPT, Acute respiratory failure, Likely secondary to volume overload secondary to Acute on CKD, B/l Pleural effusions. Improved. BECKIE on CKD and diabetes nephropathy, now on dialysis has been on Bumex, Patient for permcath insertion Started dialysis per order from nephrology from 10/09/2016 Nephrology continue follow-up Follow up with Nephro post dc. Patient still making urine Resent Pneumonia, as complete IV antibiotic treatment Diabetes, continues in poor control, continue insulin sliding scale, A1c around 7 Was on oral diabetic medication at home, for now renal function is unstable Patient was on NPH at home, which was recently discontinued , started NPH, plus insulin sliding scale Hypertension, stable Need to have cardiac rehabilitation, PCP is Dr. Isauro perdomo, encourage her to follow-up with Dr. perdomo to arrange for the cardiac rehabilitation as outpatient Patient agreed Possible has RENETTA but has not yet been evaluated I encouraged her to follow-up with PCP PT OT clear patient to go home, I'm taper off oxygen, send her home with oxygen if not able to taper off, possible discharge day 1 or 2 Continued [facility] stay due to: multiple IV medications needed Discharge planning: home
[2016-10-14] MEDS: BUMETANIDE IV 2 MG in SYRINGE 0 ML IV SCH ×2 (08:13→18:47)
[2016-10-14] MEDS: DOCUSATE SODIUM 100 MG CAP PO SCH ×2 (08:14→20:39)
[2016-10-14] MEDS: CITALOPRAM 20 MG TAB PO SCH (08:14)
[2016-10-14] MEDS: ASPIRIN 81 MG ECTAB PO SCH (08:14)
[2016-10-14] MEDS: CARVEDILOL 25 MG TAB PO SCH ×2 (08:14→20:38)
[2016-10-14] MEDS: AMLODIPINE BESYLATE 5 MG TAB PO SCH (08:14)
[2016-10-14] MEDS: CLOPIDOGREL BISULFATE 75 MG TAB PO SCH (08:14)
[2016-10-14] MEDS: IPRATROPIUM BROMIDE/ALBUTEROL respimat INH INH SCH ×4 (08:15→20:36)
[2016-10-14] MEDS: INSULIN HUMAN 70% NPH/30% REGULAR SC SCH ×2 (08:18→18:48)
[2016-10-14] MEDS: INSULIN ASPART 100 UNITS/ML 3 ML PEN SC SCH ×4 (08:20→18:49)
[2016-10-14] MEDS: HEPARIN SOD 5000 UNIT/0.5 ML CARP SQ SCH ×2 (08:21→20:43)
--- NOTE | 2016-10-14 11:20 | Nephrology Progress Note ---
Nephrology Progress Note Date of Service Oct 14, 2016. Chief Complaint Follow-up for acute kidney injury Subjective Tootie Recent exam in her room this morning. Her shortness of breath improved and overall feeling better. Urine output continues to be low. No clear sign of renal recovery as the creatinine jumped off of dialysis again this morning. Review of Systems A complete review of systems was performed. Pertinent positives are noted above. All other systems are negative. Vital Signs Last 8 Hrs Date Time Temp Pulse Resp B/P Pulse Ox O2 Delivery O2 Flow Rate FiO2 10/14/16 08:00 Nasal Cannula 2.0 10/14/16 07:33 74 18 96 Nasal Cannula 2.0 10/14/16 07:15 36.9 80 20 145/72 94 Nasal Cannula 2.0 10/14/16 04:00 Room Air 10/14/16 03:50 36.8 73 16 131/79 96 Nasal Cannula 2.0 I & O 24-Hour Column 10/14/16 08:00 Intake Total 635 ml Output Total 1100 ml Balance -465 ml Last Recorded Weight Weight (Kilograms): 120.300 Physical Exam GENERAL: Middle-aged female, AAA x 3, pleasant, healthy-appearing, not in any distress. NECK: Supple, no JVD. RESPIRATORY: Normal breathing efforts, no accessory muscle use, bibasilar rales , no wheezes CARDIOVASCULAR: S1, S2 normal, rate rhythm regular. EXTREMITY: Trace bilateral lower extremity edema NEURO: speech fluent. PSYCHIATRY: Normal mood and judgment Laboratory Results Past 24 Hours 10/14/16 04:43 Test 10/13/16 16:20 10/13/16 20:01 10/13/16 21:51 10/14/16 04:43 Bedside Glucose 198 mg/dl (70-90) 196 mg/dl (70-90) 173 mg/dl (70-90) Anion Gap 8.0 mmol/L (3-11) Est Creatinine Clear Calc Drug Dose 17.7 ml/min Estimated GFR () 11.5 Estimated GFR (Non- 9.9 BUN/Creatinine Ratio 6.3 (10-20) Calcium Level 8.1 mg/dl (8.5-10.1) Phosphorus Level 5.3 mg/dl (2.5-4.9) Albumin 2.2 gm/dl (3.4-5.0) Test 10/14/16 06:45 Bedside Glucose 172 mg/dl (70-90) Allergies Coded Allergies: Latex1 -Allergic Contact Dermititis (Verified Adverse Reaction, Mild, RASH , 09/25/16) Medications Current Inpatient Medications Medications (Trade) Dose Ordered Sig/Elizabet Route Start Time Stop Time Status Last Admin Dose Admin Acetaminophen (Tylenol Tab) 650 mg Q4H PRN PO 09/25/16 23:30 10/25/16 23:29 10/08/16 07:54 650 MG Al Hydrox/Mg Hydrox/Simethicone (Maalox Max Susp) 15 ml Q4H PRN PO 09/25/16 23:30 10/25/16 23:29 10/09/16 07:52 15 ML Magnesium Hydroxide (Milk Of Magnesia Susp) 30 ml Q12H PRN PO 09/25/16 23:30 10/25/16 23:29 Ondansetron HCl (Zofran Inj) 4 mg Q6H PRN IV 09/25/16 23:30 10/25/16 23:29 10/13/16 22:04 4 MG Nitroglycerin (Nitrostat Tab) 0.4 mg UD PRN SL 09/25/16 23:30 10/25/16 23:29 10/12/16 11:00 0.4 MG Polyethylene (Miralax Powder Packet) 17 gm DAILY PRN PO 09/25/16 23:30 10/25/16 23:29 Citalopram Hydrobromide (celeXA TAB) 20 mg QAM PO 09/26/16 09:00 10/26/16 08:59 10/14/16 08:14 20 MG Atorvastatin Calcium (Lipitor Tab) 40 mg HS PO 09/26/16 21:00 10/26/16 20:59 10/13/16 19:47 40 MG Clopidogrel Bisulfate (plAVix TAB) 75 mg QAM PO 09/26/16 09:00 10/26/16 08:59 10/14/16 08:14 75 MG Amlodipine Besylate (Norvasc Tab) 10 mg QAM PO 09/26/16 09:00 10/26/16 08:59 10/14/16 08:14 10 MG Tramadol HCl (Ultram Tab) 50 mg Q4H PRN PO 09/25/16 23:30 10/25/16 23:29 10/11/16 21:07 50 MG Glucose (Glucose 40% Gel) 15-30 GRAMS 15 GRAMS... UD PRN PO 09/26/16 00:30 10/26/16 00:29 Glucose (Glucose Chew Tab) 4-8 Tablets 4 Tabl... UD PRN PO 09/26/16 00:30 10/26/16 00:29 Dextrose (Dextrose 50% 50ML Syringe) 25-50ML OF 50% DW IV FOR... UD PRN IV 09/26/16 00:30 10/26/16 00:29 Glucagon (Glucagon Inj) 1 mg UD PRN SQ 09/26/16 00:30 10/26/16 00:29 Insulin Aspart (novoLOG ASPART) SLIDING SCALE G... ACHS SC 09/27/16 17:00 10/27/16 16:59 10/14/16 08:20 5 UNITS Albuterol/ Ipratropium (Duoneb) 3 ml Q2H PRN INH 09/28/16 11:15 10/28/16 11:14 10/09/16 05:25 3 ML Hydralazine HCl (HydrALAZINE INJ) 10 mg Q4H PRN IV 09/28/16 15:15 10/28/16 15:14 10/03/16 03:09 10 MG Arformoterol Tartrate (Brovana 15MCG/ 2ML Neb Soln) 15 mcg BIDR INH 09/28/16 20:00 10/28/16 19:59 10/14/16 07:33 15 MCG Carvedilol (Coreg Tab) 25 mg BID PO 09/30/16 21:00 10/30/16 20:59 10/14/16 08:14 25 MG Albuterol/ Ipratropium (Combivent Respimat Inh) 1 puffs QID INH 10/03/16 13:00 11/02/16 12:59 10/14/16 08:15 1 PUFFS Hydralazine HCl (Apresoline Tab) 100 mg BID PO 10/04/16 21:00 11/03/16 20:59 10/14/16 09:00 100 MG Heparin Sodium (Porcine) (Heparin Sq 5000 Unit/0.5ml) 5,000 unit Q12 SQ 10/05/16 21:00 11/04/16 20:59 10/14/16 08:21 5,000 UNIT Aspirin 81 mg 81 mg QAM PO 10/07/16 09:00 11/06/16 08:59 10/14/16 08:14 81 MG Bumetanide/Syringe (Bumex IV/ Syringe) 8 ml @ 4 mls/min BID17 IV 10/08/16 17:00 11/07/16 16:59 10/14/16 08:13 4 MLS/MIN Lorazepam (Ativan Tab) 0.5 mg Q8H PRN PO 10/08/16 11:00 11/07/16 10:59 10/11/16 22:46 0.5 MG Insulin Human Isoph/Insulin Regular (novoLIN 70/30 REGULAR) 4 units BIDM SC 10/10/16 16:45 11/09/16 16:44 10/14/16 08:18 4 UNITS Docusate Sodium (coLACE CAP) 100 mg BID PO 10/11/16 21:00 11/10/16 20:59 10/14/16 08:14 100 MG Oxycodone/ Acetaminophen (Percocet 5-325mg Tab) 1 tab Q4H PRN PO 10/12/16 01:30 10/26/16 01:29 10/13/16 07:53 1 TAB Ioversol (Optiray 320) 125 ml UD PRN IV 10/12/16 09:45 10/16/16 09:44 Morphine Sulfate (MoRPHine SULFATE INJ) 4 mg Q2H PRN IV 10/12/16 10:45 10/26/16 10:44 10/13/16 01:12 4 MG Impression (1) Contrast dye induced nephropathy (2) Chronic kidney disease, stage III (moderate) (3) Acute on chronic diastolic CHF (congestive heart failure) (4) Acute renal insufficiency (5) Diabetic nephropathy (6) Nephrotic range proteinuria Mrs. Gutierrez is a 51-year-old female with stage III CKD (baseline creatinine ~2.0 mg/dL) attributed to diabetic nephropathy, obesity and hypertensive nephrosclerosis. She has evidence of nephrosis with nephrotic range proteinuria. She was admitted with acute hypoxic respiratory failure in the setting of hypervolemia related to acute on chronic diastolic CHF and advanced renal disease. She suffered a NSTEMI. She required cardiac catheterization, PCI w/ BMS x 2 10/06/16. She has developed contrast induced nephropathy Dr. 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 He had discussed potential role of renal replacement therapy in the past. Recommendations ACUTE KIDNEY INJURY: -- So far no sign of renal recovery --Scheduled for hemodialysis for 4 hours this afternoon and then continue intermittent hemodialysis 3 times a week -- continue to monitor for renal recovery however with repeat IV contrast exposure chances for renal recovery is becoming slim. -- Social Service to set up outpatient HD in [place], [place]. Attending farm demonstrator = Dr. Barrera CHRONIC KIDNEY DISEASE: -- Likely related to diabetic nephropathy -- Baseline creatinine had been 2.0 -- Protect left arm for possible dialysis access ANEMIA: -- Patient has completed a 1 g infusion of IV iron. Continue on JESU CAD: -- Had Cardiac cath on 10/06/16, required PCI w/ BMX x 2.
[2016-10-14] MEDS: OXYCODONE/ACETAMINOPHEN 5-325 TAB PO PRN (20:37)
[2016-10-14] MEDS: ATORVASTATIN 40 MG TAB PO SCH (20:39)
[2016-10-15] VITALS (8 sets, daily range): BP systolic 122–145; BP diastolic 65–79; PULSE 68–78; TEMP 36.8–37; O2SAT 91–100
[2016-10-15] MEDS: ONDANSETRON INJ 2 MG/ML 2 ML VIAL IV PRN (06:33)
[2016-10-15 07:07] LABS: ALB/GLOB RATIO 0.5 (0.9-2); BUN/CREATININE RATIO 4.5 (10-20); CALCIUM 8.1 mg/dl (8.5-10.1); CREATININE 3.6 mg/dl (0.60-1.20); PHOSPHORUS 3.6 mg/dl (2.5-4.9); POTASSIUM 3.9 mmol/L (3.5-5.1)
[2016-10-15 07:15] LABS: BASO % 0.5 %; BASO ABS # 0.04 K/uL (0-0.2); COMPLETE YES; EOS % 3.1 %; HEMATOCRIT 30.7 % (37-47); IG% 0.1 %; LYMPH % 13.7 %; LYMPH ABS # 1.08 K/uL (1.2-3.4); MEAN CELL VOLUME 88.5 fL (80-100); MEAN CORPUSCULAR HEMOGLOBIN 28.8 pg (25-34); MEAN CORPUSCULAR HGB CONC 32.6 g/dl (32-36); MONO % 12.8 %; NEUT % 69.8 %; PLATELET COUNT 368 K/uL (130-400); RED BLOOD COUNT 3.47 M/uL (4.2-5.4); WHITE BLOOD COUNT 7.86 K/uL (4.8-10.8)
[2016-10-15] MEDS: ARFORMOTEROL TART 15MCG/2ML VIAL INH SCH ×2 (07:39→20:01)
[2016-10-15] MEDS: IPRATROPIUM BROMIDE/ALBUTEROL respimat INH INH SCH ×4 (07:57→20:00)
[2016-10-15] MEDS: CITALOPRAM 20 MG TAB PO SCH (07:57)
[2016-10-15] MEDS: DOCUSATE SODIUM 100 MG CAP PO SCH ×2 (07:58→21:49)
[2016-10-15] MEDS: CLOPIDOGREL BISULFATE 75 MG TAB PO SCH (07:58)
[2016-10-15] MEDS: ASPIRIN 81 MG ECTAB PO SCH (07:58)
[2016-10-15] MEDS: AMLODIPINE BESYLATE 5 MG TAB PO SCH (07:59)
[2016-10-15] MEDS: INSULIN HUMAN 70% NPH/30% REGULAR SC SCH ×2 (08:00→17:08)
[2016-10-15] MEDS: CARVEDILOL 25 MG TAB PO SCH ×2 (08:02→21:49)
[2016-10-15] MEDS: INSULIN ASPART 100 UNITS/ML 3 ML PEN SC SCH ×4 (08:02→21:46)
[2016-10-15] MEDS: HEPARIN SOD 5000 UNIT/0.5 ML CARP SQ SCH ×2 (08:56→21:47)
[2016-10-15] MEDS: BUMETANIDE IV 2 MG in SYRINGE 0 ML IV SCH ×2 (08:57→17:10)
--- NOTE | 2016-10-15 12:02 | Nephrology Progress Note ---
Nephrology Progress Note Date of Service Oct 15, 2016. Chief Complaint Follow-up for acute kidney injury Subjective Tootie was seen and examined in her room this morning. She has been overall feeling well, shortness of breath and chest pain resolved. Currently otherwise feeling fine although she noticed she feels tired after dialysis. Blood pressure and volume status stable. Continues to be oliguric. electrolyte stable. Review of Systems A complete review of systems was performed. Pertinent positives are noted above. All other systems are negative. Vital Signs Last 8 Hrs Date Time Temp Pulse Resp B/P Pulse Ox O2 Delivery O2 Flow Rate FiO2 10/15/16 11:42 37.0 68 18 125/76 94 Nasal Cannula 2.0 10/15/16 08:00 Nasal Cannula 1.0 10/15/16 07:47 36.9 74 24 142/79 100 Nasal Cannula 2.0 10/15/16 07:39 72 18 93 Nasal Cannula 1.5 10/15/16 04:40 37.0 78 18 143/75 93 Nasal Cannula 1.0 10/15/16 04:00 Nasal Cannula 1.0 I & O 24-Hour Column 10/15/16 08:00 Intake Total 940 ml Output Total 2400 ml Balance -1460 ml Last Recorded Weight Weight (Kilograms): 119.500 Physical Exam GENERAL: Middle-aged female, AAA x 3, pleasant, healthy-appearing, not in any distress. NECK: Supple, no JVD. RESPIRATORY: Normal breathing efforts, decreased breath sound right base. CARDIOVASCULAR: S1, S2 normal, rate rhythm regular. EXTREMITY: Trace bilateral lower extremity edema NEURO: speech fluent. PSYCHIATRY: Normal mood and judgment Laboratory Results Past 24 Hours 10/15/16 06:05 Red Blood Count 3.47, Mean Corpuscular Volume 88.5, Mean Corpuscular Hemoglobin 28.8, Mean Corpuscular Hemoglobin Concent 32.6, Mean Platelet Volume 11.0, Neutrophils (%) (Auto) 69.8, Lymphocytes (%) (Auto) 13.7, Monocytes (%) (Auto) 12.8, Eosinophils (%) (Auto) 3.1, Basophils (%) (Auto) 0.5, Neutrophils # (Auto ) 5.48, Lymphocytes # (Auto) 1.08, Monocytes # (Auto) 1.01, Eosinophils # (Auto ) 0.24, Basophils # (Auto) 0.04 10/15/16 06:05 Test 10/14/16 16:12 10/14/16 18:44 10/15/16 06:05 10/15/16 06:28 Bedside Glucose 183 mg/dl (70-90) 142 mg/dl (70-90) 172 mg/dl (70-90) White Blood Count 7.86 K/uL (4.8-10.8) Red Blood Count 3.47 M/uL (4.2-5.4) Hemoglobin 10.0 g/dL (12.0-16.0) Hematocrit 30.7 % (37-47) Mean Corpuscular Volume 88.5 fL (80-100) Mean Corpuscular Hemoglobin 28.8 pg (25-34) Mean Corpuscular Hemoglobin Concent 32.6 g/dl (32-36) Platelet Count 368 K/uL (130-400) Mean Platelet Volume 11.0 fL (7.4-10.4) Neutrophils (%) (Auto) 69.8 % Lymphocytes (%) (Auto) 13.7 % Monocytes (%) (Auto) 12.8 % Eosinophils (%) (Auto) 3.1 % Basophils (%) (Auto) 0.5 % Neutrophils # (Auto) 5.48 K/uL (1.4-6.5) Lymphocytes # (Auto) 1.08 K/uL (1.2-3.4) Monocytes # (Auto) 1.01 K/uL (0.11-0.59) Eosinophils # (Auto) 0.24 K/uL (0-0.5) Basophils # (Auto) 0.04 K/uL (0-0.2) RDW Standard Deviation 45.7 fL (36.4-46.3) RDW Coefficient of Variation 14.1 % (11.5-14.5) Immature Granulocyte % (Auto) 0.1 % Immature Granulocyte # (Auto) 0.01 K/uL (0.00-0.02) Anion Gap 8.0 mmol/L (3-11) Est Creatinine Clear Calc Drug Dose 23.0 ml/min Estimated GFR () 15.8 Estimated GFR (Non- 13.7 BUN/Creatinine Ratio 4.5 (10-20) Calcium Level 8.1 mg/dl (8.5-10.1) Phosphorus Level 3.6 mg/dl (2.5-4.9) Total Bilirubin 0.3 mg/dl (0.2-1) Aspartate Amino Transf (AST/SGOT) 14 U/L (15-37) Alanine Aminotransferase (ALT/SGPT) 10 U/L (12-78) Alkaline Phosphatase 67 U/L (45-117) Total Protein 6.6 gm/dl (6.4-8.2) Albumin 2.3 gm/dl (3.4-5.0) Globulin 4.3 gm/dl (2.5-4.0) Albumin/Globulin Ratio 0.5 (0.9-2) Test 10/15/16 11:15 Bedside Glucose 204 mg/dl (70-90) Allergies Coded Allergies: Latex1 -Allergic Contact Dermititis (Verified Adverse Reaction, Mild, RASH , 09/25/16) Medications Current Inpatient Medications Medications (Trade) Dose Ordered Sig/Elizabet Route Start Time Stop Time Status Last Admin Dose Admin Acetaminophen (Tylenol Tab) 650 mg Q4H PRN PO 09/25/16 23:30 10/25/16 23:29 10/08/16 07:54 650 MG Al Hydrox/Mg Hydrox/Simethicone (Maalox Max Susp) 15 ml Q4H PRN PO 09/25/16 23:30 10/25/16 23:29 10/09/16 07:52 15 ML Magnesium Hydroxide (Milk Of Magnesia Susp) 30 ml Q12H PRN PO 09/25/16 23:30 10/25/16 23:29 Ondansetron HCl (Zofran Inj) 4 mg Q6H PRN IV 09/25/16 23:30 10/25/16 23:29 10/15/16 06:33 4 MG Nitroglycerin (Nitrostat Tab) 0.4 mg UD PRN SL 09/25/16 23:30 10/25/16 23:29 10/12/16 11:00 0.4 MG Polyethylene (Miralax Powder Packet) 17 gm DAILY PRN PO 09/25/16 23:30 10/25/16 23:29 Citalopram Hydrobromide (celeXA TAB) 20 mg QAM PO 09/26/16 09:00 10/26/16 08:59 10/15/16 07:57 20 MG Atorvastatin Calcium (Lipitor Tab) 40 mg HS PO 09/26/16 21:00 10/26/16 20:59 10/14/16 20:39 40 MG Clopidogrel Bisulfate (plAVix TAB) 75 mg QAM PO 09/26/16 09:00 10/26/16 08:59 10/15/16 07:58 75 MG Amlodipine Besylate (Norvasc Tab) 10 mg QAM PO 09/26/16 09:00 10/26/16 08:59 10/15/16 07:59 10 MG Tramadol HCl (Ultram Tab) 50 mg Q4H PRN PO 09/25/16 23:30 10/25/16 23:29 10/11/16 21:07 50 MG Glucose (Glucose 40% Gel) 15-30 GRAMS 15 GRAMS... UD PRN PO 09/26/16 00:30 10/26/16 00:29 Glucose (Glucose Chew Tab) 4-8 Tablets 4 Tabl... UD PRN PO 09/26/16 00:30 10/26/16 00:29 Dextrose (Dextrose 50% 50ML Syringe) 25-50ML OF 50% DW IV FOR... UD PRN IV 09/26/16 00:30 10/26/16 00:29 Glucagon (Glucagon Inj) 1 mg UD PRN SQ 09/26/16 00:30 10/26/16 00:29 Insulin Aspart (novoLOG ASPART) SLIDING SCALE G... ACHS SC 09/27/16 17:00 10/27/16 16:59 10/15/16 08:02 8 UNITS Albuterol/ Ipratropium (Duoneb) 3 ml Q2H PRN INH 09/28/16 11:15 10/28/16 11:14 10/09/16 05:25 3 ML Hydralazine HCl (HydrALAZINE INJ) 10 mg Q4H PRN IV 09/28/16 15:15 10/28/16 15:14 10/03/16 03:09 10 MG Arformoterol Tartrate (Brovana 15MCG/ 2ML Neb Soln) 15 mcg BIDR INH 09/28/16 20:00 10/28/16 19:59 10/15/16 07:39 15 MCG Carvedilol (Coreg Tab) 25 mg BID PO 09/30/16 21:00 10/30/16 20:59 10/15/16 08:02 25 MG Albuterol/ Ipratropium (Combivent Respimat Inh) 1 puffs QID INH 10/03/16 13:00 11/02/16 12:59 10/15/16 07:57 1 PUFFS Hydralazine HCl (Apresoline Tab) 100 mg BID PO 10/04/16 21:00 11/03/16 20:59 10/15/16 07:58 100 MG Heparin Sodium (Porcine) (Heparin Sq 5000 Unit/0.5ml) 5,000 unit Q12 SQ 10/05/16 21:00 11/04/16 20:59 10/15/16 08:56 5,000 UNIT Aspirin 81 mg 81 mg QAM PO 10/07/16 09:00 11/06/16 08:59 10/15/16 07:58 81 MG Bumetanide/Syringe (Bumex IV/ Syringe) 8 ml @ 4 mls/min BID17 IV 10/08/16 17:00 11/07/16 16:59 10/15/16 08:57 4 MLS/MIN Lorazepam (Ativan Tab) 0.5 mg Q8H PRN PO 10/08/16 11:00 11/07/16 10:59 10/11/16 22:46 0.5 MG Insulin Human Isoph/Insulin Regular (novoLIN 70/30 REGULAR) 4 units BIDM SC 10/10/16 16:45 11/09/16 16:44 10/15/16 08:00 4 UNITS Docusate Sodium (coLACE CAP) 100 mg BID PO 10/11/16 21:00 11/10/16 20:59 10/15/16 07:58 100 MG Oxycodone/ Acetaminophen (Percocet 5-325mg Tab) 1 tab Q4H PRN PO 10/12/16 01:30 10/26/16 01:29 10/14/16 20:37 1 TAB Ioversol (Optiray 320) 125 ml UD PRN IV 10/12/16 09:45 10/16/16 09:44 Morphine Sulfate (MoRPHine SULFATE INJ) 4 mg Q2H PRN IV 10/12/16 10:45 10/26/16 10:44 10/13/16 01:12 4 MG Epoetin Luis (Procrit Inj) 2,000 units UD PRN IV 10/15/16 08:00 11/14/16 07:59 Miscellaneous Information (Pending Order) 1 ea DAILY@10 N/A 10/15/16 10:00 11/14/16 09:59 10/15/16 10:00 1 EA Impression (1) Contrast dye induced nephropathy (2) Chronic kidney disease, stage III (moderate) (3) Acute on chronic diastolic CHF (congestive heart failure) (4) Acute renal insufficiency (5) Diabetic nephropathy (6) Nephrotic range proteinuria Mrs. Gutierrez is a 51-year-old female with stage III CKD (baseline creatinine ~2.0 mg/dL) attributed to diabetic nephropathy, obesity and hypertensive nephrosclerosis. She has evidence of nephrosis with nephrotic range proteinuria. She was admitted with acute hypoxic respiratory failure in the setting of hypervolemia related to acute on chronic diastolic CHF and advanced renal disease. She suffered a NSTEMI. She required cardiac catheterization, PCI w/ BMS x 2 10/06/16. She has developed contrast induced nephropathy Dr. Rodriguez in [facility] has been [facility]'s primary type bar and segment assembler. He had discussed potential role of renal replacement therapy in the past. Recommendations ACUTE KIDNEY INJURY: -- So far no sign of renal recovery --Scheduled for hemodialysis for 4 hours tomorrow afternoon and then continue intermittent hemodialysis 3 times a week, however, she is okay to be discharged from nephrology standpoint once we have a at outpatient dialysis spot schedule. If she has out patient's spot and her next dialysis at outpatient Wednesday she can still be discharged and okay to skip dialysis tomorrow. -- continue to monitor for renal recovery however with repeat IV contrast exposure chances for renal recovery is becoming slim. -- Social Service [place]. Attending type bar and segment assembler = Dr. Barrera CHRONIC KIDNEY DISEASE: -- Likely related to diabetic nephropathy -- Baseline creatinine had been 2.0 -- Protect left arm for possible dialysis access ANEMIA: -- Patient has completed a 1 g infusion of IV iron. Continue on JESU CAD: -- Had Cardiac cath on 10/06/16, required PCI w/ BMX x 2.
[2016-10-15] MEDS: ATORVASTATIN 40 MG TAB PO SCH (21:49)
[2016-10-16] VITALS (23 sets, daily range): BP systolic 107–154; BP diastolic 62–81; PULSE 68–78; TEMP 36.5–37.2; O2SAT 91–98
[2016-10-16 05:39] LABS: HEMATOCRIT 29.5 % (37-47); MEAN CELL VOLUME 89.1 fL (80-100); MEAN CORPUSCULAR HGB CONC 32.5 g/dl (32-36); MEAN PLATELET VOLUME 10.6 fL (7.4-10.4); PLATELET COUNT 345 K/uL (130-400); RED BLOOD COUNT 3.31 M/uL (4.2-5.4); WHITE BLOOD COUNT 7.65 K/uL (4.8-10.8)
[2016-10-16 06:21] LABS: BUN/CREATININE RATIO 4.7 (10-20); CALCIUM 8.1 mg/dl (8.5-10.1); CREATININE 4.8 mg/dl (0.60-1.20); PHOSPHORUS 4.4 mg/dl (2.5-4.9); POTASSIUM 3.7 mmol/L (3.5-5.1)
[2016-10-16] MEDS: ARFORMOTEROL TART 15MCG/2ML VIAL INH SCH ×2 (07:08→19:20)
--- NOTE | 2016-10-16 07:18 | Progress Note ---
Subjective Date of Service: Oct 15, 2016. Subjective Pt evaluation today including: conversation w/ patient, physical exam, chart review Review of Systems Respiratory: + shortness of breath Cardiac: No PND, No chest pain, No claudication, No edema, No orthopnea, No palpitations, No problem reported, No see HPI Abdomen: No GI bleeding, No constipation, No diarrhea, No nausea, No pain, No problem reported, No see HPI, No vomiting Neurologic: No balance problems, No memory loss, No numbness/tingling, No paralysis, No problem reported, No see HPI, No vertigo, No weakness Objective Vital Signs Date Time Temp Pulse Resp B/P Pulse Ox O2 Delivery O2 Flow Rate FiO2 10/15/16 04:40 37.0 78 18 143/75 93 Nasal Cannula 1.0 10/15/16 04:00 Nasal Cannula 1.0 10/14/16 23:59 Nasal Cannula 1.0 10/14/16 23:36 37.2 79 18 128/69 94 Nasal Cannula 1.0 10/14/16 20:00 Nasal Cannula 1.0 10/14/16 19:37 36.8 93 20 163/82 95 Nasal Cannula 1.0 10/14/16 18:45 36.6 88 170/74 10/14/16 18:15 85 163/76 10/14/16 18:00 85 167/84 10/14/16 17:45 84 156/87 10/14/16 17:30 83 122/85 10/14/16 17:15 84 156/87 10/14/16 17:00 83 167/86 10/14/16 16:45 86 175/86 10/14/16 16:30 86 146/68 10/14/16 16:15 83 169/81 10/14/16 16:00 Nasal Cannula 1.0 10/14/16 16:00 83 154/77 10/14/16 15:46 36.8 85 16 156/83 96 Nasal Cannula 2.0 10/14/16 15:45 83 146/68 10/14/16 15:30 83 145/77 10/14/16 15:15 86 159/83 10/14/16 15:00 85 156/83 10/14/16 14:45 86 161/77 10/14/16 14:29 82 159/78 10/14/16 14:20 36.6 88 169/82 10/14/16 12:00 Nasal Cannula 2.0 10/14/16 12:00 79 10/14/16 10:57 37.0 78 20 129/74 94 Nasal Cannula 2.0 10/14/16 08:00 Nasal Cannula 2.0 Physical Exam General Appearance: WD/WN Eyes: normal inspection ENT: normal ENT inspection Neck: supple, thyroid normal Respiratory/Chest: chest non-tender, lungs clear Cardiovascular: regular rate, rhythm, no JVD, no murmur Abdomen: normal bowel sounds, non tender, soft Extremities: normal range of motion Neurologic/Psychiatric: heat treat puller II-XII nml as tested, oriented x 3 Skin: normal color Laboratory Results Last 24 Hours Test 10/14/16 11:35 10/14/16 16:12 10/14/16 18:44 10/15/16 06:05 Bedside Glucose 237 mg/dl 183 mg/dl 142 mg/dl White Blood Count 7.86 K/uL Red Blood Count 3.47 M/uL Hemoglobin 10.0 g/dL Hematocrit 30.7 % Mean Corpuscular Volume 88.5 fL Mean Corpuscular Hemoglobin 28.8 pg Mean Corpuscular Hemoglobin Concent 32.6 g/dl Platelet Count 368 K/uL Mean Platelet Volume 11.0 fL Neutrophils (%) (Auto) 69.8 % Lymphocytes (%) (Auto) 13.7 % Monocytes (%) (Auto) 12.8 % Eosinophils (%) (Auto) 3.1 % Basophils (%) (Auto) 0.5 % Neutrophils # (Auto) 5.48 K/uL Lymphocytes # (Auto) 1.08 K/uL Monocytes # (Auto) 1.01 K/uL Eosinophils # (Auto) 0.24 K/uL Basophils # (Auto) 0.04 K/uL RDW Standard Deviation 45.7 fL RDW Coefficient of Variation 14.1 % Immature Granulocyte % (Auto) 0.1 % Immature Granulocyte # (Auto) 0.01 K/uL Sodium Level 138 mmol/L Potassium Level 3.9 mmol/L Chloride Level 102 mmol/L Carbon Dioxide Level 28 mmol/L Anion Gap 8.0 mmol/L Blood Urea Nitrogen 16 mg/dl Creatinine 3.60 mg/dl Est Creatinine Clear Calc Drug Dose 23.0 ml/min Estimated GFR () 15.8 Estimated GFR (Non- 13.7 BUN/Creatinine Ratio 4.5 Random Glucose 172 mg/dl Calcium Level 8.1 mg/dl Phosphorus Level 3.6 mg/dl Total Bilirubin 0.3 mg/dl Aspartate Amino Transf (AST/SGOT) 14 U/L Alanine Aminotransferase (ALT/SGPT) 10 U/L Alkaline Phosphatase 67 U/L Total Protein 6.6 gm/dl Albumin 2.3 gm/dl Globulin 4.3 gm/dl Albumin/Globulin Ratio 0.5 Test 10/15/16 06:28 Bedside Glucose 172 mg/dl Assessment and Plan 51 F admitted admitted on 09/26/2016 because of acute diastolic heart failure, and renal failure after recent pneumonia , suffered a NSTEMI, which required cardiac catheterization, PCI w/ BMS x 2 , development acute on chronic kidney failure , PermCath was placed on 10/09/2016 and dialysis has had 2 time dialysis new chest pain the night before and yesterday ,has rule out DVT and PE NSTEMI/coronary artery disease upon admission status post PCI with bare metal stent x2 to mid and distal LAD; diffuse RCA, OM 1 residual disease Continue treatment with statin, diabetic control and blood pressure control , and cont DAPT, Acute respiratory failure, Likely secondary to volume overload secondary to Acute on CKD, B/l Pleural effusions. Improved. BECKIE on CKD and diabetes nephropathy, now on dialysis has been on Bumex, Patient for permcath insertion Started dialysis per order from nephrology from 10/09/2016 Nephrology continue follow-up Follow up with Nephro post dc. Patient still making urine Recent Pneumonia, as complete IV antibiotic treatment Diabetes, continues in poor control, continue insulin sliding scale, A1c around 7 Was on oral diabetic medication at home, for now renal function is unstable Patient was on NPH at home, which was recently discontinued , started NPH, plus insulin sliding scale Hypertension, stable Need to have cardiac rehabilitation, PCP is Dr. Isauro perdomo, encourage her to follow-up with Dr. perdomo to arrange for the cardiac rehabilitation as outpatient Patient agreed Possible has RENETTA but has not yet been evaluated I encouraged her to follow-up with PCP PT/OT kareem. Continued [facility] stay due to: multiple IV medications needed Discharge planning: home
[2016-10-16] MEDS: IPRATROPIUM BROMIDE/ALBUTEROL respimat INH INH SCH ×4 (08:00→20:00)
[2016-10-16] MEDS: CITALOPRAM 20 MG TAB PO SCH (08:16)
[2016-10-16] MEDS: DOCUSATE SODIUM 100 MG CAP PO SCH ×2 (08:16→20:00)
[2016-10-16] MEDS: CLOPIDOGREL BISULFATE 75 MG TAB PO SCH (08:17)
[2016-10-16] MEDS: ASPIRIN 81 MG ECTAB PO SCH (08:17)
[2016-10-16] MEDS: INSULIN ASPART 100 UNITS/ML 3 ML PEN SC SCH ×4 (08:20→21:18)
[2016-10-16] MEDS: HEPARIN SOD 5000 UNIT/0.5 ML CARP SQ SCH ×2 (08:20→21:15)
[2016-10-16] MEDS: INSULIN HUMAN 70% NPH/30% REGULAR SC SCH ×2 (08:21→17:43)
[2016-10-16] MEDS: BUMETANIDE IV 2 MG in SYRINGE 0 ML IV SCH ×2 (09:00→17:38)
[2016-10-16] MEDS: EPOETIN ALFA 2000 UNITS/ML VIAL IV PRN (11:51)
--- NOTE | 2016-10-16 12:00 | Dialysis Progress Note ---
Hemodialysis Note Date of Service Oct 16, 2016. Chief Complaint Follow-up for acute kidney injury Eliceo Sommers was seen and examined during HD this am. Tolerating dialysis well, SOB resolved. BP and volume status stable. Electrolytes acceptable. Review of Systems A complete review of systems was performed. Pertinent positives are noted above. All other systems are negative. Vital Signs Last 8 Hrs Date Time Temp Pulse Resp B/P Pulse Ox O2 Delivery O2 Flow Rate FiO2 10/16/16 11:35 Nasal Cannula 2.0 10/16/16 10:30 70 136/67 10/16/16 10:15 70 136/67 10/16/16 10:00 70 151/71 10/16/16 09:45 73 142/72 10/16/16 09:30 72 130/62 10/16/16 09:15 72 142/72 10/16/16 08:56 37.2 75 136/63 10/16/16 07:45 36.5 73 18 128/67 98 10/16/16 07:09 75 18 91 Nasal Cannula 1.0 I & O 24-Hour Column 10/16/16 08:00 Intake Total 500 ml Output Total 300 ml Balance 200 ml Last Recorded Weight Weight (Kilograms): 120.600 Physical Exam GENERAL: Middle-aged female, AAA x 3, pleasant, healthy-appearing, not in any distress. NECK: Supple, no JVD. RESPIRATORY: Normal breathing efforts, decreased breath sound right base. CARDIOVASCULAR: S1, S2 normal, rate rhythm regular. EXTREMITY: Trace bilateral lower extremity edema NEURO: speech fluent. PSYCHIATRY: Normal mood and judgment Laboratory Results Past 24 Hours 10/16/16 05:05 10/16/16 05:05 Test 10/15/16 14:10 10/15/16 15:54 10/15/16 20:07 10/16/16 05:05 Bedside Glucose 176 mg/dl (70-90) 172 mg/dl (70-90) Red Blood Count 3.31 M/uL (4.2-5.4) Mean Corpuscular Volume 89.1 fL (80-100) Mean Corpuscular Hemoglobin 29.0 pg (25-34) Mean Corpuscular Hemoglobin Concent 32.5 g/dl (32-36) RDW Standard Deviation 45.6 fL (36.4-46.3) RDW Coefficient of Variation 13.9 % (11.5-14.5) Mean Platelet Volume 10.6 fL (7.4-10.4) Anion Gap 10.0 mmol/L (3-11) Est Creatinine Clear Calc Drug Dose 17.2 ml/min Estimated GFR () 11.2 Estimated GFR (Non- 9.6 BUN/Creatinine Ratio 4.7 (10-20) Calcium Level 8.1 mg/dl (8.5-10.1) Phosphorus Level 4.4 mg/dl (2.5-4.9) Albumin 2.2 gm/dl (3.4-5.0) Test 10/16/16 08:09 10/16/16 11:11 Bedside Glucose 197 mg/dl (70-90) 136 mg/dl (70-90) Allergies Coded Allergies: Latex1 -Allergic Contact Dermititis (Verified Adverse Reaction, Mild, RASH , 09/25/16) Medications Current Inpatient Medications Medications (Trade) Dose Ordered Sig/Elizabet Route Start Time Stop Time Status Last Admin Dose Admin Acetaminophen (Tylenol Tab) 650 mg Q4H PRN PO 09/25/16 23:30 10/25/16 23:29 10/08/16 07:54 650 MG Al Hydrox/Mg Hydrox/Simethicone (Maalox Max Susp) 15 ml Q4H PRN PO 09/25/16 23:30 10/25/16 23:29 10/09/16 07:52 15 ML Magnesium Hydroxide (Milk Of Magnesia Susp) 30 ml Q12H PRN PO 09/25/16 23:30 10/25/16 23:29 Ondansetron HCl (Zofran Inj) 4 mg Q6H PRN IV 09/25/16 23:30 10/25/16 23:29 10/15/16 06:33 4 MG Nitroglycerin (Nitrostat Tab) 0.4 mg UD PRN SL 09/25/16 23:30 10/25/16 23:29 10/12/16 11:00 0.4 MG Polyethylene (Miralax Powder Packet) 17 gm DAILY PRN PO 09/25/16 23:30 10/25/16 23:29 Citalopram Hydrobromide (celeXA TAB) 20 mg QAM PO 09/26/16 09:00 10/26/16 08:59 10/16/16 08:16 20 MG Atorvastatin Calcium (Lipitor Tab) 40 mg HS PO 09/26/16 21:00 10/26/16 20:59 10/15/16 21:49 40 MG Clopidogrel Bisulfate (plAVix TAB) 75 mg QAM PO 09/26/16 09:00 10/26/16 08:59 10/16/16 08:17 75 MG Amlodipine Besylate (Norvasc Tab) 10 mg QAM PO 09/26/16 09:00 10/26/16 08:59 10/15/16 07:59 10 MG Tramadol HCl (Ultram Tab) 50 mg Q4H PRN PO 09/25/16 23:30 10/25/16 23:29 10/11/16 21:07 50 MG Glucose (Glucose 40% Gel) 15-30 GRAMS 15 GRAMS... UD PRN PO 09/26/16 00:30 10/26/16 00:29 Glucose (Glucose Chew Tab) 4-8 Tablets 4 Tabl... UD PRN PO 09/26/16 00:30 10/26/16 00:29 Dextrose (Dextrose 50% 50ML Syringe) 25-50ML OF 50% DW IV FOR... UD PRN IV 09/26/16 00:30 10/26/16 00:29 Glucagon (Glucagon Inj) 1 mg UD PRN SQ 09/26/16 00:30 10/26/16 00:29 Insulin Aspart (novoLOG ASPART) SLIDING SCALE G... ACHS SC 09/27/16 17:00 10/27/16 16:59 10/16/16 08:20 6 UNITS Albuterol/ Ipratropium (Duoneb) 3 ml Q2H PRN INH 09/28/16 11:15 10/28/16 11:14 10/09/16 05:25 3 ML Hydralazine HCl (HydrALAZINE INJ) 10 mg Q4H PRN IV 09/28/16 15:15 10/28/16 15:14 10/03/16 03:09 10 MG Arformoterol Tartrate (Brovana 15MCG/ 2ML Neb Soln) 15 mcg BIDR INH 09/28/16 20:00 10/28/16 19:59 10/16/16 07:08 15 MCG Carvedilol (Coreg Tab) 25 mg BID PO 09/30/16 21:00 10/30/16 20:59 10/15/16 21:49 25 MG Albuterol/ Ipratropium (Combivent Respimat Inh) 1 puffs QID INH 10/03/16 13:00 11/02/16 12:59 10/15/16 07:57 1 PUFFS Hydralazine HCl (Apresoline Tab) 100 mg BID PO 10/04/16 21:00 11/03/16 20:59 10/15/16 21:48 100 MG Heparin Sodium (Porcine) (Heparin Sq 5000 Unit/0.5ml) 5,000 unit Q12 SQ 10/05/16 21:00 11/04/16 20:59 10/16/16 08:20 5,000 UNIT Aspirin 81 mg 81 mg QAM PO 10/07/16 09:00 11/06/16 08:59 10/16/16 08:17 81 MG Bumetanide/Syringe (Bumex IV/ Syringe) 8 ml @ 4 mls/min BID17 IV 10/08/16 17:00 11/07/16 16:59 10/15/16 17:10 4 MLS/MIN Lorazepam (Ativan Tab) 0.5 mg Q8H PRN PO 10/08/16 11:00 11/07/16 10:59 10/11/16 22:46 0.5 MG Insulin Human Isoph/Insulin Regular (novoLIN 70/30 REGULAR) 4 units BIDM SC 10/10/16 16:45 11/09/16 16:44 10/16/16 08:21 4 UNITS Docusate Sodium (coLACE CAP) 100 mg BID PO 10/11/16 21:00 11/10/16 20:59 10/16/16 08:16 100 MG Oxycodone/ Acetaminophen (Percocet 5-325mg Tab) 1 tab Q4H PRN PO 10/12/16 01:30 10/26/16 01:29 10/14/16 20:37 1 TAB Morphine Sulfate (MoRPHine SULFATE INJ) 4 mg Q2H PRN IV 10/12/16 10:45 10/26/16 10:44 10/13/16 01:12 4 MG Epoetin Luis (Procrit Inj) 2,000 units UD PRN IV 10/15/16 08:00 11/14/16 07:59 Miscellaneous Information (Pending Order) 1 ea DAILY@10 N/A 10/15/16 10:00 11/14/16 09:59 10/16/16 11:45 1 EA Impression (1) Contrast dye induced nephropathy (2) Chronic kidney disease, stage III (moderate) (3) Acute on chronic diastolic CHF (congestive heart failure) (4) Acute renal insufficiency (5) Diabetic nephropathy (6) Nephrotic range proteinuria Mrs. Gutierrez is a 51-year-old female with stage III CKD (baseline creatinine ~2.0 mg/dL) attributed to diabetic nephropathy, obesity and hypertensive nephrosclerosis. She has evidence of nephrosis with nephrotic range proteinuria. She was admitted with acute hypoxic respiratory failure in the setting of hypervolemia related to acute on chronic diastolic CHF and advanced renal disease. She suffered a NSTEMI. She required cardiac catheterization, PCI w/ BMS x 2 10/06/16. She has developed contrast induced nephropathy. So far no sign of renal recovery and seems to be reaching ESRD. Started on HD 10/09/[address] [facility]. Rodriguez in [facility] has been Tootie's primary physiatrist. He had discussed potential role of renal replacement therapy in the past. Pt is currently waiting on out pt dialysis set up. Will need out pt set up for AVF placement. Recommendations ESRD: --after recent BECKIE with h/o advanced CKD. See she seems to be reaching end- stage renal disease as no sign of renal recovery. Discussed with nurse case manager, currently dialysis unit waiting on insurance approval. Most likely she will stay over the weekend. --currently getting hemodialysis for 4 hours and tolerating well. -- continue to monitor for renal recovery however chances for renal recovery is becoming slim. -- [place] Attending physiatrist = Dr. Barrera. if it eventually renal function does not recover, she will need to setup for AV fistula, can be coordinated by her outpatient physiatrist depending on the status of renal recovery. -- Continue on Nephrocaps daily, epoetin 2000 units IV with each dialysis CHRONIC KIDNEY DISEASE: -- Likely related to diabetic nephropathy -- Baseline creatinine had been 2.0 -- Protect left arm for possible dialysis access ANEMIA: -- Patient has completed a 1 g infusion of IV iron. Continue on JESU CAD: -- Had Cardiac cath on 10/06/16, required PCI w/ BMX x 2.
[2016-10-16] MEDS: CARVEDILOL 25 MG TAB PO SCH ×2 (14:18→21:14)
[2016-10-16] MEDS: AMLODIPINE BESYLATE 5 MG TAB PO SCH (14:18)
[2016-10-16] MEDS: ATORVASTATIN 40 MG TAB PO SCH (21:14)
[2016-10-17 06:47] LABS: BASO % 1.1 %; BASO ABS # 0.08 K/uL (0-0.2); COMPLETE YES; EOS % 4.4 %; HEMATOCRIT 31.9 % (37-47); IG% 0.1 %; LYMPH ABS # 1.52 K/uL (1.2-3.4); MEAN CELL VOLUME 89.4 fL (80-100); MEAN CORPUSCULAR HEMOGLOBIN 28.9 pg (25-34); MEAN CORPUSCULAR HGB CONC 32.3 g/dl (32-36); MEAN PLATELET VOLUME 10.8 fL (7.4-10.4); MONO % 13.2 %; NEUT % 60.2 %; PLATELET COUNT 378 K/uL (130-400); RED BLOOD COUNT 3.57 M/uL (4.2-5.4); WHITE BLOOD COUNT 7.25 K/uL (4.8-10.8)
[2016-10-17 07:06] VITALS: BP 139/64; PULSE 71; TEMP 36.4; O2SAT 94
[2016-10-17 07:19] LABS: BUN/CREATININE RATIO 4.7 (10-20); CALCIUM 8.2 mg/dl (8.5-10.1); CREATININE 3.6 mg/dl (0.60-1.20); POTASSIUM 3.7 mmol/L (3.5-5.1)
[2016-10-17 07:30] LABS: PHOSPHORUS 3.1 mg/dl (2.5-4.9)
[2016-10-17 07:49] VITALS: PULSE 71; O2SAT 96
[2016-10-17] MEDS: ARFORMOTEROL TART 15MCG/2ML VIAL INH SCH ×2 (07:49→19:09)
[2016-10-17] MEDS: IPRATROPIUM BROMIDE/ALBUTEROL respimat INH INH SCH ×5 (07:49→20:00)
[2016-10-17] MEDS: DOCUSATE SODIUM 100 MG CAP PO SCH ×2 (07:50→20:29)
[2016-10-17] MEDS: ASPIRIN 81 MG ECTAB PO SCH (07:50)
[2016-10-17] MEDS: CITALOPRAM 20 MG TAB PO SCH (07:50)
[2016-10-17] MEDS: AMLODIPINE BESYLATE 5 MG TAB PO SCH (07:50)
[2016-10-17] MEDS: CLOPIDOGREL BISULFATE 75 MG TAB PO SCH (07:50)
[2016-10-17] MEDS: BUMETANIDE IV 2 MG in SYRINGE 0 ML IV SCH ×2 (07:51→16:32)
[2016-10-17] MEDS: CARVEDILOL 25 MG TAB PO SCH ×2 (07:51→20:30)
[2016-10-17 08:00] VITALS: O2SAT 94
[2016-10-17] MEDS: INSULIN ASPART 100 UNITS/ML 3 ML PEN SC SCH ×4 (09:43→20:39)
[2016-10-17] MEDS: INSULIN HUMAN 70% NPH/30% REGULAR SC SCH ×2 (09:43→16:35)
[2016-10-17] MEDS: HEPARIN SOD 5000 UNIT/0.5 ML CARP SQ SCH ×2 (09:44→20:39)
--- NOTE | 2016-10-17 10:36 | Cardiology Follow-Up ---
Subjective Subjective Date of Service: Oct 17, 2016. Pt evaluation today including: conversation w/ patient, physical exam, chart review, lab review, review of studies, review of inpatient medication list Additional Details: Feeling better this AM. Still sleepy. No chest pain. Post HD yesterday Review of Systems Constitutional: + fatigue Eyes: No worsening of vision ENT: No hearing loss Respiratory: + shortness of breath Cardiac: No chest pain, No edema Abdomen: No nausea, No pain Neurologic: No memory loss Heme: No abnormal bleeding/bruising Endo: + fatigue Skin: No rash Objective Vital Signs Last Vital Signs Documentation Date Time Temp Pulse Resp B/P Pulse Ox O2 Delivery O2 Flow Rate FiO2 10/17/16 08:00 94 Room Air 10/17/16 07:49 71 18 1.0 10/17/16 07:06 36.4 139/64 Physical Exam: General Appearance: no apparent distress ENT: normal ENT inspection Neck: supple Respiratory/Chest: chest non-tender, lungs clear Cardiovascular: regular rate, rhythm, no JVD, no murmur Abdomen: normal bowel sounds, non tender, soft Extremities: normal range of motion Neurologic/Psychiatric: interventional physiatrist II-XII nml as tested, oriented x 3 Skin: normal color Lymphatic: no adenopathy Assessment and Plan 51 F h/o type 2 DM, HTN, PAD and CKD admitted with NSTEMI, acute diastolic heart failure. Hospital course complicated by progressive renal failure and eventual MARSHAL requiring HD following PCI to mid to distal LAD. - Patient now chest pain free and dyspnea has significantly improved. - From a cardiac standpoint Ok for discharge when other medical issues stable - Follow-up with me in 2-3 weeks. - Continue ASA/Clopidogrel, statin and antihypertensive regimen. Continued [facility] stay due to: multiple IV medications needed Discharge planning: home Medications: Current Inpatient Medications Medications (Trade) Dose Ordered Sig/Elizabet Route Start Time Stop Time Status Last Admin Dose Admin Acetaminophen (Tylenol Tab) 650 mg Q4H PRN PO 09/25/16 23:30 10/25/16 23:29 10/08/16 07:54 650 MG Al Hydrox/Mg Hydrox/Simethicone (Maalox Max Susp) 15 ml Q4H PRN PO 09/25/16 23:30 10/25/16 23:29 10/09/16 07:52 15 ML Magnesium Hydroxide (Milk Of Magnesia Susp) 30 ml Q12H PRN PO 09/25/16 23:30 10/25/16 23:29 Ondansetron HCl (Zofran Inj) 4 mg Q6H PRN IV 09/25/16 23:30 10/25/16 23:29 10/15/16 06:33 4 MG Nitroglycerin (Nitrostat Tab) 0.4 mg UD PRN SL 09/25/16 23:30 10/25/16 23:29 10/12/16 11:00 0.4 MG Polyethylene (Miralax Powder Packet) 17 gm DAILY PRN PO 09/25/16 23:30 10/25/16 23:29 Citalopram Hydrobromide (celeXA TAB) 20 mg QAM PO 09/26/16 09:00 10/26/16 08:59 10/17/16 07:50 20 MG Atorvastatin Calcium (Lipitor Tab) 40 mg HS PO 09/26/16 21:00 10/26/16 20:59 10/16/16 21:14 40 MG Clopidogrel Bisulfate (plAVix TAB) 75 mg QAM PO 09/26/16 09:00 10/26/16 08:59 10/17/16 07:50 75 MG Amlodipine Besylate (Norvasc Tab) 10 mg QAM PO 09/26/16 09:00 10/26/16 08:59 10/17/16 07:50 10 MG Tramadol HCl (Ultram Tab) 50 mg Q4H PRN PO 09/25/16 23:30 10/25/16 23:29 10/11/16 21:07 50 MG Glucose (Glucose 40% Gel) 15-30 GRAMS 15 GRAMS... UD PRN PO 09/26/16 00:30 10/26/16 00:29 Glucose (Glucose Chew Tab) 4-8 Tablets 4 Tabl... UD PRN PO 09/26/16 00:30 10/26/16 00:29 Dextrose (Dextrose 50% 50ML Syringe) 25-50ML OF 50% DW IV FOR... UD PRN IV 09/26/16 00:30 10/26/16 00:29 Glucagon (Glucagon Inj) 1 mg UD PRN SQ 09/26/16 00:30 10/26/16 00:29 Insulin Aspart (novoLOG ASPART) SLIDING SCALE G... ACHS SC 09/27/16 17:00 10/27/16 16:59 10/17/16 09:43 7 UNITS Albuterol/ Ipratropium (Duoneb) 3 ml Q2H PRN INH 09/28/16 11:15 10/28/16 11:14 10/09/16 05:25 3 ML Hydralazine HCl (HydrALAZINE INJ) 10 mg Q4H PRN IV 09/28/16 15:15 10/28/16 15:14 10/03/16 03:09 10 MG Arformoterol Tartrate (Brovana 15MCG/ 2ML Neb Soln) 15 mcg BIDR INH 09/28/16 20:00 10/28/16 19:59 10/17/16 07:49 15 MCG Carvedilol (Coreg Tab) 25 mg BID PO 09/30/16 21:00 10/30/16 20:59 10/17/16 07:51 25 MG Albuterol/ Ipratropium (Combivent Respimat Inh) 1 puffs QID INH 10/03/16 13:00 11/02/16 12:59 10/15/16 07:57 1 PUFFS Hydralazine HCl (Apresoline Tab) 100 mg BID PO 10/04/16 21:00 11/03/16 20:59 10/17/16 07:51 100 MG Heparin Sodium (Porcine) (Heparin Sq 5000 Unit/0.5ml) 5,000 unit Q12 SQ 10/05/16 21:00 11/04/16 20:59 10/17/16 09:44 5,000 UNIT Aspirin 81 mg 81 mg QAM PO 10/07/16 09:00 11/06/16 08:59 10/17/16 07:50 81 MG Bumetanide/Syringe (Bumex IV/ Syringe) 8 ml @ 4 mls/min BID17 IV 10/08/16 17:00 11/07/16 16:59 10/17/16 07:51 4 MLS/MIN Lorazepam (Ativan Tab) 0.5 mg Q8H PRN PO 10/08/16 11:00 11/07/16 10:59 10/11/16 22:46 0.5 MG Insulin Human Isoph/Insulin Regular (novoLIN 70/30 REGULAR) 4 units BIDM SC 10/10/16 16:45 11/09/16 16:44 10/17/16 09:43 4 UNITS Docusate Sodium (coLACE CAP) 100 mg BID PO 10/11/16 21:00 11/10/16 20:59 10/17/16 07:50 100 MG Oxycodone/ Acetaminophen (Percocet 5-325mg Tab) 1 tab Q4H PRN PO 10/12/16 01:30 10/26/16 01:29 10/14/16 20:37 1 TAB Morphine Sulfate (MoRPHine SULFATE INJ) 4 mg Q2H PRN IV 10/12/16 10:45 10/26/16 10:44 10/13/16 01:12 4 MG Epoetin Luis (Procrit Inj) 2,000 units UD PRN IV 10/15/16 08:00 11/14/16 07:59 10/16/16 11:51 2,000 UNITS Miscellaneous Information (Pending Order) 1 ea DAILY@10 N/A 10/15/16 10:00 11/14/16 09:59 10/16/16 11:45 1 EA Lab Results: 10/17/16 05:56 Red Blood Count 3.57, Mean Corpuscular Volume 89.4, Mean Corpuscular Hemoglobin 28.9, Mean Corpuscular Hemoglobin Concent 32.3, Mean Platelet Volume 10.8, Neutrophils (%) (Auto) 60.2, Lymphocytes (%) (Auto) 21.0, Monocytes (%) (Auto) 13.2, Eosinophils (%) (Auto) 4.4, Basophils (%) (Auto) 1.1, Neutrophils # (Auto ) 4.36, Lymphocytes # (Auto) 1.52, Monocytes # (Auto) 0.96, Eosinophils # (Auto ) 0.32, Basophils # (Auto) 0.08 10/17/16 05:56 Test 10/17/16 05:56 10/17/16 07:44 White Blood Count 7.25 K/uL (4.8-10.8) Red Blood Count 3.57 M/uL (4.2-5.4) Hemoglobin 10.3 g/dL (12.0-16.0) Hematocrit 31.9 % (37-47) Mean Corpuscular Volume 89.4 fL (80-100) Mean Corpuscular Hemoglobin 28.9 pg (25-34) Mean Corpuscular Hemoglobin Concent 32.3 g/dl (32-36) Platelet Count 378 K/uL (130-400) Mean Platelet Volume 10.8 fL (7.4-10.4) Neutrophils (%) (Auto) 60.2 % Lymphocytes (%) (Auto) 21.0 % Monocytes (%) (Auto) 13.2 % Eosinophils (%) (Auto) 4.4 % Basophils (%) (Auto) 1.1 % Neutrophils # (Auto) 4.36 K/uL (1.4-6.5) Lymphocytes # (Auto) 1.52 K/uL (1.2-3.4) Monocytes # (Auto) 0.96 K/uL (0.11-0.59) Eosinophils # (Auto) 0.32 K/uL (0-0.5) Basophils # (Auto) 0.08 K/uL (0-0.2) RDW Standard Deviation 45.4 fL (36.4-46.3) RDW Coefficient of Variation 13.8 % (11.5-14.5) Immature Granulocyte % (Auto) 0.1 % Immature Granulocyte # (Auto) 0.01 K/uL (0.00-0.02) Anion Gap 9.0 mmol/L (3-11) Est Creatinine Clear Calc Drug Dose 22.6 ml/min Estimated GFR () 15.8 Estimated GFR (Non- 13.7 BUN/Creatinine Ratio 4.7 (10-20) Calcium Level 8.2 mg/dl (8.5-10.1) Phosphorus Level 3.1 mg/dl (2.5-4.9) Albumin 2.3 gm/dl (3.4-5.0) Bedside Glucose 192 mg/dl (70-90)
--- NOTE | 2016-10-17 14:35 | Nephrology Progress Note ---
Nephrology Progress Note Date of Service Oct 17, 2016. Chief Complaint BECKIE/CKD Subjective No acute events overnight. Tolerated HD yesterday, UF 2.9 kg. No complications with dialysis. Tootie feels well. She hopes to be discharged from the hospital soon. She continues to make urine. She has been ambulating in her room. She denies significant TOLEDO or chest pain. Orthopnea has dramatically improved since I last saw Tootie in the hospital. Review of Systems A complete review of systems was performed. Pertinent positives are noted above. All other systems are negative. Vital Signs Last 8 Hrs Date Time Temp Pulse Resp B/P Pulse Ox O2 Delivery O2 Flow Rate FiO2 10/17/16 08:00 94 Room Air 10/17/16 07:49 71 18 96 Nasal Cannula 1.0 10/17/16 07:06 36.4 71 20 139/64 94 I & O 24-Hour Column 10/17/16 08:00 Intake Total 875 ml Output Total 2935 ml Balance -2060 ml Last Recorded Weight Weight (Kilograms): 116.300 Physical Exam General Appearance: no apparent distress, + obese Head: normocephalic, atraumatic Eyes: normal inspection, sclerae normal ENT: normal ENT inspection, pharynx normal Neck: supple, no JVD Respiratory/Chest: lungs clear, no respiratory distress, no accessory muscle use Cardiovascular: regular rate, rhythm, no gallop Abdomen/GI: non tender, soft Extremities/Musculoskelatal: normal inspection, + pedal edema Neurologic/Psych: alert, oriented x 3 Laboratory Results Past 24 Hours 10/17/16 05:56 Red Blood Count 3.57, Mean Corpuscular Volume 89.4, Mean Corpuscular Hemoglobin 28.9, Mean Corpuscular Hemoglobin Concent 32.3, Mean Platelet Volume 10.8, Neutrophils (%) (Auto) 60.2, Lymphocytes (%) (Auto) 21.0, Monocytes (%) (Auto) 13.2, Eosinophils (%) (Auto) 4.4, Basophils (%) (Auto) 1.1, Neutrophils # (Auto ) 4.36, Lymphocytes # (Auto) 1.52, Monocytes # (Auto) 0.96, Eosinophils # (Auto ) 0.32, Basophils # (Auto) 0.08 10/17/16 05:56 Test 10/16/16 16:07 10/16/16 20:57 10/17/16 05:56 10/17/16 07:44 Bedside Glucose 225 mg/dl (70-90) 167 mg/dl (70-90) 192 mg/dl (70-90) White Blood Count 7.25 K/uL (4.8-10.8) Red Blood Count 3.57 M/uL (4.2-5.4) Hemoglobin 10.3 g/dL (12.0-16.0) Hematocrit 31.9 % (37-47) Mean Corpuscular Volume 89.4 fL (80-100) Mean Corpuscular Hemoglobin 28.9 pg (25-34) Mean Corpuscular Hemoglobin Concent 32.3 g/dl (32-36) Platelet Count 378 K/uL (130-400) Mean Platelet Volume 10.8 fL (7.4-10.4) Neutrophils (%) (Auto) 60.2 % Lymphocytes (%) (Auto) 21.0 % Monocytes (%) (Auto) 13.2 % Eosinophils (%) (Auto) 4.4 % Basophils (%) (Auto) 1.1 % Neutrophils # (Auto) 4.36 K/uL (1.4-6.5) Lymphocytes # (Auto) 1.52 K/uL (1.2-3.4) Monocytes # (Auto) 0.96 K/uL (0.11-0.59) Eosinophils # (Auto) 0.32 K/uL (0-0.5) Basophils # (Auto) 0.08 K/uL (0-0.2) RDW Standard Deviation 45.4 fL (36.4-46.3) RDW Coefficient of Variation 13.8 % (11.5-14.5) Immature Granulocyte % (Auto) 0.1 % Immature Granulocyte # (Auto) 0.01 K/uL (0.00-0.02) Anion Gap 9.0 mmol/L (3-11) Est Creatinine Clear Calc Drug Dose 22.6 ml/min Estimated GFR () 15.8 Estimated GFR (Non- 13.7 BUN/Creatinine Ratio 4.7 (10-20) Calcium Level 8.2 mg/dl (8.5-10.1) Phosphorus Level 3.1 mg/dl (2.5-4.9) Albumin 2.3 gm/dl (3.4-5.0) Test 10/17/16 11:42 Bedside Glucose 238 mg/dl (70-90) Allergies Coded Allergies: Latex1 -Allergic Contact Dermititis (Verified Adverse Reaction, Mild, RASH , 09/25/16) Medications Current Inpatient Medications Medications (Trade) Dose Ordered Sig/Elizabet Route Start Time Stop Time Status Last Admin Dose Admin Acetaminophen (Tylenol Tab) 650 mg Q4H PRN PO 09/25/16 23:30 10/25/16 23:29 10/08/16 07:54 650 MG Al Hydrox/Mg Hydrox/Simethicone (Maalox Max Susp) 15 ml Q4H PRN PO 09/25/16 23:30 10/25/16 23:29 10/09/16 07:52 15 ML Magnesium Hydroxide (Milk Of Magnesia Susp) 30 ml Q12H PRN PO 09/25/16 23:30 10/25/16 23:29 Ondansetron HCl (Zofran Inj) 4 mg Q6H PRN IV 09/25/16 23:30 10/25/16 23:29 10/15/16 06:33 4 MG Nitroglycerin (Nitrostat Tab) 0.4 mg UD PRN SL 09/25/16 23:30 10/25/16 23:29 10/12/16 11:00 0.4 MG Polyethylene (Miralax Powder Packet) 17 gm DAILY PRN PO 09/25/16 23:30 10/25/16 23:29 Citalopram Hydrobromide (celeXA TAB) 20 mg QAM PO 09/26/16 09:00 10/26/16 08:59 10/17/16 07:50 20 MG Atorvastatin Calcium (Lipitor Tab) 40 mg HS PO 09/26/16 21:00 10/26/16 20:59 10/16/16 21:14 40 MG Clopidogrel Bisulfate (plAVix TAB) 75 mg QAM PO 09/26/16 09:00 10/26/16 08:59 10/17/16 07:50 75 MG Amlodipine Besylate (Norvasc Tab) 10 mg QAM PO 09/26/16 09:00 10/26/16 08:59 10/17/16 07:50 10 MG Tramadol HCl (Ultram Tab) 50 mg Q4H PRN PO 09/25/16 23:30 10/25/16 23:29 10/11/16 21:07 50 MG Glucose (Glucose 40% Gel) 15-30 GRAMS 15 GRAMS... UD PRN PO 09/26/16 00:30 10/26/16 00:29 Glucose (Glucose Chew Tab) 4-8 Tablets 4 Tabl... UD PRN PO 09/26/16 00:30 10/26/16 00:29 Dextrose (Dextrose 50% 50ML Syringe) 25-50ML OF 50% DW IV FOR... UD PRN IV 09/26/16 00:30 10/26/16 00:29 Glucagon (Glucagon Inj) 1 mg UD PRN SQ 09/26/16 00:30 10/26/16 00:29 Insulin Aspart (novoLOG ASPART) SLIDING SCALE G... ACHS SC 09/27/16 17:00 10/27/16 16:59 10/17/16 12:48 8 UNITS Albuterol/ Ipratropium (Duoneb) 3 ml Q2H PRN INH 09/28/16 11:15 10/28/16 11:14 10/09/16 05:25 3 ML Hydralazine HCl (HydrALAZINE INJ) 10 mg Q4H PRN IV 09/28/16 15:15 10/28/16 15:14 10/03/16 03:09 10 MG Arformoterol Tartrate (Brovana 15MCG/ 2ML Neb Soln) 15 mcg BIDR INH 09/28/16 20:00 10/28/16 19:59 10/17/16 07:49 15 MCG Carvedilol (Coreg Tab) 25 mg BID PO 09/30/16 21:00 10/30/16 20:59 10/17/16 07:51 25 MG Albuterol/ Ipratropium (Combivent Respimat Inh) 1 puffs QID INH 10/03/16 13:00 11/02/16 12:59 10/15/16 07:57 1 PUFFS Hydralazine HCl (Apresoline Tab) 100 mg BID PO 10/04/16 21:00 11/03/16 20:59 10/17/16 07:51 100 MG Heparin Sodium (Porcine) (Heparin Sq 5000 Unit/0.5ml) 5,000 unit Q12 SQ 10/05/16 21:00 11/04/16 20:59 10/17/16 09:44 5,000 UNIT Aspirin 81 mg 81 mg QAM PO 10/07/16 09:00 11/06/16 08:59 10/17/16 07:50 81 MG Bumetanide/Syringe (Bumex IV/ Syringe) 8 ml @ 4 mls/min BID17 IV 10/08/16 17:00 11/07/16 16:59 10/17/16 07:51 4 MLS/MIN Lorazepam (Ativan Tab) 0.5 mg Q8H PRN PO 10/08/16 11:00 11/07/16 10:59 10/11/16 22:46 0.5 MG Insulin Human Isoph/Insulin Regular (novoLIN 70/30 REGULAR) 4 units BIDM SC 10/10/16 16:45 11/09/16 16:44 10/17/16 09:43 4 UNITS Docusate Sodium (coLACE CAP) 100 mg BID PO 10/11/16 21:00 11/10/16 20:59 10/17/16 07:50 100 MG Oxycodone/ Acetaminophen (Percocet 5-325mg Tab) 1 tab Q4H PRN PO 10/12/16 01:30 10/26/16 01:29 10/14/16 20:37 1 TAB Morphine Sulfate (MoRPHine SULFATE INJ) 4 mg Q2H PRN IV 10/12/16 10:45 10/26/16 10:44 10/13/16 01:12 4 MG Epoetin Luis (Procrit Inj) 2,000 units UD PRN IV 10/15/16 08:00 11/14/16 07:59 10/16/16 11:51 2,000 UNITS Miscellaneous Information (Pending Order) 1 ea DAILY@10 N/A 10/15/16 10:00 11/14/16 09:59 10/16/16 11:45 1 EA Impression (1) Contrast dye induced nephropathy (2) Chronic kidney disease, stage III (moderate) (3) Acute on chronic diastolic CHF (congestive heart failure) (4) Acute renal insufficiency (5) Diabetic nephropathy (6) Nephrotic range proteinuria Mrs. Gutierrez is a 51-year-old female with stage III CKD (baseline creatinine ~2.0 mg/dL) attributed to diabetic nephropathy, obesity and hypertensive nephrosclerosis. She has nephrotic range proteinuria. This is consistent with baseline advanced renal impairment. Imaging has documented nephrocalcinosis and renal vascular calcifications. She was admitted with acute hypoxic respiratory failure in the setting of hypervolemia related to acute on chronic diastolic CHF and advanced renal disease. She suffered a NSTEMI. She required cardiac catheterization, PCI w/ BMS x 2 was performed on 10/06/16. She developed BECKIE following the procedure consistent contrast induced nephropathy. There has been no evidence of renal recovery. Given her baseline advanced CKD, despite initial hopes for some recovery, the potential to come off hemodialysis is not expected. Tootie is aware of this. She started on HD 10/09/16 via Rt IJ TDC. She has been tolerating hemodialysis well. Dr. Rodriguez in [facility] has been Tootie's primary doctor of audiology. He had discussed potential role of renal replacement therapy in the past. AVF placement has been discussed with Sarah Mishra and Seema during the hospitalization due to the expectation of continued need for hemodialysis access. Recommendations ESRD: -- Social work working of placement for outpatient hemodialysis under the care of Dr. Barrera. -- HD MWF -- AVF placement to be coordinated as an outpatient; protect L arm -- Renal diet ANEMIA: -- Patient has completed a 1 g infusion of IV iron -- PRBC transfusion on 10/09/16 -- Epogen QHD -- Repeat iron panel CAD: -- Cardiac cath on 10/06/16, required PCI w/ BMX x 2 -- Cardiology note and expectations for outpatient follow up reviewed today
[2016-10-17 16:40] VITALS: BP 158/85; PULSE 76; TEMP 37; O2SAT 92
--- NOTE | 2016-10-17 17:10 | Progress Note ---
Subjective Date of Service: Oct 17, 2016. Subjective Pt evaluation today including: conversation w/ patient, physical exam, chart review, lab review, review of studies, review of inpatient medication list Pain: denies any pain Voiding: no voiding problems, no incontinence Patient is seen and examined by me. Patient denies chest pain, shortness of breath, dizziness, palpitation or loss of consciousness. Patient is pending insurance approval for her dialysis place. Patient denies abdominal pain and urinary symptoms. Patient denies blurry vision and headache. Patient would like to get a dietitian referral. Review of Systems All Other Systems: Reviewed and Negative Objective Vital Signs Date Time Temp Pulse Resp B/P Pulse Ox O2 Delivery O2 Flow Rate FiO2 10/17/16 16:40 37.0 76 18 158/85 92 Room Air 10/17/16 08:00 94 Room Air 10/17/16 07:49 71 18 96 Nasal Cannula 1.0 10/17/16 07:06 36.4 71 20 139/64 94 10/17/16 00:00 Room Air 2.0 Nasal Cannula 10/16/16 23:14 36.8 74 18 107/70 94 Nasal Cannula 1.0 10/16/16 19:50 Room Air 2.0 Nasal Cannula 10/16/16 19:20 68 18 98 Nasal Cannula 1.0 Physical Exam General Appearance: WD/WN, no apparent distress Eyes: EOMI Neck: supple, no adenopathy Respiratory/Chest: chest non-tender, normal breath sounds, no respiratory distress Cardiovascular: regular rate, rhythm, no murmur Abdomen: normal bowel sounds, non tender, soft Extremities: normal range of motion Neurologic/Psychiatric: no motor/sensory deficits, alert, normal mood/affect, oriented x 3 Skin: no rash Laboratory Results Last 24 Hours Test 10/16/16 20:57 10/17/16 05:56 10/17/16 07:44 10/17/16 11:42 Bedside Glucose 167 mg/dl 192 mg/dl 238 mg/dl White Blood Count 7.25 K/uL Red Blood Count 3.57 M/uL Hemoglobin 10.3 g/dL Hematocrit 31.9 % Mean Corpuscular Volume 89.4 fL Mean Corpuscular Hemoglobin 28.9 pg Mean Corpuscular Hemoglobin Concent 32.3 g/dl Platelet Count 378 K/uL Mean Platelet Volume 10.8 fL Neutrophils (%) (Auto) 60.2 % Lymphocytes (%) (Auto) 21.0 % Monocytes (%) (Auto) 13.2 % Eosinophils (%) (Auto) 4.4 % Basophils (%) (Auto) 1.1 % Neutrophils # (Auto) 4.36 K/uL Lymphocytes # (Auto) 1.52 K/uL Monocytes # (Auto) 0.96 K/uL Eosinophils # (Auto) 0.32 K/uL Basophils # (Auto) 0.08 K/uL RDW Standard Deviation 45.4 fL RDW Coefficient of Variation 13.8 % Immature Granulocyte % (Auto) 0.1 % Immature Granulocyte # (Auto) 0.01 K/uL Sodium Level 137 mmol/L Potassium Level 3.7 mmol/L Chloride Level 102 mmol/L Carbon Dioxide Level 26 mmol/L Anion Gap 9.0 mmol/L Blood Urea Nitrogen 17 mg/dl Creatinine 3.60 mg/dl Est Creatinine Clear Calc Drug Dose 22.6 ml/min Estimated GFR () 15.8 Estimated GFR (Non- 13.7 BUN/Creatinine Ratio 4.7 Random Glucose 209 mg/dl Calcium Level 8.2 mg/dl Phosphorus Level 3.1 mg/dl Albumin 2.3 gm/dl Test 10/17/16 16:52 Bedside Glucose 188 mg/dl Assessment and Plan 51 F admitted admitted on 09/26/2016 because of acute diastolic heart failure, and renal failure after recent pneumonia , suffered a NSTEMI, which required cardiac catheterization, PCI w/ BMS x 2 , development acute on chronic kidney failure , PermCath was placed on 10/09/2016 and dialysis has had 2 time dialysis new chest pain the night before and yesterday ,has rule out DVT and PE NSTEMI/coronary artery disease status post PCI with bare metal stent x2 to mid and distal LAD; diffuse RCA, OM 1 residual disease Continue treatment with statin, diabetic control and blood pressure control , and cont DAPT, Acute respiratory failure Resolved, Likely secondary to volume overload secondary to Acute on CKD, B/l Pleural effusions. Improved. ESRD on dialysis Social work working of placement for outpatient hemodialysis under the care of Dr. Barrera. HD MWF AVF placement to be coordinated as an outpatient; protect L arm Renal diet S/P Pneumonia, as complete IV antibiotic treatment Diabetes, continues in poor control, continue insulin sliding scale, A1c around 7 Was on oral diabetic medication at home, for now renal function is unstable Patient was on NPH at home, which was recently discontinued , started NPH, plus insulin sliding scale Hypertension, stable Need to have cardiac rehabilitation, PCP is Dr. Isauro perdomo, encourage her to follow-up with Dr. perdomo to arrange for the cardiac rehabilitation as outpatient Patient agreed Possible has RENETTA but has not yet been evaluated I encouraged her to follow-up with PCP PT/OT Continued [facility] stay due to: multiple IV medications needed Discharge planning: home
[2016-10-17 19:09] VITALS: PULSE 67; O2SAT 97
[2016-10-17] MEDS: ATORVASTATIN 40 MG TAB PO SCH (20:32)
[2016-10-17 23:34] VITALS: BP 160/72; PULSE 82; TEMP 37.1; O2SAT 91
[2016-10-18 07:00] VITALS: BP 151/75; PULSE 66; TEMP 36.7; O2SAT 95
[2016-10-18] MEDS: ARFORMOTEROL TART 15MCG/2ML VIAL INH SCH ×2 (07:30→20:11)
[2016-10-18 07:31] VITALS: PULSE 70; O2SAT 95
[2016-10-18] MEDS: IPRATROPIUM BROMIDE/ALBUTEROL respimat INH INH SCH ×5 (08:00→20:43)
[2016-10-18] MEDS: ASPIRIN 81 MG ECTAB PO SCH (08:13)
[2016-10-18] MEDS: DOCUSATE SODIUM 100 MG CAP PO SCH ×2 (08:13→20:43)
[2016-10-18] MEDS: AMLODIPINE BESYLATE 5 MG TAB PO SCH (08:13)
[2016-10-18] MEDS: CITALOPRAM 20 MG TAB PO SCH (08:13)
[2016-10-18] MEDS: CLOPIDOGREL BISULFATE 75 MG TAB PO SCH (08:13)
[2016-10-18] MEDS: CARVEDILOL 25 MG TAB PO SCH ×2 (08:14→20:42)
[2016-10-18] MEDS: INSULIN ASPART 100 UNITS/ML 3 ML PEN SC SCH ×4 (08:22→20:39)
[2016-10-18] MEDS: HEPARIN SOD 5000 UNIT/0.5 ML CARP SQ SCH ×2 (08:22→20:40)
[2016-10-18] MEDS: INSULIN HUMAN 70% NPH/30% REGULAR SC SCH ×2 (08:22→17:40)
[2016-10-18] MEDS: BUMETANIDE IV 2 MG in SYRINGE 0 ML IV SCH ×2 (08:26→17:35)
--- NOTE | 2016-10-18 12:33 | Nephrology Progress Note ---
Nephrology Progress Note Date of Service Oct 18, 2016. Chief Complaint BECKIE/CKD Subjective No acute events overnight. No complaints this morning. Denies shortness of breath. Appetite good. Ambulating in room without difficulty. Hopeful to get home within the next couple of days. Review of Systems A complete review of systems was performed. Pertinent positives are noted above. All other systems are negative. Vital Signs Last 8 Hrs Date Time Temp Pulse Resp B/P Pulse Ox O2 Delivery O2 Flow Rate FiO2 10/18/16 08:00 Room Air 10/18/16 07:31 70 18 95 Room Air 10/18/16 07:00 36.7 66 20 151/75 95 Nasal Cannula 1.0 I & O 24-Hour Column 10/18/16 08:00 Intake Total 520 ml Output Total 1150 ml Balance -630 ml Last Recorded Weight Weight (Kilograms): 115.900 Physical Exam General Appearance: WD/WN, no apparent distress Head: normocephalic, atraumatic Eyes: normal inspection, sclerae normal ENT: normal ENT inspection, pharynx normal Neck: supple, no JVD, + pertinent finding ([facility]) Respiratory/Chest: lungs clear, no respiratory distress, no accessory muscle use Cardiovascular: regular rate, rhythm, no gallop, no murmur Abdomen/GI: non tender, soft Extremities/Musculoskelatal: normal inspection, no pedal edema Neurologic/Psych: alert, oriented x 3 Laboratory Results Past 24 Hours Test 10/17/16 16:52 10/17/16 20:00 10/18/16 07:55 10/18/16 11:39 Bedside Glucose 188 mg/dl (70-90) 184 mg/dl (70-90) 197 mg/dl (70-90) 260 mg/dl (70-90) Allergies Coded Allergies: Latex1 -Allergic Contact Dermititis (Verified Adverse Reaction, Mild, RASH , 09/25/16) Medications Current Inpatient Medications Medications (Trade) Dose Ordered Sig/Elizabet Route Start Time Stop Time Status Last Admin Dose Admin Acetaminophen (Tylenol Tab) 650 mg Q4H PRN PO 09/25/16 23:30 10/25/16 23:29 10/08/16 07:54 650 MG Al Hydrox/Mg Hydrox/Simethicone (Maalox Max Susp) 15 ml Q4H PRN PO 09/25/16 23:30 10/25/16 23:29 10/09/16 07:52 15 ML Magnesium Hydroxide (Milk Of Magnesia Susp) 30 ml Q12H PRN PO 09/25/16 23:30 10/25/16 23:29 Ondansetron HCl (Zofran Inj) 4 mg Q6H PRN IV 09/25/16 23:30 10/25/16 23:29 10/15/16 06:33 4 MG Nitroglycerin (Nitrostat Tab) 0.4 mg UD PRN SL 09/25/16 23:30 10/25/16 23:29 10/12/16 11:00 0.4 MG Polyethylene (Miralax Powder Packet) 17 gm DAILY PRN PO 09/25/16 23:30 10/25/16 23:29 Citalopram Hydrobromide (celeXA TAB) 20 mg QAM PO 09/26/16 09:00 10/26/16 08:59 10/18/16 08:13 20 MG Atorvastatin Calcium (Lipitor Tab) 40 mg HS PO 09/26/16 21:00 10/26/16 20:59 10/17/16 20:32 40 MG Clopidogrel Bisulfate (plAVix TAB) 75 mg QAM PO 09/26/16 09:00 10/26/16 08:59 10/18/16 08:13 75 MG Amlodipine Besylate (Norvasc Tab) 10 mg QAM PO 09/26/16 09:00 10/26/16 08:59 10/18/16 08:13 10 MG Tramadol HCl (Ultram Tab) 50 mg Q4H PRN PO 09/25/16 23:30 10/25/16 23:29 10/11/16 21:07 50 MG Glucose (Glucose 40% Gel) 15-30 GRAMS 15 GRAMS... UD PRN PO 09/26/16 00:30 10/26/16 00:29 Glucose (Glucose Chew Tab) 4-8 Tablets 4 Tabl... UD PRN PO 09/26/16 00:30 10/26/16 00:29 Dextrose (Dextrose 50% 50ML Syringe) 25-50ML OF 50% DW IV FOR... UD PRN IV 09/26/16 00:30 10/26/16 00:29 Glucagon (Glucagon Inj) 1 mg UD PRN SQ 09/26/16 00:30 10/26/16 00:29 Insulin Aspart (novoLOG ASPART) SLIDING SCALE G... ACHS SC 09/27/16 17:00 10/27/16 16:59 10/18/16 08:22 5 UNITS Albuterol/ Ipratropium (Duoneb) 3 ml Q2H PRN INH 09/28/16 11:15 10/28/16 11:14 10/09/16 05:25 3 ML Hydralazine HCl (HydrALAZINE INJ) 10 mg Q4H PRN IV 09/28/16 15:15 10/28/16 15:14 10/03/16 03:09 10 MG Arformoterol Tartrate (Brovana 15MCG/ 2ML Neb Soln) 15 mcg BIDR INH 09/28/16 20:00 10/28/16 19:59 10/18/16 07:30 15 MCG Carvedilol (Coreg Tab) 25 mg BID PO 09/30/16 21:00 10/30/16 20:59 10/18/16 08:14 25 MG Albuterol/ Ipratropium (Combivent Respimat Inh) 1 puffs QID INH 10/03/16 13:00 11/02/16 12:59 10/15/16 07:57 1 PUFFS Hydralazine HCl (Apresoline Tab) 100 mg BID PO 10/04/16 21:00 11/03/16 20:59 10/18/16 08:13 100 MG Heparin Sodium (Porcine) (Heparin Sq 5000 Unit/0.5ml) 5,000 unit Q12 SQ 10/05/16 21:00 11/04/16 20:59 10/18/16 08:22 5,000 UNIT Aspirin 81 mg 81 mg QAM PO 10/07/16 09:00 11/06/16 08:59 10/18/16 08:13 81 MG Bumetanide/Syringe (Bumex IV/ Syringe) 8 ml @ 4 mls/min BID17 IV 10/08/16 17:00 11/07/16 16:59 10/18/16 08:26 4 MLS/MIN Lorazepam (Ativan Tab) 0.5 mg Q8H PRN PO 10/08/16 11:00 11/07/16 10:59 10/11/16 22:46 0.5 MG Insulin Human Isoph/Insulin Regular (novoLIN 70/30 REGULAR) 4 units BIDM SC 10/10/16 16:45 11/09/16 16:44 10/18/16 08:22 4 UNITS Docusate Sodium (coLACE CAP) 100 mg BID PO 10/11/16 21:00 11/10/16 20:59 10/18/16 08:13 100 MG Oxycodone/ Acetaminophen (Percocet 5-325mg Tab) 1 tab Q4H PRN PO 10/12/16 01:30 10/26/16 01:29 10/14/16 20:37 1 TAB Morphine Sulfate (MoRPHine SULFATE INJ) 4 mg Q2H PRN IV 10/12/16 10:45 10/26/16 10:44 10/13/16 01:12 4 MG Epoetin Luis (Procrit Inj) 2,000 units UD PRN IV 10/15/16 08:00 11/14/16 07:59 10/16/16 11:51 2,000 UNITS Miscellaneous Information (Pending Order) 1 ea DAILY@10 N/A 10/15/16 10:00 11/14/16 09:59 10/16/16 11:45 1 EA Impression (1) Contrast dye induced nephropathy (2) Chronic kidney disease, stage III (moderate) (3) Acute on chronic diastolic CHF (congestive heart failure) (4) Acute renal insufficiency (5) Diabetic nephropathy (6) Nephrotic range proteinuria Mrs. Gutierrez is a 51-year-old female with diabetic nephropathy, obesity and hypertensive nephrosclerosis. Imaging has documented nephrocalcinosis and renal vascular calcifications. She has nephrotic range proteinuria. She developed advanced acute on chronic renal failure in the setting of ATN/MARSHAL and acute cardiac disease. There has been no evidence of renal recovery. Given her baseline advanced CKD, despite initial hopes for some recovery, the potential to come off hemodialysis is not expected. Tootie is aware of this. She started on HD 10/09/16 via [facility]. She has been tolerating hemodialysis well. She was admitted with acute hypoxic respiratory failure in the setting of hypervolemia related to acute on chronic diastolic CHF and advanced renal disease. She suffered a NSTEMI. She required cardiac catheterization, PCI w/ BMS x 2 was performed on 10/06/16. She developed BECKIE following the procedure. Dr. Rodriguez in [place] has been Tootie's primary toll test worker. AVF placement has been discussed with 'viji Mishra and Seema during the hospitalization due to the expectation of continued need for hemodialysis access. This is to be scheduled as an outpatient. Recommendations ESRD: -- Social work working of placement for outpatient hemodialysis under the care of Dr. Barrera. -- HD MWF -- AVF placement to be coordinated as an outpatient; protect L arm -- Renal diet ANEMIA: -- Patient has completed a 1 g infusion of IV iron -- PRBC transfusion on 10/09/16 -- Epogen QHD -- Repeat iron panel CAD: -- Cardiac cath on 10/06/16, required PCI w/ BMX x 2 -- Cardiology note and expectations for outpatient follow up reviewed today
[2016-10-18] MEDS ORDERED: HEPARIN SOD (PORCINE) 1000 UNIT/ML 10 ML VIAL IV SCH ×2 (12:45)
--- NOTE | 2016-10-18 15:21 | Progress Note ---
Subjective Date of Service: Oct 18, 2016. Subjective Pt evaluation today including: conversation w/ patient, physical exam, chart review, lab review, review of studies, review of inpatient medication list Pain: Denies pain PO Intake: excellent Pt denies any symtoms, such as Cp, SOB, dizziness and palpitation.Watching Tv and lying in bed. Review of Systems All Other Systems: Reviewed and Negative Objective Vital Signs Date Time Temp Pulse Resp B/P Pulse Ox O2 Delivery O2 Flow Rate FiO2 10/18/16 08:00 Room Air 10/18/16 07:31 70 18 95 Room Air 10/18/16 07:00 36.7 66 20 151/75 95 Nasal Cannula 1.0 10/17/16 23:34 37.1 82 20 160/72 91 Room Air 10/17/16 23:15 Room Air 2.0 Nasal Cannula 10/17/16 19:09 67 18 97 Room Air 10/17/16 16:40 37.0 76 18 158/85 92 Room Air 10/17/16 16:20 Room Air Physical Exam General Appearance: WD/WN, no apparent distress, + obese Neck: supple Cardiovascular: regular rate, rhythm, no gallop, no murmur Abdomen: normal bowel sounds, non tender, soft Extremities: normal range of motion, no pedal edema, no calf tenderness Neurologic/Psychiatric: alert, normal mood/affect, oriented x 3 Skin: no rash Lymphatic: no adenopathy Laboratory Results Last 24 Hours Test 10/17/16 16:52 10/17/16 20:00 10/18/16 07:55 10/18/16 11:39 Bedside Glucose 188 mg/dl 184 mg/dl 197 mg/dl 260 mg/dl Assessment and Plan 51 F admitted admitted on 09/26/2016 because of acute diastolic heart failure, and renal failure after recent pneumonia , suffered a NSTEMI, which required cardiac catheterization, PCI w/ BMS x 2 , development acute on chronic kidney failure , PermCath was placed on 10/09/2016 and dialysis has had 2 time dialysis new chest pain the night before and yesterday ,has rule out DVT and PE NSTEMI/coronary artery disease status post PCI with bare metal stent x2 to mid and distal LAD; diffuse RCA, OM 1 residual disease Continue treatment with statin, diabetic control and blood pressure control , and cont DAPT, Acute respiratory failure Resolved, Likely secondary to volume overload secondary to Acute on CKD, B/l Pleural effusions. Improved. ESRD on dialysis Social work working of placement for outpatient hemodialysis under the care of Dr. Barrera. HD MWF AVF placement to be coordinated as an outpatient; protect L arm Renal diet S/P Pneumonia, as complete IV antibiotic treatment Diabetes, continues in poor control, continue insulin sliding scale, A1c around 7 Was on oral diabetic medication at home, for now renal function is unstable Patient was on NPH at home, which was recently discontinued , started NPH, plus insulin sliding scale Hypertension, stable Need to have cardiac rehabilitation, PCP is Dr. Isauro perdomo, encourage her to follow-up with Dr. perdomo to arrange for the cardiac rehabilitation as outpatient Patient agreed Possible has RENETTA but has not yet been evaluated I encouraged her to follow-up with PCP PT/OT Continued [facility] stay due to: multiple IV medications needed Discharge planning: home
[2016-10-18 16:49] VITALS: BP 161/80; PULSE 71; TEMP 36.6; O2SAT 97
[2016-10-18 20:11] VITALS: PULSE 70; O2SAT 96
[2016-10-18] MEDS: ATORVASTATIN 40 MG TAB PO SCH (20:42)
[2016-10-18 20:45] VITALS: O2SAT 96
[2016-10-18 23:03] VITALS: BP 156/77; PULSE 75; TEMP 37.1; O2SAT 95
[2016-10-19] VITALS (21 sets, daily range): BP systolic 100–179; BP diastolic 57–84; PULSE 60–74; TEMP 36.6–37.3; O2SAT 93–96
[2016-10-19 07:00] LABS: HEMATOCRIT 31.6 % (37-47); MEAN CELL VOLUME 87.8 fL (80-100); MEAN CORPUSCULAR HEMOGLOBIN 28.6 pg (25-34); MEAN CORPUSCULAR HGB CONC 32.6 g/dl (32-36); MEAN PLATELET VOLUME 10.6 fL (7.4-10.4); PLATELET COUNT 399 K/uL (130-400); WHITE BLOOD COUNT 8.41 K/uL (4.8-10.8)
[2016-10-19] MEDS: ARFORMOTEROL TART 15MCG/2ML VIAL INH SCH ×2 (07:19→19:18)
[2016-10-19 07:39] LABS: BUN/CREATININE RATIO 8.8 (10-20); CALCIUM 8.4 mg/dl (8.5-10.1); CREATININE 4.1 mg/dl (0.60-1.20); PHOSPHORUS 4.5 mg/dl (2.5-4.9); POTASSIUM 3.6 mmol/L (3.5-5.1)
[2016-10-19] MEDS: INSULIN ASPART 100 UNITS/ML 3 ML PEN SC SCH ×4 (07:45→21:17)
[2016-10-19] MEDS: HEPARIN SOD 5000 UNIT/0.5 ML CARP SQ SCH ×2 (07:48→21:19)
[2016-10-19] MEDS: INSULIN HUMAN 70% NPH/30% REGULAR SC SCH ×2 (07:48→18:12)
[2016-10-19] MEDS ORDERED: HEPARIN SOD (PORCINE) 1000 UNIT/ML 10 ML VIAL IV SCH (08:00)
[2016-10-19] MEDS: IPRATROPIUM BROMIDE/ALBUTEROL respimat INH INH SCH ×4 (08:00→20:00)
--- NOTE | 2016-10-19 10:31 | Dialysis Progress Note ---
Hemodialysis Note Date of Service Oct 19, 2016. Chief Complaint BECKIE/CKD Eliceo Sommers was seen and evaluated during hemodialysis this morning. She is tolerating dialysis well. She had no acute complaints. She is hopeful to be discharged home today. She denies any chest pain, palpitations or shortness of breath. Activity tolerance is good. Review of Systems A complete review of systems was performed. Pertinent positives are noted above. All other systems are negative. Vital Signs Last 8 Hrs Date Time Temp Pulse Resp B/P Pulse Ox O2 Delivery O2 Flow Rate FiO2 10/19/16 10:00 62 133/62 10/19/16 09:45 62 133/62 10/19/16 09:30 64 136/63 10/19/16 09:15 64 144/66 10/19/16 09:00 65 124/57 10/19/16 08:59 36.6 73 100/57 10/19/16 08:45 72 130/59 10/19/16 08:40 68 143/76 10/19/16 07:19 74 16 93 Room Air 10/19/16 07:17 36.7 73 18 137/81 93 Room Air I & O 24-Hour Column 10/19/16 08:00 Intake Total 1100 ml Output Total 1600 ml Balance -500 ml Last Recorded Weight Weight (Kilograms): 117.200 Physical Exam General Appearance: WD/WN, no apparent distress Head: normocephalic, atraumatic Eyes: normal inspection, sclerae normal ENT: normal ENT inspection, pharynx normal Neck: supple, no JVD, + pertinent finding ([facility]) Respiratory/Chest: lungs clear, no respiratory distress, no accessory muscle use Cardiovascular: regular rate, rhythm, no gallop, no murmur Abdomen/GI: non tender, soft Extremities/Musculoskelatal: normal inspection, no pedal edema Neurologic/Psych: alert, oriented x 3 Laboratory Results Past 24 Hours 10/19/16 06:20 10/19/16 06:20 Test 10/18/16 11:39 10/18/16 17:15 10/18/16 20:35 10/19/16 06:20 Bedside Glucose 260 mg/dl (70-90) 177 mg/dl (70-90) 229 mg/dl (70-90) Red Blood Count 3.60 M/uL (4.2-5.4) Mean Corpuscular Volume 87.8 fL (80-100) Mean Corpuscular Hemoglobin 28.6 pg (25-34) Mean Corpuscular Hemoglobin Concent 32.6 g/dl (32-36) RDW Standard Deviation 44.2 fL (36.4-46.3) RDW Coefficient of Variation 13.8 % (11.5-14.5) Mean Platelet Volume 10.6 fL (7.4-10.4) Anion Gap 9.0 mmol/L (3-11) Est Creatinine Clear Calc Drug Dose 19.9 ml/min Estimated GFR () 13.5 Estimated GFR (Non- 11.7 BUN/Creatinine Ratio 8.8 (10-20) Calcium Level 8.4 mg/dl (8.5-10.1) Phosphorus Level 4.5 mg/dl (2.5-4.9) Albumin 2.3 gm/dl (3.4-5.0) Test 10/19/16 07:26 Bedside Glucose 218 mg/dl (70-90) Allergies Coded Allergies: Latex1 -Allergic Contact Dermititis (Verified Adverse Reaction, Mild, RASH , 09/25/16) Medications Current Inpatient Medications Medications (Trade) Dose Ordered Sig/Elizabet Route Start Time Stop Time Status Last Admin Dose Admin Acetaminophen (Tylenol Tab) 650 mg Q4H PRN PO 09/25/16 23:30 10/25/16 23:29 10/08/16 07:54 650 MG Al Hydrox/Mg Hydrox/Simethicone (Maalox Max Susp) 15 ml Q4H PRN PO 09/25/16 23:30 10/25/16 23:29 10/09/16 07:52 15 ML Magnesium Hydroxide (Milk Of Magnesia Susp) 30 ml Q12H PRN PO 09/25/16 23:30 10/25/16 23:29 Ondansetron HCl (Zofran Inj) 4 mg Q6H PRN IV 09/25/16 23:30 10/25/16 23:29 10/15/16 06:33 4 MG Nitroglycerin (Nitrostat Tab) 0.4 mg UD PRN SL 09/25/16 23:30 10/25/16 23:29 10/12/16 11:00 0.4 MG Polyethylene (Miralax Powder Packet) 17 gm DAILY PRN PO 09/25/16 23:30 10/25/16 23:29 Citalopram Hydrobromide (celeXA TAB) 20 mg QAM PO 09/26/16 09:00 10/26/16 08:59 10/18/16 08:13 20 MG Atorvastatin Calcium (Lipitor Tab) 40 mg HS PO 09/26/16 21:00 10/26/16 20:59 10/18/16 20:42 40 MG Clopidogrel Bisulfate (plAVix TAB) 75 mg QAM PO 09/26/16 09:00 10/26/16 08:59 10/18/16 08:13 75 MG Amlodipine Besylate (Norvasc Tab) 10 mg QAM PO 09/26/16 09:00 10/26/16 08:59 10/18/16 08:13 10 MG Tramadol HCl (Ultram Tab) 50 mg Q4H PRN PO 09/25/16 23:30 10/25/16 23:29 10/11/16 21:07 50 MG Glucose (Glucose 40% Gel) 15-30 GRAMS 15 GRAMS... UD PRN PO 09/26/16 00:30 10/26/16 00:29 Glucose (Glucose Chew Tab) 4-8 Tablets 4 Tabl... UD PRN PO 09/26/16 00:30 10/26/16 00:29 Dextrose (Dextrose 50% 50ML Syringe) 25-50ML OF 50% DW IV FOR... UD PRN IV 09/26/16 00:30 10/26/16 00:29 Glucagon (Glucagon Inj) 1 mg UD PRN SQ 09/26/16 00:30 10/26/16 00:29 Insulin Aspart (novoLOG ASPART) SLIDING SCALE G... ACHS SC 09/27/16 17:00 10/27/16 16:59 10/19/16 07:45 7 UNITS Albuterol/ Ipratropium (Duoneb) 3 ml Q2H PRN INH 09/28/16 11:15 10/28/16 11:14 10/09/16 05:25 3 ML Hydralazine HCl (HydrALAZINE INJ) 10 mg Q4H PRN IV 09/28/16 15:15 10/28/16 15:14 10/03/16 03:09 10 MG Arformoterol Tartrate (Brovana 15MCG/ 2ML Neb Soln) 15 mcg BIDR INH 09/28/16 20:00 10/28/16 19:59 10/19/16 07:19 15 MCG Carvedilol (Coreg Tab) 25 mg BID PO 09/30/16 21:00 10/30/16 20:59 10/18/16 20:42 25 MG Albuterol/ Ipratropium (Combivent Respimat Inh) 1 puffs QID INH 10/03/16 13:00 11/02/16 12:59 10/15/16 07:57 1 PUFFS Hydralazine HCl (Apresoline Tab) 100 mg BID PO 10/04/16 21:00 11/03/16 20:59 10/18/16 20:42 100 MG Heparin Sodium (Porcine) (Heparin Sq 5000 Unit/0.5ml) 5,000 unit Q12 SQ 10/05/16 21:00 11/04/16 20:59 10/19/16 07:48 5,000 UNIT Aspirin 81 mg 81 mg QAM PO 10/07/16 09:00 11/06/16 08:59 10/18/16 08:13 81 MG Bumetanide/Syringe (Bumex IV/ Syringe) 8 ml @ 4 mls/min BID17 IV 10/08/16 17:00 11/07/16 16:59 10/18/16 17:35 4 MLS/MIN Lorazepam (Ativan Tab) 0.5 mg Q8H PRN PO 10/08/16 11:00 11/07/16 10:59 10/11/16 22:46 0.5 MG Insulin Human Isoph/Insulin Regular (novoLIN 70/30 REGULAR) 4 units BIDM SC 10/10/16 16:45 11/09/16 16:44 10/19/16 07:48 4 UNITS Docusate Sodium (coLACE CAP) 100 mg BID PO 10/11/16 21:00 11/10/16 20:59 10/18/16 20:43 100 MG Oxycodone/ Acetaminophen (Percocet 5-325mg Tab) 1 tab Q4H PRN PO 10/12/16 01:30 10/26/16 01:29 10/14/16 20:37 1 TAB Morphine Sulfate (MoRPHine SULFATE INJ) 4 mg Q2H PRN IV 10/12/16 10:45 10/26/16 10:44 10/13/16 01:12 4 MG Epoetin Luis (Procrit Inj) 2,000 units UD PRN IV 10/15/16 08:00 11/14/16 07:59 10/16/16 11:51 2,000 UNITS Miscellaneous Information (Pending Order) 1 ea DAILY@10 N/A 10/15/16 10:00 11/14/16 09:59 10/16/16 11:45 1 EA Impression (1) Contrast dye induced nephropathy (2) Chronic kidney disease, stage III (moderate) (3) Acute on chronic diastolic CHF (congestive heart failure) (4) Acute renal insufficiency (5) Diabetic nephropathy (6) Nephrotic range proteinuria Mrs. Gutierrez is a 51-year-old female with diabetic nephropathy, obesity and hypertensive nephrosclerosis. Imaging has documented nephrocalcinosis and renal vascular calcifications. She has nephrotic range proteinuria. She developed advanced acute on chronic renal failure in the setting of ATN/MARSHAL and acute cardiac disease. There has been no evidence of renal recovery. Given her baseline advanced CKD, the ability to come off hemodialysis is not expected consistent with ESRD. She started on HD 10/09/16 via [facility]. She has been tolerating hemodialysis well. She was admitted with acute hypoxic respiratory failure in the setting of hypervolemia related to acute on chronic diastolic CHF and advanced renal disease. She suffered a NSTEMI. She required cardiac catheterization, PCI w/ BMS x 2 was performed on 10/06/16. She developed BECKIE following the procedure. Dr. Jennifer ybarra [place] has been Tootie's primary carton forming machine operator. AVF placement is to be scheduled as an outpatient. Recommendations ESRD: -- HD MWF; Qb 350 via T[facility] -- UF goal 2 kg -- Protect L arm for AVF placement -- Renal diet ANEMIA: -- Patient has completed a 1 g infusion of IV iron -- PRBC transfusion on 10/09/16 -- Epogen QHD CAD: -- Cardiac cath on 10/06/16, required PCI w/ BMX x 2
--- NOTE | 2016-10-19 13:00 | Hospitalist Progress Note ---
Hospitalist Progress Note Date of Service Oct 19, 2016. Subjective Pt evaluation today including: conversation w/ patient, physical exam, chart review, lab review, review of studies, review of inpatient medication list Evaluated patient during dialysis today- tolerating well. Patient states she is feeling well. She is eating and drinking OK. She is anxious for discharge. Patient denies any fever, chills, sweats, lightheadedness, dizziness, vision changes, CP, palpitations, edema, SOB, wheezing, cough, abdominal pain, nausea, vomiting, diarrhea, urinary symptoms, melena, numbness/tingling, weakness, muscle/joint pain, anxiety/depression, active bleeding, or new skin discoloration/changes. Medications Current Inpatient Medications Medications (Trade) Dose Ordered Sig/Elziabet Route Start Time Stop Time Status Last Admin Dose Admin Acetaminophen (Tylenol Tab) 650 mg Q4H PRN PO 09/25/16 23:30 10/25/16 23:29 10/08/16 07:54 650 MG Al Hydrox/Mg Hydrox/Simethicone (Maalox Max Susp) 15 ml Q4H PRN PO 09/25/16 23:30 10/25/16 23:29 10/09/16 07:52 15 ML Magnesium Hydroxide (Milk Of Magnesia Susp) 30 ml Q12H PRN PO 09/25/16 23:30 10/25/16 23:29 Ondansetron HCl (Zofran Inj) 4 mg Q6H PRN IV 09/25/16 23:30 10/25/16 23:29 10/15/16 06:33 4 MG Nitroglycerin (Nitrostat Tab) 0.4 mg UD PRN SL 09/25/16 23:30 10/25/16 23:29 10/12/16 11:00 0.4 MG Polyethylene (Miralax Powder Packet) 17 gm DAILY PRN PO 09/25/16 23:30 10/25/16 23:29 Citalopram Hydrobromide (celeXA TAB) 20 mg QAM PO 09/26/16 09:00 10/26/16 08:59 10/18/16 08:13 20 MG Atorvastatin Calcium (Lipitor Tab) 40 mg HS PO 09/26/16 21:00 10/26/16 20:59 10/18/16 20:42 40 MG Clopidogrel Bisulfate (plAVix TAB) 75 mg QAM PO 09/26/16 09:00 10/26/16 08:59 10/18/16 08:13 75 MG Amlodipine Besylate (Norvasc Tab) 10 mg QAM PO 09/26/16 09:00 10/26/16 08:59 10/18/16 08:13 10 MG Tramadol HCl (Ultram Tab) 50 mg Q4H PRN PO 09/25/16 23:30 10/25/16 23:29 10/11/16 21:07 50 MG Glucose (Glucose 40% Gel) 15-30 GRAMS 15 GRAMS... UD PRN PO 09/26/16 00:30 10/26/16 00:29 Glucose (Glucose Chew Tab) 4-8 Tablets 4 Tabl... UD PRN PO 09/26/16 00:30 10/26/16 00:29 Dextrose (Dextrose 50% 50ML Syringe) 25-50ML OF 50% DW IV FOR... UD PRN IV 09/26/16 00:30 10/26/16 00:29 Glucagon (Glucagon Inj) 1 mg UD PRN SQ 09/26/16 00:30 10/26/16 00:29 Insulin Aspart (novoLOG ASPART) SLIDING SCALE G... ACHS SC 09/27/16 17:00 10/27/16 16:59 10/19/16 07:45 7 UNITS Albuterol/ Ipratropium (Duoneb) 3 ml Q2H PRN INH 09/28/16 11:15 10/28/16 11:14 10/09/16 05:25 3 ML Hydralazine HCl (HydrALAZINE INJ) 10 mg Q4H PRN IV 09/28/16 15:15 10/28/16 15:14 10/03/16 03:09 10 MG Arformoterol Tartrate (Brovana 15MCG/ 2ML Neb Soln) 15 mcg BIDR INH 09/28/16 20:00 10/28/16 19:59 10/19/16 07:19 15 MCG Carvedilol (Coreg Tab) 25 mg BID PO 09/30/16 21:00 10/30/16 20:59 10/18/16 20:42 25 MG Albuterol/ Ipratropium (Combivent Respimat Inh) 1 puffs QID INH 10/03/16 13:00 11/02/16 12:59 10/15/16 07:57 1 PUFFS Hydralazine HCl (Apresoline Tab) 100 mg BID PO 10/04/16 21:00 11/03/16 20:59 10/18/16 20:42 100 MG Heparin Sodium (Porcine) (Heparin Sq 5000 Unit/0.5ml) 5,000 unit Q12 SQ 10/05/16 21:00 11/04/16 20:59 10/19/16 07:48 5,000 UNIT Aspirin 81 mg 81 mg QAM PO 10/07/16 09:00 11/06/16 08:59 10/18/16 08:13 81 MG Bumetanide/Syringe (Bumex IV/ Syringe) 8 ml @ 4 mls/min BID17 IV 10/08/16 17:00 11/07/16 16:59 10/18/16 17:35 4 MLS/MIN Lorazepam (Ativan Tab) 0.5 mg Q8H PRN PO 10/08/16 11:00 11/07/16 10:59 10/11/16 22:46 0.5 MG Insulin Human Isoph/Insulin Regular (novoLIN 70/30 REGULAR) 4 units BIDM SC 10/10/16 16:45 11/09/16 16:44 10/19/16 07:48 4 UNITS Docusate Sodium (coLACE CAP) 100 mg BID PO 10/11/16 21:00 11/10/16 20:59 10/18/16 20:43 100 MG Oxycodone/ Acetaminophen (Percocet 5-325mg Tab) 1 tab Q4H PRN PO 10/12/16 01:30 10/26/16 01:29 10/14/16 20:37 1 TAB Morphine Sulfate (MoRPHine SULFATE INJ) 4 mg Q2H PRN IV 10/12/16 10:45 10/26/16 10:44 10/13/16 01:12 4 MG Epoetin Luis (Procrit Inj) 2,000 units UD PRN IV 10/15/16 08:00 11/14/16 07:59 10/16/16 11:51 2,000 UNITS Miscellaneous Information (Pending Order) 1 ea DAILY@10 N/A 10/15/16 10:00 11/14/16 09:59 10/16/16 11:45 1 EA Objective Vital Signs Date Time Temp Pulse Resp B/P Pulse Ox O2 Delivery O2 Flow Rate FiO2 10/19/16 11:45 71 179/84 10/19/16 11:30 64 157/84 10/19/16 11:15 64 157/84 10/19/16 11:00 64 160/81 10/19/16 10:45 60 155/82 10/19/16 10:30 64 136/63 10/19/16 10:15 65 137/70 10/19/16 10:15 62 133/62 10/19/16 10:15 65 137/70 10/19/16 10:00 62 133/62 10/19/16 09:45 62 133/62 10/19/16 09:30 64 136/63 10/19/16 09:15 64 144/66 10/19/16 09:00 65 124/57 10/19/16 08:59 36.6 73 100/57 10/19/16 08:45 72 130/59 10/19/16 08:40 68 143/76 10/19/16 07:25 Room Air 10/19/16 07:19 74 16 93 Room Air 10/19/16 07:17 36.7 73 18 137/81 93 Room Air 10/19/16 00:00 Room Air 2.0 Nasal Cannula 10/18/16 23:03 37.1 75 17 156/77 95 Room Air 10/18/16 20:45 96 Room Air 1.0 35 10/18/16 20:11 70 18 96 Room Air 10/18/16 16:49 36.6 71 20 161/80 97 Room Air 10/18/16 15:55 Room Air Physical Exam General Appearance: no apparent distress, + obese Eyes: normal inspection, PERRL ENT: hearing grossly normal Neck: supple Respiratory/Chest: lungs clear, no respiratory distress, no accessory muscle use Cardiovascular: regular rate, rhythm Abdomen: normal bowel sounds, non tender, soft Extremities: no pedal edema, no calf tenderness Neurologic/Psychiatric: alert, normal mood/affect, oriented x 3 Skin: normal color, warm/dry, no rash Laboratory Results Last 24 Hours Test 10/18/16 17:15 10/18/16 20:35 10/19/16 06:20 10/19/16 07:26 Bedside Glucose 177 mg/dl 229 mg/dl 218 mg/dl White Blood Count 8.41 K/uL Red Blood Count 3.60 M/uL Hemoglobin 10.3 g/dL Hematocrit 31.6 % Mean Corpuscular Volume 87.8 fL Mean Corpuscular Hemoglobin 28.6 pg Mean Corpuscular Hemoglobin Concent 32.6 g/dl RDW Standard Deviation 44.2 fL RDW Coefficient of Variation 13.8 % Platelet Count 399 K/uL Mean Platelet Volume 10.6 fL Sodium Level 138 mmol/L Potassium Level 3.6 mmol/L Chloride Level 104 mmol/L Carbon Dioxide Level 25 mmol/L Anion Gap 9.0 mmol/L Blood Urea Nitrogen 36 mg/dl Creatinine 4.10 mg/dl Est Creatinine Clear Calc Drug Dose 19.9 ml/min Estimated GFR () 13.5 Estimated GFR (Non- 11.7 BUN/Creatinine Ratio 8.8 Random Glucose 242 mg/dl Calcium Level 8.4 mg/dl Phosphorus Level 4.5 mg/dl Albumin 2.3 gm/dl Assessment and Plan 51 F admitted admitted on 09/26/2016 because of acute diastolic heart failure, and renal failure after recent pneumonia , suffered a NSTEMI, which required cardiac catheterization, PCI w/ BMS x 2 10/06/16, development acute on chronic kidney failure , PermCath was placed on 10/09/2016 and dialysis has had 2 time dialysis new chest pain the night before and yesterday ,has rule out DVT and PE NSTEMI/CAD s/p PCI with bare metal stent x2 to mid and distal LAD; diffuse RCA, OM 1 residual disease on 10/06: - Continue Atorvastatin 40 mg daily, Coreg 25 mg BID, Plavix 75 mg daily - STABLE from cardiology standpoint- follow-up w/ Dr. Lee in 2-3 weeks - Cardiac rehabilitation- encouraged follow-up w/ PCP to arrange for the cardiac rehabilitation as outpatient Acute on chronic diastolic HF- resolved: - IV Bumex BID - ECHO 09/26- * 1. Normal LV size, moderate concentric LVH. * 2. Normal LV systolic function. LVEF 60-65%. Severe apical hypokinesis. * 3. RV not well visualized. Function grossly normal. * 4. Mild mitral regurgitation. * 5. Grade II diastolic dysfunction * 6. Elevated RA pressure (Est 15 mmHg). * 7. Moderate left pleural effusion. * 8. No prior studies for comparison. HTN: Hydralazine 100 mg BID and Norvasc 10 mg daily Acute respiratory failure, likely secondary to volume overload secondary to acute on CKD, B/l Pleural effusions- resolved: - O2 protocol, weaned as tolerated - DuoNeb PRN, Combivent INH QID, Brovana INH BID ESRD on dialysis as of 10/09: - IJ THC placement on 10/09 - HD MWF - Renal diet- nutrition consulted for counselling - Nephrology following Anemia- 2 units PRBC transfusion on 10/09: - 1 g infusion of IV iron - Epogen QHD - Iron panel reviewed - Nephrology following S/P Pneumonia: - Treated w/ IV antibiotics Zosyn + Vancomycin - MRSA nasal swab positive T2DM, w/ ha1c of 7.0: - Novolin 70/30 4 u BID - BSG ACHS w/ sliding insulin scale Back pain- CT negative for any pathologies GI Prophylaxis: Maalox PRN, IV Zofran PRN, Colace and/or Milk of Mag PRN DVT prophylaxis: Heparin 5000 units SQ q12 hrs, TRUPTI and SCDs Code Status: LEVEL I, FULL Dispo: - Discharge to home, pending US renal in [place] acceptance - PT/OT evaluations- pt OK to resume home
[2016-10-19] MEDS: HEPARIN SOD (PORCINE) 1000 UNIT/ML 10 ML VIAL IV SCH ×2 (13:40→13:49)
[2016-10-19] MEDS: DOCUSATE SODIUM 100 MG CAP PO SCH ×2 (13:42→20:00)
[2016-10-19] MEDS: ASPIRIN 81 MG ECTAB PO SCH (13:42)
[2016-10-19] MEDS: CARVEDILOL 25 MG TAB PO SCH ×2 (13:43→21:13)
[2016-10-19] MEDS: CITALOPRAM 20 MG TAB PO SCH (13:43)
[2016-10-19] MEDS: CLOPIDOGREL BISULFATE 75 MG TAB PO SCH (13:43)
[2016-10-19] MEDS: AMLODIPINE BESYLATE 5 MG TAB PO SCH (13:44)
[2016-10-19] MEDS: BUMETANIDE IV 2 MG in SYRINGE 0 ML IV SCH ×2 (13:45→18:15)
[2016-10-19] MEDS: EPOETIN ALFA 2000 UNITS/ML VIAL IV PRN (19:19)
[2016-10-19] MEDS: ATORVASTATIN 40 MG TAB PO SCH (21:13)
[2016-10-20] VITALS (8 sets, daily range): BP systolic 134–175; BP diastolic 74–81; PULSE 66–75; TEMP 36.7–36.9; O2SAT 95–98
[2016-10-20] MEDS: ARFORMOTEROL TART 15MCG/2ML VIAL INH SCH ×2 (07:29→19:16)
[2016-10-20 07:40] LABS: HEMATOCRIT 32.2 % (37-47); MEAN CORPUSCULAR HEMOGLOBIN 28.4 pg (25-34); MEAN CORPUSCULAR HGB CONC 32.3 g/dl (32-36); MEAN PLATELET VOLUME 10.5 fL (7.4-10.4); PLATELET COUNT 362 K/uL (130-400); RED BLOOD COUNT 3.66 M/uL (4.2-5.4); WHITE BLOOD COUNT 8.09 K/uL (4.8-10.8)
[2016-10-20 07:57] LABS: BUN/CREATININE RATIO 9.1 (10-20); CALCIUM 8.1 mg/dl (8.5-10.1); CREATININE 3.4 mg/dl (0.60-1.20); MAGNESIUM 1.8 mg/dl (1.8-2.4); POTASSIUM 3.9 mmol/L (3.5-5.1)
[2016-10-20] MEDS: CITALOPRAM 20 MG TAB PO SCH (09:07)
[2016-10-20] MEDS: AMLODIPINE BESYLATE 5 MG TAB PO SCH (09:07)
[2016-10-20] MEDS: DOCUSATE SODIUM 100 MG CAP PO SCH ×2 (09:07→20:08)
[2016-10-20] MEDS: BUMETANIDE IV 2 MG in SYRINGE 0 ML IV SCH ×2 (09:07→17:39)
[2016-10-20] MEDS: ASPIRIN 81 MG ECTAB PO SCH (09:07)
[2016-10-20] MEDS: CLOPIDOGREL BISULFATE 75 MG TAB PO SCH (09:07)
[2016-10-20] MEDS: CARVEDILOL 25 MG TAB PO SCH ×2 (09:08→20:08)
[2016-10-20] MEDS: IPRATROPIUM BROMIDE/ALBUTEROL respimat INH INH SCH ×4 (09:08→20:00)
[2016-10-20] MEDS: HEPARIN SOD 5000 UNIT/0.5 ML CARP SQ SCH ×2 (09:10→20:11)
[2016-10-20] MEDS: INSULIN HUMAN 70% NPH/30% REGULAR SC SCH ×2 (09:10→17:40)
[2016-10-20] MEDS: INSULIN ASPART 100 UNITS/ML 3 ML PEN SC SCH ×4 (09:12→21:38)
--- NOTE | 2016-10-20 10:00 | Nephrology Progress Note ---
Nephrology Progress Note Date of Service Oct 20, 2016. Chief Complaint BECKIE/CKD Subjective No acute events overnight. No complaints this morning. Ambulating in room. No shortness of breath. Appetite good. Voiding without difficulty. Urine output decreased. Tolerated HD yesterday, UF 2 kg. Review of Systems A complete review of systems was performed. Pertinent positives are noted above. All other systems are negative. Vital Signs Last 8 Hrs Date Time Temp Pulse Resp B/P Pulse Ox O2 Delivery O2 Flow Rate FiO2 10/20/16 07:29 71 16 96 Room Air 10/20/16 07:20 36.7 67 18 138/80 98 2.0 I & O 24-Hour Column 10/20/16 07:59 Intake Total 740 ml Output Total 3400 ml Balance -2660 ml Last Recorded Weight Weight (Kilograms): 114.700 Physical Exam General Appearance: WD/WN, no apparent distress Head: normocephalic, atraumatic Eyes: normal inspection, sclerae normal ENT: normal ENT inspection, pharynx normal Neck: supple, + pertinent finding ([facility]) Respiratory/Chest: lungs clear, no respiratory distress, no accessory muscle use Cardiovascular: regular rate, rhythm, no gallop Back: no CVA tenderness Abdomen/GI: non tender, soft Extremities/Musculoskelatal: normal inspection, no pedal edema Neurologic/Psych: alert, oriented x 3 Laboratory Results Past 24 Hours 10/20/16 07:00 10/20/16 07:00 Test 10/19/16 12:44 10/19/16 16:29 10/19/16 20:11 10/20/16 07:00 Bedside Glucose 162 mg/dl (70-90) 232 mg/dl (70-90) 237 mg/dl (70-90) Red Blood Count 3.66 M/uL (4.2-5.4) Mean Corpuscular Volume 88.0 fL (80-100) Mean Corpuscular Hemoglobin 28.4 pg (25-34) Mean Corpuscular Hemoglobin Concent 32.3 g/dl (32-36) RDW Standard Deviation 44.5 fL (36.4-46.3) RDW Coefficient of Variation 14.0 % (11.5-14.5) Mean Platelet Volume 10.5 fL (7.4-10.4) Anion Gap 8.0 mmol/L (3-11) Est Creatinine Clear Calc Drug Dose 23.8 ml/min Estimated GFR () 17.0 Estimated GFR (Non- 14.6 BUN/Creatinine Ratio 9.1 (10-20) Calcium Level 8.1 mg/dl (8.5-10.1) Magnesium Level 1.8 mg/dl (1.8-2.4) Test 10/20/16 07:46 Bedside Glucose 217 mg/dl (70-90) Allergies Coded Allergies: Latex1 -Allergic Contact Dermititis (Verified Adverse Reaction, Mild, RASH , 09/25/16) Medications Current Inpatient Medications Medications (Trade) Dose Ordered Sig/Elizabet Route Start Time Stop Time Status Last Admin Dose Admin Acetaminophen (Tylenol Tab) 650 mg Q4H PRN PO 09/25/16 23:30 10/25/16 23:29 10/08/16 07:54 650 MG Al Hydrox/Mg Hydrox/Simethicone (Maalox Max Susp) 15 ml Q4H PRN PO 09/25/16 23:30 10/25/16 23:29 10/09/16 07:52 15 ML Magnesium Hydroxide (Milk Of Magnesia Susp) 30 ml Q12H PRN PO 09/25/16 23:30 10/25/16 23:29 Ondansetron HCl (Zofran Inj) 4 mg Q6H PRN IV 09/25/16 23:30 10/25/16 23:29 10/15/16 06:33 4 MG Nitroglycerin (Nitrostat Tab) 0.4 mg UD PRN SL 09/25/16 23:30 10/25/16 23:29 10/12/16 11:00 0.4 MG Polyethylene (Miralax Powder Packet) 17 gm DAILY PRN PO 09/25/16 23:30 10/25/16 23:29 Citalopram Hydrobromide (celeXA TAB) 20 mg QAM PO 09/26/16 09:00 10/26/16 08:59 10/20/16 09:07 20 MG Atorvastatin Calcium (Lipitor Tab) 40 mg HS PO 09/26/16 21:00 10/26/16 20:59 10/19/16 21:13 40 MG Clopidogrel Bisulfate (plAVix TAB) 75 mg QAM PO 09/26/16 09:00 10/26/16 08:59 10/20/16 09:07 75 MG Amlodipine Besylate (Norvasc Tab) 10 mg QAM PO 09/26/16 09:00 10/26/16 08:59 10/20/16 09:07 10 MG Tramadol HCl (Ultram Tab) 50 mg Q4H PRN PO 09/25/16 23:30 10/25/16 23:29 10/11/16 21:07 50 MG Glucose (Glucose 40% Gel) 15-30 GRAMS 15 GRAMS... UD PRN PO 09/26/16 00:30 10/26/16 00:29 Glucose (Glucose Chew Tab) 4-8 Tablets 4 Tabl... UD PRN PO 09/26/16 00:30 10/26/16 00:29 Dextrose (Dextrose 50% 50ML Syringe) 25-50ML OF 50% DW IV FOR... UD PRN IV 09/26/16 00:30 10/26/16 00:29 Glucagon (Glucagon Inj) 1 mg UD PRN SQ 09/26/16 00:30 10/26/16 00:29 Insulin Aspart (novoLOG ASPART) SLIDING SCALE G... ACHS SC 09/27/16 17:00 10/27/16 16:59 10/20/16 09:12 7 UNITS Albuterol/ Ipratropium (Duoneb) 3 ml Q2H PRN INH 09/28/16 11:15 10/28/16 11:14 10/09/16 05:25 3 ML Hydralazine HCl (HydrALAZINE INJ) 10 mg Q4H PRN IV 09/28/16 15:15 10/28/16 15:14 10/03/16 03:09 10 MG Arformoterol Tartrate (Brovana 15MCG/ 2ML Neb Soln) 15 mcg BIDR INH 09/28/16 20:00 10/28/16 19:59 10/20/16 07:29 15 MCG Carvedilol (Coreg Tab) 25 mg BID PO 09/30/16 21:00 10/30/16 20:59 10/20/16 09:08 25 MG Albuterol/ Ipratropium (Combivent Respimat Inh) 1 puffs QID INH 10/03/16 13:00 11/02/16 12:59 10/20/16 09:08 1 PUFFS Hydralazine HCl (Apresoline Tab) 100 mg BID PO 10/04/16 21:00 11/03/16 20:59 10/20/16 09:08 100 MG Heparin Sodium (Porcine) (Heparin Sq 5000 Unit/0.5ml) 5,000 unit Q12 SQ 10/05/16 21:00 11/04/16 20:59 10/20/16 09:10 5,000 UNIT Aspirin 81 mg 81 mg QAM PO 10/07/16 09:00 11/06/16 08:59 10/20/16 09:07 81 MG Bumetanide/Syringe (Bumex IV/ Syringe) 8 ml @ 4 mls/min BID17 IV 10/08/16 17:00 11/07/16 16:59 10/20/16 09:07 4 MLS/MIN Lorazepam (Ativan Tab) 0.5 mg Q8H PRN PO 10/08/16 11:00 11/07/16 10:59 10/11/16 22:46 0.5 MG Insulin Human Isoph/Insulin Regular (novoLIN 70/30 REGULAR) 4 units BIDM SC 10/10/16 16:45 11/09/16 16:44 10/20/16 09:10 4 UNITS Docusate Sodium (coLACE CAP) 100 mg BID PO 10/11/16 21:00 11/10/16 20:59 10/19/16 13:42 100 MG Oxycodone/ Acetaminophen (Percocet 5-325mg Tab) 1 tab Q4H PRN PO 10/12/16 01:30 10/26/16 01:29 10/14/16 20:37 1 TAB Morphine Sulfate (MoRPHine SULFATE INJ) 4 mg Q2H PRN IV 10/12/16 10:45 10/26/16 10:44 10/13/16 01:12 4 MG Epoetin Luis (Procrit Inj) 2,000 units UD PRN IV 10/15/16 08:00 11/14/16 07:59 10/19/16 19:19 2,000 UNITS Miscellaneous Information (Pending Order) 1 ea DAILY@10 N/A 10/15/16 10:00 11/14/16 09:59 10/16/16 11:45 1 EA Impression (1) Contrast dye induced nephropathy (2) Chronic kidney disease, stage III (moderate) (3) Acute on chronic diastolic CHF (congestive heart failure) (4) Acute renal insufficiency (5) Diabetic nephropathy (6) Nephrotic range proteinuria Mrs. Gutierrez is a 51-year-old female with diabetic nephropathy, obesity and hypertensive nephrosclerosis. Imaging has documented nephrocalcinosis and renal vascular calcifications. She has nephrotic range proteinuria. She developed acute on advanced chronic renal failure in the setting of ATN/MARSHAL and acute cardiac disease. There has been no evidence of renal recovery. Given her baseline advanced CKD, the ability to come off hemodialysis is not expected. This is consistent with ESRD. She started on HD 10/09/16 via Rt IJ TDC. She has been tolerating hemodialysis well. She was admitted with acute hypoxic respiratory failure in the setting of hypervolemia related to acute on chronic diastolic CHF and advanced renal disease. She suffered a NSTEMI. She required cardiac catheterization, PCI w/ BMS x 2 was performed on 10/06/16. She developed BECKIE following the procedure. Dr. Jennifer ybarra [place] has been Tootie's primary bicycle repairer. AVF placement is to be scheduled as an outpatient. Recommendations ESRD: -- HD MWF -- UF goal 2 kg -- Protect L arm for AVF placement -- Renal diet ANEMIA: -- Patient has completed a 1 g infusion of IV iron -- PRBC transfusion on 10/09/16 -- Epogen QHD CAD: -- Cardiac cath on 10/06/16, required PCI w/ BMX x 2
--- NOTE | 2016-10-20 13:54 | Hospitalist Progress Note ---
Hospitalist Progress Note Date of Service Oct 20, 2016. Subjective Pt evaluation today including: conversation w/ patient, physical exam, chart review, lab review, review of inpatient medication list Voiding: no incontinence Patient states she is feeling well. She is anxious for discharge. Patient denies any fever, chills, sweats, lightheadedness, dizziness, vision changes, CP , palpitations, edema, SOB, wheezing, cough, abdominal pain, nausea, vomiting, diarrhea, urinary symptoms, melena, numbness/tingling, weakness, muscle/joint pain, anxiety/depression, active bleeding, or new skin discoloration/changes. Medications Current Inpatient Medications Medications (Trade) Dose Ordered Sig/Elizabet Route Start Time Stop Time Status Last Admin Dose Admin Acetaminophen (Tylenol Tab) 650 mg Q4H PRN PO 09/25/16 23:30 10/25/16 23:29 10/08/16 07:54 650 MG Al Hydrox/Mg Hydrox/Simethicone (Maalox Max Susp) 15 ml Q4H PRN PO 09/25/16 23:30 10/25/16 23:29 10/09/16 07:52 15 ML Magnesium Hydroxide (Milk Of Magnesia Susp) 30 ml Q12H PRN PO 09/25/16 23:30 10/25/16 23:29 Ondansetron HCl (Zofran Inj) 4 mg Q6H PRN IV 09/25/16 23:30 10/25/16 23:29 10/15/16 06:33 4 MG Nitroglycerin (Nitrostat Tab) 0.4 mg UD PRN SL 09/25/16 23:30 10/25/16 23:29 10/12/16 11:00 0.4 MG Polyethylene (Miralax Powder Packet) 17 gm DAILY PRN PO 09/25/16 23:30 10/25/16 23:29 Citalopram Hydrobromide (celeXA TAB) 20 mg QAM PO 09/26/16 09:00 10/26/16 08:59 10/20/16 09:07 20 MG Atorvastatin Calcium (Lipitor Tab) 40 mg HS PO 09/26/16 21:00 10/26/16 20:59 10/19/16 21:13 40 MG Clopidogrel Bisulfate (plAVix TAB) 75 mg QAM PO 09/26/16 09:00 10/26/16 08:59 10/20/16 09:07 75 MG Amlodipine Besylate (Norvasc Tab) 10 mg QAM PO 09/26/16 09:00 10/26/16 08:59 10/20/16 09:07 10 MG Tramadol HCl (Ultram Tab) 50 mg Q4H PRN PO 09/25/16 23:30 10/25/16 23:29 10/11/16 21:07 50 MG Glucose (Glucose 40% Gel) 15-30 GRAMS 15 GRAMS... UD PRN PO 09/26/16 00:30 10/26/16 00:29 Glucose (Glucose Chew Tab) 4-8 Tablets 4 Tabl... UD PRN PO 09/26/16 00:30 10/26/16 00:29 Dextrose (Dextrose 50% 50ML Syringe) 25-50ML OF 50% DW IV FOR... UD PRN IV 09/26/16 00:30 10/26/16 00:29 Glucagon (Glucagon Inj) 1 mg UD PRN SQ 09/26/16 00:30 10/26/16 00:29 Insulin Aspart (novoLOG ASPART) SLIDING SCALE G... ACHS SC 09/27/16 17:00 10/27/16 16:59 10/20/16 13:31 11 UNITS Albuterol/ Ipratropium (Duoneb) 3 ml Q2H PRN INH 09/28/16 11:15 10/28/16 11:14 10/09/16 05:25 3 ML Hydralazine HCl (HydrALAZINE INJ) 10 mg Q4H PRN IV 09/28/16 15:15 10/28/16 15:14 10/03/16 03:09 10 MG Arformoterol Tartrate (Brovana 15MCG/ 2ML Neb Soln) 15 mcg BIDR INH 09/28/16 20:00 10/28/16 19:59 10/20/16 07:29 15 MCG Carvedilol (Coreg Tab) 25 mg BID PO 09/30/16 21:00 10/30/16 20:59 10/20/16 09:08 25 MG Albuterol/ Ipratropium (Combivent Respimat Inh) 1 puffs QID INH 10/03/16 13:00 11/02/16 12:59 10/15/16 07:57 1 PUFFS Hydralazine HCl (Apresoline Tab) 100 mg BID PO 10/04/16 21:00 11/03/16 20:59 10/20/16 09:08 100 MG Heparin Sodium (Porcine) (Heparin Sq 5000 Unit/0.5ml) 5,000 unit Q12 SQ 10/05/16 21:00 11/04/16 20:59 10/20/16 09:10 5,000 UNIT Aspirin 81 mg 81 mg QAM PO 10/07/16 09:00 11/06/16 08:59 10/20/16 09:07 81 MG Bumetanide/Syringe (Bumex IV/ Syringe) 8 ml @ 4 mls/min BID17 IV 10/08/16 17:00 11/07/16 16:59 10/20/16 09:07 4 MLS/MIN Lorazepam (Ativan Tab) 0.5 mg Q8H PRN PO 10/08/16 11:00 11/07/16 10:59 10/11/16 22:46 0.5 MG Insulin Human Isoph/Insulin Regular (novoLIN 70/30 REGULAR) 4 units BIDM SC 10/10/16 16:45 11/09/16 16:44 10/20/16 09:10 4 UNITS Docusate Sodium (coLACE CAP) 100 mg BID PO 10/11/16 21:00 11/10/16 20:59 10/19/16 13:42 100 MG Oxycodone/ Acetaminophen (Percocet 5-325mg Tab) 1 tab Q4H PRN PO 10/12/16 01:30 10/26/16 01:29 10/14/16 20:37 1 TAB Morphine Sulfate (MoRPHine SULFATE INJ) 4 mg Q2H PRN IV 10/12/16 10:45 10/26/16 10:44 10/13/16 01:12 4 MG Epoetin Luis (Procrit Inj) 2,000 units UD PRN IV 10/15/16 08:00 10/21/16 07:59 10/19/16 19:19 2,000 UNITS Epoetin Luis (Procrit Inj) 4,000 units MoWeFr IV. 10/21/16 08:00 11/20/16 07:59 Objective Vital Signs Date Time Temp Pulse Resp B/P Pulse Ox O2 Delivery O2 Flow Rate FiO2 10/20/16 10:30 Room Air 10/20/16 07:29 71 16 96 Room Air 10/20/16 07:20 36.7 67 18 138/80 98 2.0 10/20/16 00:20 36.9 66 20 152/80 95 Room Air 10/20/16 00:10 Nasal Cannula 2.0 10/19/16 19:18 66 16 96 Room Air 10/19/16 16:00 Room Air 10/19/16 15:41 36.7 68 18 115/68 96 Room Air Physical Exam General Appearance: no apparent distress, + obese Eyes: normal inspection, PERRL ENT: hearing grossly normal Neck: supple Respiratory/Chest: lungs clear, no respiratory distress, no accessory muscle use Cardiovascular: regular rate, rhythm Abdomen: normal bowel sounds, non tender, soft Extremities: no pedal edema, no calf tenderness Neurologic/Psychiatric: alert, normal mood/affect, oriented x 3 Skin: normal color, warm/dry, no rash Laboratory Results Last 24 Hours Test 10/19/16 16:29 10/19/16 20:11 10/20/16 07:00 10/20/16 07:46 Bedside Glucose 232 mg/dl 237 mg/dl 217 mg/dl White Blood Count 8.09 K/uL Red Blood Count 3.66 M/uL Hemoglobin 10.4 g/dL Hematocrit 32.2 % Mean Corpuscular Volume 88.0 fL Mean Corpuscular Hemoglobin 28.4 pg Mean Corpuscular Hemoglobin Concent 32.3 g/dl RDW Standard Deviation 44.5 fL RDW Coefficient of Variation 14.0 % Platelet Count 362 K/uL Mean Platelet Volume 10.5 fL Sodium Level 139 mmol/L Potassium Level 3.9 mmol/L Chloride Level 105 mmol/L Carbon Dioxide Level 26 mmol/L Anion Gap 8.0 mmol/L Blood Urea Nitrogen 31 mg/dl Creatinine 3.40 mg/dl Est Creatinine Clear Calc Drug Dose 23.8 ml/min Estimated GFR () 17.0 Estimated GFR (Non- 14.6 BUN/Creatinine Ratio 9.1 Random Glucose 223 mg/dl Calcium Level 8.1 mg/dl Magnesium Level 1.8 mg/dl Test 10/20/16 11:36 Bedside Glucose 296 mg/dl Assessment and Plan 51 F admitted admitted on 09/26/2016 because of acute diastolic heart failure, and renal failure after recent pneumonia , suffered a NSTEMI, which required cardiac catheterization, PCI w/ BMS x 2 10/06/16, development acute on chronic kidney failure , PermCath was placed on 10/09/2016 and dialysis has had 2 time dialysis new chest pain the night before and yesterday ,has rule out DVT and PE NSTEMI/CAD s/p PCI with bare metal stent x2 to mid and distal LAD; diffuse RCA, OM 1 residual disease on 10/06: - Continue Atorvastatin 40 mg daily, Coreg 25 mg BID, Plavix 75 mg daily - STABLE from cardiology standpoint- follow-up w/ Dr. Lee in 2-3 weeks - Cardiac rehabilitation- encouraged follow-up w/ PCP to arrange for the cardiac rehabilitation as outpatient Acute on chronic diastolic HF- resolved: - IV Bumex BID - ECHO 09/26- * 1. Normal LV size, moderate concentric LVH. * 2. Normal LV systolic function. LVEF 60-65%. Severe apical hypokinesis. * 3. RV not well visualized. Function grossly normal. * 4. Mild mitral regurgitation. * 5. Grade II diastolic dysfunction * 6. Elevated RA pressure (Est 15 mmHg). * 7. Moderate left pleural effusion. * 8. No prior studies for comparison. HTN: Hydralazine 100 mg BID and Norvasc 10 mg daily Acute respiratory failure, likely secondary to volume overload secondary to acute on CKD, B/l Pleural effusions- resolved: - O2 protocol, weaned as tolerated - DuoNeb PRN, Combivent INH QID, Brovana INH BID ESRD on dialysis as of 10/09: - IJ THC placement on 10/09 - HD MWF - Renal diet- nutrition consulted for counselling - Nephrology following Anemia- 2 units PRBC transfusion on 10/09: - 1 g infusion of IV iron - Epogen QHD - Iron panel reviewed - Nephrology following S/P Pneumonia: - Treated w/ IV antibiotics Zosyn + Vancomycin - MRSA nasal swab positive T2DM, w/ ha1c of 7.0: - Novolin 70/30 4 u BID - BSG ACHS w/ sliding insulin scale Back pain- CT negative for any pathologies GI Prophylaxis: Maalox PRN, IV Zofran PRN, Colace and/or Milk of Mag PRN DVT prophylaxis: Heparin 5000 units SQ q12 hrs, TRUPTI and SCDs Code Status: LEVEL I, FULL Dispo: - Discharge to home, pending US renal in [place] acceptance - PT/OT evaluations- pt OK to resume home - Nurse navigator to setup PCP and Dr. Lee f/u once dialysis scheduled determined
[2016-10-20] MEDS: ACETAMINOPHEN 325 MG TAB PO PRN (15:20)
[2016-10-20] MEDS: ATORVASTATIN 40 MG TAB PO SCH (21:36)
[2016-10-21] VITALS: O2SAT 97
[2016-10-21 05:51] LABS: HEMATOCRIT 33.3 % (37-47); MEAN CELL VOLUME 89.3 fL (80-100); MEAN CORPUSCULAR HEMOGLOBIN 29.5 pg (25-34); MEAN PLATELET VOLUME 10.7 fL (7.4-10.4); PLATELET COUNT 365 K/uL (130-400); RED BLOOD COUNT 3.73 M/uL (4.2-5.4); WHITE BLOOD COUNT 8.02 K/uL (4.8-10.8)
[2016-10-21 06:13] LABS: BUN/CREATININE RATIO 12.9 (10-20); CALCIUM 8.7 mg/dl (8.5-10.1); CREATININE 3.3 mg/dl (0.60-1.20); MAGNESIUM 1.8 mg/dl (1.8-2.4)
[2016-10-21] MEDS: IPRATROPIUM BROMIDE/ALBUTEROL respimat INH INH SCH ×2 (07:16→07:27)
[2016-10-21 07:28] VITALS: PULSE 75; O2SAT 96
[2016-10-21] MEDS: ARFORMOTEROL TART 15MCG/2ML VIAL INH SCH (07:28)
[2016-10-21 07:59] VITALS: BP 148/82; PULSE 69; TEMP 36.6; O2SAT 96
[2016-10-21] MEDS ORDERED: EPOETIN ALFA 4000 UNITS/ML VIAL IV. SCH (08:00)
[2016-10-21] MEDS ORDERED: HEPARIN SOD (PORCINE) 1000 UNIT/ML 10 ML VIAL IV SCH ×2 (08:00)
[2016-10-21] MEDS ORDERED: BUME2TAB3 PO ×2 (09:04→09:15)
[2016-10-21] MEDS ORDERED: ARFO15NE INH (09:04)
[2016-10-21] MEDS ORDERED: CLX20 PO (09:04)
[2016-10-21] MEDS ORDERED: LPT40 PO (09:04)
[2016-10-21] MEDS ORDERED: NRV5 PO (09:04)
[2016-10-21] MEDS ORDERED: PLV75 PO (09:04)
[2016-10-21] MEDS ORDERED: CRG25 PO (09:04)
[2016-10-21] MEDS ORDERED: APR50 PO (09:04)
[2016-10-21] MEDS ORDERED: INSU70IN2 SC (09:04)
[2016-10-21] MEDS: INSULIN ASPART 100 UNITS/ML 3 ML PEN SC SCH ×2 (09:23→12:32)
[2016-10-21] MEDS: INSULIN HUMAN 70% NPH/30% REGULAR SC SCH (09:25)
[2016-10-21] MEDS: HEPARIN SOD 5000 UNIT/0.5 ML CARP SQ SCH (09:26)
[2016-10-21] MEDS: CITALOPRAM 20 MG TAB PO SCH (09:28)
[2016-10-21] MEDS: CLOPIDOGREL BISULFATE 75 MG TAB PO SCH (09:29)
[2016-10-21] MEDS: DOCUSATE SODIUM 100 MG CAP PO SCH (09:29)
[2016-10-21] MEDS: ASPIRIN 81 MG ECTAB PO SCH (09:30)
--- NOTE | 2016-10-21 09:32 | Discharge Instructions ---
Discharge Instructions Date of Service Oct 21, 2016. Admission Reason for Admission: Chf, Renal Failure Discharge Discharge Diagnosis / Problem: End Stage Renal Disease/Congestive Heart Failure /Myocardial Infarction Discharge Goals Goal(s): Decrease discomfort, Improve function, Increase independence, Improve disease control, Learn about illness, Diagnostic testing, Therapeutic intervention, Prevent Disease Progression Activity Recommendations Activity Limitations: resume your previous activity . Instructions / Follow-Up Instructions / Follow-Up New/changed Medications: 1. Plavix (Clopidogrel) 75 mg by mouth once daily You are on this medication because of your recent stent placement 2. Amlodipine (Norvasc) 5 mg by mouth once daily This medication is to manage your blood pressure 3. Atorvastatin (Lipitor) 40 mg by mouth once daily This medication is used to treat high cholesterol levels 4. Carvedilol (Coreg) 25 mg by mouth twice per day You were placed on this medication due to your recent heart complications 5. Hydralazine 100 mg by mouth twice per day This medication is to manage your blood pressure 6. Bumex 2 mg by mouth twice per day This medication is used to maintain fluid balance 7. Novolin 70/30 injection- 4 units subcutaneously twice per day This medication is for diabetic management STOP ALL OTHER DIABETIC MEDICATIONS AT THIS TIME 8. Celexa 20 mg by mouth once per day This medication is used to manage depression/anxiety 9. Aspirin 81 mg by mouth once daily PLEASE DISCONTINUE ALL OTHER HOME MEDICATIONS OTHER THAN LISTED ABOVE We do not have an accurate home medication list. The medications listed above are medications you have been receiving while being hospitalized. At your follow-up appointment with your PCP further medication review should be completed As far as your diabetic medication, please take Novolin 70/30 as listed above. Please stop all other diabetic medication at this time. Please record blood sugar levels before meals and before bedtime. Please take this log to your follow-up endocrinology appointment. They will further manage your diabetic medications It is VERY important you continue to follow Nephrology's recommendations/ counselling Please follow-up with your PCP within 5-7 days Please follow-up with Cardiology in 2-3 weeks Please follow-up with endocrinology in 1-2 weeks Please follow-up/keep all of your subspecialty appointments The nurse navigator is working to setup follow-up appointments with your PCP, cardiology, and endocrinology. If you do not hear of a scheduled appointment within the next 1-2 days, please call the office: Dr. Lee (cardiology) office # [phone] Dr. Cochran (PCP) office # [phone] Dr. Johnston (endocrinology) office # [phone] You are scheduled for dialysis on 10/22/16 at [facility] in [place] at 2:00 It is very important you call to reschedule your sleep study [facility]EE[facility] Current Hospital Diet Patient's current hospital diet: AHA Diet (Heart Healthy), Diabetes Type 2 Diet , Renal Diet Discharge Diet Recommended Diet: AHA Diet (Heart Healthy), Diabetes Type 2 Diet Pending Studies Studies pending at discharge: no Laboratory Results Last 24 Hours Test 10/20/16 11:36 10/20/16 16:24 10/20/16 21:12 10/21/16 05:24 Bedside Glucose 296 mg/dl 198 mg/dl 198 mg/dl White Blood Count 8.02 K/uL Red Blood Count 3.73 M/uL Hemoglobin 11.0 g/dL Hematocrit 33.3 % Mean Corpuscular Volume 89.3 fL Mean Corpuscular Hemoglobin 29.5 pg Mean Corpuscular Hemoglobin Concent 33.0 g/dl RDW Standard Deviation 45.7 fL RDW Coefficient of Variation 13.9 % Platelet Count 365 K/uL Mean Platelet Volume 10.7 fL Sodium Level 139 mmol/L Potassium Level 4.0 mmol/L Chloride Level 105 mmol/L Carbon Dioxide Level 26 mmol/L Anion Gap 8.0 mmol/L Blood Urea Nitrogen 43 mg/dl Creatinine 3.30 mg/dl Est Creatinine Clear Calc Drug Dose 24.5 ml/min Estimated GFR () 17.6 Estimated GFR (Non- 15.2 BUN/Creatinine Ratio 12.9 Random Glucose 218 mg/dl Calcium Level 8.7 mg/dl Magnesium Level 1.8 mg/dl Test 10/21/16 07:47 Bedside Glucose 201 mg/dl Hemoglobin A1c Test 10/08/16 07:18 Range/Units Estimated Average Glucose 154 mg/dl Hemoglobin A1c 7.0 H 4.5-5.6 % Medical Emergencies . Who to Call and When: Medical Emergencies: If at any time you feel your situation is an emergency, please call 911 immediately. . Non-Emergent Contact Non-Emergency issues call your: Primary Care Provider . . "Provider Documentation" section prepared by Alayna Johnson. VTE Core Measure Inpt VTE Proph given/why not?: Unfractionated heparin SQ
--- NOTE | 2016-10-21 09:48 | Discharge Summary ---
Discharge Summary Date of Service Oct 21, 2016. Discharge Summary Admission Date: Sep 25, 2016 at 23:21 Discharge Date: Oct 21, 2016 Principal Diagnosis: End stage renal disease Problems/Secondary Diagnoses: 1. NSTEMI/CAD s/p PCI with bare metal stent x2 to mid and distal LAD; diffuse RCA, OM 1 residual disease on 10/06 2. Acute on chronic diastolic HF 3. HTN 4. Acute respiratory failure, likely secondary to volume overload secondary to acute on CKD, B/l Pleural effusions 5. ?RENETTA 6. ESRD on dialysis as of 10/09 7. Anemia 8. S/P Pneumonia 9. T2DM 10. Depression/anxiety 11. Back pain Procedures: Operative Date Oct 09, 2016. Pre-Operative Diagnosis acute renal failure Post-Operative Diagnosis same Procedure(s) Performed Insertion Of Perm Catheter, Right Internal Jugular Approach, Ultrasound Localization Of Right Internal Jugular Vein, Fluoroscopy For Positioning, Moderate Concious Sedation [address] Encinas Property Consultant Surgeon(s) none Estimated Blood Loss 5 ml Findings tip in distal SVC Specimens none Anesthesia Local with conscious sedation Complication(s) None Disposition <Electronically signed by Brant Encinas M.D.> Procedure Note Procedure Date Oct 06, 2016. Pre-Procedure Diagnosis Acute Coronary Syndrome, Positive Stress Test AUC Score 9 Post-Procedure Diagnosis Severe CAD, Successful PCI Procedure(s) Performed Coronary Angiography, Bare Metal Stent, IVUS, Fractional Flow [place] Bowling Ball Patcher Dr. Lee Property Consultant(s) Edilberto Estimated Blood Loss 15 Medication(s) Aspirin, Clopidogrel, Fentanyl, Heparin, Integrilin, Nicardipine, Nitroglycerin , Versed, Lidocaine 1% Summary of Findings Indication: NSTEMI/High risk stress test (LAD, RCA distribution ischemia) Access: 6Fr Slender Right Radial Artery Catheters: Obed, 5Fr EBU 3.5 (unable to pass 6Fr EBU 3.5) Findings: LM - Angiographically normal LAD - Diffuse mild-moderate proximal disease, focal "napkin ring" calcified 70% early-mid segment stenosis, 50-60% focal early-distal segment stenosis, diffuse apical disease and wraps around apex. Circumflex - Tortuous proximally. Luminal irregularities. High 1st OM is a small caliber vessel with 80% proximal disease and diffuse distal disease. Distal OMs small with luminal irregularities. RCA - Dominant, small caliber vessel, 40% diffuse proximal to early-mid segment disease, 50-60% diffuse mid segment, 70-80% focal distal segment. Very small R- PDA with 60% focal mid segment disease. 80% ostial stenosis very small PLB IVUS -- LM without significant disease -- Proximal LAD with diffuse noncalcified plaque (up to 60% stenosis) -- Early-Mid LAD with focal heavily calcified stenosis ~70% stenosis iFR -- mid LAD - 0.75 -- High OM1 0.77 After iFR decision made to complete procedure and discuss revascularization options. Post iFR angiography showed early distal LAD complete occlusion (MIRIAM 0 flow) thought secondary to coronary dissection. Initially chest pain free, hemodynamically stable. Decision made to proceed with PCI to re-establish flow -- PCI -- Antithrombotic therapy: Heparin, Integrilin Procedure: Using 5Fr EBU 3.5 guide BMW wire able to be passed into distal vessel Intraluminal position confirmed with injection through OTW balloon. Dissection ballooned with prolonged 2.0 balloon inflations with re- establishment of TIMI1 flow Vessel spasm treated with IC vasodilators Dissection treated again with prolonged 2.5 mm balloon inflation with still MIRIAM 1-2 flow. 2.5 x 26 Integrity BMS stent placed across dissection with re-established TIMI3 flow. Stent post-dilated with 2.5 NC balloon. IC vasodilators administered for spasm 70% focal mid LAD lesion then pre-dilated with 2.5 compliant balloon. 3.0 x 15 Integrity BMS placed across lesion and post-dilated with 3.0 NC balloon Post procedure MIRIAM 3 flow, stents reasonably well expanded. Hazy opacity noted in distal stent thought likely thrombus. No evidence of edge dissection. Started on integrilin infusion. Arterial Closure: TR Band. Sheath removal complicated by severe radial spasm requiring versed, repeated IC nitroglycerin/nicardipine and placement of nitro- patch. Summary: 1. Moderate to severe multivessel coronary artery disease - Diffuse proximal LAD stenosis (up to 60% by IVUS) - 70% focal calcified early-mid LAD - 80% proximal small to moderate OM1 - Diffuse mid RCA (up to 60%), 70-80% distal RCA 2. Flow-limiting stenosis in mid LAD (iFR 0.75), proximal OM1 (iFR 0.77) 3. Distal LAD acute complete occlusion secondary to coronary dissection from iFR wire 4. Successful PCI of early-mid LAD and distal LAD with non-overlapping BMS (3.0 x 15, 2.5 x 26) Recommendations: Return to telemetry for continued monitoring Continue integrilin for 12 hours for residual intracoronary thrombus Loaded with 300 mg Clopidogrel, 324 ASA in film laboratory technician Continue dual-antiplatelet therapy with ASA/Clopidogrel for 1 year Normal saline 200 cc/hr for 2 hrs post procedure --> follow-up renal function to assess for MARSHAL Continue high-dose statins, antihypertensives Consult cardiac Rehab RCA and OM1 vessels are small and diffusely diseased. Will plan to medically manage. Hemodynamics Rest Ao: 141/56/89 Final Ao: 126/62/89 LV: -- Recommendations PCI without planned CABG Specimens None Radiation Exposure (mGy) 7334 (Patient counseled on high radiation exposure) Contrast (mls) 160 Visipaque Fluids (cc crystalloids) 360 NSS Drains None Anesthesia Moderate (start 14:23, End 17:50) Procedural Complication(s) Coronary artery dissection --> treated with BMS Disposition PCU ACC Data Cardiac Status Clinical evaluation leading to the procedure CAD Presntation: Non STEMI, Positive Stress Test Anginal Classification: CCS IV Heart Failure: No, NYHA Class: CCS I Cardiogenic Shock w/in 24Hrs: No Cardiac Arrest w/in 24Hrs: No Imaging studies past 6 months: Yes Stress studies past 6 months: Yes Standard Exercise Stress Test: No Stress Echocardiogram: No Stress Testing w/SPECT MPI: Yes - Positive, Risk/Extent of Ischemia (High) Coronary Anatomy Dominant: Right Left Main (% Stenosis): Normal LAD (% Stenosis): Proximal (60), Mid (70) OM1 (% Stenosis): Proximal (80) RCA (% Stenosis): Proximal (40), Mid (60), Distal (75) R PDA (% Stenosis): Mid (60) R PL2 (% Stenosis): Ostial (90) Diagnostic Physician's Name: Aston Lee MD Status: Elective Closure Device Percutaneous Entry Location: Radial Closure Device: Radial Band Recommendations: PCI without planned CABG Lesion Segment Name: Mid LAD Culprit Artery: Yes Stenosis Prior to Rx (%): 70 Chronic Total Occlusion: No IVUS: Yes FFR: Yes Ratio: less than or equal to 0.75% Pre-Procedure MIRIAM Flow: 3 Previously Treated Lesion: No Lesion Complexity: Non-High/Non-C Lesion Length (mm): 12 Thrombus Present: No Bifurcation Lesion: No Guidewire Across Lesion: Yes Guidewire: Stenosis Post-Procedure (%): 0 Post-Procedure MIRIAM Flow: 3 Device(s) Deployed: Yes Lesion #2 Segment Name: Distal LAD Culprit Artery: No Stenosis Prior to Rx (%): 100 Chronic Total Occlusion: No IVUS: No FFR: No Pre-Procedure MIRIAM Flow: 0 Previously Treated Lesion: No Lesion Complexity: High/C Thrombus Present: Yes Bifurcation Lesion: No Guidewire Across Lesion: Yes Intraprocedure Events Significant Dissection: Yes Perforation: No <Electronically signed by Aston Lee MD> CHEST CTA for PULMONARY ARTERIES CT DOSE: 710.83 mGy.cm HISTORY: Short of breath. TECHNIQUE: Multiaxial CT images of the chest were performed following the intravenous administration of contrast to evaluate the pulmonary arteries. Maximal intensity projection images were also obtained. COMPARISON STUDY: Chest CT 09/25/2016. FINDINGS: Normal caliber thoracic aorta with no evidence for dissection. The heart is mildly enlarged. Moderate to large right and small left pleural effusions have increased in size. The main pulmonary artery is dilated up to 3.8 cm. This is consistent with pulmonary arterial hypertension. The majority of the subsegmental pulmonary arteries are nondiagnostic due to the motion artifact. Otherwise, no filling defects within the remaining pulmonary arteries to suggest pulmonary embolus. Right jugular dual-lumen catheter is noted. No significant mediastinal or hilar lymphadenopathy. The visualized liver and spleen are unremarkable. Near complete consolidation of the right lower lobe with smaller areas of consolidation within the right middle lobe and left lower lobe favor compressive atelectasis from the pleural effusions. No pneumothorax. The central airways are patent. Groundglass densities and interlobular septal thickening have improved. IMPRESSION: 1. No evidence for pulmonary embolus with limitations as described above. 2. Groundglass densities and mild interstitial thickening has improved. This favors improvement in the pulmonary edema. 3. However, the bilateral pleural effusions have increased in size. 4. Additional findings as described above Electronically signed by: Best Saenz M.D. 10/12/2016 9:45 AM Dictated Date/Time: 10/12/2016 9:38 AM The status of this report is Signed. Draft = Not yet reviewed or approved by Radiologist. Signed = Reviewed and approved by Radiologist. BILATERAL LOWER EXTREMITY VENOUS DOPPLER HISTORY: Leg swelling. to rule out dvt COMPARISON STUDY: None. FINDINGS: There is normal compressibility, flow, and augmentation within the bilateral lower extremity deep venous systems. IMPRESSION: No DVT within the right or left lower extremity. Electronically signed by: Best Saenz M.D. 10/12/2016 10:28 AM Dictated Date/Time: 10/12/2016 10:27 AM The status of this report is Signed. Draft = Not yet reviewed or approved by Radiologist. Signed = Reviewed and approved by Radiologist. SINGLE VIEW CHEST CLINICAL HISTORY: CHF. FINDINGS: An AP, portable, upright chest radiograph is compared to study dated 09/26/2016 and correlated with chest CT dated 09/25/2016. The examination is degraded by portable technique, large body habitus, and patient rotation. The heart is enlarged. There is pulmonary vascular congestion, similar appearance to 09/26/2016. There are layering pleural effusions and bibasilar consolidation. No pneumothorax is seen. The skeletal structures are osteopenic. The bony thorax is grossly intact. Degenerative change and scoliosis are noted throughout the thoracic spine. IMPRESSION: 1. Cardiomegaly with evidence of congestive failure. 2. There are layering pleural effusions with bibasilar consolidation. This likely represents atelectasis. Clinical correlation will be required. Electronically signed by: Marv Cole M.D. 10/08/2016 10:38 AM Dictated Date/Time: 10/08/2016 10:37 AM The status of this report is Signed. Draft = Not yet reviewed or approved by Radiologist. Signed = Reviewed and approved by Radiologist. PROCEDURES: 1. Myocardial perfusion study performed in multiple views/images. 2. Pharmacologic Lexiscan stress test. INDICATIONS: 1. Non-ST elevation myocardial infarction. 2. Acute diastolic congestive heart failure. 3. Dyspnea with exertion. CONSENT: Informed written consent was obtained. This is a 2-day study. Stress testing was performed on 10/01/2016. Resting images were performed on 10/02/2016. PROCEDURAL DETAILS: For the stress portion of the study, Lexiscan 0.4 mg was intravenously administered over 10-15 seconds, followed by saline flush. This was followed by 22.3 mCi of technetium-99m Cardiolite intravenously at 11:15 a.m. on 10/01/2016. Thirty minutes following the injection, imaging of the heart was performed in multiple projections. For the rest portion of the study, 23.9 mCi of technetium-99m Cardiolite was injected intravenously at 1300 p.m. on 10/02/2016. One hour following the injection, imaging of the heart was performed in the same projections. ELECTROCARDIOGRAM AND VITALS: Resting ECG demonstrated normal sinus rhythm at 73 beats per minute. Nonspecific ST/T wave abnormality. Lexiscan ECG demonstrated no significant ST changes. There was no arrhythmia or significant pause/high grade block. Maximum heart rate was 90 beats per minute. Blood pressure values are not available at the time of this dictation. FINDINGS: Rotating raw imaging demonstrated no significant motion artifact. There was no significant lung uptake. Heart size overall appeared to be normal. Myocardial perfusion demonstrated a moderate sized defect of moderately decreased uptake in the anterior and anterolateral wall from base to apex, which was reversible in rest imaging. There was another moderate sized defect of moderately reduced uptake involving the inferior wall and inferolateral wall from base to distal left ventricle, sparing the apex. This was reversible when compared to rest imaging. The inferoseptum from base to mid left ventricle also had moderately reduced uptake and was reversible in resting imaging. Wall motion was difficult to evaluate on the gated images available. There appeared to be hypokinesis in the anterior wall, anterolateral wall from base to apex as well as the inferior wall from base to distal left ventricle. Ejection fraction was calculated at 55%. Transient ischemic dilation ratio is not available; however, visually there did appear to be transient ischemic dilation. IMPRESSION: 1. Abnormal myocardial perfusion study, suggesting multivessel coronary artery disease with LAD and RCA ischemic territories as noted above. 2. There was no fixed defect to suggest prior infarct. 3. No arrhythmia. 4. Nondiagnostic Lexiscan ECG. 5. Ejection fraction calculated at 55%. 6. Wall motion was difficult to assess with available gated images. Possible hypokinesis involving the ischemic territories as listed above. Dictated: 10/02/16 1645 Transcribed: 10/02/16 1713 <Electronically signed by Donovan Aguero M.D. > Signed: 10/05/16 1638 ES Donovan Aguero M.D. The status of this report is Signed. Draft = Not yet reviewed or approved by Bowling Ball Patcher. Signed = Reviewed and approved by Bowling Ball Patcher. ABDOMEN AND PELVIS CT WITHOUT CONTRAST CT DOSE: 2126.92 mGy.cm HISTORY: Pain severe abd pain TECHNIQUE: Multiaxial CT images of the abdomen and pelvis were performed without contrast. COMPARISON STUDY: None. FINDINGS: Bilateral pleural effusions. Basilar atelectatic change. Configuration of the liver is unremarkable. Gallbladder is negative for distention. Bilateral nonobstructing nephrocalcinosis/renal vascular calcifications. Trace body wall anasarca. Nonobstructive bowel pattern. Normal appendix. Bladder is midline. No significant free fluid within the pelvic cul-de-sac. No significant abdominal pelvic or inguinal richard change. IMPRESSION: 1. No acute process of the abdomen or pelvis. Normal appendix 2. Bilateral pleural effusions with bibasilar atelectatic change. 3. Mild body wall anasarca. Electronically signed by: Beto Evans M.D. 09/26/2016 2:35 PM Dictated Date/Time: 09/26/2016 2:32 PM The status of this report is Signed. Draft = Not yet reviewed or approved by Radiologist. Signed = Reviewed and approved by Radiologist. RENAL ULTRASOUND HISTORY: Renal insufficiency eval for ck. COMPARISON: None. FINDINGS: Right kidney: Maximum dimension 11.7 cm. No evidence for hydronephrosis. Several nonobstructing calcifications. Normal corticomedullary differentiation and cortical thickness. Left kidney: Maximum dimension 11.2 cm. No evidence for hydronephrosis. Normal corticomedullary differentiation and cortical thickness. Bladder: No bladder wall thickening. The bilateral ureteral jets were identified. IMPRESSION: Several right renal nonobstructing calcifications. Otherwise negative study Electronically signed by: Beto Evans M.D. 09/27/2016 6:08 AM Dictated Date/Time: 09/27/2016 6:07 AM The status of this report is Signed. Draft = Not yet reviewed or approved by Radiologist. Signed = Reviewed and approved by Radiologist. BILATERAL LOWER EXTREMITY VENOUS DOPPLER HISTORY: Pain. Edema. eval for dv COMPARISON STUDY: None. FINDINGS: There is normal compressibility, flow, and augmentation within the bilateral lower extremity deep venous systems. IMPRESSION: No DVT within the right or left lower extremity. Electronically signed by: Beto Evans M.D. 09/27/2016 6:03 AM Dictated Date/Time: 09/27/2016 6:02 AM The status of this report is Signed. Draft = Not yet reviewed or approved by Radiologist. Signed = Reviewed and approved by Radiologist. CHEST ONE VIEW PORTABLE CLINICAL HISTORY: reps distress dyspnea COMPARISON STUDY: CT chest dated 09/25/2016 FINDINGS: Findings of congestive failure versus mild pulmonary edema IMPRESSION: Congestive failure versus mild pulmonary edema. Electronically signed by: Beto Evans M.D. 09/26/2016 9:29 AM Dictated Date/Time: 09/26/2016 9:00 AM The status of this report is Signed. Draft = Not yet reviewed or approved by Radiologist. Signed = Reviewed and approved by Radiologist. CHEST CT WITHOUT CONTRAST CT DOSE: 1180.84 mGy.cm HISTORY: Dyspnea CHF vs PNM TECHNIQUE: Multiaxial CT images of the chest were performed without contrast. COMPARISON: None. FINDINGS: Bilateral pleural effusions. Components of congestive heart failure. Moderate cardiac enlargement. Patchy parenchymal slightly nodular-type upper lobe infiltrative change. Increased pulmonary vasculature. IMPRESSION: Congestive failure versus pulmonary edema. 2. Bilateral pleural effusions. 3. Patchy somewhat nodular upper lobe infiltrates bilaterally. Electronically signed by: Beto Evans M.D. 09/26/2016 6:14 AM Dictated Date/Time: 09/26/2016 6:13 AM The status of this report is Signed. Draft = Not yet reviewed or approved by Radiologist. Signed = Reviewed and approved by Radiologist. Consultations: Cardiology Nephrology Vascular surgery Medication Reconciliation New Medications: Bumetanide (Bumex) 2 Mg Tab 2 MG PO BID for 30 Days, #60 TAB Amlodipine Besylate (Amlodipine Besylate) 5 Mg Tab 10 MG PO QAM for 30 Days, #30 TAB Atorvastatin (Atorvastatin Calcium) 40 Mg Tab 40 MG PO HS for 30 Days, #30 TAB Carvedilol (Carvedilol) 25 Mg Tab 25 MG PO BID for 30 Days, #60 TAB Citalopram (Citalopram Hydrobromide) 20 Mg Tab 20 MG PO QAM for 30 Days, #30 TAB Clopidogrel Bisulfate (Clopidogrel) 75 Mg Tab 75 MG PO QAM for 30 Days, #30 TAB Hydralazine HCl (Hydralazine HCl) 50 Mg Tab 100 MG PO BID for 30 Days, #120 TAB Insulin Human Isophan/Regular (Novolin 70/30) Inj 4 UNITS SC BIDM, #240 UNITS Referrals At Discharge Follow up Referrals: Control Board Operator Referral - Within 1-2 Weeks with Beto Johnston Discharge Exam Review of Systems: Constitutional: No chills, No fatigue, No fever, No sweats, No weakness Respiratory: No cough, No hemoptysis, No shortness of breath Cardiovascular: No chest pain, No edema, No palpitations Abdomen: No constipation, No diarrhea, No nausea, No pain, No vomiting Musculoskeletal: No calf pain, No joint pain, No muscle pain, No swelling Genitourinary - Female: No dysuria, No hematuria Neurologic: No numbness/tingling, No weakness Psychiatric: No anxiety, No depression symptoms Hematologic / Lymphatic: No abnormal bleeding/bruising Integumentary: No itch, No new/changing skin lesions, No rash Physical Exam: General Appearance: no apparent distress, + obese Eyes: normal inspection, PERRL ENT: hearing grossly normal Neck: supple Respiratory/Chest: lungs clear, no respiratory distress, no accessory muscle use, + decreased breath sounds (thrughout all lung gomez ) Cardiovascular: regular rate, rhythm Abdomen / GI: normal bowel sounds, non tender, soft Extremities: no calf tenderness, no pedal edema Neurologic/Psychiatric: alert, normal mood/affect, oriented x 3 Skin: normal color, warm/dry, no rash Hospital Course 51 F admitted admitted on 09/26/2016 because of acute diastolic heart failure, and renal failure after recent pneumonia , suffered a NSTEMI, which required cardiac catheterization, PCI w/ BMS x 2 10/06/16, development acute on chronic kidney failure , PermCath was placed on 10/09/2016 and dialysis has had 2 time dialysis new chest pain the night before and yesterday ,has rule out DVT and PE NSTEMI/CAD s/p PCI with bare metal stent x2 to mid and distal LAD; diffuse RCA, OM 1 residual disease on 10/06: - Continue Atorvastatin 40 mg daily, Coreg 25 mg BID, Plavix 75 mg daily- continue at discharge - STABLE from cardiology standpoint- follow-up w/ Dr. Lee in 2-3 weeks - Cardiac rehabilitation- encouraged follow-up w/ PCP to arrange for the cardiac rehabilitation as outpatient Acute on chronic diastolic HF- resolved: - IV Bumex BID- Bumex 2 mg PO BID at discharge - ECHO 09/26- * 1. Normal LV size, moderate concentric LVH. * 2. Normal LV systolic function. LVEF 60-65%. Severe apical hypokinesis. * 3. RV not well visualized. Function grossly normal. * 4. Mild mitral regurgitation. * 5. Grade II diastolic dysfunction * 6. Elevated RA pressure (Est 15 mmHg). * 7. Moderate left pleural effusion. * 8. No prior studies for comparison. HTN: Hydralazine 100 mg BID and Norvasc 10 mg daily- continue at discharge Acute respiratory failure, likely secondary to volume overload secondary to acute on CKD, B/l Pleural effusions- resolved: - O2 protocol, weaned as tolerated - DuoNeb PRN, Combivent INH QID, Brovana INH BID - Instructed to patient to discuss need for inhaler/further workup with PCP- ? COPD w/ h/o smoking ?RENETTA: - Patient missed scheduled sleep study due to hospitalization. Instructed to call [facility] to reschedule ESRD on dialysis as of 10/09: - IJ THC placement on 10/09 - HD MWF - Renal diet- nutrition consulted for counselling - Nephrology following - Dialysis scheduled [facility] 10/[facility] at 1400 [facility] Anemia- 2 units PRBC transfusion on 10/09: - 1 g infusion of IV iron - Epogen QHD - Iron panel reviewed - Nephrology following S/P Pneumonia: - Treated w/ IV antibiotics Zosyn + Vancomycin - MRSA nasal swab positive T2DM, w/ ha1c of 7.0: - Novolin 70/30 4 u BID- continue at discharge - BSG ACHS w/ sliding insulin scale - Instructed patient to continue Novolin as above. She is to log BSG ACHS and follow-up with endocrinology in 1-2 weeks Depression/anxiety: Continue Celexa 20 mg PO QAM- continue at discharge Back pain- CT negative for any pathologies GI Prophylaxis: Maalox PRN, IV Zofran PRN, Colace and/or Milk of Mag PRN DVT prophylaxis: Heparin 5000 units SQ q12 hrs, TRUPTI and SCDs Code Status: LEVEL I, FULL Dispo: - Discharge to home - PT/OT evaluations- pt OK to resume home - Nurse navigator to setup PCP, endocrinology, and Dr. Lee f/u - Dialysis scheduled for 10/[address] at [address] [facility] Total Time Spent: Greater than 30 minutes This includes examination of the patient, discharge planning, medication reconciliation, and communication with other providers. Discharge Instructions Please refer to the electronic Patient Visit Report (Discharge Instructions) for additional information. Follow-Up Please follow-up with your PCP within 5-7 days Please follow-up with Cardiology in 2-3 weeks Please follow-up with Endocrinology in 1-2 weeks Call to reschedule sleep study [facility] Dialysis scheduled for 10/22/16 at renal in [place] Please follow-up/keep all of your subspecialty appointments Additional Copies To Haider Cochran M.D.; Beto Johnston
[2016-10-21] MEDS: ACETAMINOPHEN 325 MG TAB PO PRN (10:04)
[2016-10-21] MEDS: AMLODIPINE BESYLATE 5 MG TAB PO SCH (10:06)
[2016-10-21] MEDS: CARVEDILOL 25 MG TAB PO SCH (10:06)
[2016-10-21] MEDS: BUMETANIDE IV 2 MG in SYRINGE 0 ML IV SCH (10:08)
--- NOTE | 2016-10-21 10:36 | Nephrology Progress Note ---
Nephrology Progress Note Date of Service Oct 21, 2016. Chief Complaint BECKIE/CKD Subjective No acute events overnight. Tootie was seen and evaluated this morning. She feels well and is very excited to leave the hospital. She is voiding urine without difficulty. Urine output remains decreased. Appetite is good. She denies shortness of breath. No chest pain or palpitations. Review of Systems A complete review of systems was performed. Pertinent positives are noted above. All other systems are negative. Vital Signs Last 8 Hrs Date Time Temp Pulse Resp B/P Pulse Ox O2 Delivery O2 Flow Rate FiO2 10/21/16 07:59 36.6 69 20 148/82 96 Room Air 10/21/16 07:28 75 16 96 Room Air I & O 24-Hour Column 10/21/16 08:00 Intake Total 780 ml Output Total 2150 ml Balance -1370 ml Last Recorded Weight Weight (Kilograms): 115.200 Physical Exam General Appearance: WD/WN, no apparent distress Head: normocephalic, atraumatic Eyes: normal inspection, sclerae normal ENT: normal ENT inspection, pharynx normal Neck: supple, no JVD, + pertinent finding ([facility]) Respiratory/Chest: lungs clear, no respiratory distress, no accessory muscle use Cardiovascular: regular rate, rhythm, no gallop Back: no CVA tenderness Abdomen/GI: non tender, soft Extremities/Musculoskelatal: normal inspection, no pedal edema Neurologic/Psych: alert, oriented x 3 Laboratory Results Past 24 Hours 10/21/16 05:24 10/21/16 05:24 Test 10/20/16 11:36 10/20/16 16:24 10/20/16 21:12 10/21/16 05:24 Bedside Glucose 296 mg/dl (70-90) 198 mg/dl (70-90) 198 mg/dl (70-90) Red Blood Count 3.73 M/uL (4.2-5.4) Mean Corpuscular Volume 89.3 fL (80-100) Mean Corpuscular Hemoglobin 29.5 pg (25-34) Mean Corpuscular Hemoglobin Concent 33.0 g/dl (32-36) RDW Standard Deviation 45.7 fL (36.4-46.3) RDW Coefficient of Variation 13.9 % (11.5-14.5) Mean Platelet Volume 10.7 fL (7.4-10.4) Anion Gap 8.0 mmol/L (3-11) Est Creatinine Clear Calc Drug Dose 24.5 ml/min Estimated GFR () 17.6 Estimated GFR (Non- 15.2 BUN/Creatinine Ratio 12.9 (10-20) Calcium Level 8.7 mg/dl (8.5-10.1) Magnesium Level 1.8 mg/dl (1.8-2.4) Test 10/21/16 07:47 Bedside Glucose 201 mg/dl (70-90) Allergies Coded Allergies: Latex1 -Allergic Contact Dermititis (Verified Adverse Reaction, Mild, RASH , 09/25/16) Medications Current Inpatient Medications Medications (Trade) Dose Ordered Sig/Elizabet Route Start Time Stop Time Status Last Admin Dose Admin Acetaminophen (Tylenol Tab) 650 mg Q4H PRN PO 09/25/16 23:30 10/25/16 23:29 10/21/16 10:04 650 MG Al Hydrox/Mg Hydrox/Simethicone (Maalox Max Susp) 15 ml Q4H PRN PO 09/25/16 23:30 10/25/16 23:29 10/09/16 07:52 15 ML Magnesium Hydroxide (Milk Of Magnesia Susp) 30 ml Q12H PRN PO 09/25/16 23:30 10/25/16 23:29 Ondansetron HCl (Zofran Inj) 4 mg Q6H PRN IV 09/25/16 23:30 10/25/16 23:29 10/15/16 06:33 4 MG Nitroglycerin (Nitrostat Tab) 0.4 mg UD PRN SL 09/25/16 23:30 10/25/16 23:29 10/12/16 11:00 0.4 MG Polyethylene (Miralax Powder Packet) 17 gm DAILY PRN PO 09/25/16 23:30 10/25/16 23:29 Citalopram Hydrobromide (celeXA TAB) 20 mg QAM PO 09/26/16 09:00 10/26/16 08:59 10/21/16 09:28 20 MG Atorvastatin Calcium (Lipitor Tab) 40 mg HS PO 09/26/16 21:00 10/26/16 20:59 10/20/16 21:36 40 MG Clopidogrel Bisulfate (plAVix TAB) 75 mg QAM PO 09/26/16 09:00 10/26/16 08:59 10/21/16 09:29 75 MG Amlodipine Besylate (Norvasc Tab) 10 mg QAM PO 09/26/16 09:00 10/26/16 08:59 10/21/16 10:06 10 MG Tramadol HCl (Ultram Tab) 50 mg Q4H PRN PO 09/25/16 23:30 10/25/16 23:29 10/11/16 21:07 50 MG Glucose (Glucose 40% Gel) 15-30 GRAMS 15 GRAMS... UD PRN PO 09/26/16 00:30 10/26/16 00:29 Glucose (Glucose Chew Tab) 4-8 Tablets 4 Tabl... UD PRN PO 09/26/16 00:30 10/26/16 00:29 Dextrose (Dextrose 50% 50ML Syringe) 25-50ML OF 50% DW IV FOR... UD PRN IV 09/26/16 00:30 10/26/16 00:29 Glucagon (Glucagon Inj) 1 mg UD PRN SQ 09/26/16 00:30 10/26/16 00:29 Insulin Aspart (novoLOG ASPART) SLIDING SCALE G... ACHS SC 09/27/16 17:00 10/27/16 16:59 10/21/16 09:23 7 UNITS Albuterol/ Ipratropium (Duoneb) 3 ml Q2H PRN INH 09/28/16 11:15 10/28/16 11:14 10/09/16 05:25 3 ML Hydralazine HCl (HydrALAZINE INJ) 10 mg Q4H PRN IV 09/28/16 15:15 10/28/16 15:14 10/03/16 03:09 10 MG Arformoterol Tartrate (Brovana 15MCG/ 2ML Neb Soln) 15 mcg BIDR INH 09/28/16 20:00 10/28/16 19:59 10/21/16 07:28 15 MCG Carvedilol (Coreg Tab) 25 mg BID PO 09/30/16 21:00 10/30/16 20:59 10/21/16 10:06 25 MG Albuterol/ Ipratropium (Combivent Respimat Inh) 1 puffs QID INH 10/03/16 13:00 11/02/16 12:59 10/15/16 07:57 1 PUFFS Hydralazine HCl (Apresoline Tab) 100 mg BID PO 10/04/16 21:00 11/03/16 20:59 10/21/16 10:05 100 MG Heparin Sodium (Porcine) (Heparin Sq 5000 Unit/0.5ml) 5,000 unit Q12 SQ 10/05/16 21:00 11/04/16 20:59 10/21/16 09:26 5,000 UNIT Aspirin 81 mg 81 mg QAM PO 10/07/16 09:00 11/06/16 08:59 10/21/16 09:30 81 MG Bumetanide/Syringe (Bumex IV/ Syringe) 8 ml @ 4 mls/min BID17 IV 10/08/16 17:00 11/07/16 16:59 10/21/16 10:08 4 MLS/MIN Lorazepam (Ativan Tab) 0.5 mg Q8H PRN PO 10/08/16 11:00 11/07/16 10:59 10/11/16 22:46 0.5 MG Insulin Human Isoph/Insulin Regular (novoLIN 70/30 REGULAR) 4 units BIDM SC 10/10/16 16:45 11/09/16 16:44 10/21/16 09:25 4 UNITS Docusate Sodium (coLACE CAP) 100 mg BID PO 10/11/16 21:00 11/10/16 20:59 10/21/16 09:29 100 MG Oxycodone/ Acetaminophen (Percocet 5-325mg Tab) 1 tab Q4H PRN PO 10/12/16 01:30 10/26/16 01:29 10/14/16 20:37 1 TAB Morphine Sulfate (MoRPHine SULFATE INJ) 4 mg Q2H PRN IV 10/12/16 10:45 10/26/16 10:44 10/13/16 01:12 4 MG Epoetin Luis (Procrit Inj) 4,000 units MoWeFr IV. 10/21/16 08:00 11/20/16 07:59 Heparin Sodium (Porcine) (Heparin Iv Bolus) 2,000 unit TODAY@0800 IV 10/21/16 08:00 10/21/16 16:00 Impression (1) Contrast dye induced nephropathy (2) Chronic kidney disease, stage III (moderate) (3) Acute on chronic diastolic CHF (congestive heart failure) (4) Acute renal insufficiency (5) Diabetic nephropathy (6) Nephrotic range proteinuria Mrs. Gutierrez is a 51-year-old female with diabetic nephropathy, obesity and hypertensive nephrosclerosis. Imaging has documented nephrocalcinosis and renal vascular calcifications. She has nephrotic range proteinuria. She developed acute on advanced chronic renal failure in the setting of ATN/MARSHAL and acute cardiac disease. There had been no evidence of renal recovery. She has advanced renal failure and renal recovery very unlikely. Creatinine has been stable over past 24 hours. Metabolic profile otherwise acceptable. Volume status appropriate. She started on HD 10/09/16 via [facility]. She has been tolerating hemodialysis well. She is scheduled to start outpatient HD at [facility] in [place] tomorrow. She was admitted with acute hypoxic respiratory failure in the setting of hypervolemia related to acute on chronic diastolic CHF and advanced renal disease. She suffered a NSTEMI. She required cardiac catheterization, PCI w/ BMS x 2 was performed on 10/06/16. She developed BECKIE following the procedure. Recommendations ESRD: -- Hold HD today: blood pressure, volume status and electrolytes appropriate -- Scheduled for HD as outpatient tomorrow -- Protect L arm for AVF placement -- Renal diet ANEMIA: -- Patient has completed a 1 g infusion of IV iron -- PRBC transfusion on 10/09/16 -- Hold EPogen for Hgb >11 CAD: -- Cardiac cath on 10/06/16, required PCI w/ BMX x 2
[2016-10-21 11:01] VITALS: BP 148/82; PULSE 69; TEMP 36.6; O2SAT 96
--- NOTE | 2016-10-27 13:27 | DIAGNOSTIC IMAGING REPORT ---
DATE OF PROCEDURE: 10/09/2016 PREOPERATIVE DIAGNOSIS: Acute renal failure. POSTOPERATIVE DIAGNOSIS: Same. PROCEDURES: 1. Insertion of right internal jugular vein PermCath. 2. Ultrasound localization right internal jugular vein. 3. Fluoroscopic imaging for positioning. 4. Conscious sedation 15 minutes. SURGEON: Dr. Encinas. ANESTHETIC: Local with conscious sedation. PROCEDURE INDICATIONS: The patient is a 51-year-old female who is in acute renal failure from contrast-induced nephropathy. She is in need of dialysis. PermCath was recommended. She understood the risks, options and benefits and agreed to go ahead with this procedure. The patient was taken to the angiogram suite and placed in the supine position. After the right side of the neck and chest wall were prepped and draped in a sterile manner, local anesthetic was administered. Ultrasound was used to locate the internal jugular vein on the right side. It compressed easily and was patent. Percutaneous puncture was then made of the internal jugular vein on the right side and a wire passed centrally under fluoroscopic imaging. The wire passed into the inferior vena cava from above. Next, a stab wound was made in the anterior chest wall. The 19 cm PermCath was inserted through the stab wound in the chest wall and brought out through the puncture site in the neck. The puncture site was then dilated till the 14-Slovak sheath was inserted. Once the 14-Slovak peel-away sheath was inserted, the catheter was passed down through the peelaway sheath. Peelaway sheath was removed. The catheter had a nice curve with no kinking. The tip was in the distal superior vena cava. At this point, both ports aspirated and flushed easily. Both ports were then instilled with heparin. The catheter was sutured in place to the chest wall. The puncture site was then closed with interrupted 4-0 Vicryl with subcuticular suture and Dermabond for dressing. Dressing was then placed on the catheter. The patient left the angio suite in good condition and tolerated the procedure well.
== END 2016-10-21 14:58 | disposition home or self-care (01) | DRG 248 ==
LOC: ENRESERVTM → ENRESERVDT → C.2T 22:34 → UNDOADMIN 22:34 → C.2T 23:21 → UNDOADMIN 23:21 → EDBEDREQ 10-15 16:17 → EDBEDREQSVC 10-15 16:17 → C.4E 10-15 18:19
PROVIDERS: ADMIT Internal Medicine; ATTEND Hospitalist
PROC: B2111ZZ Fluoroscopy of Multiple Coronary Arteries using Low Osmolar Contrast (ICD-10-PCS; principal; 2016-10-06 14:19)
PROC: B241YZZ Ultrasonography of Multiple Coronary Arteries using Other Contrast (ICD-10-PCS; principal; 2016-10-06 14:19)
PROC: 02703DZ Dilation of Coronary Artery, One Artery with Intraluminal Device, Percutaneous Approach (ICD-10-PCS; principal; 2016-10-06 14:19)
PROC: 4A033BC Measurement of Arterial Pressure, Coronary, Percutaneous Approach (ICD-10-PCS; principal; 2016-10-06 14:19)
PROC: 02HV33Z Insertion of Infusion Device into Superior Vena Cava, Percutaneous Approach (ICD-10-PCS; 2016-10-09)
DX: I21.4 Non-ST elevation (NSTEMI) myocardial infarction (principal); I50.33 Acute on chronic diastolic (congestive) heart failure; N17.0 Acute kidney failure with tubular necrosis; I12.0 Hypertensive chronic kidney disease with stage 5 chronic kidney disease or end stage renal disease; N18.6 End stage renal disease; T82.897A Other specified complication of cardiac prosthetic devices, implants and grafts, initial encounter; I25.42 Coronary artery dissection; J96.01 Acute respiratory failure with hypoxia; E66.01 Morbid (severe) obesity due to excess calories; E11.21 Type 2 diabetes mellitus with diabetic nephropathy; E87.5 Hyperkalemia; Z86.14 Personal history of Methicillin resistant Staphylococcus aureus infection; E78.00 Pure hypercholesterolemia, unspecified; G47.33 Obstructive sleep apnea (adult) (pediatric); J44.9 Chronic obstructive pulmonary disease, unspecified; I25.10 Atherosclerotic heart disease of native coronary artery without angina pectoris; N14.1 Nephropathy induced by other drugs, medicaments and biological substances; Z87.891 Personal history of nicotine dependence; Z86.73 Personal history of transient ischemic attack (TIA), and cerebral infarction without residual deficits; T50.8X5A Adverse effect of diagnostic agents, initial encounter; I25.82 Chronic total occlusion of coronary artery; G47.30 Sleep apnea, unspecified; F17.200 Nicotine dependence, unspecified, uncomplicated; Z91.040 Latex allergy status; Y84.2 Radiological procedure and radiotherapy as the cause of abnormal reaction of the patient, or of later complication, without mention of misadventure at the time of the procedure; Y84.0 Cardiac catheterization as the cause of abnormal reaction of the patient, or of later complication, without mention of misadventure at the time of the procedure; Y92.239 Unspecified place in hospital as the place of occurrence of the external cause